=== PATIENT | female | born 1950 | race American Indian/Alaskan Native ===

== ENCOUNTER 2016-07-30 14:41 | Observation (INO) | payer MEDICARE, MEDICAID ==
[~2016-07-30] VITALS: Ht 170.2 cm; Wt 102.6 kg
[~2016-07-30 14:41] MED LIST: ACET-1697 PO; ACET-2267 PO; ACHYD1T PO; ASP325T PO; ASP325TEC PO; ASPI-84; ASPI-983 PO; ASPI81TA19 PO; BISA5TAB8 PO; CALC500T7 PO; CEPH-507 PO; CEPH500C PO; CHOL100011 PO; CTLP20T PO; DCS100C PO; DICL100G13 TOP; DICL100G13 TP; DICL100G18 TP; DOXY100T2 PO; DULO30CA3 PO; DULO60CA58 PO; DULO60CA6 PO; ENXP40I.4 SC; ESCI20TA2 PO; FIBER LAXATIVE; FURO40TA4 PO; GLYB5TAB6; HYDR-2890 PO; HYDR-3714 PO; HYDR-3720 PO; HYDR-3820 PO; HYDR118S10 PO; INSU100I10 SQ; INSU100I14 SQ; INSU100I5; INSU100V28 SQ; INSU100V6 SQ; IRON150C3 PO; IRON150C6 PO; LEVE1U SQ; LISI10TA2 PO; LOPE2CAP PO; LOPE2CAP14 PO; LOPE2CAP29 PO; LORA10TA7 PO; MAGN-47 PO; MAGN400O7 PO; MAGN400T6 PO; METF1000 PO; METO-272 PO; METO50TA7 PO; MTF500T PO; MULT-305 PO; NF-XOP-HFA; NITR-65 PO; OLME20TA21 PO; ONDA2VIA IV; ONDAN4ODT PO; PNT40TEC PO; POLY17PO23 GT; POLY17PO6 PO; POLY255P PO; PREG100C22 PO; PREG150C PO; PREG50C; PROP1TAB77; PROT1PAC2 PO; ROPI2TAB3 PO; ROPI2TAB4 PO; ROSU10TA12 PO; SULF1TAB35 PO; SULF1TAB7 PO; TELM40T; TRAM-42 PO; TRAM50TA2 PO; Tramadol Hcl PO; VANC1.5P3 IV; [UNRECOGNIZED DRUG - CODE] IVF; [UNRECOGNIZED DRUG - SUPPLY] IV
--- NOTE | 2016-07-30 15:28 | ED Integumentary General ---
General Chief Complaint: Lower Extremity Stated Complaint: BILATERAL LEG SWELLING, DIABETES Source: patient Exam Limitations: no limitations History of Present Illness Time seen by provider: 15:25 Initial Comments To ER with bilateral lower actually redness and swelling for the past few days. She's had chronic swelling to the left leg after having a hip replacement about a year and a half ago. The swelling and redness to the right leg is more pronounced over the past few days than usual. There is now an open sore to this area as well. No fevers or chills. She is diabetic. Severity: moderate Possible Cause: no cause identified Associated Symptoms: denies symptoms Allergies and Home Medications Allergies Coded Allergies: No Known Drug Allergies (Unverified , 09/15/13) Home Medications Aspirin 81 Mg Tablet.dr 243 MG PO DAILY (Reported) TAKES 3 (81 MG) TABLETS Calcium Carbonate 200 Mg Tab.chew 400 MG PO NEEDED PRN PRN INDIGESTION ( Reported) Diclofenac Sod 100 Gm Gel TP QID PRN PRN BACK PAIN (Reported) Duloxetine HCl 60 Mg Capsule.dr 60 MG PO DAILY (Reported) Furosemide 40 Mg Tablet 40 MG PO DAILY (Reported) Hydrocodone/Acetaminophen 1 Each Tablet 1 TAB PO Q4H PRN PRN PAIN (Reported) Insulin Aspart 300 Units/3 Ml Solution SQ UD (Reported) PER SLIDING SCALE Insulin Glargine,Hum.rec.anlog 100 Unit/1 Ml Insuln.pen 20 UNITS SQ DAILY ( Reported) HOLD IF BLOOD SUGAR IS 95 OR BELOW Loperamide HCl 2 Mg Capsule 2 MG PO QID PRN PRN DIARRHEA (Reported) Magnesium Hydroxide 400 Mg/5 Ml Oral.susp 30 ML PO DAILY PRN PRN CONSTIPATION ( Reported) Metoprolol Succinate 50 Mg Tab.er.24h 25 MG PO DAILY (Reported) Multivits W-Ca,Fe,Other Min 1 Each Tablet 1 TAB PO DAILY (Reported) Polyethylene Glycol 3350 255 Gm Powder 17 GM PO HS PRN PRN CONSTIPATION ( Reported) Pregabalin 150 Mg Capsule 150 MG PO TID (Reported) Ropinirole HCl 2 Mg Tablet 2 MG PO BID (Reported) Sulfamethoxazole/Trimethoprim 1 Each Tablet #14 1 EACH PO BID Prescribed by: DUKE JUAREZ on 08/16/15 1230 Tramadol HCl 50 Mg Tablet 50 MG PO Q6H PRN PRN PAIN (Reported) TAKES FOR MILD PAIN Whey Protein Isolate 1 Each Powd.pack 1 PACKET PO TID (Reported) Constitutional: see HPI EENTM: see HPI Respiratory: no symptoms reported Cardiovascular: no symptoms reported Genitourinary: no symptoms reported Musculoskeletal: no symptoms reported Skin: see HPI Psychiatric/Neurological: No Symptoms Reported Endocrine: No Symptoms Reported Hematologic/Lymphatic: No Symptoms Reported Past Kaxqhpq-Sykiir-Slugyc Hx Patient Social History Former Smoker/When Quit: Aug 12, 1991 Recent Foreign Travel: No Contact w/Someone Who Travel: No Immunizations Up To Date Tetanus Booster (TDap): Less than 5yrs PED Vaccines UTD: Yes Date of Pneumonia Vaccine: Mar 19, 2012 Date of Influenza Vaccine: Mar 25, 2015 Seasonal Allergies Seasonal Allergies: No Surgeries HX Surgeries: Yes (HEMORRHOIDECTOMY, L HIP replacement, reduction left hip dislocation x2) Surgeries: Gallbladder, Orthopedic Respiratory Hx Respiratory Disorders: No Cardiovascular Hx Cardiac Disorders: Yes (CHF) Cardiac Disorders: Hypertension Neurological Hx Neurological Disorders: Yes (RLS) Reproductive System Hx Reproductive Disorders: No Sexually Transmitted Disease: No HIV/AIDS: No Genitourinary Hx Genitourinary Disorders: No Gastrointestinal Hx Gastrointestinal Disorders: Yes Gastrointestinal Disorders: Chronic Constipation, Hemorrhoids Musculoskeletal Musculoskeletal Disorders: Arthritis, Back Injury, Chronic Back Pain Endocrine Hx Endocrine Disorders: Yes (Lantus/ Novolog) Endocrine Disorders: Diabetes, Insulin dep HEENT HX ENT Disorders: Yes (report the start of cataracts, migrains) HEENT Disorders: Cataract Loss of Vision: Bilateral Hearing Impairment: Denies Cancer Hx Cancer: No Psychosocial Hx Psychiatric Problems: Yes Behavioral Health Disorders: Anxiety, Depression Integumentary HX Skin/Integumentary Disorder: No Blood Transfusions Hx Blood Disorders: No Adverse Reaction to a Blood Tr: No Family Medical History Significant Family History: No Pertinent Family Hx Family Medial History: Congestive heart failure 03 FATHER Prostate cancer 03 FATHER No Family History of: Abdominal aortic aneurysm [place]'s disease Alcoholism Aphasia Cancer Cancer of colon Cataract Congenital heart disease Cystic fibrosis Dementia Dysphagia Family history: Allergy Family history: Alzheimer's disease Family history: Arthritis Family history: Asthma Family history: Breast disease Family history: Cardiovascular disease Family history: Coronary thrombosis Family history: Diabetes mellitus Family history: Gastrointestinal disease Family history: Glaucoma Family history: Hypertension Family history: Osteoporosis Family history: Thyroid disorder Headache Hearing loss Heart disease Hereditary disease History of - anemia History of - disorder History of - respiratory disease History of drug abuse Human immunodeficiency virus (HIV) seropositivity Hypercholesterolemia Infertile Kidney disease Malignant neoplasm of lung Myocardial infarction Parkinson's disease Psychotic disorder Seizure disorder Stroke Tuberculosis Visual impairment Physical Exam Vital Signs Vital Sign - Last 12Hours 07/30/16 15:35 Temp 97.2 Pulse 85 Resp 20 B/P 154/77 Pulse Ox 96 Capillary Refill : General Appearance: WD/WN no apparent distress HEENT: PERRL/EOMI normal ENT inspection Neck: non-tender full range of motion Respiratory: no respiratory distress no accessory muscle use Neurologic/Psychiatric: alert normal mood/affect oriented x 3 Skin: normal color warm/dry Skin Problem Character: erythema Comments Erythema to bilateral lower extremities which is likely chronic venous stasis dermatitis. The left leg is swollen no more so than usual but greater than the right leg. We will ultrasound the left leg. There is an open area to the medial aspect of the right lower leg with some drainage. Progress/Results/Core Measures Results/Orders Lab Results Laboratory Tests Test 07/30/16 15:24 Range/Units Alanine Aminotransferase (ALT/SGPT) 21 0-55 U/L Albumin 4.2 3.2-4.5 G/DL Alkaline Phosphatase 108 40-136 U/L Anion Gap 8 5-14 MMOL/L Aspartate Amino Transf (AST/SGOT) 17 5-34 U/L BUN/Creatinine Ratio 11 Basophils # (Auto) 0.1 0.0-0.1 10^3/uL Basophils (%) (Auto) 1 0-10 % Blood Urea Nitrogen 9 7-18 MG/DL Calcium Level 10.6 H 8.5-10.1 MG/DL Carbon Dioxide Level 27 21-32 MMOL/L Chloride Level 102 98-107 MMOL/L Creatinine 0.84 0.60-1.30 MG/DL Eosinophils # (Auto) 0.4 H 0.0-0.3 10^3/uL Eosinophils (%) (Auto) 5 0-10 % Estimat Glomerular Filtration Rate > 60 Glucose Level 184 H 70-105 MG/DL Hematocrit 38 35-52 % Hemoglobin 12.1 11.5-16.0 G/DL Lactic Acid Level 1.0 0.5-2.0 MMOL/L Lymphocytes # (Auto) 1.3 1.0-4.0 X 10^3 Lymphocytes (%) (Auto) 14 12-44 % Mean Corpuscular Hemoglobin 26 25-34 PG Mean Corpuscular Hemoglobin Concent 32 32-36 G/DL Mean Corpuscular Volume 82 80-99 FL Mean Platelet Volume 10.6 H 7.4-10.4 FL Monocytes # (Auto) 0.9 0.0-1.0 X 10^3 Monocytes (%) (Auto) 10 0-12 % Neutrophils # (Auto) 6.2 1.8-7.8 X 10^3 Neutrophils (%) (Auto) 70 42-75 % Platelet Count 272 130-400 10^3/uL Potassium Level 4.1 3.6-5.0 MMOL/L Red Blood Count 4.59 4.35-5.85 10^6/uL Red Cell Distribution Width 14.9 H 10.0-14.5 % Sodium Level 137 135-145 MMOL/L Total Bilirubin 0.4 0.1-1.0 MG/DL Total Protein 7.9 6.4-8.2 G/DL White Blood Count 8.9 4.3-11.0 10^3/uL My Orders Orders-LIAN RAMIREZ APRN Cbc With Automated Diff (07/30/16 15:16) Comprehensive Metabolic Panel (07/30/16 15:16) Blood Culture (07/30/16 15:16) Lactic Acid Analyzer (07/30/16 15:16) Saline Lock/Iv-Start (07/30/16 15:16) Wound Culture (07/30/16 15:16) Us Venous Lower Ext Lt (07/30/16 15:31) Vancomycin Injection (Vancomycin Injecti (07/30/16 16:15) Vital Signs/I&O Vital Sign - Last 12Hours 07/30/16 15:35 Temp 97.2 Pulse 85 Resp 20 B/P 154/77 Pulse Ox 96 Departure Communication Time/Spoke to Admitting Phy: 16:[address] Priest. We'll admit patient for IV antibiotics. Consult Dr. Peña. Impression Impression: Primary Impression: Cellulitis of right leg Disposition: ADMITTED INPATIENT Condition: Stable Decision to Admit Reason: Admit from ER (General) Decision to Admit/Date: Jul 30, 2016 Time/Decision to Admit Time: 16:09 Departure-Patient Inst. Referrals: JOSE PRIEST DO (PCP/Family) Primary Care Physician LIAN RAMIREZ APRN Jul 30, 2016 15:28 Primary Care Physician LIAN RAMIREZ APRN Jul 30, 2016 15:28
[2016-07-30 15:35] LABS: BASOPHILS # (AUTO) 0.1 10^3/uL (0.0-0.1); BASOPHILS % (AUTO) 1 % (0-10); EOSINOPHILS # (AUTO) 0.4 10^3/uL (0.0-0.3); EOSINOPHILS % (AUTO) 5 % (0-10); LYMPHOCYTES # (AUTO) 1.3 X 10^3 (1.0-4.0); LYMPHOCYTES % (AUTO) 14 % (12-44); MEAN CORPUSCULAR HEMOGLOBIN 26 PG (25-34); MEAN CORPUSCULAR HGB CONC 32 G/DL (32-36); MEAN CORPUSCULAR VOLUME 82 FL (80-99); MEAN PLATELET VOLUME 10.6 FL (7.4-10.4); MONOCYTES # (AUTO) 0.9 X 10^3 (0.0-1.0); MONOCYTES % (AUTO) 10 % (0-12); NEUTROPHILS # (AUTO) 6.2 X 10^3 (1.8-7.8); NEUTROPHILS % (AUTO) 70 % (42-75); PLATELET COUNT 272 10^3/uL (130-400); RED BLOOD COUNT 4.59 10^6/uL (4.35-5.85); RED CELL DISTRIBUTION WIDTH 14.9 % (10.0-14.5); WHITE BLOOD COUNT 8.9 10^3/uL (4.3-11.0)
[2016-07-30 15:55] LABS: ALANINE AMINOTRANSFERASE 21 U/L (0-55); ALBUMIN 4.2 G/DL (3.2-4.5); ANION GAP 8 MMOL/L (5-14); ASPARTATE AMINO TRANSFERASE 17 U/L (5-34); BILIRUBIN,TOTAL 0.4 MG/DL (0.1-1.0); BLOOD UREA NITROGEN 9 MG/DL (7-18); BUN/CREATININE RATIO 11; CALCIUM 10.6 MG/DL (8.5-10.1); CARBON DIOXIDE 27 MMOL/L (21-32); CHLORIDE 102 MMOL/L (98-107); CREATININE SERUM 0.84 MG/DL (0.60-1.30); GFR ESTIMATED > 60; GLUCOSE 184 MG/DL (70-105); POTASSIUM 4.1 MMOL/L (3.6-5.0); SODIUM 137 MMOL/L (135-145); TOTAL PROTEIN 7.9 G/DL (6.4-8.2)
[2016-07-30] MEDS ORDERED: VANCOMYCIN INJECTION 1,250 MG in NS (IVPB) 250 ML IV SCH (16:15)
[2016-07-30 17:03] LABS: BILIRUBIN,URINE NEGATIVE (NEGATIVE); KETONES,URINE NEGATIVE (NEGATIVE); LEUKOCYTE ESTERASE ,URINE 1+ (NEGATIVE); NITRITE,URINE NEGATIVE (NEGATIVE); PH,URINE 8 (5-9); PROTEIN,URINE 1+ (NEGATIVE); UROBILINOGEN,URINE NORMAL (NORMAL)
--- NOTE | 2016-07-30 17:04 | Diagnostic Imaging Report ---
PROCEDURE: US left lower extremity venous. TECHNIQUE: Multiple real-time grayscale images were obtained over the left lower extremity in various projections. Additional duplex Doppler and color Doppler images were also obtained. INDICATION: Left leg redness and swelling. FINDINGS: Left extremity shows normal color flow Doppler imaging of the venous system from the external iliac vein to the ankle. Calf compression shows normal augmentation of flow at the popliteal level. No evidence of popliteal cyst. IMPRESSION: Normal left lower extremity color duplex venous ultrasound. Dictated by: Dictated on workstation # [id number]
[2016-07-30] MEDS ORDERED: CATHETER FLUSH 10 ML SYR IV PRN (18:15)
[2016-07-30] MEDS ORDERED: VANCOMYCIN 500 MG/NS 100 ML IVPB IV NR ×2 (18:45)
[2016-07-30] MEDS ORDERED: ALPR0.25 PO (19:24)
[2016-07-30] MEDS ORDERED: NF-ESOM40C PO (19:24)
[2016-07-30] MEDS ORDERED: ROSU10TA PO (19:24)
[2016-07-30 20:00] VITALS: BP 134/81
[2016-07-30] MEDS: CATHETER FLUSH 10 ML SYR IV SCH (20:43)
[2016-07-30] MEDS: inSUlin (REGULAR) HUMAN 1 UNIT/0.01 ML (CHARGE PER UNIT) SC SCH (20:45)
[2016-07-30] MEDS ORDERED: inSUlin ASPART (NovoLOG) 1 UNIT/0.01 ML (CHARGE PER UNIT) SC SCH (21:00)
[2016-07-30] MEDS ORDERED: PREGABALIN 75 MG (LYRICA) CAP ONE (21:40)
[2016-07-30] MEDS ORDERED: PREGABALIN 100 MG (LYRICA) CAPSULE PO SCH (21:45)
[2016-07-30] MEDS ORDERED: ONDANSETRON 4 MG/2 ML (SDV) Z0FRAN IVP PRN (21:45)
[2016-07-30] MEDS: ALPRAZolam 0.25 MG (XANAX) TAB PO SCH (21:52)
[2016-07-30] MEDS: inSUlin DETERMIR 1 UNIT/0.01 ML (LEVEMIR) CHARGE PER UNIT SQ SCH (21:52)
[2016-07-30] MEDS: rOPINIRole 1 MG (REQUIP) TABLET PO SCH (21:53)
[2016-07-30 23:35] VITALS: BP 146/61
[2016-07-31 04:00] VITALS: BP 139/63
[2016-07-31] MEDS: CATHETER FLUSH 10 ML SYR IV SCH ×3 (05:36→22:19)
[2016-07-31] MEDS ORDERED: SODIUM CHLORIDE (ADD-VANTAGE) 250 ML ONE (05:37)
[2016-07-31] MEDS ORDERED: VANCOMYCIN 1 GM ADD-VANTAGE VIAL IV ONE (05:37)
[2016-07-31] MEDS: inSUlin (REGULAR) HUMAN 1 UNIT/0.01 ML (CHARGE PER UNIT) SC SCH ×4 (05:47→22:17)
[2016-07-31] MEDS: PANTOPRAZOLE 40 MG (PROTONIX) TAB PO SCH (06:35)
[2016-07-31] MEDS: VANCOMYCIN 1 GM/NS 250 ML IVPB IV SCH ×4 (06:35→19:49)
[2016-07-31 07:05] LABS: MEAN PLATELET VOLUME 10.7 FL (7.4-10.4); RED BLOOD COUNT 4.12 10^6/uL (4.35-5.85); RED CELL DISTRIBUTION WIDTH 14.9 % (10.0-14.5); WHITE BLOOD COUNT 8.3 10^3/uL (4.3-11.0)
[2016-07-31 07:22] LABS: ALANINE AMINOTRANSFERASE 16 U/L (0-55); ALBUMIN 3.4 G/DL (3.2-4.5); ANION GAP 9 MMOL/L (5-14); ASPARTATE AMINO TRANSFERASE 15 U/L (5-34); BILIRUBIN,TOTAL 0.3 MG/DL (0.1-1.0); BLOOD UREA NITROGEN 9 MG/DL (7-18); BUN/CREATININE RATIO 12; CALCIUM 9.8 MG/DL (8.5-10.1); CARBON DIOXIDE 25 MMOL/L (21-32); CHLORIDE 107 MMOL/L (98-107); CREATININE SERUM 0.74 MG/DL (0.60-1.30); GFR ESTIMATED > 60; GLUCOSE 102 MG/DL (70-105); SODIUM 141 MMOL/L (135-145); TOTAL PROTEIN 6.4 G/DL (6.4-8.2)
[2016-07-31 08:00] VITALS: BP 126/60
--- NOTE | 2016-07-31 08:11 | History & Physicial ---
History of Present Illness History of Present Illness Reason for visit/HPI patient came to the emergency room due to redness of both legs the right one is worse. Patient has cellulitis of legs. Patient admitted for IV antibiotics and wound care Date of Admission Jul 30, 2016 at 16:06 I consulted on this patient on 07/31/16 08:08 Attending Physician Shan Priest DO Admitting Physician Shan Priest DO Consult Allergies and Home Medications Allergies Coded Allergies: No Known Drug Allergies (Unverified , 09/15/13) Home Medications Alprazolam 0.25 Mg Tablet 0.25 MG PO BID (Reported) Calcium Carbonate 200 Mg Tab.chew 400 MG PO NEEDED PRN PRN INDIGESTION ( Reported) Duloxetine HCl 60 Mg Capsule.dr 30 MG PO DAILY (Reported) Esomeprazole Magnesium 40 Mg Cap 40 MG PO DAILY (Reported) Furosemide 40 Mg Tablet 40 MG PO DAILY (Reported) Insulin Aspart 300 Units/3 Ml Solution SQ UD (Reported) PER SLIDING SCALE Insulin Glargine,Hum.rec.anlog 100 Unit/1 Ml Insuln.pen 40 UNITS SQ BID ( Reported) HOLD IF BLOOD SUGAR IS 95 OR BELOW Multivits W-Ca,Fe,Other Min 1 Each Tablet 1 TAB PO DAILY (Reported) Pregabalin 150 Mg Capsule 150 MG PO TID (Reported) Ropinirole HCl 2 Mg Tablet 2 MG PO BID (Reported) Rosuvastatin Calcium 10 Mg Tablet 10 MG PO DAILY (Reported) Tramadol HCl 50 Mg Tablet 50 MG PO Q8H (Reported) TAKES FOR MILD PAIN Past Natkpqk-Sqiqnb-Kqggtm Hx Patient Social History Marrital Status: Employed/Student: unemployed Alcohol Use: Denies Use Recreational Drug Use: No Smoking Status: Never a Smoker Former smoker/When Quit: Aug 12, 1991 Physical Abuse Screen: No Sexual Abuse: No Recent Foreign Travel: No Contact w/other who traveled: No Recent Hopitalizations: No Recent Infectious Disease Expo: No Immunizations Up To Date Tetanus Booster (TDap): Less than 5yrs Date of Pneumonia Vaccine: Mar 19, 2012 Date of Influenza Vaccine: Mar 25, 2016 Seasonal Allergies Seasonal Allergies: No Surgeries HX Surgeries: Yes (HEMORRHOIDECTOMY, L HIP replacement, reduction left hip dislocation x2) Surgeries: Gallbladder, Orthopedic Respiratory Hx Respiratory Disorders: No Cardiovascular Hx Cardiovascular Disorders: Yes (CHF) Cardiac Disorders: Hypertension Neurological Hx Neurological Disorders: Yes (RLS) Neurological Disorders: Neuropathy Reproductive System : No Hx Reproductive Disorders: No Sexually Transmitted Disease: No HIV/AIDS: No Genitourinary Hx Genitourinary Disorders: No Gastrointestinal Hx Gastrointestinal Disorders: Yes Gastrointestinal Disorders: Chronic Constipation, Hemorrhoids Musculoskeletal Musculoskeletal Disorders: Arthritis, Back Injury, Chronic Back Pain Endocrine Hx Endocrine Disorders: Yes (Lantus/ Novolog) Endocrine Disorders: Diabetes, Insulin dep HEENT HX ENT Disorders: Yes (report the start of cataracts, migrains) HEENT Disorders: Cataract Loss of Vision: Bilateral Hearing Impairment: Denies Cancer Hx Cancer: No Psychosocial Hx Psychiatric Problems: Yes Behavioral Health Disorders: Anxiety, Depression Integumentary HX Skin/Integumentary Disorder: Yes (SEEING WOUND CARE FOR WOUND ON FEET) Blood Transfusions Hx Blood Disorders: No Adverse Reaction to a Blood Tr: No Family Medical History Significant Family History: No Pertinent Family Hx Family Hx: Congestive heart failure 03 FATHER Prostate cancer 03 FATHER No Family History of: Abdominal aortic aneurysm [place]'s disease Alcoholism Aphasia Cancer Cancer of colon Cataract Congenital heart disease Cystic fibrosis Dementia Dysphagia Family history: Allergy Family history: Alzheimer's disease Family history: Arthritis Family history: Asthma Family history: Breast disease Family history: Cardiovascular disease Family history: Coronary thrombosis Family history: Diabetes mellitus Family history: Gastrointestinal disease Family history: Glaucoma Family history: Hypertension Family history: Osteoporosis Family history: Thyroid disorder Headache Hearing loss Heart disease Hereditary disease History of - anemia History of - disorder History of - respiratory disease History of drug abuse Human immunodeficiency virus (HIV) seropositivity Hypercholesterolemia Infertile Kidney disease Malignant neoplasm of lung Myocardial infarction Parkinson's disease Psychotic disorder Seizure disorder Stroke Tuberculosis Visual impairment Constitutional: weakness EENTM: no symptoms reported Respiratory: no symptoms reported Cardiovascular: no symptoms reported Gastrointestinal: no symptoms reported Genitourinary: no symptoms reported Physical Exam Vital Signs Vital Sign - Last 12Hours 07/30/16 07/30/16 15:35 17:45 Temp 97.2 Pulse 85 Resp 20 B/P 154/77 Pulse Ox 96 O2 Delivery Room Air Capillary Refill : Less Than 3 SecondsLess Than 3 Seconds General Appearance: No Apparent Distress WD/WN Eyes: Bilateral Eye Normal Inspection HEENT: Normal ENT Inspection Neck: Full Range of Motion Normal Inspection Respiratory: Chest Non Tender Lungs Clear Normal Breath Sounds No Accessory Muscle Use No Respiratory Distress Cardiovascular: Regular Rate, Rhythm No Murmur Gastrointestinal: Non Tender Soft Assessment/Plan Assessment and Plan cellulitis of legs worse on right. Diabetes Clinical Quality Measures DVT/VTE Risk/Contraindication: Risk Factor Score Per Nursin RFS Level Per Nursing on Admit: 4+=Very High SHAN PRIEST DO Jul 31, 2016 08:11
[2016-07-31] MEDS ORDERED: ENOXAPARIN 40 MG/0.4 ML (LOVENOX) SYR SC SCH (08:15)
[2016-07-31] MEDS: ALPRAZolam 0.25 MG (XANAX) TAB PO SCH ×2 (08:28→22:18)
[2016-07-31] MEDS: DULoxetine 30 MG (CYMBALTA) CAP PO SCH (08:28)
[2016-07-31] MEDS: FUROSEMIDE 40 MG (LASIX) TAB PO SCH (08:28)
[2016-07-31] MEDS: rOPINIRole 1 MG (REQUIP) TABLET PO SCH ×2 (08:28→22:18)
[2016-07-31] MEDS: ENOXAPARIN 40 MG/0.4 ML (LOVENOX) SYR SC SCH (08:29)
[2016-07-31] MEDS: inSUlin DETERMIR 1 UNIT/0.01 ML (LEVEMIR) CHARGE PER UNIT SQ SCH ×2 (08:29→22:18)
[2016-07-31] MEDS: MICONAZOLE 2% POWDER (DESENEX AF) 90 GM TOP SCH ×2 (10:10→22:19)
[2016-07-31] MEDS: PREGABALIN 75 MG (LYRICA) CAP PO SCH ×3 (10:11→22:19)
[2016-07-31] MEDS ORDERED: IRON150C3 PO (11:07)
[2016-07-31] MEDS ORDERED: LORA10TA76 PO (11:07)
[2016-07-31] MEDS ORDERED: METO-272 PO (11:07)
[2016-07-31] MEDS ORDERED: IBUP-30 PO (11:07)
[2016-07-31] MEDS ORDERED: [UNRECOGNIZED DRUG - CODE] TP (11:07)
[2016-07-31] MEDS ORDERED: POLY17PO6 PO (11:07)
[2016-07-31] MEDS ORDERED: ACET-2650 PO (11:07)
[2016-07-31] MEDS ORDERED: METF1000 PO (11:07)
[2016-07-31] MEDS ORDERED: ASPI325T32 PO (11:07)
[2016-07-31] MEDS ORDERED: LOPE-134 PO (11:07)
[2016-07-31 12:00] VITALS: BP 135/63
[2016-07-31 15:55] VITALS: BP 136/63
[2016-07-31] MEDS ORDERED: TROUGH ORDER-PHARMACY XX NR (18:00)
--- NOTE | 2016-07-31 19:46 | Wound Care Progress Note ---
Subjective Subjective Subjective/Events-last exam 66 year old female with worsening cellulitis of bilateral lower extremities. She has been admitted overnight, with IV antibiotics and elevation. Her leg has improved. She has an ulcer with crusting on the medial right calf, which appears to be adjacent to the area of cellulitis on that side. PMH: CHF, HTN, DM, Neuropathy, Anxiety, Depression. FH: CHF, cancer. SH: resides assisted living. Review of Systems General: No Chills, Fatigue HEENT: Head Aches Pulmonary: No Dyspnea Cardiovascular: No: Chest Pain Musculoskeletal: : leg pain Objective Exam Last Set of Vital Signs Vital Signs Date Time Temp Pulse Resp B/P Pulse Ox O2 Delivery O2 Flow Rate FiO2 07/31/16 15:55 97.5 75 22 136/63 100 Room Air Capillary Refill : Less Than 3 SecondsLess Than 3 Seconds I&O Bad tableGeneral: Alert, No Acute Distress Lungs: Clear to Auscultation, Normal Air Movement Heart: Regular Rate, No Murmurs Abdomen: Normal Bowel Sounds, Soft Skin: Other (R medial calf -- 3.7 x 2.0 x 0.1 cm; base dessicated, no drainage.) Results Lab Laboratory Tests 07/30/16 20:44: Glucometer 150H 07/30/16 21:28: Glucometer 182H 07/31/16 05:20: Alanine Aminotransferase (ALT/SGPT) 16, Albumin 3.4, Alkaline Phosphatase 85, Anion Gap 9, Aspartate Amino Transf (AST/SGOT) 15, BUN/Creatinine Ratio 12, Blood Urea Nitrogen 9, Calcium Level 9.8, Carbon Dioxide Level 25, Chloride Level 107, Creatinine 0.74, Estimat Glomerular Filtration Rate > 60, Glucose Level 102, Hematocrit 34L, Hemoglobin 10.8L, Hemoglobin A1c 7.9H, Mean Corpuscular Hemoglobin 26, Mean Corpuscular Hemoglobin Concent 32, Mean Corpuscular Volume 83, Mean Platelet Volume 10.7H, Platelet Count 257, Potassium Level 4.0, Red Blood Count 4.12L, Red Cell Distribution Width 14.9H, Sodium Level 141, Total Bilirubin 0.3, Total Protein 6.4, White Blood Count 8.3 07/31/16 05:45: Glucometer 105 07/31/16 10:16: Glucometer 71 07/31/16 16:00: Glucometer 131H 07/31/16 18:36: Vancomycin Level Trough 14.7 Microbiology 07/30/16 Blood Culture - Preliminary, Resulted No growth 07/30/16 Urine Culture - Preliminary, Resulted 07/30/16 Gram Stain - Final, Resulted 07/30/16 Wound Culture - Preliminary, Resulted Enterococcus Faecalis Bacillus Species Assessment/Plan Assessment/Plan Assessment/Plan 1. Cellulitis, BLE. 2. Venous insufficiency. 3. Diabetes mellitus. Plan: Elevation, leave wound open to air, arterial evaluation. HIRAM HAQ MD Jul 31, 2016 19:46
[2016-07-31 20:30] VITALS: BP 132/71
[2016-07-31] MEDS: ROSUVASTATIN 5 MG (CRESTOR) TABLET PO SCH (22:18)
[2016-07-31 23:46] VITALS: BP 121/67
[2016-08-01 03:34] VITALS: BP 128/66
[2016-08-01] MEDS: PANTOPRAZOLE 40 MG (PROTONIX) TAB PO SCH (05:44)
[2016-08-01] MEDS: VANCOMYCIN 1 GM/NS 250 ML IVPB IV SCH ×4 (05:45→20:03)
[2016-08-01] MEDS: CATHETER FLUSH 10 ML SYR IV SCH ×3 (05:45→21:21)
[2016-08-01] MEDS: inSUlin (REGULAR) HUMAN 1 UNIT/0.01 ML (CHARGE PER UNIT) SC SCH ×4 (05:46→21:21)
[2016-08-01 05:54] LABS: BASOPHILS # (AUTO) 0.1 10^3/uL (0.0-0.1); BASOPHILS % (AUTO) 2 % (0-10); EOSINOPHILS # (AUTO) 0.5 10^3/uL (0.0-0.3); EOSINOPHILS % (AUTO) 8 % (0-10); LYMPHOCYTES # (AUTO) 1.3 X 10^3 (1.0-4.0); LYMPHOCYTES % (AUTO) 18 % (12-44); MEAN CORPUSCULAR HEMOGLOBIN 27 PG (25-34); MEAN CORPUSCULAR HGB CONC 32 G/DL (32-36); MEAN CORPUSCULAR VOLUME 83 FL (80-99); MONOCYTES # (AUTO) 0.8 X 10^3 (0.0-1.0); MONOCYTES % (AUTO) 11 % (0-12); NEUTROPHILS # (AUTO) 4.4 X 10^3 (1.8-7.8); NEUTROPHILS % (AUTO) 61 % (42-75); PLATELET COUNT 254 10^3/uL (130-400); RED BLOOD COUNT 4.23 10^6/uL (4.35-5.85); RED CELL DISTRIBUTION WIDTH 14.8 % (10.0-14.5); WHITE BLOOD COUNT 7.1 10^3/uL (4.3-11.0)
[2016-08-01 06:23] LABS: ALANINE AMINOTRANSFERASE 17 U/L (0-55); ALBUMIN 3.4 G/DL (3.2-4.5); ANION GAP 10 MMOL/L (5-14); ASPARTATE AMINO TRANSFERASE 14 U/L (5-34); BILIRUBIN,TOTAL 0.2 MG/DL (0.1-1.0); BLOOD UREA NITROGEN 20 MG/DL (7-18); BUN/CREATININE RATIO 25; CALCIUM 9.3 MG/DL (8.5-10.1); CARBON DIOXIDE 24 MMOL/L (21-32); CHLORIDE 105 MMOL/L (98-107); CREATININE SERUM 0.81 MG/DL (0.60-1.30); GFR ESTIMATED > 60; GLUCOSE 102 MG/DL (70-105); SODIUM 139 MMOL/L (135-145); TOTAL PROTEIN 6.3 G/DL (6.4-8.2)
--- NOTE | 2016-08-01 07:28 | Progress Note (SOAP) ---
Subjective Subjective/Events-last exam cellulitis of both legs worse on the right. Venous insufficiency. Diabetes mellitus. Wound culture preliminary of legs Enterococcus faecalis and Bacillus suspicious. sensitive to vancomycin with enterococcus. Patient complaining of right lower abdominal pain for the last few months Patient states pain is stabbing at times Patient feels that cellulitis is improving Bacillus species. Sensitive to vancomycin which she is on Objective Exam Vital Signs Date Time Temp Pulse Resp B/P Pulse Ox O2 Delivery O2 Flow Rate FiO2 08/01/16 03:34 97.3 76 16 128/66 96 Room Air 07/31/16 23:46 96.6 68 12 121/67 98 Room Air 07/31/16 21:00 93 Room Air 07/31/16 20:30 97.7 71 22 132/71 98 Room Air 07/31/16 15:55 97.5 75 22 136/63 100 Room Air 07/31/16 12:00 97.2 75 18 135/63 96 Room Air 07/31/16 09:00 Room Air 07/31/16 08:00 95.9 79 18 126/60 97 Room Air I & O 08/01/16 07:00 Intake Total 1750 ml Output Total 1325 ml Balance 425 ml Capillary Refill : Less Than 3 SecondsLess Than 3 Seconds General Appearance: No Apparent Distress WD/WN HEENT: Normal ENT Inspection Neck: Normal Inspection Respiratory: Chest Non Tender Lungs Clear Normal Breath Sounds No Accessory Muscle Use No Respiratory Distress Cardiovascular: Regular Rate, Rhythm Gastrointestinal: non tender soft Extremity: Other (cellulitis of legs worse on right) Results Lab Laboratory Tests 07/31/16 10:16: Glucometer 71 07/31/16 16:00: Glucometer 131H 07/31/16 18:36: Vancomycin Level Trough 14.7 07/31/16 21:08: Glucometer 153H 08/01/16 05:45: Alanine Aminotransferase (ALT/SGPT) 17, Albumin 3.4, Alkaline Phosphatase 90, Anion Gap 10, Aspartate Amino Transf (AST/SGOT) 14, BUN/Creatinine Ratio 25, Basophils # (Auto) 0.1, Basophils (%) (Auto) 2, Blood Urea Nitrogen 20H, Calcium Level 9.3, Carbon Dioxide Level 24, Chloride Level 105, Creatinine 0.81 , Eosinophils # (Auto) 0.5H, Eosinophils (%) (Auto) 8, Estimat Glomerular Filtration Rate > 60, Glucose Level 102, Hematocrit 35, Hemoglobin 11.2L, Lymphocytes # (Auto) 1.3, Lymphocytes (%) (Auto) 18, Mean Corpuscular Hemoglobin 27, Mean Corpuscular Hemoglobin Concent 32, Mean Corpuscular Volume 83, Mean Platelet Volume 10.0, Monocytes # (Auto) 0.8, Monocytes (%) (Auto) 11, Neutrophils # (Auto) 4.4, Neutrophils (%) (Auto) 61, Platelet Count 254, Potassium Level 4.0, Red Blood Count 4.23L, Red Cell Distribution Width 14.8H, Sodium Level 139, Total Bilirubin 0.2, Total Protein 6.3L, White Blood Count 7.1 08/01/16 05:46: Glucometer 97 Microbiology 07/30/16 Blood Culture - Preliminary, Resulted No growth 07/30/16 Urine Culture - Preliminary, Resulted 07/30/16 Gram Stain - Final, Resulted 07/30/16 Wound Culture - Preliminary, Resulted Enterococcus Faecalis Bacillus Species Assessment/Plan Assessment/Plan Assess & Plan/Chief Complaint cellulitis of both legs. Wound culture preliminary report Enterococcus faecalis that was sensitive to vancomycin and bacillus species.. Right side of abdomen pain the last few months Diagnosis/Problems: Clinical Quality Measures DVT/VTE Risk/Contraindication: Risk Factor Score Per Nursin RFS Level Per Nursing on Admit: 4+=Very High Contraindications-Mechi: Other *list below* JOSE PRIEST DO Aug 01, 2016 07:28
[2016-08-01 08:00] VITALS: BP 113/77
[2016-08-01] MEDS: ALPRAZolam 0.25 MG (XANAX) TAB PO SCH ×2 (08:03→21:20)
[2016-08-01] MEDS: rOPINIRole 1 MG (REQUIP) TABLET PO SCH ×2 (08:03→21:20)
[2016-08-01] MEDS: ENOXAPARIN 40 MG/0.4 ML (LOVENOX) SYR SC SCH (08:03)
[2016-08-01] MEDS: FUROSEMIDE 40 MG (LASIX) TAB PO SCH (08:03)
[2016-08-01] MEDS: DULoxetine 30 MG (CYMBALTA) CAP PO SCH (08:03)
[2016-08-01] MEDS: MICONAZOLE 2% POWDER (DESENEX AF) 90 GM TOP SCH ×2 (08:04→21:22)
[2016-08-01] MEDS: inSUlin DETERMIR 1 UNIT/0.01 ML (LEVEMIR) CHARGE PER UNIT SQ SCH ×2 (08:04→21:21)
[2016-08-01] MEDS: PREGABALIN 75 MG (LYRICA) CAP PO SCH ×3 (08:04→21:20)
[2016-08-01 09:25] VITALS: BP 113/77
[2016-08-01] MEDS ORDERED: IOHEXOL 350 MG/ML 100 ML (OMNIPAQUE 350) VIAL IV ONE (10:00)
[2016-08-01] MEDS ORDERED: NS 100 ML (IVPB) BAG IV ONE (10:00)
--- NOTE | 2016-08-01 11:12 | Diagnostic Imaging Report ---
PROCEDURE: CT abdomen and pelvis with contrast. TECHNIQUE: Multiple contiguous axial images were obtained through the abdomen and pelvis after administration of intravenous contrast. INDICATION: Right lower quadrant pain. FINDINGS: In the interval since the previous CT abdomen/pelvis exam of 09/14/2013, bilateral total hip prostheses have been inserted. The prostheses seem to be in good position but the artifact related to the prostheses does limit the evaluation of the pelvic contents. There is no pelvic mass or free fluid collection noted. The uterus and urinary bladder are grossly unremarkable and the appendix is not abnormally thickened. There is no pelvic mass or free fluid collection evident. The images through the upper abdomen show that the stomach is distended by gas, fluid, and particulate matter. This appearance is similar to the previous CT chest exam of 01/08/2015. There is no sign of a mass to cause a gastric outlet obstruction; however, if further evaluation of the stomach is desired, then an upper GI exam or endoscopy should be considered. The liver, spleen, pancreas, kidneys, aorta, and inferior vena cava show no sign of an acute abnormality. The gallbladder is surgically absent. According to the patient's history, she has also had a prior left adrenalectomy; however, on this exam, both adrenal glands are visualized. Correlation with the patient's surgical history would be recommended. The lung bases are clear. The bone windows show no sign of a fracture or of a destructive lesion. IMPRESSION: 1. The evaluation of the pelvic contents is limited due to streak artifact related to the total hip prostheses. There is no acute pelvic abnormality visualized, however. In particular, there is no sign of appendicitis. 2. The stomach is distended by fluid, particulate matter, and gas. There is no sign of a mass to suggest a gastric outlet obstruction but either an upper GI exam or endoscopy should be considered for further evaluation. 3. There is no acute abnormality of the abdomen or pelvis noted otherwise. 4. Both adrenal glands were visualized. Correlation with the patient's surgical history would be recommended. Dictated by: Dictated on workstation # [id number]
[2016-08-01 16:00] VITALS: BP 143/80
[2016-08-01] MEDS: MILK OF MAGNESIA 400 MG/5 ML 30 ML UDC PO PRN (16:26)
[2016-08-01] MEDS ORDERED: TROUGH ORDER-PHARMACY XX NR (18:00)
[2016-08-01] MEDS: ROSUVASTATIN 5 MG (CRESTOR) TABLET PO SCH (21:20)
[2016-08-01] MEDS: DOCUSATE SODIUM 100 MG (COLACE) CAP PO SCH (21:20)
[2016-08-02 00:40] VITALS: BP 108/63
[2016-08-02] MEDS: inSUlin (REGULAR) HUMAN 1 UNIT/0.01 ML (CHARGE PER UNIT) SC SCH ×4 (05:32→21:48)
[2016-08-02] MEDS: VANCOMYCIN 1 GM/NS 250 ML IVPB IV SCH ×4 (06:08→21:20)
[2016-08-02] MEDS: CATHETER FLUSH 10 ML SYR IV SCH ×3 (06:10→21:48)
[2016-08-02] MEDS: PANTOPRAZOLE 40 MG (PROTONIX) TAB PO SCH (06:10)
[2016-08-02 06:14] LABS: BASOPHILS # (AUTO) 0.1 10^3/uL (0.0-0.1); BASOPHILS % (AUTO) 1 % (0-10); EOSINOPHILS # (AUTO) 0.6 10^3/uL (0.0-0.3); EOSINOPHILS % (AUTO) 7 % (0-10); LYMPHOCYTES # (AUTO) 1.3 X 10^3 (1.0-4.0); LYMPHOCYTES % (AUTO) 16 % (12-44); MEAN CORPUSCULAR HEMOGLOBIN 26 PG (25-34); MEAN CORPUSCULAR HGB CONC 32 G/DL (32-36); MEAN CORPUSCULAR VOLUME 83 FL (80-99); MEAN PLATELET VOLUME 10.5 FL (7.4-10.4); MONOCYTES # (AUTO) 0.9 X 10^3 (0.0-1.0); MONOCYTES % (AUTO) 11 % (0-12); NEUTROPHILS # (AUTO) 5.2 X 10^3 (1.8-7.8); NEUTROPHILS % (AUTO) 65 % (42-75); PLATELET COUNT 273 10^3/uL (130-400); RED BLOOD COUNT 4.63 10^6/uL (4.35-5.85); RED CELL DISTRIBUTION WIDTH 14.9 % (10.0-14.5); WHITE BLOOD COUNT 8.1 10^3/uL (4.3-11.0)
[2016-08-02 06:39] LABS: ANION GAP 10 MMOL/L (5-14); BLOOD UREA NITROGEN 18 MG/DL (7-18); BUN/CREATININE RATIO 22; CALCIUM 9.7 MG/DL (8.5-10.1); CARBON DIOXIDE 26 MMOL/L (21-32); CHLORIDE 103 MMOL/L (98-107); CREATININE SERUM 0.81 MG/DL (0.60-1.30); GFR ESTIMATED > 60; GLUCOSE 114 MG/DL (70-105); SODIUM 139 MMOL/L (135-145)
[2016-08-02] MEDS: ENOXAPARIN 40 MG/0.4 ML (LOVENOX) SYR SC SCH (08:42)
[2016-08-02] MEDS: MILK OF MAGNESIA 400 MG/5 ML 30 ML UDC PO PRN (08:43)
[2016-08-02] MEDS: DOCUSATE SODIUM 100 MG (COLACE) CAP PO SCH ×2 (08:43→21:38)
[2016-08-02] MEDS: ALPRAZolam 0.25 MG (XANAX) TAB PO SCH ×2 (08:43→21:39)
[2016-08-02] MEDS: FUROSEMIDE 40 MG (LASIX) TAB PO SCH (08:43)
[2016-08-02] MEDS: inSUlin DETERMIR 1 UNIT/0.01 ML (LEVEMIR) CHARGE PER UNIT SQ SCH ×2 (08:43→21:39)
[2016-08-02] MEDS: DULoxetine 30 MG (CYMBALTA) CAP PO SCH (08:43)
[2016-08-02] MEDS: rOPINIRole 1 MG (REQUIP) TABLET PO SCH ×2 (08:43→21:39)
[2016-08-02] MEDS: PREGABALIN 75 MG (LYRICA) CAP PO SCH ×3 (08:43→21:39)
[2016-08-02] MEDS: MICONAZOLE 2% POWDER (DESENEX AF) 90 GM TOP SCH ×2 (08:44→21:48)
[2016-08-02 08:53] VITALS: BP 177/81
--- NOTE | 2016-08-02 09:33 | Progress Note (SOAP) ---
Subjective Subjective/Events-last exam patient feeling better today. Arthritis of legs are better. Diabetes okay. Patient voices no complaints. Patient sitting in chair happy this morning Objective Exam Vital Signs Date Time Temp Pulse Resp B/P Pulse Ox O2 Delivery O2 Flow Rate FiO2 08/02/16 08:53 97.5 68 12 177/81 100 Room Air 08/02/16 08:51 Room Air 08/02/16 00:40 96.4 72 20 108/63 97 Room Air 08/01/16 16:00 96.9 71 22 143/80 99 Room Air I & O 08/02/16 07:00 Intake Total 2600 ml Output Total 1700 ml Balance 900 ml Capillary Refill : Less Than 3 SecondsLess Than 3 Seconds General Appearance: No Apparent Distress WD/WN HEENT: TMs Normal Normal ENT Inspection Neck: Normal Inspection Non Tender Respiratory: Chest Non Tender Lungs Clear Normal Breath Sounds No Accessory Muscle Use No Respiratory Distress Cardiovascular: Regular Rate, Rhythm No Murmur Gastrointestinal: non tender soft Results Lab Laboratory Tests 08/02/16 05:30 Laboratory Tests 08/01/16 12:12: Glucometer 87 08/01/16 16:03: Glucometer 129H 08/01/16 18:37: Vancomycin Level Trough 19.4 08/01/16 21:02: Glucometer 184H 08/02/16 05:29: Glucometer 113H 08/02/16 05:30: Anion Gap 10, BUN/Creatinine Ratio 22, Basophils # (Auto) 0.1, Basophils (%) ( Auto) 1, Blood Urea Nitrogen 18, Calcium Level 9.7, Carbon Dioxide Level 26, Chloride Level 103, Creatinine 0.81, Eosinophils # (Auto) 0.6H, Eosinophils (%) (Auto) 7, Estimat Glomerular Filtration Rate > 60, Glucose Level 114H, Hematocrit 38, Hemoglobin 12.2, Lymphocytes # (Auto) 1.3, Lymphocytes (%) (Auto ) 16, Mean Corpuscular Hemoglobin 26, Mean Corpuscular Hemoglobin Concent 32, Mean Corpuscular Volume 83, Mean Platelet Volume 10.5H, Monocytes # (Auto) 0.9, Monocytes (%) (Auto) 11, Neutrophils # (Auto) 5.2, Neutrophils (%) (Auto) 65, Platelet Count 273, Potassium Level 4.0, Red Blood Count 4.63, Red Cell Distribution Width 14.9H, Sodium Level 139, White Blood Count 8.1 Microbiology 07/30/16 Blood Culture - Preliminary, Resulted No growth 07/30/16 Urine Culture - Final, Complete 07/30/16 Gram Stain - Final, Resulted 07/30/16 Wound Culture - Preliminary, Resulted Enterococcus Faecalis Bacillus Species Staph, Coag Neg ([facility]) Assessment/Plan Assessment/Plan Assess & Plan/Chief Complaint abdominal paincellulitis of both legs. Wound culture preliminary report Enterococcus faecalis that was sensitive to vancomycin and bacillus species.. Right side of abdomen pain the last few months. . 07/2616 cellulitis of both legs were sunlight. Diabetic ulcer. Legs are doing better. Diabetes. Abdominal pain right side Diagnosis/Problems: Clinical Quality Measures DVT/VTE Risk/Contraindication: Risk Factor Score Per Nursin RFS Level Per Nursing on Admit: 4+=Very High Contraindications-Mechi: Other *list below* JOSE PRIEST DO Aug 02, 2016 09:33
[2016-08-02 12:58] VITALS: BP 182/76
[2016-08-02 16:00] VITALS: BP 137/65
[2016-08-02] MEDS: SENNA W/DOCUSATE (SENOKOT S) TABLET PO SCH (21:38)
[2016-08-02] MEDS: ROSUVASTATIN 5 MG (CRESTOR) TABLET PO SCH (21:39)
--- NOTE | 2016-08-03 00:03 | Wound Care Progress Note ---
Subjective Subjective Subjective/Events-last exam 66 year old female with venous stasis of BLE. Legs are markedly improved with elevation. jThe patient is urged to continue post discharge. Will follow in clinic. PMFSH: No interval change. Review of Systems Pulmonary: No Dyspnea Cardiovascular: No: Chest Pain Objective Exam Last Set of Vital Signs Vital Signs Date Time Temp Pulse Resp B/P Pulse Ox O2 Delivery O2 Flow Rate FiO2 08/02/16 16:00 96.7 68 16 137/65 98 Room Air Capillary Refill : Less Than 3 SecondsLess Than 3 Seconds I&O Intake and Output 08/03/16 00:00 Intake Total 2020 ml Output Total 3200 ml Balance -1180 ml Intake Oral 1770 ml IV Total 250 ml Output Urine Total 3200 ml General: Alert, No Acute Distress Lungs: Normal Air Movement Extremities: Other (Markedly less edema and redness.) Results Lab Laboratory Tests 08/02/16 05:29: Glucometer 113H 08/02/16 05:30: Anion Gap 10, BUN/Creatinine Ratio 22, Basophils # (Auto) 0.1, Basophils (%) ( Auto) 1, Blood Urea Nitrogen 18, Calcium Level 9.7, Carbon Dioxide Level 26, Chloride Level 103, Creatinine 0.81, Eosinophils # (Auto) 0.6H, Eosinophils (%) (Auto) 7, Estimat Glomerular Filtration Rate > 60, Glucose Level 114H, Hematocrit 38, Hemoglobin 12.2, Lymphocytes # (Auto) 1.3, Lymphocytes (%) (Auto ) 16, Mean Corpuscular Hemoglobin 26, Mean Corpuscular Hemoglobin Concent 32, Mean Corpuscular Volume 83, Mean Platelet Volume 10.5H, Monocytes # (Auto) 0.9, Monocytes (%) (Auto) 11, Neutrophils # (Auto) 5.2, Neutrophils (%) (Auto) 65, Platelet Count 273, Potassium Level 4.0, Red Blood Count 4.63, Red Cell Distribution Width 14.9H, Sodium Level 139, White Blood Count 8.1 08/02/16 10:26: Glucometer 162H 08/02/16 16:04: Glucometer 161H 08/02/16 20:20: Glucometer 184H Microbiology 07/30/16 Blood Culture - Preliminary, Resulted No growth 07/30/16 Urine Culture - Final, Complete 07/30/16 Gram Stain - Final, Resulted 07/30/16 Wound Culture - Preliminary, Resulted Enterococcus Faecalis Gram Negative John 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 BLE cellulitis 2. Venous insufficiency. 3. Diabetes with venous disease. Plan: continue elevation and local care. HIRAM HAQ MD Aug 03, 2016 00:03
[2016-08-03 00:31] VITALS: BP 114/56
[2016-08-03 04:44] LABS: BASOPHILS # (AUTO) 0.1 10^3/uL (0.0-0.1); BASOPHILS % (AUTO) 1 % (0-10); EOSINOPHILS # (AUTO) 0.7 10^3/uL (0.0-0.3); EOSINOPHILS % (AUTO) 8 % (0-10); LYMPHOCYTES # (AUTO) 1.3 X 10^3 (1.0-4.0); LYMPHOCYTES % (AUTO) 15 % (12-44); MEAN CORPUSCULAR HEMOGLOBIN 27 PG (25-34); MEAN CORPUSCULAR HGB CONC 32 G/DL (32-36); MEAN CORPUSCULAR VOLUME 83 FL (80-99); MEAN PLATELET VOLUME 10.7 FL (7.4-10.4); MONOCYTES # (AUTO) 0.9 X 10^3 (0.0-1.0); MONOCYTES % (AUTO) 10 % (0-12); NEUTROPHILS # (AUTO) 5.7 X 10^3 (1.8-7.8); NEUTROPHILS % (AUTO) 66 % (42-75); PLATELET COUNT 280 10^3/uL (130-400); RED BLOOD COUNT 4.35 10^6/uL (4.35-5.85); RED CELL DISTRIBUTION WIDTH 14.9 % (10.0-14.5); WHITE BLOOD COUNT 8.7 10^3/uL (4.3-11.0)
[2016-08-03] MEDS: inSUlin (REGULAR) HUMAN 1 UNIT/0.01 ML (CHARGE PER UNIT) SC SCH ×3 (06:00→18:09)
[2016-08-03] MEDS: PANTOPRAZOLE 40 MG (PROTONIX) TAB PO SCH (06:32)
[2016-08-03] MEDS: CATHETER FLUSH 10 ML SYR IV SCH ×2 (06:32→13:51)
[2016-08-03] MEDS: VANCOMYCIN 1 GM/NS 250 ML IVPB IV SCH ×2 (06:33)
[2016-08-03] MEDS ORDERED: fluCOnazole (DIFLUCAN) 100 MG TAB PO NR (07:45)
[2016-08-03] MEDS: MICONAZOLE 2% POWDER (DESENEX AF) 90 GM TOP SCH (07:46)
[2016-08-03] MEDS: inSUlin DETERMIR 1 UNIT/0.01 ML (LEVEMIR) CHARGE PER UNIT SQ SCH (07:47)
[2016-08-03] MEDS: ENOXAPARIN 40 MG/0.4 ML (LOVENOX) SYR SC SCH (07:47)
[2016-08-03] MEDS: SENNA W/DOCUSATE (SENOKOT S) TABLET PO SCH (07:47)
[2016-08-03] MEDS: DOCUSATE SODIUM 100 MG (COLACE) CAP PO SCH (07:47)
[2016-08-03] MEDS: FUROSEMIDE 40 MG (LASIX) TAB PO SCH (07:47)
[2016-08-03] MEDS: rOPINIRole 1 MG (REQUIP) TABLET PO SCH (07:47)
[2016-08-03] MEDS: DULoxetine 30 MG (CYMBALTA) CAP PO SCH (07:47)
[2016-08-03] MEDS: ALPRAZolam 0.25 MG (XANAX) TAB PO SCH (07:48)
[2016-08-03] MEDS: PREGABALIN 75 MG (LYRICA) CAP PO SCH ×2 (07:48→13:51)
--- NOTE | 2016-08-03 07:52 | Progress Note (SOAP) ---
Subjective Subjective/Events-last exam patient feeling better today. Legs look better. Plan to discharge today. Patient have vaginal itching to put on Diflucan. 2 office in one week. Sent home on Augmentin Objective Exam Vital Signs Date Time Temp Pulse Resp B/P Pulse Ox O2 Delivery O2 Flow Rate FiO2 08/03/16 00:31 97.4 87 16 114/56 97 Room Air 08/02/16 16:00 96.7 68 16 137/65 98 Room Air 08/02/16 12:58 97.6 80 18 182/76 97 Room Air 08/02/16 08:53 97.5 68 12 177/81 100 Room Air 08/02/16 08:51 Room Air I & O 08/03/16 07:00 Intake Total 1810 ml Output Total 2550 ml Balance -740 ml Capillary Refill : Less Than 3 SecondsLess Than 3 Seconds General Appearance: No Apparent Distress WD/WN HEENT: Normal ENT Inspection Neck: Normal Inspection Respiratory: No Accessory Muscle Use No Respiratory Distress Cardiovascular: Regular Rate, Rhythm Results Lab Laboratory Tests 08/03/16 03:55 Laboratory Tests 08/02/16 10:26: Glucometer 162H 08/02/16 16:04: Glucometer 161H 08/02/16 20:20: Glucometer 184H 08/03/16 03:55: Basophils # (Auto) 0.1, Basophils (%) (Auto) 1, Eosinophils # (Auto) 0.7H, Eosinophils (%) (Auto) 8, Hematocrit 36, Hemoglobin 11.6, Lymphocytes # (Auto) 1.3, Lymphocytes (%) (Auto) 15, Mean Corpuscular Hemoglobin 27, Mean Corpuscular Hemoglobin Concent 32, Mean Corpuscular Volume 83, Mean Platelet Volume 10.7H, Monocytes # (Auto) 0.9, Monocytes (%) (Auto) 10, Neutrophils # ( Auto) 5.7, Neutrophils (%) (Auto) 66, Platelet Count 280, Red Blood Count 4.35, Red Cell Distribution Width 14.9H, White Blood Count 8.7 08/03/16 06:02: Glucometer 88 Microbiology 07/30/16 Blood Culture - Preliminary, Resulted No growth 07/30/16 Urine Culture - Final, Complete 07/30/16 Gram Stain - Final, Resulted 07/30/16 Wound Culture - Preliminary, Resulted Enterococcus Faecalis Serratia Plymuthica 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 Wound culture preliminary report Enterococcus faecalis that was sensitive to vancomycin and bacillus species.. Right side of abdomen pain the last few months. . 07/2616 cellulitis of both legs were sunlight. Diabetic ulcer. Legs are doing better. Diabetes. Abdominal pain right side. . 08/03/16. Patient to be discharged today. Cellulitis of both legs much better. Diabetic ulcer with crust better. Diabetes. To be sent home on Augmentin 875 Diagnosis/Problems: Clinical Quality Measures DVT/VTE Risk/Contraindication: Risk Factor Score Per Nursin RFS Level Per Nursing on Admit: 4+=Very High Contraindications-Mechi: Other *list below* JOSE PRIEST DO Aug 03, 2016 07:52
[2016-08-03] MEDS ORDERED: AMOX-358 PO (07:54)
--- NOTE | 2016-08-03 07:56 | Discharge Inst-Simple/Standard ---
Discharge Inst-Standard Discharge Medications New, Converted or Re-Newed RX: Transmitted to Pharmacy Patient Instructions/Follow Up Plan of Care/Instructions/FU: 2 office in one week. Patient get in touch with caregiver when gets home. Augmentin 875 one twice a day Activity as Tolerated: Yes Discharge Diet: ADA Diet JOSE PRIEST DO Aug 03, 2016 07:56
[2016-08-03 08:45] VITALS: BP 143/66
[2016-08-03 16:41] VITALS: BP 138/65
[2016-08-03 17:54] VITALS: BP 138/65
[2016-08-03] MEDS ORDERED: TROUGH ORDER-PHARMACY XX NR (18:00)
--- NOTE | 2016-08-09 07:22 | Clinic Account Progress/Dx ---
Clinic Account Progress/Dx DIAGNOSIS: Diagnosis cellulitis of right lower limb. Enterococcus is the cause of diseases classified. Type II diabetes. Non -pressure chronic ulcer of right calf. Venous insufficiency. Polyneuropathy. Essential hypertension JOSE PRIEST DO Aug 09, 2016 07:22
[2016-11-11] MEDS ORDERED: CLIN300C11 PO (12:26)
== END 2016-08-03 18:13 | disposition home or self-care (01) ==
LOC: EDUNIT# 14:41 → ER 14:52 → 4TH 16:06 → UNDOADMOB 16:06 → 4TH 17:40
PROVIDERS: ADMIT Family Medicine; ATTEND Family Medicine
DX: L03.115 Cellulitis of right lower limb (principal); B95.2 Enterococcus as the cause of diseases classified elsewhere; B96.89 Other specified bacterial agents as the cause of diseases classified elsewhere; E11.622 Type 2 diabetes mellitus with other skin ulcer; L97.219 Non-pressure chronic ulcer of right calf with unspecified severity; I87.2 Venous insufficiency (chronic) (peripheral); G62.9 Polyneuropathy, unspecified; I10 Essential (primary) hypertension; I50.9 Heart failure, unspecified; F41.9 Anxiety disorder, unspecified; F32.9 Major depressive disorder, single episode, unspecified; Z79.4 Long term (current) use of insulin
CPT/HCPCS: 36415; 74177; 80048; 80053; 80202; 81000; 82962; 83036; 83605; 85025; 85027; 87040; 87070; 87077; 87088; 87186; 87205; 96365; G0378

== ENCOUNTER → 2016-08-10 | Outpatient (CLI) | payer MEDICARE, MEDICAID ==
[~2016-08-10] MED LIST changes: +ACET-2650 PO; +ALPR0.25 PO; +ALPR0.254 PO; +AMOX-358 PO; +ASPI325T32 PO; +CLIN300C11 PO; +DULO30CA48 PO; +IBUP-30 PO; +LOPE-134 PO; +LORA10TA76 PO; +NF-ESOM40C PO; +ROSU10TA PO; +ROSU10TA24 PO; +SOLI10TA2 PO; +[UNRECOGNIZED DRUG - CODE] TP
[2016-08-10 11:17] LABS: ALANINE AMINOTRANSFERASE 19 U/L (0-55); ALBUMIN 3.7 G/DL (3.2-4.5); ANION GAP 9 MMOL/L (5-14); ASPARTATE AMINO TRANSFERASE 17 U/L (5-34); BILIRUBIN,TOTAL 0.2 MG/DL (0.1-1.0); BLOOD UREA NITROGEN 18 MG/DL (7-18); BUN/CREATININE RATIO 23; CALCIUM 9.5 MG/DL (8.5-10.1); CARBON DIOXIDE 26 MMOL/L (21-32); CHLORIDE 105 MMOL/L (98-107); GFR ESTIMATED > 60; GLUCOSE 106 MG/DL (70-105); POTASSIUM 4.7 MMOL/L (3.6-5.0); SODIUM 140 MMOL/L (135-145); TOTAL PROTEIN 6.7 G/DL (6.4-8.2)
== END ==
LOC: LAB 10:37
PROVIDERS: ATTEND Surgery
DX: L97.211 Non-pressure chronic ulcer of right calf limited to breakdown of skin (principal); I87.331 Chronic venous hypertension (idiopathic) with ulcer and inflammation of right lower extremity; E11.622 Type 2 diabetes mellitus with other skin ulcer; I89.0 Lymphedema, not elsewhere classified
CPT/HCPCS: 36415; 80053

== ENCOUNTER → 2016-08-12 | Outpatient (CLI) | payer MEDICARE, MEDICAID ==
[2016-08-12 13:28] LABS: ALANINE AMINOTRANSFERASE 15 U/L (0-55); ALBUMIN 3.7 G/DL (3.2-4.5); ANION GAP 11 MMOL/L (5-14); ASPARTATE AMINO TRANSFERASE 15 U/L (5-34); BILIRUBIN,TOTAL 0.3 MG/DL (0.1-1.0); BLOOD UREA NITROGEN 16 MG/DL (7-18); BUN/CREATININE RATIO 22; CALCIUM 9.5 MG/DL (8.5-10.1); CARBON DIOXIDE 25 MMOL/L (21-32); CHLORIDE 102 MMOL/L (98-107); CREATININE SERUM 0.72 MG/DL (0.60-1.30); GFR ESTIMATED > 60; GLUCOSE 133 MG/DL (70-105); SODIUM 138 MMOL/L (135-145); TOTAL PROTEIN 6.5 G/DL (6.4-8.2)
== END ==
LOC: LABNPT 12:20
PROVIDERS: ATTEND Surgery
DX: L03.90 Cellulitis, unspecified (principal)
CPT/HCPCS: 80053

== ENCOUNTER 2016-08-22 12:58 | Outpatient (RCR) | payer MEDICARE, MEDICAID ==
[~2016-08-22 12:58] MED LIST changes: -ALPR0.254 PO; -CLIN300C11 PO; -DULO30CA48 PO; -ROSU10TA24 PO; -SOLI10TA2 PO
[2016-11-11] MEDS ORDERED: CLIN300C11 PO (12:26)
== END 2016-08-22 16:00 | disposition home or self-care (01) ==
LOC: WOUNDCARE 12:58
PROVIDERS: ATTEND Surgery
DX: L97.211 Non-pressure chronic ulcer of right calf limited to breakdown of skin (principal); I87.331 Chronic venous hypertension (idiopathic) with ulcer and inflammation of right lower extremity; E11.622 Type 2 diabetes mellitus with other skin ulcer; I89.0 Lymphedema, not elsewhere classified
CPT/HCPCS: 36415; 80053; 97597; 99212

== ENCOUNTER 2016-09-11 17:36 | Emergency (ER) | payer MEDICARE, MEDICAID ==
[~2016-09-11] VITALS: Ht 167.6 cm; Wt 102.6 kg
--- NOTE | 2016-09-11 18:39 | ED General ---
General Chief Complaint: Lower Extremity Stated Complaint: LEG PAIN,SWELLNG BILAT Nursing Triage Note: PT STATES BI-LAT LOWER EXTREMITY PAIN AND SWELLING. PT STATES DR. FARIAS'S OFFICE WANTED HER TO COME HERE TO SEE IF SHE HAD ANY BLOOD CLOTS AND ADMIT HER FOR IV ABX. Nursing Sepsis Screen: No Definite Risk Source of Information: Patient, Family, Old Records Exam Limitations: No Limitations History of Present Illness Time Seen by Provider: 18:12 Initial Comments This 66-year-old diabetic patient presents to the emergency room accompanied by her sister who helps care for her. She has complaints of increasing edema, erythema, warmth, and pain in the lower extremities below the knee bilaterally for about one week. She has a history of lower extremity cellulitis. She sees Dr. Peña for wound care. She has associated skin disruption with blistering and sores. The left lower extremity is more severe than the right. It is typical for the left extremity to be more swollen. She is an insulin dependent diabetic. No fevers or tachycardia. Blood sugars have been a little bit higher the past couple of days than usual. She is not good about checking her blood sugars. Dr. Priest's her primary care provider. Allergies and Home Medications Allergies Coded Allergies: No Known Drug Allergies (Unverified , 09/15/13) Home Medications Acetaminophen 650 Mg Tablet.er 650-1,200 MG PO Q4H PRN PRN PAIN (Reported) Alprazolam 0.25 Mg Tablet 0.25 MG PO BID PRN PRN ANXIETY (Reported) Amoxicillin/Potassium Clav 1 Each Tablet #14 1 EACH PO BID Prescribed by: JOSE PRIEST on 08/03/16 0754 Calcium Carbonate 200 Mg Tab.chew 400 MG PO QID PRN PRN INDIGESTION (Reported) Cephalexin 500 Mg Capsule #40 500 MG PO QID Prescribed by: CRISTINA HUMPHREY on 09/11/168 Duloxetine HCl 60 Mg Capsule.dr 30 MG PO DAILY (Reported) LAST FILLED #30 06-12-16 Esomeprazole Magnesium 40 Mg Cap 40 MG PO DAILY (Reported) LAST FILLED #90 04-24-16 Furosemide 40 Mg Tablet 40 MG PO DAILY (Reported) Ibuprofen 200 Mg Tablet 600 MG PO TID PRN PRN PAIN (Reported) Insulin Aspart 300 Units/3 Ml Solution SQ QID (Reported) 60-200 = 0 UNITS 201-250 = 3 UNITS 251-300 = 5 UNITS 301-350 = 7 UNITS 351- 400 = 9 UNITS Insulin Glargine,Hum.rec.anlog 100 Unit/1 Ml Insuln.pen 40 UNITS SQ BID ( Reported) HOLD IF BLOOD SUGAR IS 95 OR BELOW Iron Polysaccharide Complex 150 Mg Capsule 150 MG PO BID (Reported) Loperamide HCl 2 Mg Tablet 2 MG PO UD PRN PRN DIARRHEA (Reported) Loratadine 10 Mg Tablet 10 MG PO DAILY (Reported) Metformin HCl 1,000 Mg Tablet 1,000 MG PO BID (Reported) LAST FILLED #180 02-14-16 Polyethylene Glycol 3350 17 Gm Powd.pack 17 GM PO DAILY PRN PRN CONSTIPATION ( Reported) Pregabalin 150 Mg Capsule 150 MG PO TID (Reported) LAST FILLED #90 06-20-16 Ropinirole HCl 2 Mg Tablet 2 MG PO BID (Reported) LAST FILLED #60 05-15-16 Rosuvastatin Calcium 10 Mg Tablet 10 MG PO DAILY (Reported) Tolnaftate 45 Gm Powder TP DAILY (Reported) Tramadol HCl 50 Mg Tablet 50 MG PO TID (Reported) LAST FILLED #63 07-05-16 Constitutional: no symptoms reported EENTM: no symptoms reported Respiratory: no symptoms reported Cardiovascular: no symptoms reported Gastrointestinal: no symptoms reported Genitourinary: no symptoms reported Musculoskeletal: see HPI Skin: see HPI Psychiatric/Neurological: No Symptoms Reported Hematologic/Lymphatic: No Symptoms Reported Past Wphclcq-Btwjei-Lyamnf Hx Patient Social History Alcohol Use: Denies Use Recreational Drug Use: No Smoking Status: Former Smoker Type Used: Cigarettes Former Smoker/When Quit: Aug 12, 1991 Recent Foreign Travel: No Contact w/Someone Who Travel: No Recent Infectious Disease Expo: No Recent Hopitalizations: Yes (JUL 2016-CELLULITIS) Immunizations Up To Date Tetanus Booster (TDap): Less than 5yrs PED Vaccines UTD: Yes Date of Pneumonia Vaccine: Mar 19, 2012 Date of Influenza Vaccine: Mar 25, 2016 Seasonal Allergies Seasonal Allergies: No Surgeries HX Surgeries: Yes (HEMORRHOIDECTOMY, L HIP replacement, reduction left hip dislocation x2) Surgeries: Gallbladder, Joint Replacement (hips), Orthopedic Respiratory Hx Respiratory Disorders: No Cardiovascular Hx Cardiac Disorders: Yes (CHF) Cardiac Disorders: Hypertension Neurological Hx Neurological Disorders: Yes (RLS) Neurological Disorders: Neuropathy Reproductive System Hx Reproductive Disorders: No Sexually Transmitted Disease: No HIV/AIDS: No Genitourinary Hx Genitourinary Disorders: No Gastrointestinal Hx Gastrointestinal Disorders: Yes Gastrointestinal Disorders: Chronic Constipation, Hemorrhoids Musculoskeletal Hx Musculoskeletal Disorders: Yes (school age / accident) Musculoskeletal Disorders: Arthritis, Back Injury, Chronic Back Pain Endocrine Hx Endocrine Disorders: Yes (Lantus/ Novolog) Endocrine Disorders: Diabetes, Insulin dep HEENT HX ENT Disorders: Yes (report the start of cataracts, migrains) HEENT Disorders: Cataract Loss of Vision: Bilateral Hearing Impairment: Denies Cancer Hx Cancer: No Psychosocial Hx Psychiatric Problems: Yes Behavioral Health Disorders: Anxiety, Depression Integumentary HX Skin/Integumentary Disorder: Yes (SEEING WOUND CARE FOR WOUND ON FEET, history of cellulitis) Blood Transfusions Hx Blood Disorders: No Adverse Reaction to a Blood Tr: No Family Medical History Significant Family History: No Pertinent Family Hx Family Medial History: Congestive heart failure 03 FATHER Prostate cancer 03 FATHER No Family History of: Abdominal aortic aneurysm Phill's disease Alcoholism Aphasia Cancer Cancer of colon Cataract Congenital heart disease Cystic fibrosis Dementia Dysphagia Family history: Allergy Family history: Alzheimer's disease Family history: Arthritis Family history: Asthma Family history: Breast disease Family history: Cardiovascular disease Family history: Coronary thrombosis Family history: Diabetes mellitus Family history: Gastrointestinal disease Family history: Glaucoma Family history: Hypertension Family history: Osteoporosis Family history: Thyroid disorder Headache Hearing loss Heart disease Hereditary disease History of - anemia History of - disorder History of - respiratory disease History of drug abuse Human immunodeficiency virus (HIV) seropositivity Hypercholesterolemia Infertile Kidney disease Malignant neoplasm of lung Myocardial infarction Parkinson's disease Psychotic disorder Seizure disorder Stroke Tuberculosis Visual impairment Physical Exam Vital Signs Vital Sign - Last 12Hours 09/11/16 18:04 Temp 98.0 Pulse 70 Resp 20 B/P 137/63 Pulse Ox 95 O2 Delivery Room Air Capillary Refill : Less Than 3 Seconds General Appearance: No Apparent Distress WD/WN Obese HEENT: PERRL/EOMI Normal ENT Inspection Neck: Normal Inspection Respiratory: Lungs Clear Normal Breath Sounds No Accessory Muscle Use No Respiratory Distress Cardiovascular: Regular Rate, Rhythm No Edema No Murmur Other (faint peripheral pulses palpable in the feet bilaterally, right greater than left) Gastrointestinal: Normal Bowel Sounds Non Tender Soft Extremity: Pedal Edema Swelling (swelling of the distal bilateral lower extremities, left greater than right. Warm, blanching erythema with brisk capillary refill. Disfigurement of the left foot. 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 Norm as Tested Skin: Warm/Dry Erythema Progress/Results/Core Measures Results/Orders Lab Results Laboratory Tests Test 09/11/16 18:30 Range/Units Alanine Aminotransferase (ALT/SGPT) 14 0-55 U/L Albumin 3.6 3.2-4.5 G/DL Alkaline Phosphatase 70 40-136 U/L Anion Gap 10 5-14 MMOL/L Aspartate Amino Transf (AST/SGOT) 13 5-34 U/L B-Type Natriuretic Peptide 66.4 <100.0 PG/ML BUN/Creatinine Ratio 19 Basophils # (Auto) 0.1 0.0-0.1 10^3/uL Basophils (%) (Auto) 2 0-10 % Blood Urea Nitrogen 16 7-18 MG/DL C-Reactive Protein High Sensitivity 0.15 0.00-0.50 MG/DL Calcium Level 9.6 8.5-10.1 MG/DL Carbon Dioxide Level 27 21-32 MMOL/L Chloride Level 104 98-107 MMOL/L Creatinine 0.85 0.60-1.30 MG/DL D-Dimer 0.59 H 0.00-0.49 UG/ML Eosinophils # (Auto) 0.7 H 0.0-0.3 10^3/uL Eosinophils (%) (Auto) 8 0-10 % Estimat Glomerular Filtration Rate > 60 Glucose Level 186 H 70-105 MG/DL Hematocrit 34 L 35-52 % Hemoglobin 10.9 L 11.5-16.0 G/DL Lymphocytes # (Auto) 1.5 1.0-4.0 X 10^3 Lymphocytes (%) (Auto) 17 12-44 % Mean Corpuscular Hemoglobin 27 25-34 PG Mean Corpuscular Hemoglobin Concent 32 32-36 G/DL Mean Corpuscular Volume 83 80-99 FL Mean Platelet Volume 10.2 7.4-10.4 FL Monocytes # (Auto) 1.0 0.0-1.0 X 10^3 Monocytes (%) (Auto) 12 0-12 % Neutrophils # (Auto) 5.4 1.8-7.8 X 10^3 Neutrophils (%) (Auto) 62 42-75 % Platelet Count 233 130-400 10^3/uL Potassium Level 3.8 3.6-5.0 MMOL/L Red Blood Count 4.08 L 4.35-5.85 10^6/uL Red Cell Distribution Width 14.7 H 10.0-14.5 % Sodium Level 141 135-145 MMOL/L Total Bilirubin 0.2 0.1-1.0 MG/DL Total Protein 6.7 6.4-8.2 G/DL White Blood Count 8.7 4.3-11.0 10^3/uL My Orders Orders-CRISTINA VALLEJO MD Cbc With Automated Diff (09/11/16 18:26) Comprehensive Metabolic Panel (09/11/16 18:26) Hs C Reactive Protein (09/11/16 18:26) Fibrin Degradation Products (09/11/16 18:26) Saline Lock/Iv-Start (09/11/16 18:26) BNP (09/11/16 18:40) Chest 1 View, Ap/Pa Only (09/11/16 18:40) Us Venous Lower Ext Carlitos (09/11/16 19:16) Us Carlitos Lower Ext [id number] (09/11/16 19:16) Clindamycin 900 Mg/50 Ml Ivpb (Cleocin P (09/11/16 19:30) Medications Given in ED Current Medications Medications Dose Ordered Sig/Donny Route Start Time Stop Time Status Last Admin Dose Admin Clindamycin Phosphate/Dextrose 50 ml @ 100 mls/hr ONCE ONCE IV 09/11/16 19:30 09/11/16 19:59 DC 09/11/16 20:13 100 MLS/HR Vital Signs/I&O Vital Sign - Last 12Hours 09/11/16 09/11/16 18:04 21:46 Temp 98.0 98.1 Pulse 70 74 Resp 20 20 B/P 137/63 Pulse Ox 95 98 O2 Delivery Room Air Blood Pressure Mean: 87 Progress Note : Progress Note Patient's lab workup was relatively unremarkable. WBC and CRP were normal. Patient has no fever or tachycardia. Venous and arterial ultrasounds were also negative. Patient received a dose of IV clindamycin for treatment of potential developing cellulitis. I believe the patient's primary issue is dependent edema. We discussed elevating her legs is much as possible. We also discussed increasing her Lasix dose for a couple of days to help promote diuresis. Patient did not meet admission criteria. Departure Impression Impression: Primary Impression: Dependent edema Additional Impression: Cellulitis of lower extremity Qualified Code: L03.119 - Cellulitis of unspecified part of limb Disposition: HOME, SELF-CARE Condition: Improved Departure-Patient Inst. Decision time for Depature: 21:20 Referrals: JOSE PRIEST DO (PCP/Family) Primary Care Physician Patient Instructions: Cellulitis (Skin Infection), Adult (DC), Dependent Edema (DC) Add. Discharge Instructions: Keep your legs elevated to the level of your heart is much as possible. Continue wound care with Dr. Peña. Follow-up with Dr. Priest this week. You may increase your Lasix dose by one half tablet to be taken after lunch for the next 2 or 3 days. This may help reduce the swelling. Complete your antibiotics as prescribed as you may be developing early cellulitis. Return to the emergency room if symptoms worsen. All discharge instructions reviewed with patient and/or family. Voiced understanding. Scripts Cephalexin (Keflex)500 Mg [id number] Mg PO QID #40 CAP Prov:CRISTINA VALLEJO MD 09/11/16 Copy Copies To 1: JOSE PRIEST JOSHUA T MD Sep 11, 2016 18:39 CRISTINA VALLEJO MD Sep 11, 2016 18:39
[2016-09-11 18:40] LABS: BASOPHILS # (AUTO) 0.1 10^3/uL (0.0-0.1); BASOPHILS % (AUTO) 2 % (0-10); EOSINOPHILS # (AUTO) 0.7 10^3/uL (0.0-0.3); EOSINOPHILS % (AUTO) 8 % (0-10); LYMPHOCYTES # (AUTO) 1.5 X 10^3 (1.0-4.0); LYMPHOCYTES % (AUTO) 17 % (12-44); MEAN CORPUSCULAR HEMOGLOBIN 27 PG (25-34); MEAN CORPUSCULAR HGB CONC 32 G/DL (32-36); MEAN CORPUSCULAR VOLUME 83 FL (80-99); MEAN PLATELET VOLUME 10.2 FL (7.4-10.4); MONOCYTES % (AUTO) 12 % (0-12); NEUTROPHILS # (AUTO) 5.4 X 10^3 (1.8-7.8); NEUTROPHILS % (AUTO) 62 % (42-75); PLATELET COUNT 233 10^3/uL (130-400); RED BLOOD COUNT 4.08 10^6/uL (4.35-5.85); RED CELL DISTRIBUTION WIDTH 14.7 % (10.0-14.5); WHITE BLOOD COUNT 8.7 10^3/uL (4.3-11.0)
--- NOTE | 2016-09-11 18:58 | Diagnostic Imaging Report ---
INDICATION: Bilateral leg swelling. Comparison with 03/31/2015. FINDINGS: There is cardiomegaly again noted. There is no evidence of pulmonary edema. The lungs are well-aerated and free of infiltrates. There is no hilar adenopathy. No pneumothorax or pleural effusions. IMPRESSION: Cardiomegaly with no acute changes demonstrated. Dictated by: Dictated on workstation # [id number]
[2016-09-11 19:01] LABS: ALANINE AMINOTRANSFERASE 14 U/L (0-55); ALBUMIN 3.6 G/DL (3.2-4.5); ANION GAP 10 MMOL/L (5-14); ASPARTATE AMINO TRANSFERASE 13 U/L (5-34); BILIRUBIN,TOTAL 0.2 MG/DL (0.1-1.0); BLOOD UREA NITROGEN 16 MG/DL (7-18); BUN/CREATININE RATIO 19; CALCIUM 9.6 MG/DL (8.5-10.1); CARBON DIOXIDE 27 MMOL/L (21-32); CHLORIDE 104 MMOL/L (98-107); CREATININE SERUM 0.85 MG/DL (0.60-1.30); GFR ESTIMATED > 60; GLUCOSE 186 MG/DL (70-105); POTASSIUM 3.8 MMOL/L (3.6-5.0); SODIUM 141 MMOL/L (135-145); TOTAL PROTEIN 6.7 G/DL (6.4-8.2); hs C REACTIVE PROTEIN 0.15 MG/DL (0.00-0.50)
[2016-09-11] MEDS ORDERED: CLINDAMYCIN 900 MG/50 ML IVPB 50 ML IV ONE (19:30)
--- NOTE | 2016-09-11 21:02 | Diagnostic Imaging Report ---
EXAM: US VENOUS LOWER EXT BLANCHE INDICATION: Bilateral lower extremity pain and swelling. COMPARISON: Left lower extremity venous Doppler 07/30/2016. FINDINGS: The bilateral common femoral vein, superficial femoral vein, profunda femoris, and popliteal veins are normal. These vessels show normal compressibility, color flow, and doppler augmentation. The deep calf veins, although not very well seen, demonstrate no distinct intraluminal thrombus. IMPRESSION: Negative venous Doppler of the bilateral lower extremities. Dictated by: Dictated on workstation # [id number]
--- NOTE | 2016-09-11 21:11 | Diagnostic Imaging Report ---
PROCEDURE: US Bilateral lower extremity arterial. TECHNIQUE: Multiple real-time grayscale images are obtained through both lower extremity arterial systems with color Doppler imaging and color Doppler spectral analysis. INDICATION: Bilateral leg pain and swelling. COMPARISON: None. FINDINGS: Examination mildly limited by technical factors. The dorsal pedis arteries are nonvisualized bilaterally due to lower extremity edema. There is no significantly elevated velocities within the bilateral common femoral, superficial femoral, popliteal or posterior tibial arteries. The anterior tibial arteries are not seen. Most of the waveforms demonstrate normal triphasic waveforms with the exception of the right popliteal, left distal superficial and bilateral posterior tibial arteries which are more biphasic. IMPRESSION: No high-grade arterial stenosis involving the arterial systems of the bilateral lower extremities. The exam is mildly limited by technical factors including swelling in the lower extremities. Dictated by: Dictated on workstation # [id number]
[2016-09-11] MEDS ORDERED: CEPH-507 PO (21:28)
[2016-09-11 21:46] VITALS: BP 115/49
[2016-11-11] MEDS ORDERED: CLIN300C11 PO (12:26)
== END 2016-09-11 21:46 | disposition home or self-care (01) ==
LOC: EDUNIT# 17:36 → ER 17:38
DX: L03.115 Cellulitis of right lower limb (principal); L03.116 Cellulitis of left lower limb; R60.0 Localized edema; E11.9 Type 2 diabetes mellitus without complications; Z79.4 Long term (current) use of insulin; Z79.84 Long term (current) use of oral hypoglycemic drugs; Z79.899 Other long term (current) drug therapy; Z87.891 Personal history of nicotine dependence; Z96.642 Presence of left artificial hip joint
CPT/HCPCS: 36415; 71010; 80053; 83880; 85025; 85379; 86141; 93925; 93970; 96365

== ENCOUNTER 2016-11-01 13:56 | Emergency (ER) | payer MEDICARE, MEDICAID ==
[~2016-11-01] VITALS: Ht 167.6 cm; Wt 90.7 kg
[2016-11-01 15:40] LABS: BASOPHILS # (AUTO) 0.1 10^3/uL (0.0-0.1); BASOPHILS % (AUTO) 1 % (0-10); EOSINOPHILS # (AUTO) 0.8 10^3/uL (0.0-0.3); EOSINOPHILS % (AUTO) 9 % (0-10); LYMPHOCYTES # (AUTO) 1.4 X 10^3 (1.0-4.0); LYMPHOCYTES % (AUTO) 15 % (12-44); MEAN CORPUSCULAR HEMOGLOBIN 27 PG (25-34); MEAN CORPUSCULAR HGB CONC 32 G/DL (32-36); MEAN CORPUSCULAR VOLUME 84 FL (80-99); MEAN PLATELET VOLUME 10.4 FL (7.4-10.4); MONOCYTES # (AUTO) 0.9 X 10^3 (0.0-1.0); MONOCYTES % (AUTO) 10 % (0-12); NEUTROPHILS # (AUTO) 5.8 X 10^3 (1.8-7.8); NEUTROPHILS % (AUTO) 65 % (42-75); PLATELET COUNT 218 10^3/uL (130-400); RED CELL DISTRIBUTION WIDTH 14.6 % (10.0-14.5); WHITE BLOOD COUNT 8.9 10^3/uL (4.3-11.0)
[2016-11-01 16:00] LABS: ALANINE AMINOTRANSFERASE 16 U/L (0-55); ALBUMIN 3.7 G/DL (3.2-4.5); ANION GAP 11 MMOL/L (5-14); ASPARTATE AMINO TRANSFERASE 14 U/L (5-34); BILIRUBIN,TOTAL 0.2 MG/DL (0.1-1.0); BLOOD UREA NITROGEN 16 MG/DL (7-18); BUN/CREATININE RATIO 20; CALCIUM 9.8 MG/DL (8.5-10.1); CARBON DIOXIDE 26 MMOL/L (21-32); CHLORIDE 104 MMOL/L (98-107); CREATININE SERUM 0.79 MG/DL (0.60-1.30); GFR ESTIMATED > 60; GLUCOSE 184 MG/DL (70-105); SODIUM 141 MMOL/L (135-145); TOTAL PROTEIN 6.8 G/DL (6.4-8.2); hs C REACTIVE PROTEIN 0.42 MG/DL (0.00-0.50)
--- NOTE | 2016-11-01 16:10 | Diagnostic Imaging Report ---
PROCEDURE: US left lower extremity venous. TECHNIQUE: Multiple real-time grayscale images were obtained over the left lower extremity in various projections. Additional duplex Doppler and color Doppler images were also obtained. INDICATION: Leg swelling. FINDINGS: The veins are compressible and have normal spontaneous and augmented flow. IMPRESSION: Negative venous Doppler of lower extremities. Dictated by: Dictated on workstation # [id number]
[2016-11-01 16:12] LABS: ERYTHROCYTE SEDIMENTATION RATE 34 MM/HR (0-30)
--- NOTE | 2016-11-01 16:17 | Diagnostic Imaging Report ---
INDICATION: Left foot wound. EXAMINATION: Duplex ultrasound of the arterial system of the left leg was done with grayscale, color Doppler, spectral waveform and color Doppler flow analysis. FINDINGS: Duplex ultrasound of the arterial system of the left leg shows normal velocities throughout the leg. The wave form transitions from triphasic to monophasic below the knee. IMPRESSION: There is some dampening of the waveform below the knee suggesting peripheral vascular disease but there is no occlusion or hemodynamically significant stenosis detected. Dictated by: Dictated on workstation # [id number]
--- NOTE | 2016-11-01 16:27 | ED Lower Extremity ---
General Chief Complaint: Skin/Wound Problems Stated Complaint: LEFT FOOT BUMP/REDNESS/WARM Nursing Triage Note: TO ED PER W/C HAS HAD WOUND ON TOP OF L FOOT THAT HAS BEEN WATCHING FOR 1 YEAR. YESTERDAY HOME HEALTH CONCERNED ABOUT AREA AND WANTED HER TO HAVE IT CHECKED OUT. Nursing Sepsis Screen: No Definite Risk History of Present Illness Time seen by provider: 14:40 Initial Comments Evaluation for left foot, concerned about a possible ulcer. She has had long- standing issues with ulcers to her bilateral lower extremities. She has been in wound care and currently has home health seeing her. Pain/Injury Location: left foot Method of Injury: unknown Modifying Factors: Improves With Rest Allergies and Home Medications Allergies Coded Allergies: No Known Drug Allergies (Unverified , 09/15/13) Home Medications Acetaminophen 650 Mg Tablet.er, 650-1,200 MG PO Q4H PRN for PAIN, (Reported) Alprazolam 0.25 Mg Tablet, 0.25 MG PO BID PRN for ANXIETY, (Reported) Amoxicillin/Potassium Clav 1 Each Tablet, 1 EACH PO BID, #14 Prescribed by: JOSE PRIEST on 08/03/16 0754 Calcium Carbonate 200 Mg Tab.chew, 400 MG PO QID PRN for INDIGESTION, (Reported) Cephalexin 500 Mg Capsule, 500 MG PO QID, #40 Prescribed by: CRISTINA HUMPHREY on 09/11/168 Duloxetine HCl 60 Mg Capsule.dr, 30 MG PO DAILY, (Reported) LAST FILLED #30 06-12-16 Esomeprazole Magnesium 40 Mg Cap, 40 MG PO DAILY, (Reported) LAST FILLED #90 18-16 Furosemide 40 Mg Tablet, 40 MG PO DAILY, (Reported) Ibuprofen 200 Mg Tablet, 600 MG PO TID PRN for PAIN, (Reported) Insulin Aspart 300 Units/3 Ml Solution, SQ QID, (Reported) 60-200 = 0 UNITS 201-250 = 3 UNITS 251-300 = 5 UNITS 301-350 = 7 UNITS 351- 400 = 9 UNITS Insulin Glargine,Hum.rec.anlog 100 Unit/1 Ml Insuln.pen, 40 UNITS SQ BID, ( Reported) HOLD IF BLOOD SUGAR IS 95 OR BELOW Iron Polysaccharide Complex 150 Mg Capsule, 150 MG PO BID, (Reported) Loperamide HCl 2 Mg Tablet, 2 MG PO UD PRN for DIARRHEA, (Reported) Loratadine 10 Mg Tablet, 10 MG PO DAILY, (Reported) Metformin HCl 1,000 Mg Tablet, 1,000 MG PO BID, (Reported) LAST FILLED #180 02-14-16 Polyethylene Glycol 3350 17 Gm Powd.pack, 17 GM PO DAILY PRN for CONSTIPATION, ( Reported) Pregabalin 150 Mg Capsule, 150 MG PO TID, (Reported) LAST FILLED #90 06-20-16 Ropinirole HCl 2 Mg Tablet, 2 MG PO BID, (Reported) LAST FILLED #60 05-15-16 Rosuvastatin Calcium 10 Mg Tablet, 10 MG PO DAILY, (Reported) Sulfamethoxazole/Trimethoprim 1 Each Tablet, 1 EACH PO BID, #20 Ref 0 Prescribed by: KELSEY STONE on 11/01/16 1646 Tolnaftate 45 Gm Powder, TP DAILY, (Reported) Tramadol HCl 50 Mg Tablet, 50 MG PO TID, (Reported) LAST FILLED #63 07-05-16 Constitutional: no symptoms reported, see HPI EENTM: no symptoms reported, see HPI Respiratory: no symptoms reported, see HPI Cardiovascular: no symptoms reported, see HPI Gastrointestinal: no symptoms reported, see HPI Genitourinary: no symptoms reported Musculoskeletal: no symptoms reported, see HPI Skin: see HPI, change in color (left lower extremity) Psychiatric/Neurological: No Symptoms Reported, See HPI All Other Systems Reviewed Negative Unless Noted: Yes Past Xtypqen-Rubazr-Zemahp Hx Patient Social History Alcohol Use: Denies Use Recreational Drug Use: No Smoking Status: Former Smoker Type Used: Cigarettes Former Smoker/When Quit: Aug 12, 1991 Recent Foreign Travel: No Contact w/Someone Who Travel: No Recent Infectious Disease Expo: No Recent Hopitalizations: Yes (JUL 2016-CELLULITIS) Immunizations Up To Date Tetanus Booster (TDap): Less than 5yrs PED Vaccines UTD: Yes Date of Pneumonia Vaccine: Mar 19, 2012 Date of Influenza Vaccine: Mar 25, 2016 Seasonal Allergies Seasonal Allergies: No Surgeries HX Surgeries: Yes (HEMORRHOIDECTOMY, L HIP replacement, reduction left hip dislocation x2) Surgeries: Gallbladder, Joint Replacement, Orthopedic Respiratory Hx Respiratory Disorders: No Cardiovascular Hx Cardiac Disorders: Yes (CHF) Cardiac Disorders: Hypertension Neurological Hx Neurological Disorders: Yes (RLS) Neurological Disorders: Neuropathy Reproductive System Hx Reproductive Disorders: No Sexually Transmitted Disease: No HIV/AIDS: No Genitourinary Hx Genitourinary Disorders: No Gastrointestinal Hx Gastrointestinal Disorders: Yes Gastrointestinal Disorders: Chronic Constipation, Hemorrhoids Musculoskeletal Hx Musculoskeletal Disorders: Yes (school age / accident) Musculoskeletal Disorders: Arthritis, Back Injury, Chronic Back Pain Endocrine Hx Endocrine Disorders: Yes (Lantus/ Novolog) Endocrine Disorders: Diabetes, Insulin dep HEENT HX ENT Disorders: Yes (report the start of cataracts, migrains) HEENT Disorders: Cataract Loss of Vision: Bilateral Hearing Impairment: Denies Cancer Hx Cancer: No Psychosocial Hx Psychiatric Problems: Yes Behavioral Health Disorders: Anxiety, Depression Integumentary HX Skin/Integumentary Disorder: Yes (SEEING WOUND CARE FOR WOUND ON FEET, history of cellulitis) Blood Transfusions Hx Blood Disorders: No Adverse Reaction to a Blood Tr: No Reviewed Nursing Assessment Reviewed/Agree w Nursing PMH: Yes Family Medical History Significant Family History: No Pertinent Family Hx Family Medial History: Congestive heart failure 03 FATHER Prostate cancer 03 FATHER No Family History of: Abdominal aortic aneurysm Greenbelt's disease Alcoholism Aphasia Cancer Cancer of colon Cataract Congenital heart disease Cystic fibrosis Dementia Dysphagia Family history: Allergy Family history: Alzheimer's disease Family history: Arthritis Family history: Asthma Family history: Breast disease Family history: Cardiovascular disease Family history: Coronary thrombosis Family history: Diabetes mellitus Family history: Gastrointestinal disease Family history: Glaucoma Family history: Hypertension Family history: Osteoporosis Family history: Thyroid disorder Headache Hearing loss Heart disease Hereditary disease History of - anemia History of - disorder History of - respiratory disease History of drug abuse Human immunodeficiency virus (HIV) seropositivity Hypercholesterolemia Infertile Kidney disease Malignant neoplasm of lung Myocardial infarction Parkinson's disease Psychotic disorder Seizure disorder Stroke Tuberculosis Visual impairment Physical Exam Vital Signs Vital Sign - Last 12Hours 11/01/16 11/01/16 14:31 17:01 Temp 97.1 Pulse 73 Resp 18 B/P (MAP) 155/72 Pulse Ox 96 Capillary Refill : Less Than 3 Seconds General Appearance: WD/WN, no apparent distress HEENT: PERRL/EOMI, normal ENT inspection, TMs normal, pharynx normal Neck: non-tender, full range of motion, supple Cardiovascular: regular rate, rhythm, No no edema, no murmur, other ( peripheral pulses 1+ and symmetric, 2+ edema bilateral lower extremities) Respiratory: chest non-tender, lungs clear Gastrointestinal: normal bowel sounds, non tender, soft Ankles: bilateral ankle non-tender, bilateral ankle limited range of motion, bilateral ankle soft tissue tenderness Feet: right foot limited range of motion, right foot soft tissue tenderness, right foot swelling, right foot other (trace erythema from ankle to toes, small pinpoint area of ulceration on the dorsum of the midfoot. No ranging inch, warmth, induration or fluctuation. ) Neurologic/Tendon: normal sensation, normal motor functions, normal tendon functions Neurologic/Psychiatric: no motor/sensory deficits, alert, normal mood/affect, oriented x 3 Lymphatic: no adenopathy Progress/Results/Core Measures Results/Orders Lab Results Laboratory Tests Test 11/01/16 15:29 Range/Units White Blood Count 8.9 4.3-11.0 10^3/uL Red Blood Count 4.30 L 4.35-5.85 10^6/uL Hemoglobin 11.5 11.5-16.0 G/DL Hematocrit 36 35-52 % Mean Corpuscular Volume 84 80-99 FL Mean Corpuscular Hemoglobin 27 25-34 PG Mean Corpuscular Hemoglobin Concent 32 32-36 G/DL Red Cell Distribution Width 14.6 H 10.0-14.5 % Platelet Count 218 130-400 10^3/uL Mean Platelet Volume 10.4 7.4-10.4 FL Neutrophils (%) (Auto) 65 42-75 % Lymphocytes (%) (Auto) 15 12-44 % Monocytes (%) (Auto) 10 0-12 % Eosinophils (%) (Auto) 9 0-10 % Basophils (%) (Auto) 1 0-10 % Neutrophils # (Auto) 5.8 1.8-7.8 X 10^3 Lymphocytes # (Auto) 1.4 1.0-4.0 X 10^3 Monocytes # (Auto) 0.9 0.0-1.0 X 10^3 Eosinophils # (Auto) 0.8 H 0.0-0.3 10^3/uL Basophils # (Auto) 0.1 0.0-0.1 10^3/uL Erythrocyte Sedimentation Rate 34 H 0-30 MM/HR Sodium Level 141 135-145 MMOL/L Potassium Level 4.0 3.6-5.0 MMOL/L Chloride Level 104 98-107 MMOL/L Carbon Dioxide Level 26 21-32 MMOL/L Anion Gap 11 5-14 MMOL/L Blood Urea Nitrogen 16 7-18 MG/DL Creatinine 0.79 0.60-1.30 MG/DL Estimat Glomerular Filtration Rate > 60 BUN/Creatinine Ratio 20 Glucose Level 184 H 70-105 MG/DL Lactic Acid Level 1.15 0.50-2.00 MMOL/L Calcium Level 9.8 8.5-10.1 MG/DL Total Bilirubin 0.2 0.1-1.0 MG/DL Aspartate Amino Transf (AST/SGOT) 14 5-34 U/L Alanine Aminotransferase (ALT/SGPT) 16 0-55 U/L Alkaline Phosphatase 77 40-136 U/L C-Reactive Protein High Sensitivity 0.42 0.00-0.50 MG/DL Total Protein 6.8 6.4-8.2 G/DL Albumin 3.7 3.2-4.5 G/DL My Orders Orders - KELSEY STONE Cbc With Automated Diff (11/01/16 14:52) Comprehensive Metabolic Panel (11/01/16 14:52) Hs C Reactive Protein (11/01/16 14:52) Lactic Acid Analyzer (11/01/16 14:52) Erythrocyte Sedimentation Rate (11/01/16 14:52) Us Venous Lower Ext Lt (11/01/16 15:08) Us Left Low Ext Arterial [id number] (11/01/16 15:08) Vital Signs/I&O Vital Sign - Last 12Hours 11/01/16 11/01/16 14:31 17:01 Temp 97.1 Pulse 73 83 Resp 18 18 B/P (MAP) 155/72 Pulse Ox 96 Blood Pressure Mean: 99 Progress Note : Time: 14:40 Progress Note Initial evaluation completed, recommended labs and venous and arterial ultrasound of the lower extremity. 1540 WBC 8.9, ESR 34, glucose 184, sodium 141, potassium 4, lactic acid 1.15, C- reactive protein 0.42. 1600 discussed lab results and ultrasound results with patient, all essentially normal. Discussed at length for her ability to care for herself at home she has been having arguments with her sister who assists with her care. She assures me she is able to care for herself at home, though I do have some reservations about this. She will follow up with Dr. Priest and consider possible referral for wound care. Diagnostic Imaging Diagonstic Imaging: Ultrasound Comments NAME: CREWSMIGUELLuis Miguel Vaughan [facility] REC#: [id number] PT STATUS: REG ER : 1950 PHYSICIAN: KELSEY STONE ADMIT DATE: 11/01/16/ER Draft Date of Exam:11/01/16 US LEFT LOW EXT ARTERIAL [id number] INDICATION: Left foot wound. EXAMINATION: Duplex ultrasound of the arterial system of the left leg was done with grayscale, color Doppler, spectral waveform and color Doppler flow analysis. FINDINGS: Duplex ultrasound of the arterial system of the left leg shows normal velocities throughout the leg. The wave form transitions from triphasic to monophasic below the knee. IMPRESSION: There is some dampening of the waveform below the knee suggesting peripheral vascular disease but there is no occlusion or hemodynamically significant stenosis detected. Dictated on workstation # [id number] Dict: 11/01/161607 Trans: 11/01/161615 [facility] [id number] Interpreted by: JUAN JUARES Electronically signed by: NAME: ETHAN CREWS [facility] REC#: [id number] PT STATUS: REG ER : 1950 PHYSICIAN: KELSEY STONE ADMIT DATE: 11/01/16/ER Signed Date of Exam: 11/01/16 US VENOUS LOWER EXT LT PROCEDURE: US left lower extremity venous. TECHNIQUE: Multiple real-time grayscale images were obtained over the left lower extremity in various projections. Additional duplex Doppler and color Doppler images were also obtained. INDICATION: Leg swelling. FINDINGS: The veins are compressible and have normal spontaneous and augmented flow. IMPRESSION: Negative venous Doppler of lower extremities. Dictated by: Dictated on workstation # [id number] Dict: 11/01/161607 Trans: 11/01/16 161 Interpreted by: JUAN JUARES Electronically signed by: JUAN JUARES 11/01/161609 Departure Impression Impression: Primary Impression: Cellulitis Qualified Codes: L03.116 - Cellulitis of left lower limb Disposition: HOME, SELF-CARE Condition: Stable Departure-Patient Inst. Referrals: JOSE PRIEST DO (PCP/Family) Primary Care Physician Patient Instructions: Cellulitis (Skin Infection), Adult (DC) Add. Discharge Instructions: All discharge instructions reviewed with patient and/or family. Voiced understanding. Keep legs elevated and wraps on. Follow-up with Dr. Priest early next week. If continued symptoms follow-up with Dr. Sagastume for wound care. Take antibiotic as prescribed. Return to emergency department for fevers, increased drainage or warmth and lower extremities or new concerns. Scripts Sulfamethoxazole/Trimethoprim (Bactrim Ds Tablet) 1 Each Tablet 1 EACH PO BID, #20 TAB 0 Refills Prov: KELSEY STONE 11/01/16 Copy Copies To 1: JOSE PRIEST DO Copies To 2: HIRAM SAGASTUME MD, AMY ARNP Nov 01, 2016 16:27
[2016-11-01] MEDS ORDERED: SULF1TAB35 PO (16:46)
[2016-11-01 17:01] VITALS: BP 146/96
[2016-11-11] MEDS ORDERED: CLIN300C11 PO (12:26)
== END 2016-11-01 17:04 | disposition home or self-care (01) ==
LOC: EDUNIT# 13:56 → ER 14:02
DX: L03.116 Cellulitis of left lower limb (principal); I10 Essential (primary) hypertension; E11.9 Type 2 diabetes mellitus without complications; Z79.4 Long term (current) use of insulin; Z79.899 Other long term (current) drug therapy; Z87.891 Personal history of nicotine dependence
CPT/HCPCS: 36415; 80053; 83605; 85025; 85652; 86141; 93926; 99281

== ENCOUNTER 2016-11-09 15:55 | Inpatient (IN) | payer MEDICARE, MEDICAID ==
[~2016-11-09] VITALS: Ht 167.6 cm; Wt 101.3 kg
--- NOTE | 2016-11-09 16:09 | ED General ---
General Stated Complaint: L HIP PAIN Source of Information: Patient Exam Limitations: No Limitations History of Present Illness Time Seen by Provider: 15:58 Initial Comments Here by EMS with report of altered mental status and complains of right hip pain. Patient does have history of cellulitis that apparently has been untreated but reportedly has been unchanged since onset. This is to the bilateral lower extremities. Patient does have fever today. No report of cough or vomiting. Patient is poor historian. Patient reportedly had fall 2 weeks ago that she was able to walk after words and has until today when she was complaining of the right hip pain. She has previous right hip replacement. Timing/Duration: 24 Hours Severity: Moderate Associated Systoms: No Chest Pain, No Cough, Fever/Chills, No Nausea/Vomiting, No Shortness of Air, Weakness Allergies and Home Medications Allergies Coded Allergies: No Known Drug Allergies (Unverified , 09/15/13) Home Medications Acetaminophen 650 Mg Tablet.er, 650-1,200 MG PO Q4H PRN for PAIN, (Reported) Alprazolam 0.25 Mg Tablet, 0.25 MG PO BID PRN for ANXIETY, (Reported) Amoxicillin/Potassium Clav 1 Each Tablet, 1 EACH PO BID, #14 Prescribed by: JOSE PRIEST on 08/03/16 0754 Calcium Carbonate 200 Mg Tab.chew, 400 MG PO QID PRN for INDIGESTION, (Reported) Cephalexin 500 Mg Capsule, 500 MG PO QID, #40 Prescribed by: CRISTINA HUMPHREY on 09/11/16 2128 Duloxetine HCl 60 Mg Capsule.dr, 30 MG PO DAILY, (Reported) LAST FILLED #30 06-12-16 Esomeprazole Magnesium 40 Mg Cap, 40 MG PO DAILY, (Reported) LAST FILLED #90 04-24-16 Furosemide 40 Mg Tablet, 40 MG PO DAILY, (Reported) Ibuprofen 200 Mg Tablet, 600 MG PO TID PRN for PAIN, (Reported) Insulin Aspart 300 Units/3 Ml Solution, SQ QID, (Reported) 60-200 = 0 UNITS 201-250 = 3 UNITS 251-300 = 5 UNITS 301-350 = 7 UNITS 351- 400 = 9 UNITS Insulin Glargine,Hum.rec.anlog 100 Unit/1 Ml Insuln.pen, 40 UNITS SQ BID, ( Reported) HOLD IF BLOOD SUGAR IS 95 OR BELOW Iron Polysaccharide Complex 150 Mg Capsule, 150 MG PO BID, (Reported) Loperamide HCl 2 Mg Tablet, 2 MG PO UD PRN for DIARRHEA, (Reported) Loratadine 10 Mg Tablet, 10 MG PO DAILY, (Reported) Metformin HCl 1,000 Mg Tablet, 1,000 MG PO BID, (Reported) LAST FILLED #180 02-14-16 Polyethylene Glycol 3350 17 Gm Powd.pack, 17 GM PO DAILY PRN for CONSTIPATION, ( Reported) Pregabalin 150 Mg Capsule, 150 MG PO TID, (Reported) LAST FILLED #90 06-20-16 Ropinirole HCl 2 Mg Tablet, 2 MG PO BID, (Reported) LAST FILLED #60 05-15-16 Rosuvastatin Calcium 10 Mg Tablet, 10 MG PO DAILY, (Reported) Sulfamethoxazole/Trimethoprim 1 Each Tablet, 1 EACH PO BID, #20 Ref 0 Prescribed by: KELSEY STONE on 11/01/16 1646 Tolnaftate 45 Gm Powder, TP DAILY, (Reported) Tramadol HCl 50 Mg Tablet, 50 MG PO TID, (Reported) LAST FILLED #63 07-05-16 Constitutional: see HPI, chills, fever, weakness EENTM: no symptoms reported Respiratory: no symptoms reported, No cough, No short of breath Cardiovascular: no symptoms reported Gastrointestinal: no symptoms reported Genitourinary: No dysuria, No pain Musculoskeletal: no symptoms reported Skin: see HPI, change in color Psychiatric/Neurological: See HPI, Weakness All Other Systems Reviewed Negative Unless Noted: Yes Past Thcelcz-Izxhqu-Elqysi Hx Patient Social History Alcohol Use: Denies Use Recreational Drug Use: No Smoking Status: Former Smoker Type Used: Cigarettes Former Smoker/When Quit: Aug 12, 1991 Recent Hopitalizations: Yes (JUL 2016-CELLULITIS) Immunizations Up To Date Tetanus Booster (TDap): Less than 5yrs PED Vaccines UTD: Yes Date of Pneumonia Vaccine: Mar 19, 2012 Date of Influenza Vaccine: Mar 25, 2016 Seasonal Allergies Seasonal Allergies: No Surgeries HX Surgeries: Yes (HEMORRHOIDECTOMY, L HIP replacement, reduction left hip dislocation x2) Surgeries: Gallbladder, Joint Replacement, Orthopedic Respiratory Hx Respiratory Disorders: No Cardiovascular Hx Cardiac Disorders: Yes (CHF) Cardiac Disorders: Hypertension Neurological Hx Neurological Disorders: Yes (RLS) Neurological Disorders: Neuropathy Reproductive System Hx Reproductive Disorders: No Sexually Transmitted Disease: No HIV/AIDS: No Genitourinary Hx Genitourinary Disorders: No Gastrointestinal Hx Gastrointestinal Disorders: Yes Gastrointestinal Disorders: Chronic Constipation, Hemorrhoids Musculoskeletal Hx Musculoskeletal Disorders: Yes (school age / accident) Musculoskeletal Disorders: Arthritis, Back Injury, Chronic Back Pain Endocrine Hx Endocrine Disorders: Yes (Lantus/ Novolog) Endocrine Disorders: Diabetes, Insulin dep HEENT HX ENT Disorders: Yes (report the start of cataracts, migrains) HEENT Disorders: Cataract Loss of Vision: Bilateral Hearing Impairment: Denies Cancer Hx Cancer: No Psychosocial Hx Psychiatric Problems: Yes Behavioral Health Disorders: Anxiety, Depression Integumentary HX Skin/Integumentary Disorder: Yes (SEEING WOUND CARE FOR WOUND ON FEET, history of cellulitis) Blood Transfusions Hx Blood Disorders: No Adverse Reaction to a Blood Tr: No Reviewed Nursing Assessment Reviewed/Agree w Nursing PMH: Yes Family Medical History Significant Family History: No Pertinent Family Hx Family Medial History: Congestive heart failure 03 FATHER Prostate cancer 03 FATHER No Family History of: Abdominal aortic aneurysm Phill's disease Alcoholism Aphasia Cancer Cancer of colon Cataract Congenital heart disease Cystic fibrosis Dementia Dysphagia Family history: Allergy Family history: Alzheimer's disease Family history: Arthritis Family history: Asthma Family history: Breast disease Family history: Cardiovascular disease Family history: Coronary thrombosis Family history: Diabetes mellitus Family history: Gastrointestinal disease Family history: Glaucoma Family history: Hypertension Family history: Osteoporosis Family history: Thyroid disorder Headache Hearing loss Heart disease Hereditary disease History of - anemia History of - disorder History of - respiratory disease History of drug abuse Human immunodeficiency virus (HIV) seropositivity Hypercholesterolemia Infertile Kidney disease Malignant neoplasm of lung Myocardial infarction Parkinson's disease Psychotic disorder Seizure disorder Stroke Tuberculosis Visual impairment Physical Exam-Suspected Sepsis Physical Exam Vital Signs Vital Sign - Last 12Hours 11/09/16 16:10 Temp 101.0 Pulse 82 Resp 18 B/P (MAP) 136/64 Pulse Ox 98 O2 Delivery Nasal Cannula O2 Flow Rate 2.00 Capillary Refill : General Appearance: No Apparent Distress, WD/WN HEENT: PERRL/EOMI, Pharynx Normal Neck: Non Tender, Supple Respiratory: Lungs Clear, Normal Breath Sounds Cardiovascular: Regular Rate, Rhythm, No Murmur Gastrointestinal: Non Tender, Soft Back: Normal Inspection, No CVA Tenderness, No Vertebral Tenderness Extremity: Normal Range of Motion, Non Tender Neurologic/Psychiatric: Alert, Other (disoriented to situation and time) Skin: warm/dry, other (bilateral lower extremity erythema and swelling concerning for cellulitis.) Focused Exam Lactic Acid Level Laboratory Tests Test 11/09/16 16:10 Lactic Acid Level 2.85 MMOL/L (0.50-2.00) *H Progress/Results/Core Measures Suspected Sepsis SIRS Temperature: Pulse: Respiratory Rate: Laboratory Tests 11/09/16 16:10: White Blood Count 13.7H Blood Pressure / Mean: Laboratory Tests 11/09/16 16:10: Creatinine 1.00, INR Comment 1.2, Platelet Count 212, Total Bilirubin 0.3 Results/Orders Lab Results Laboratory Tests Test 11/09/16 16:10 11/09/16 17:10 Range/Units White Blood Count 13.7 H 4.3-11.0 10^3/uL Red Blood Count 3.96 L 4.35-5.85 10^6/uL Hemoglobin 10.5 L 11.5-16.0 G/DL Hematocrit 33 L 35-52 % Mean Corpuscular Volume 83 80-99 FL Mean Corpuscular Hemoglobin 27 25-34 PG Mean Corpuscular Hemoglobin Concent 32 32-36 G/DL Red Cell Distribution Width 14.6 H 10.0-14.5 % Platelet Count 212 130-400 10^3/uL Mean Platelet Volume 11.2 H 7.4-10.4 FL Neutrophils (%) (Auto) 83 H 42-75 % Lymphocytes (%) (Auto) 7 L 12-44 % Monocytes (%) (Auto) 10 0-12 % Eosinophils (%) (Auto) 0 0-10 % Basophils (%) (Auto) 0 0-10 % Neutrophils # (Auto) 11.3 H 1.8-7.8 X 10^3 Lymphocytes # (Auto) 1.0 1.0-4.0 X 10^3 Monocytes # (Auto) 1.3 H 0.0-1.0 X 10^3 Eosinophils # (Auto) 0.0 0.0-0.3 10^3/uL Basophils # (Auto) 0.1 0.0-0.1 10^3/uL Neutrophils % (Manual) 89 % Lymphocytes % (Manual) 8 % Monocytes % (Manual) 2 % Eosinophils % (Manual) 1 % Basophils % (Manual) 0 % Band Neutrophils 0 % Blood Morphology Comment NORMAL Prothrombin Time 14.5 12.2-14.7 SEC INR Comment 1.2 0.8-1.4 Activated Partial Thromboplast Time 31 24-35 SEC Sodium Level 138 135-145 MMOL/L Potassium Level 4.3 3.6-5.0 MMOL/L Chloride Level 103 98-107 MMOL/L Carbon Dioxide Level 23 21-32 MMOL/L Anion Gap 12 5-14 MMOL/L Blood Urea Nitrogen 27 H 7-18 MG/DL Creatinine 1.00 0.60-1.30 MG/DL Estimat Glomerular Filtration Rate 55 BUN/Creatinine Ratio 27 Glucose Level 196 H 70-105 MG/DL Lactic Acid Level 2.85 *H 0.50-2.00 MMOL/L Calcium Level 9.5 8.5-10.1 MG/DL Total Bilirubin 0.3 0.1-1.0 MG/DL Aspartate Amino Transf (AST/SGOT) 20 5-34 U/L Alanine Aminotransferase (ALT/SGPT) 18 0-55 U/L Alkaline Phosphatase 80 40-136 U/L Total Protein 6.8 6.4-8.2 G/DL Albumin 3.7 3.2-4.5 G/DL Urine Color YELLOW Urine Clarity CLEAR Urine pH 5 5-9 Urine Specific [place] 1.020 1.016-1.022 Urine Protein 2+ H NEGATIVE Urine Glucose (UA) NEGATIVE NEGATIVE Urine Ketones 1+ H NEGATIVE Urine Nitrite NEGATIVE NEGATIVE Urine Bilirubin 3+ H NEGATIVE Urine Urobilinogen 1 NORMAL MG/DL Urine Leukocyte Esterase 1+ H NEGATIVE Urine RBC (Auto) NEGATIVE NEGATIVE Urine RBC NONE /HPF Urine WBC 2-5 /HPF Urine Crystals NONE /LPF Urine Bacteria FEW H /HPF Urine Casts NONE /LPF Urine Mucus SMALL H /LPF Urine Culture Indicated NO My Orders Orders - JUAN MORFIN MD Cbc With Automated Diff (11/09/16 16:05) Comprehensive Metabolic Panel (11/09/16 16:05) Lactic Acid Analyzer (11/09/16 16:05) Blood Culture (11/09/16 16:05) Sputum Culture (11/09/16 16:05) Ua Culture If Indicated (11/09/16 16:05) Protime With Inr (11/09/16 16:05) Partial Thromboplastin Time (11/09/16 16:05) Chest 1 View, Ap/Pa Only (11/09/16 16:05) O2 (11/09/16 16:05) Saline Lock/Iv-Start (11/09/16 16:05) Saline Lock/Iv-Start (11/09/16 16:05) Vital Signs Adult Sepsis Patie Q1HR (11/09/16 16:05) Remove Rings In Anticipation O (11/09/16 16:05) Ct Head Wo (11/09/16 16:05) Hip, Right, 2 Views (11/09/16 16:05) Manual Differential (11/09/16 16:10) Acetaminophen Tablet (Tylenol Tablet) (11/09/16 16:47) Ns Iv 1000 Ml (Sodium Chloride 0.9%) (11/09/16 17:13) Ceftriaxone Injection (Rocephin Injectio (11/09/16 18:00) Medications Given in ED Current Medications Medications Dose Ordered Sig/Donny Route Start Time Stop Time Status Last Admin Dose Admin Ceftriaxone Sodium 1000 mg/ Sodium Chloride 50 ml @ 100 mls/hr ONCE ONCE IV 11/09/16 18:00 11/09/16 18:29 DC 11/09/16 18:05 100 MLS/HR Sodium Chloride 1,000 ml @ 0 mls/hr Q0M ONCE IV 11/09/16 17:13 11/09/16 17:14 DC 11/09/16 17:19 1,000 MLS/HR Vital Signs/I&O Vital Sign - Last 12Hours 11/09/16 11/09/16 16:10 16:10 Temp 101.0 Pulse 82 Resp 18 B/P (MAP) 136/64 Pulse Ox 98 O2 Delivery Nasal Cannula Room Air O2 Flow Rate 2.00 Capillary Refill : Progress Note : Progress Note Seen and evaluated on arrival by EMS. IV initiated by EMS. Labs, blood cultures, lactic acid, UA, chest x-ray ordered. Normal saline 500 mL bolus initiated by EMS continued. Acetaminophen 1000 mg by mouth given. 1700: Normal saline 1 L bolus ordered. Lactic acid elevated greater than 2 less than 4. Patient is not hypotensive and does not currently have signs of septic shock but does have severe sepsis. Patient to be admitted. 1755: Rocephin 1 g IV. Case discussed with Dr. Newsome. He will accept patient for admission, inpatient status. We will continue Rocephin and clindamycin for cellulitis. Discussed with patient who agrees with plan. Diagnostic Imaging Diagonstic Imaging: CT Plain Films/CT/US/NM/MRI: head Comments NAME: ETHAN CREWS [facility] REC#: [id number] PT STATUS: REG ER : 1950 PHYSICIAN: JUAN MORFIN MD ADMIT DATE: 11/09/16/ER Signed Date of Exam: 11/09/16 CT HEAD WO PROCEDURE: CT head without contrast. TECHNIQUE: Multiple contiguous axial images were obtained through the brain without the use of intravenous contrast. INDICATION: Fall with hallucinations, no loss of consciousness. COMPARISON: 01/07/2015. DISCUSSION: No adverse interval change. Diffuse brain volume loss is stable, likely age related. White matter hypoattenuation is nonspecific though not greater than expected for age related chronic small vessel ischemic disease, stable. No acute intracranial hemorrhage, mass, midline shift, or hydrocephalus. The visualized orbits, paranasal sinuses, mastoid air cells, and calvarium are unremarkable. IMPRESSION: 1. Stable senescent changes as described. No acute intracranial abnormality identified. Dictated by: Dictated on workstation # [id number] Dict: 11/09/16 1630 Trans: 11/09/161651 Interpreted by: EVELYN THOMSON MD Electronically signed by: EVELYN THOMSON MD 11/09/161651 Diagonstic Imaging: Xray Plain Films/CT/US/NM/MRI: chest Comments NAME: ETHAN CREWS [facility] REC#: [id number] PT STATUS: REG ER : 1950 PHYSICIAN: JUAN MORFIN MD ADMIT DATE: 11/09/16/ER Signed Date of Exam: 11/09/16 CHEST 1 VIEW, AP/PA ONLY INDICATION: Right-sided pain after fall last night. DISCUSSION: Single portable upright view of the chest was obtained, comparison 09/11/2016. No focal consolidation, pleural fluid, or pneumothorax. Old left rib fractures stable. Stable normal heart size. IMPRESSION: 1. Negative portable chest. Dictated by: Dictated on workstation # [id number] Dict: 11/09/16 1647 Trans: 11/09/16 1652 Interpreted by: EVELYN THOMSON MD Electronically signed by: EVELYN THOMSON MD 11/09/16 1652 Diagonstic Imaging: Xray Plain Films/CT/US/NM/MRI: hip Comments NAME: ETHAN CREWS [facility] REC#: [id number] PT STATUS: REG ER : 1950 PHYSICIAN: JUAN MORFIN MD ADMIT DATE: 11/09/16/ER Signed Date of Exam: 11/09/16 HIP, RIGHT, 2 VIEWS INDICATION: Right hip pain. AP and oblique views of the right hip are obtained. FINDINGS: Right hip prosthesis is in place. There is some heterotopic bone lateral to the hip joint. There is no acute fracture or device loosening. IMPRESSION: Right hip prosthesis in place as above. Some heterotopic bone is noted lateral to the hip joint. There is no acute fracture or device loosening. Dictated by: Dictated on workstation # [id number] Dict: 11/09/16 1646 Trans: 11/09/16 1700 Interpreted by: HALEIGH RABAGO MD Electronically signed by: HALEIGH RABAGO MD 11/09/16 1700 Departure Communication Time/Spoke to Admitting Phy: 17:55 Impression Impression: Primary Impression: Cellulitis of both lower extremities Additional Impression: Severe sepsis Disposition: 09 ADMITTED INPATIENT Condition: Stable Decision to Admit Reason: Admit from ER (General) Decision to Admit/Date: November 09, 2016 Time/Decision to Admit Time: 17:55 Departure-Patient Inst. Referrals: JOSE PRIEST DO (PCP/Family) Primary Care Physician JUAN MORFIN MD November 09, 2016 16:08
[2016-11-09 16:30] LABS: BASOPHILS # (AUTO) 0.1 10^3/uL (0.0-0.1); BASOPHILS % (AUTO) 0 % (0-10); EOSINOPHILS % (AUTO) 0 % (0-10); LYMPHOCYTES % (AUTO) 7 % (12-44); MEAN CORPUSCULAR HEMOGLOBIN 27 PG (25-34); MEAN CORPUSCULAR HGB CONC 32 G/DL (32-36); MEAN CORPUSCULAR VOLUME 83 FL (80-99); MEAN PLATELET VOLUME 11.2 FL (7.4-10.4); MONOCYTES # (AUTO) 1.3 X 10^3 (0.0-1.0); MONOCYTES % (AUTO) 10 % (0-12); NEUTROPHILS # (AUTO) 11.3 X 10^3 (1.8-7.8); NEUTROPHILS % (AUTO) 83 % (42-75); PLATELET COUNT 212 10^3/uL (130-400); RED BLOOD COUNT 3.96 10^6/uL (4.35-5.85); RED CELL DISTRIBUTION WIDTH 14.6 % (10.0-14.5); WHITE BLOOD COUNT 13.7 10^3/uL (4.3-11.0)
--- NOTE | 2016-11-09 16:34 | Diagnostic Imaging Report ---
PROCEDURE: CT head without contrast. TECHNIQUE: Multiple contiguous axial images were obtained through the brain without the use of intravenous contrast. INDICATION: Fall with hallucinations, no loss of consciousness. COMPARISON: 01/07/2015. DISCUSSION: No adverse interval change. Diffuse brain volume loss is stable, likely age related. White matter hypoattenuation is nonspecific though not greater than expected for age related chronic small vessel ischemic disease, stable. No acute intracranial hemorrhage, mass, midline shift, or hydrocephalus. The visualized orbits, paranasal sinuses, mastoid air cells, and calvarium are unremarkable. IMPRESSION: 1. Stable senescent changes as described. No acute intracranial abnormality identified. Dictated by: Dictated on workstation # [id number]
[2016-11-09 16:39] LABS: INR 1.2 (0.8-1.4); PROTHROMBIN TIME PATIENT 14.5 SEC (12.2-14.7)
[2016-11-09] MEDS ORDERED: ACETAMINOPHEN 500 MG TAB (TYLENOL) PO STA (16:47)
[2016-11-09 16:50] LABS: ALBUMIN 3.7 G/DL (3.2-4.5); BILIRUBIN,TOTAL 0.3 MG/DL (0.1-1.0); CALCIUM 9.5 MG/DL (8.5-10.1); POTASSIUM 4.3 MMOL/L (3.6-5.0); TOTAL PROTEIN 6.8 G/DL (6.4-8.2)
--- NOTE | 2016-11-09 16:50 | Diagnostic Imaging Report ---
INDICATION: Right-sided pain after fall last night. DISCUSSION: Single portable upright view of the chest was obtained, comparison 09/11/2016. No focal consolidation, pleural fluid, or pneumothorax. Old left rib fractures stable. Stable normal heart size. IMPRESSION: 1. Negative portable chest. Dictated by: Dictated on workstation # [id number]
--- NOTE | 2016-11-09 16:53 | Diagnostic Imaging Report ---
INDICATION: Right hip pain. AP and oblique views of the right hip are obtained. FINDINGS: Right hip prosthesis is in place. There is some heterotopic bone lateral to the hip joint. There is no acute fracture or device loosening. IMPRESSION: Right hip prosthesis in place as above. Some heterotopic bone is noted lateral to the hip joint. There is no acute fracture or device loosening. Dictated by: Dictated on workstation # [id number]
[2016-11-09 16:54] LABS: BAND NEUTROPHILS 0 %; BASOPHILS % (MANUAL) 0 %; EOSINOPHILS % (MANUAL) 1 %; LYMPHOCYTES % (MANUAL) 8 %; NEUTROPHILS % (MANUAL) 89 %
[2016-11-09] MEDS ORDERED: NS IV 1000 ML 1,000 ML IV ONE (17:13)
[2016-11-09 17:23] LABS: KETONES,URINE 1+ (NEGATIVE); LEUKOCYTE ESTERASE ,URINE 1+ (NEGATIVE); NITRITE,URINE NEGATIVE (NEGATIVE); PH,URINE 5 (5-9); PROTEIN,URINE 2+ (NEGATIVE); UROBILINOGEN,URINE 1 MG/DL (NORMAL)
[2016-11-09 17:36] LABS: BILIRUBIN,URINE 3+ (NEGATIVE)
[2016-11-09] MEDS ORDERED: cefTRIAXone INJECTION 1,000 MG in NS (IVPB) 50 ML IV ONE (18:00)
[2016-11-09 22:19] VITALS: BP 132/56
[2016-11-09] MEDS: NS IV 1000 ML 1,000 ML IV SCH (23:30)
[2016-11-09] MEDS: CLINDAMYCIN 900 MG/NS 50 ML IVPB IV SCH ×2 (23:31)
[2016-11-10] VITALS (9 sets, daily range): BP systolic 101–158; BP diastolic 49–81
[2016-11-10 06:10] LABS: BASOPHILS # (AUTO) 0.1 10^3/uL (0.0-0.1); BASOPHILS % (AUTO) 1 % (0-10); EOSINOPHILS # (AUTO) 0.7 10^3/uL (0.0-0.3); EOSINOPHILS % (AUTO) 7 % (0-10); LYMPHOCYTES # (AUTO) 1.5 X 10^3 (1.0-4.0); LYMPHOCYTES % (AUTO) 15 % (12-44); MEAN CORPUSCULAR HEMOGLOBIN 27 PG (25-34); MEAN CORPUSCULAR HGB CONC 32 G/DL (32-36); MEAN CORPUSCULAR VOLUME 85 FL (80-99); MEAN PLATELET VOLUME 11.3 FL (7.4-10.4); MONOCYTES # (AUTO) 1.8 X 10^3 (0.0-1.0); MONOCYTES % (AUTO) 17 % (0-12); NEUTROPHILS # (AUTO) 6.4 X 10^3 (1.8-7.8); NEUTROPHILS % (AUTO) 61 % (42-75); PLATELET COUNT 177 10^3/uL (130-400); RED BLOOD COUNT 3.75 10^6/uL (4.35-5.85); RED CELL DISTRIBUTION WIDTH 14.7 % (10.0-14.5); WHITE BLOOD COUNT 10.5 10^3/uL (4.3-11.0)
[2016-11-10 06:44] LABS: ALANINE AMINOTRANSFERASE 18 U/L (0-55); ALBUMIN 3.1 G/DL (3.2-4.5); ANION GAP 9 MMOL/L (5-14); ASPARTATE AMINO TRANSFERASE 25 U/L (5-34); BILIRUBIN,TOTAL 0.3 MG/DL (0.1-1.0); BLOOD UREA NITROGEN 23 MG/DL (7-18); BUN/CREATININE RATIO 28; CALCIUM 8.9 MG/DL (8.5-10.1); CARBON DIOXIDE 24 MMOL/L (21-32); CHLORIDE 107 MMOL/L (98-107); CREATININE SERUM 0.81 MG/DL (0.60-1.30); GFR ESTIMATED > 60; GLUCOSE 137 MG/DL (70-105); POTASSIUM 4.1 MMOL/L (3.6-5.0); SODIUM 140 MMOL/L (135-145); TOTAL PROTEIN 5.9 G/DL (6.4-8.2)
[2016-11-10] MEDS: CLINDAMYCIN 900 MG/NS 50 ML IVPB IV SCH ×6 (07:42→21:52)
[2016-11-10] MEDS: NS IV 1000 ML 1,000 ML IV SCH ×3 (07:42→17:17)
[2016-11-10] MEDS: inSUlin (REGULAR) HUMAN 1 UNIT/0.01 ML (CHARGE PER UNIT) SC SCH ×4 (07:48→22:47)
--- NOTE | 2016-11-10 12:11 | History & Physical ---
History of Present Illness History of Present Illness Reason for visit/HPI 66-year-old female admitted for sepsis due to cellulitis in bilateral lower extremities. Pt has history of DMII, HTN, PAD, anxiety, depression. Patient has a history of bilateral lower extremity cellulitis in which she has seen wound care back in July 2016. Most recently Patient was seen on November 01, 2016 at [facility] ER for cellulitis and that she was prescribed Augmentin. Pt reports she has taken the augmentin, ER reports that she did not start it. Patient currently lives alone and her sister checks on her either every day or every other day patient; also has [employer] that comes and checks on her as well. Home health wanted her legs to be evaluated. Patient did not go to her PCP Dr. Priest's office because she thought he was closed on Fridays. Pt reports she did fall earlier in the week and hurt her left side/hip- Imaging was negative for acute fracture. Patient has bilateral leg discomfort where her cellulitis is. It is warm to touch and she has felt warm. Patient did have a fever in the ER 101F. Lactic acid was >2 but was normal on recheck after IVF. She was started on clindamycin and rocephin. Some confusion was noted by EMS but appears to be resolved. No fevers overnight. Pt reports she is urinating okay- does require assistance to get up to bedside commode. Date of Admission November 09, 2016 at 18:30 I consulted on this patient on 11/10/16 11:44 Attending Physician Thee Gilman MD Admitting Physician Jose Priest DO Consult Allergies and Home Medications Allergies Coded Allergies: No Known Drug Allergies (Unverified , 09/15/13) Home Medications Acetaminophen 650 Mg Tablet.er, 650-1,200 MG PO Q4H PRN for PAIN, (Reported) Alprazolam 0.25 Mg Tablet, 0.25 MG PO BID PRN for ANXIETY, (Reported) Amoxicillin/Potassium Clav 1 Each Tablet, 1 EACH PO BID, #14 Prescribed by: JOSE PRIEST on 08/03/16 8694 Calcium Carbonate 200 Mg Tab.chew, 400 MG PO QID PRN for INDIGESTION, (Reported) Cephalexin 500 Mg Capsule, 500 MG PO QID, #40 Prescribed by: CRISTINA HUMPHREY on 3/7/17 2128 Duloxetine HCl 60 Mg Capsule.dr, 30 MG PO DAILY, (Reported) LAST FILLED #30 06-12-16 Esomeprazole Magnesium 40 Mg Cap, 40 MG PO DAILY, (Reported) LAST FILLED #90 04-24-16 Furosemide 40 Mg Tablet, 40 MG PO DAILY, (Reported) Ibuprofen 200 Mg Tablet, 600 MG PO TID PRN for PAIN, (Reported) Insulin Aspart 300 Units/3 Ml Solution, SQ QID, (Reported) 60-200 = 0 UNITS 201-250 = 3 UNITS 251-300 = 5 UNITS 301-350 = 7 UNITS 351- 400 = 9 UNITS Insulin Glargine,Hum.rec.anlog 100 Unit/1 Ml Insuln.pen, 40 UNITS SQ BID, ( Reported) HOLD IF BLOOD SUGAR IS 95 OR BELOW Iron Polysaccharide Complex 150 Mg Capsule, 150 MG PO BID, (Reported) Loperamide HCl 2 Mg Tablet, 2 MG PO UD PRN for DIARRHEA, (Reported) Loratadine 10 Mg Tablet, 10 MG PO DAILY, (Reported) Metformin HCl 1,000 Mg Tablet, 1,000 MG PO BID, (Reported) LAST FILLED #180 02-14-16 Polyethylene Glycol 3350 17 Gm Powd.pack, 17 GM PO DAILY PRN for CONSTIPATION, ( Reported) Pregabalin 150 Mg Capsule, 150 MG PO TID, (Reported) LAST FILLED #90 16 Ropinirole HCl 2 Mg Tablet, 2 MG PO BID, (Reported) LAST FILLED #60 16 Rosuvastatin Calcium 10 Mg Tablet, 10 MG PO DAILY, (Reported) Sulfamethoxazole/Trimethoprim 1 Each Tablet, 1 EACH PO BID, #20 Ref 0 Prescribed by: KELSEY STONE on 11/01/16 1646 Tolnaftate 45 Gm Powder, TP DAILY, (Reported) Tramadol HCl 50 Mg Tablet, 50 MG PO TID, (Reported) LAST FILLED #63 16 Past Wiefctb-Tmxejb-Zdmvqd Hx Patient Social History Alcohol Use: Denies Use Recreational Drug Use: No Smoking Status: Former Smoker Former smoker/When Quit: Aug 12, 1991 Type Used: Cigarettes Physical Abuse Screen: No Sexual Abuse: No Recent Foreign Travel: No Contact w/other who traveled: No Recent Hopitalizations: Yes (JUL 2016-CELLULITIS) Recent Infectious Disease Expo: No Immunizations Up To Date Tetanus Booster (TDap): Less than 5yrs Date of Pneumonia Vaccine: Mar 19, 2012 Date of Influenza Vaccine: Mar 25, 2016 Seasonal Allergies Seasonal Allergies: No Surgeries HX Surgeries: Yes (HEMORRHOIDECTOMY, L HIP replacement, reduction left hip dislocation x2) Surgeries: Gallbladder, Joint Replacement, Orthopedic Respiratory Hx Respiratory Disorders: No Cardiovascular Hx Cardiovascular Disorders: Yes (CHF) Cardiac Disorders: Hypertension Neurological Hx Neurological Disorders: Yes (RLS) Neurological Disorders: Neuropathy Reproductive System Hx Reproductive Disorders: No Sexually Transmitted Disease: No HIV/AIDS: No Genitourinary Hx Genitourinary Disorders: No Gastrointestinal Hx Gastrointestinal Disorders: Yes Gastrointestinal Disorders: Chronic Constipation, Hemorrhoids Musculoskeletal Hx Musculoskeletal Disorders: Yes (school age / accident) Musculoskeletal Disorders: Arthritis, Back Injury, Chronic Back Pain Endocrine Hx Endocrine Disorders: Yes (Lantus/ Novolog) Endocrine Disorders: Diabetes, Insulin dep HEENT HX ENT Disorders: Yes (report the start of cataracts, migrains) HEENT Disorders: Cataract Loss of Vision: Bilateral Hearing Impairment: Denies Cancer Hx Cancer: No Psychosocial Hx Psychiatric Problems: Yes Behavioral Health Disorders: Anxiety, Depression Integumentary HX Skin/Integumentary Disorder: Yes (SEEING WOUND CARE FOR WOUND ON FEET, history of cellulitis) Blood Transfusions Hx Blood Disorders: No Adverse Reaction to a Blood Tr: No Reviewed Nursing Assessment Reviewed/Agree w Nursing PMH: Yes Family Medical History Significant Family History: No Pertinent Family Hx Family Hx: Congestive heart failure 03 FATHER Prostate cancer 03 FATHER No Family History of: Abdominal aortic aneurysm Colleton's disease Alcoholism Aphasia Cancer Cancer of colon Cataract Congenital heart disease Cystic fibrosis Dementia Dysphagia Family history: Allergy Family history: Alzheimer's disease Family history: Arthritis Family history: Asthma Family history: Breast disease Family history: Cardiovascular disease Family history: Coronary thrombosis Family history: Diabetes mellitus Family history: Gastrointestinal disease Family history: Glaucoma Family history: Hypertension Family history: Osteoporosis Family history: Thyroid disorder Headache Hearing loss Heart disease Hereditary disease History of - anemia History of - disorder History of - respiratory disease History of drug abuse Human immunodeficiency virus (HIV) seropositivity Hypercholesterolemia Infertile Kidney disease Malignant neoplasm of lung Myocardial infarction Parkinson's disease Psychotic disorder Seizure disorder Stroke Tuberculosis Visual impairment Review of Systems Review of Systems General: No Chills, No Night Sweats HEENT: No Head Aches, No Visual Changes Pulmonary: No Dyspnea, No Cough Cardiovascular: No: Chest Pain Gastrointestinal: Abdominal Pain (left side pain), No: Nausea, Vomiting Genitourinary: No Dysuria, No Frequency Neurological: Weakness All Other Systems Reviewed All Other Systems Reviewed: Yes Physical Exam Vital Signs Vital Sign - Last 12Hours 11/09/16 16:10 Temp 101.0 Pulse 82 Resp 18 B/P (MAP) 136/64 Pulse Ox 98 O2 Delivery Nasal Cannula O2 Flow Rate 2.00 Capillary Refill : Less Than 3 Seconds Vital Signs Date Time Temp Pulse Resp B/P (MAP) Pulse Ox O2 Delivery O2 Flow Rate FiO2 11/10/16 08:00 96.0 68 20 132/60 100 Nasal Cannula 3.00 11/10/16 07:10 66 11/10/16 06:00 64 18 101/49 99 Nasal Cannula 3.00 11/10/16 05:00 96.2 74 18 128/60 99 Nasal Cannula 3.00 11/10/16 04:00 97.6 64 18 110/55 99 Nasal Cannula 3.00 11/10/16 03:00 96.8 70 19 140/66 96 Room Air 11/10/16 00:30 98.4 79 19 134/68 99 Nasal Cannula 3.00 11/09/16 22:19 97.0 77 20 132/56 99 Nasal Cannula 3.00 11/09/16 22:00 99 3.00 11/09/16 21:51 92 11/09/16 21:51 92 2.00 11/09/16 19:15 98.0 84 18 95 11/09/16 16:10 101.0 82 18 136/64 98 Room Air 11/09/16 16:10 Nasal Cannula 2.00 I & O 11/10/16 07:00 Intake Total 1350 ml Output Total 550 ml Balance 800 ml General Appearance: No Apparent Distress, WD/WN HEENT: PERRL/EOMI Neck: Non Tender, Supple Respiratory: Chest Non Tender, Lungs Clear, Normal Breath Sounds, No Accessory Muscle Use, No Respiratory Distress Cardiovascular: Regular Rate, Rhythm Gastrointestinal: Normal Bowel Sounds, Non Tender, Soft Rectal: Deferred Back: Normal Inspection Extremity: Non Tender, Other (left lower leg- edema 1+, woody - warm to touch , right lower leg- slightly warm, 1+edema) Neurologic/Psychiatric: Alert, Oriented x3, No Motor/Sensory Deficits, Normal Mood/Affect Skin: Normal Color, Warm/Dry, Other (see extremity) Assessment/Plan Assessment/Plan Assessment/Plan 66 yo F sepsis due to bilateral lower extremity cellulitis - on rocephin, clindamycin- IVF lactic acidosis- resolved anemia- stable history of congestive heart failure - monitor DMII w/ hyperglycemia - continue home regimen HTN -monitor PAD -monitor anxiety- continue home meds depression - continue home meds Dispo: home situation is not the best but she does have sister and [facility] home health checking on her. Plan to reassess tomorrow- plan to d/c to home 11/11/16 - likely will continue clindamycin course- stop ivf and rocephin Problems: Clinical Quality Measures DVT/VTE Risk/Contraindication: Risk Factor Score Per Nursin RFS Level Per Nursing on Admit: 4+=Very High THEE GILMAN MD November 10, 2016 12:11
[2016-11-10] MEDS ORDERED: METO-272 PO (13:14)
[2016-11-10] MEDS ORDERED: SOLI10TA2 PO (13:14)
[2016-11-10] MEDS ORDERED: POLYETHYLENE GLYCOL 17 GM (MIRALAX) PACK PO PRN (13:45)
[2016-11-10] MEDS: ENOXAPARIN 40 MG/0.4 ML (LOVENOX) SYR SC SCH (13:47)
[2016-11-10] MEDS: ACETAMINOPHEN 500 MG TAB (TYLENOL) PO PRN ×2 (14:12→20:19)
[2016-11-10] MEDS: ALPRAZolam 0.25 MG (XANAX) TAB PO PRN (17:16)
[2016-11-10] MEDS ORDERED: inSUlin DETERMIR 1 UNIT/0.01 ML (LEVEMIR) CHARGE PER UNIT SQ SCH (21:00)
[2016-11-10] MEDS ORDERED: cefTRIAXone INJECTION 1,000 MG in NS (IVPB) 50 ML IV SCH (21:45)
[2016-11-11 00:48] VITALS: BP 123/76
[2016-11-11 04:11] VITALS: BP 159/73
[2016-11-11] MEDS: ACETAMINOPHEN 500 MG TAB (TYLENOL) PO PRN (04:18)
[2016-11-11 05:46] LABS: BASOPHILS # (AUTO) 0.1 10^3/uL (0.0-0.1); BASOPHILS % (AUTO) 1 % (0-10); EOSINOPHILS # (AUTO) 0.8 10^3/uL (0.0-0.3); EOSINOPHILS % (AUTO) 7 % (0-10); LYMPHOCYTES % (AUTO) 9 % (12-44); MEAN CORPUSCULAR HEMOGLOBIN 27 PG (25-34); MEAN CORPUSCULAR HGB CONC 32 G/DL (32-36); MEAN CORPUSCULAR VOLUME 83 FL (80-99); MEAN PLATELET VOLUME 11.3 FL (7.4-10.4); MONOCYTES # (AUTO) 1.4 X 10^3 (0.0-1.0); MONOCYTES % (AUTO) 12 % (0-12); NEUTROPHILS # (AUTO) 8.1 X 10^3 (1.8-7.8); NEUTROPHILS % (AUTO) 72 % (42-75); PLATELET COUNT 228 10^3/uL (130-400); RED BLOOD COUNT 4.11 10^6/uL (4.35-5.85); RED CELL DISTRIBUTION WIDTH 14.4 % (10.0-14.5); WHITE BLOOD COUNT 11.3 10^3/uL (4.3-11.0)
[2016-11-11] MEDS: CLINDAMYCIN 900 MG/NS 50 ML IVPB IV SCH ×4 (05:49→13:17)
[2016-11-11 06:27] LABS: ALANINE AMINOTRANSFERASE 21 U/L (0-55); ALBUMIN 3.5 G/DL (3.2-4.5); ANION GAP 9 MMOL/L (5-14); ASPARTATE AMINO TRANSFERASE 23 U/L (5-34); BILIRUBIN,TOTAL 0.2 MG/DL (0.1-1.0); BLOOD UREA NITROGEN 11 MG/DL (7-18); BUN/CREATININE RATIO 15; CALCIUM 9.7 MG/DL (8.5-10.1); CARBON DIOXIDE 23 MMOL/L (21-32); CHLORIDE 106 MMOL/L (98-107); CREATININE SERUM 0.75 MG/DL (0.60-1.30); GFR ESTIMATED > 60; GLUCOSE 222 MG/DL (70-105); POTASSIUM 4.1 MMOL/L (3.6-5.0); SODIUM 138 MMOL/L (135-145); TOTAL PROTEIN 6.9 G/DL (6.4-8.2)
[2016-11-11] MEDS: inSUlin (REGULAR) HUMAN 1 UNIT/0.01 ML (CHARGE PER UNIT) SC SCH ×2 (06:41→10:27)
[2016-11-11 08:30] VITALS: BP 153/82
[2016-11-11] MEDS: ALPRAZolam 0.25 MG (XANAX) TAB PO PRN (08:55)
[2016-11-11] MEDS ORDERED: LORATADINE (CLARITIN) 10 MG TAB PO SCH (09:00)
[2016-11-11] MEDS ORDERED: FUROSEMIDE 40 MG (LASIX) TAB PO SCH (09:00)
[2016-11-11] MEDS ORDERED: CLIN300C11 PO (12:26)
--- NOTE | 2016-11-11 12:38 | Discharge Inst-Home Health ---
Discharge Inst-to Home Health Patient Instructions Patient Instructions/FollowUp: call Dr. Aguilar's office in AM for follow up pt reports she will get an appt with wound care. complete clindamycin course resume [facility] [place] [place] DISCHARGE ORDERS Allergies: Coded Allergies: No Known Drug Allergies (Unverified , 09/15/13) Height (Feet): 5 Height (Inches): 6.00 Weight (Pounds): 223 Weight (Ounces): 4.0 Home Health Need/Face to Face Reason Pt Homebound weakness, chronic comorbidities. I Have Seen Pt Qivt-nr-Ocwm: Yes Date of Face to Face: November 11, 2016 Discharged To: Home Diagnosis/Conditions HH Order: Resume current home health orders. cellulitis bilateral lower extremities weakness/debility diabetes mellitus anxiety depression Consult/Follow Up/New Order *I certify that based on my findings, the following services are medically necessary Home Health Services: Services: Nursing Services, Physical Therapy-Evaluate & Treat, Wound Care-Eval/ Treat My clinical findings support the need for the above services; see Diagnosis. Dicharge Diet: ADA Diet Discharge Medications: New, Converted, or Re-newed RX: Transmited to Pharmacy I certify that this patient is under my care and that I, a physician; had a face to face encounter that -meets the physician face to face encounter requirements with this patient as dated. RAMY GILMAN MD November 11, 2016 12:38
[2016-11-11] MEDS: ENOXAPARIN 40 MG/0.4 ML (LOVENOX) SYR SC SCH (12:39)
--- NOTE | 2016-11-11 12:44 | Discharge Summary ---
Diagnosis/Chief Complaint Date of Admission November 09, 2016 at 18:30 Date of Discharge November 11, 2016 Admission Diagnosis Admission Diagnosis sepsis due to bilateral lower extremity cellulitis - lactic acidosis anemia- history of congestive heart failure DMII w/ hyperglycemia - HTN PAD anxiety- depression - Discharge Diagnosis sepsis due to bilateral lower extremity cellulitis - lactic acidosis anemia- history of congestive heart failure DMII w/ hyperglycemia - HTN PAD anxiety- depression - Reason Hospital Visit 66-year-old female admitted for sepsis due to cellulitis in bilateral lower extremities. Pt has history of DMII, HTN, PAD, anxiety, depression. Patient has a history of bilateral lower extremity cellulitis in which she has seen wound care back in July 2016. Most recently Patient was seen on November 01, 2016 at [facility] ER for cellulitis and that she was prescribed Augmentin. Pt reports she has taken the augmentin, ER reports that she did not start it. Patient currently lives alone and her sister checks on her either every day or every other day patient; also has [employer] that comes and checks on her as well. [employer] wanted her legs to be evaluated. Patient did not go to her PCP Dr. Aguilar's office because she thought he was closed on Fridays. Pt reports she did fall earlier in the week and hurt her left side/hip- Imaging was negative for acute fracture. Patient has bilateral leg discomfort where her cellulitis is. It is warm to touch and she has felt warm. Patient did have a fever in the ER 101F. Lactic acid was >2 but was normal on recheck after IVF. She was started on clindamycin and rocephin. Some confusion was noted by EMS but appears to be resolved. No fevers overnight. Pt reports she is urinating okay- does require assistance to get up to bedside commode. Discharge Summary Hospital Course Hospital Course Patient was admitted for cellulitis- she received IV antibiotics and continued to improve- no fevers for 48hours. Blood culture NGTD. She was continued on her insulin for her diabetes. Lactic acidosis resolved. Anemia was stable. Patient deemed stable for discharge 11/11/16- she will complete her course of clindamycin. She will follow up with Dr. Aguilar this week and check in with Wound clinic. She has [facility] and will continue with them- she needs to work on being ambulatory and home health PT to continue working with her. Labs Laboratory Tests 11/09/16 16:10: White Blood Count 13.7H, Red Blood Count 3.96L, Hemoglobin 10.5L, Hematocrit 33L , Red Cell Distribution Width 14.6H, Mean Platelet Volume 11.2H, Neutrophils (% ) (Auto) 83H, Lymphocytes (%) (Auto) 7L, Neutrophils # (Auto) 11.3H, Monocytes # (Auto) 1.3H, Blood Urea Nitrogen 27H, Glucose Level 196H, Lactic Acid Level 2.85*H 11/09/16 17:10: Urine Protein 2+H, Urine Ketones 1+H, Urine Bilirubin 3+H, Urine Leukocyte Esterase 1+H, Urine Bacteria FEWH, Urine Mucus SMALLH 11/09/16 18:52: 11/10/16 06:05: Red Blood Count 3.75L, Hemoglobin 10.0L, Hematocrit 32L, Red Cell Distribution Width 14.7H, Mean Platelet Volume 11.3H, Monocytes # (Auto) 1.8H, Blood Urea Nitrogen 23H, Glucose Level 137H, Monocytes (%) (Auto) 17H, Eosinophils # (Auto ) 0.7H, Total Protein 5.9L, Albumin 3.1L 11/10/16 07:48: Glucometer 140H 11/10/16 10:04: Glucometer 169H 11/10/16 14:57: Glucometer 240H 11/10/16 22:32: Glucometer 152H 11/11/16 05:30: White Blood Count 11.3H, Red Blood Count 4.11L, Hemoglobin 11.0L, Hematocrit 34L , Mean Platelet Volume 11.3H, Lymphocytes (%) (Auto) 9L, Neutrophils # (Auto) 8.1H, Monocytes # (Auto) 1.4H, Eosinophils # (Auto) 0.8H, Glucose Level 222H 11/11/16 10:09: Glucometer 160H Procedures None. Discharge Physical Examination Allergies: Coded Allergies: No Known Drug Allergies (Unverified , 09/15/13) Vitals & I&Os Vital Signs Date Time Temp Pulse Resp B/P (MAP) Pulse Ox O2 Delivery O2 Flow Rate FiO2 11/11/16 14:10 11/11/16 08:30 97.6 77 18 98 Room Air 11/10/16 15:10 3.00 General Appearance: Alert, Oriented X3 HEENT: Atraumatic Respiratory: Clear to Auscultation Cardiovascular: Regular Rate Abdominal: Normal Bowel Sounds, Soft Extremities: Other (trace pitting edema- legs) Skin: Other (cellulitis of lower extremities- improving- minimally warm- no drainage or open sores.) Neuro: Other (weak needs help standing- walks slow with a walker.) Psych/Mental Status: Mental Status NL Discharge Home Medications Reviewed and agree with Discharge Medication list on patient's Discharge Instruction sheet Instructions to Patient/Family Please see electronic discharge instructions given to patient. Clinical Quality Measures DVT/VTE Risk/Contraindication: Risk Factor Score Per Nursin RFS Level Per Nursing on Admit: 4+=Very High RAMY GILMAN MD November 11, 2016 12:44
== END 2016-11-11 14:10 | disposition home health service (06) | DRG 872 ==
LOC: EDUNIT# 15:55 → ER 15:58 → 4TH 18:30
PROVIDERS: ADMIT Family Medicine; ATTEND Family Medicine
DX: A41.9 Sepsis, unspecified organism (principal); L03.115 Cellulitis of right lower limb; L03.116 Cellulitis of left lower limb; E87.2 Acidosis; I50.9 Heart failure, unspecified; E11.65 Type 2 diabetes mellitus with hyperglycemia; I10 Essential (primary) hypertension; D64.9 Anemia, unspecified; I73.9 Peripheral vascular disease, unspecified; F41.9 Anxiety disorder, unspecified; F32.9 Major depressive disorder, single episode, unspecified; Z87.891 Personal history of nicotine dependence; Z96.642 Presence of left artificial hip joint; Z79.4 Long term (current) use of insulin
CPT/HCPCS: 36415; 51701; 70450; 71010; 73502; 80053; 81000; 82962; 83605; 85007; 85025; 85027; 85610; 85730; 87040; 94760; 96361; 96365

== ENCOUNTER 2016-11-13 11:07 | Emergency (ER) | payer MEDICARE, MEDICAID ==
[~2016-11-13] VITALS: Ht 167.6 cm; Wt 90.7 kg
[~2016-11-13 11:07] MED LIST changes: +CLIN300C11 PO; +SOLI10TA2 PO
[2016-11-13] MEDS ORDERED: NS IV 1000 ML 1,000 ML IV ONE (11:24)
[2016-11-13 11:47] LABS: BILIRUBIN,URINE NEGATIVE (NEGATIVE); KETONES,URINE 1+ (NEGATIVE); LEUKOCYTE ESTERASE ,URINE NEGATIVE (NEGATIVE); NITRITE,URINE NEGATIVE (NEGATIVE); PH,URINE 7 (5-9); PROTEIN,URINE 3+ (NEGATIVE); UROBILINOGEN,URINE NORMAL (NORMAL)
--- NOTE | 2016-11-13 11:48 | ED General ---
General Chief Complaint: Altered Mental Status Stated Complaint: CONFUSION Nursing Triage Note: ARRIVED VIA AMBULANCE TO [facility]. STATES SHE WAS DISCHARGED ON SATURDAY AND TOLD SHE HAD A UTI AND WAS PRESCIRBED A ANTIBIOTIC. SISTER CALLED HER TODAY AND THOUGHT SHE WAS CONFUSED AND CALLED AN AMBULANCE. PT A/O UPON ARRIVAL TO ER. Nursing Sepsis Screen: No Definite Risk Source of Information: Patient Exam Limitations: No Limitations History of Present Illness Time Seen by Provider: 11:30 Initial Comments Here via ambulance from home where she was reportedly refused today. She was in the hospital for a few days over the weekend for sepsis which apparently was related to lower extremity wounds. She is on antibiotics and has been taking them. EMS reported that the patient's sister called because she is increasingly confused and thought she had a urinary tract infection. She was found slumped down in a recliner. She was unable to get up to unlock the door. Patient states that it is because it was a new recliner. She's been unable to answer all questions and follow all commands but is weak. She does appear to have some periods of confusion. Currently not febrile and does not report fever or vomiting. Timing/Duration: 12 Hours, Getting Worse Severity: Moderate Associated Systoms: No Cough, No Fever/Chills, No Nausea/Vomiting, No Shortness of Air, No Weakness Allergies and Home Medications Allergies Coded Allergies: No Known Drug Allergies (Unverified , 09/15/13) Home Medications Acetaminophen 650 Mg Tablet.er, 650-1,200 MG PO Q4H PRN for PAIN, (Reported) Alprazolam 0.25 Mg Tablet, 0.25 MG PO BID PRN for ANXIETY, (Reported) Calcium Carbonate 200 Mg Tab.chew, 400 MG PO QID PRN for INDIGESTION, (Reported) Clindamycin HCl 300 Mg Capsule, 300 MG PO Q6H for 12 Days, #48 Prescribed by: RAMY GILMAN on 11/11/16 1226 Duloxetine HCl 60 Mg Capsule.dr, 30 MG PO DAILY, (Reported) Esomeprazole Magnesium 40 Mg Cap, 40 MG PO DAILY, (Reported) TAKES BEFORE BREAKFAST Furosemide 40 Mg Tablet, 40 MG PO DAILY, (Reported) Insulin Aspart 300 Units/3 Ml Solution, SQ QID, (Reported) 60-200 = 0 UNITS 201-250 = 3 UNITS 251-300 = 5 UNITS 301-350 = 7 UNITS 351- 400 = 9 UNITS Insulin Glargine,Hum.rec.anlog 100 Unit/1 Ml Insuln.pen, 40 UNITS SQ BID, ( Reported) HOLD IF BLOOD SUGAR IS 95 OR BELOW Iron Polysaccharide Complex 150 Mg Capsule, 150 MG PO BID, (Reported) Loperamide HCl 2 Mg Tablet, 2 MG PO UD PRN for DIARRHEA, (Reported) Loratadine 10 Mg Tablet, 10 MG PO DAILY, (Reported) Metformin HCl 1,000 Mg Tablet, 1,000 MG PO BID, (Reported) Metoprolol Succinate 50 Mg Tab.er.24h, 50 MG PO DAILY, (Reported) Polyethylene Glycol 3350 17 Gm Powd.pack, 17 GM PO DAILY PRN for CONSTIPATION, ( Reported) Pregabalin 150 Mg Capsule, 150 MG PO TID, (Reported) Ropinirole HCl 2 Mg Tablet, 2 MG PO BID, (Reported) Rosuvastatin Calcium 10 Mg Tablet, 10 MG PO DAILY, (Reported) Solifenacin Succinate 10 Mg Tablet, 10 MG PO DAILY, (Reported) Tramadol HCl 50 Mg Tablet, 50 MG PO TID, (Reported) Constitutional: see HPI, No chills, No fever EENTM: no symptoms reported Respiratory: no symptoms reported, No short of breath, No wheezing Cardiovascular: no symptoms reported Gastrointestinal: no symptoms reported, No nausea, No vomiting Genitourinary: see HPI Musculoskeletal: muscle weakness, other (lower extremity) Skin: change in color, lesions (left leg covered with dressing distally) All Other Systems Reviewed Negative Unless Noted: Yes Past Jvuaowi-Ugesci-Kqxyit Hx Patient Social History Alcohol Use: Denies Use Recreational Drug Use: No Smoking Status: Former Smoker Type Used: Cigarettes Former Smoker/When Quit: Aug 12, 1991 Recent Foreign Travel: No Contact w/Someone Who Travel: No Recent Infectious Disease Expo: No Recent Hopitalizations: Yes (THIS WEEK) Immunizations Up To Date Tetanus Booster (TDap): Less than 5yrs PED Vaccines UTD: Yes Date of Pneumonia Vaccine: Mar 19, 2012 Date of Influenza Vaccine: Mar 25, 2016 Seasonal Allergies Seasonal Allergies: No Surgeries HX Surgeries: Yes (HEMORRHOIDECTOMY, L HIP replacement, reduction left hip dislocation x2) Surgeries: Gallbladder, Joint Replacement, Orthopedic Respiratory Hx Respiratory Disorders: No Cardiovascular Hx Cardiac Disorders: Yes (CHF) Cardiac Disorders: Hypertension Neurological Hx Neurological Disorders: Yes (RLS) Neurological Disorders: Neuropathy Reproductive System Hx Reproductive Disorders: No Sexually Transmitted Disease: No HIV/AIDS: No Genitourinary Hx Genitourinary Disorders: No Gastrointestinal Hx Gastrointestinal Disorders: Yes Gastrointestinal Disorders: Chronic Constipation, Hemorrhoids Musculoskeletal Hx Musculoskeletal Disorders: Yes (school age / accident) Musculoskeletal Disorders: Arthritis, Back Injury, Chronic Back Pain Endocrine Hx Endocrine Disorders: Yes (Lantus/ Novolog) Endocrine Disorders: Diabetes, Insulin dep HEENT HX ENT Disorders: Yes (report the start of cataracts, migrains) HEENT Disorders: Cataract Loss of Vision: Bilateral Hearing Impairment: Denies Cancer Hx Cancer: No Psychosocial Hx Psychiatric Problems: Yes Behavioral Health Disorders: Anxiety, Depression Integumentary HX Skin/Integumentary Disorder: Yes (SEEING WOUND CARE FOR WOUND ON FEET, history of cellulitis) Blood Transfusions Hx Blood Disorders: No Adverse Reaction to a Blood Tr: No Reviewed Nursing Assessment Reviewed/Agree w Nursing PMH: Yes Family Medical History Significant Family History: No Pertinent Family Hx Family Medial History: Congestive heart failure 03 FATHER Prostate cancer 03 FATHER Physical Exam Vital Signs Vital Sign - Last 12Hours 11/13/16 11:10 Temp 98.4 Pulse 77 Resp 16 B/P (MAP) 137/72 Pulse Ox 98 Capillary Refill : Less Than 3 Seconds General Appearance: No Apparent Distress, WD/WN HEENT: PERRL/EOMI, Pharynx Normal Neck: Non Tender, Supple Respiratory: Lungs Clear, Normal Breath Sounds Cardiovascular: Regular Rate, Rhythm, No Murmur Gastrointestinal: Non Tender, Soft Back: Normal Inspection, No CVA Tenderness, No Vertebral Tenderness Extremity: Non Tender, Pedal Edema (1+ to the mid tibia bilaterally) Neurologic/Psychiatric: Alert, Oriented x3, No Motor/Sensory Deficits Skin: Warm/Dry, Erythema (erythema bilateral lower extremities to the level of mid tibia that is mild.), Other (small healing wound to the dorsum of the left midfoot. Small healing wound to the area of the MTP on the sole of the foot on the right.) Focused Exam Lactic Acid Level Laboratory Tests Test 11/13/16 11:42 Lactic Acid Level 1.67 MMOL/L (0.50-2.00) Progress/Results/Core Measures Results/Orders Lab Results Laboratory Tests Test 11/13/16 11:14 11/13/16 11:35 11/13/16 11:42 Range/Units Glucometer 157 H 70-110 MG/DL Urine Color YELLOW Urine Clarity CLEAR Urine pH 7 5-9 Urine Specific [place] 1.010 L 1.016-1.022 Urine Protein 3+ H NEGATIVE Urine Glucose (UA) NEGATIVE NEGATIVE Urine Ketones 1+ H NEGATIVE Urine Nitrite NEGATIVE NEGATIVE Urine Bilirubin NEGATIVE NEGATIVE Urine Urobilinogen NORMAL NORMAL MG/DL Urine Leukocyte Esterase NEGATIVE NEGATIVE Urine RBC (Auto) NEGATIVE NEGATIVE Urine RBC RARE /HPF Urine WBC NONE /HPF Urine Squamous Epithelial Cells RARE /HPF Urine Crystals NONE /LPF Urine Bacteria NEGATIVE /HPF Urine Casts NONE /LPF Urine Mucus NEGATIVE /LPF Urine Culture Indicated NO White Blood Count 11.8 H 4.3-11.0 10^3/uL Red Blood Count 4.48 4.35-5.85 10^6/uL Hemoglobin 11.8 11.5-16.0 G/DL Hematocrit 36 35-52 % Mean Corpuscular Volume 81 80-99 FL Mean Corpuscular Hemoglobin 26 25-34 PG Mean Corpuscular Hemoglobin Concent 33 32-36 G/DL Red Cell Distribution Width 14.5 10.0-14.5 % Platelet Count 308 130-400 10^3/uL Mean Platelet Volume 10.3 7.4-10.4 FL Neutrophils (%) (Auto) 77 H 42-75 % Lymphocytes (%) (Auto) 10 L 12-44 % Monocytes (%) (Auto) 10 0-12 % Eosinophils (%) (Auto) 4 0-10 % Basophils (%) (Auto) 1 0-10 % Neutrophils # (Auto) 9.1 H 1.8-7.8 X 10^3 Lymphocytes # (Auto) 1.1 1.0-4.0 X 10^3 Monocytes # (Auto) 1.1 H 0.0-1.0 X 10^3 Eosinophils # (Auto) 0.4 H 0.0-0.3 10^3/uL Basophils # (Auto) 0.1 0.0-0.1 10^3/uL Sodium Level 136 135-145 MMOL/L Potassium Level 4.0 3.6-5.0 MMOL/L Chloride Level 98 98-107 MMOL/L Carbon Dioxide Level 27 21-32 MMOL/L Anion Gap 11 5-14 MMOL/L Blood Urea Nitrogen 16 7-18 MG/DL Creatinine 0.86 0.60-1.30 MG/DL Estimat Glomerular Filtration Rate > 60 BUN/Creatinine Ratio 19 Glucose Level 162 H 70-105 MG/DL Lactic Acid Level 1.67 0.50-2.00 MMOL/L Calcium Level 10.4 H 8.5-10.1 MG/DL Magnesium Level 1.5 L 1.8-2.4 MG/DL Total Bilirubin 0.3 0.1-1.0 MG/DL Aspartate Amino Transf (AST/SGOT) 19 5-34 U/L Alanine Aminotransferase (ALT/SGPT) 21 0-55 U/L Alkaline Phosphatase 98 40-136 U/L C-Reactive Protein High Sensitivity 1.50 H 0.00-0.50 MG/DL Total Protein 7.4 6.4-8.2 G/DL Albumin 3.9 3.2-4.5 G/DL My Orders Orders - JUAN MORFIN MD Cbc With Automated Diff (11/13/16 11:24) Comprehensive Metabolic Panel (11/13/16 11:24) Hs C Reactive Protein (11/13/16 11:24) Magnesium (11/13/16 11:24) Ua Culture If Indicated (11/13/16 11:24) Saline Lock/Iv-Start (11/13/16 11:24) Ns Iv 1000 Ml (Sodium Chloride 0.9%) (11/13/16 11:24) Lactic Acid Analyzer (11/13/16 11:26) Blood Culture (11/13/16 11:48) Chest 1 View, Ap/Pa Only (11/13/16 12:07) Medications Given in ED Current Medications Medications Dose Ordered Sig/Donny Route Start Time Stop Time Status Last Admin Dose Admin Sodium Chloride 1,000 ml @ 0 mls/hr Q0M ONCE IV 11/13/16 11:24 11/13/16 11:26 DC 11/13/16 11:57 1,000 MLS/HR Vital Signs/I&O Vital Sign - Last 12Hours 11/13/16 11:10 Temp 98.4 Pulse 77 Resp 16 B/P (MAP) 137/72 Pulse Ox 98 Blood Pressure Mean: 93 Point of Care Testing Finger Stick Blood Glucose: 157 Progress Note : Progress Note Seen and evaluated. IV, labs, UA, blood cultures and lactic acid ordered. Normal saline 1 L bolus. 1210: Patient noted to be hypoxic with O2 sat at 86 percent and declining while resting but not sleeping. O2 applied at 2 L via nasal cannula which did improve her O2 sat. Monitor patient. 1245: Labs, x- ray and UA results noted. We have asked inpatient rehabilitation team to evaluate the patient due to patient's decline in function as well as need for oxygen. She has become progressively weakened and is having increased debility. Monitor patient. 1315: Inpatient. Team monitoring and patient will likely meet criteria. I did discuss with the patient the need for therapy and strengthening and patient states that she will try to do well. Dr. Priest paged. 1346: Discussed case with Dr. Priest he agrees and accepts patient for admission to inpatient rehabilitation. Diagnostic Imaging Diagonstic Imaging: Xray Plain Films/CT/US/NM/MRI: chest Comments NAME: ETHAN CREWS MED REC#: [id number] PT STATUS: REG ER : 1950 PHYSICIAN: JUAN MORFIN MD ADMIT DATE: 11/13/16/ER Signed Date of Exam: 11/13/16 CHEST 1 VIEW, AP/PA ONLY Portable upright radiograph of the chest. INDICATION: Altered mental status. FINDINGS: The lungs are clear. The heart size is mildly enlarged. No effusion or pneumothorax. Mediastinum and claudia appear unremarkable. IMPRESSION: Mildly prominent cardiac size. Clear lungs. Dictated by: Dictated on workstation # [id number] Dict: 11/13/16 1241 Trans: 11/13/16 1311 Interpreted by: HANK ROSAS MD Electronically signed by: HANK ROSAS MD 11/13/16 1311 Departure Communication Time/Spoke to Admitting Phy: 13:46 Impression Impression: Primary Impression: CHRONIC GENERALIZED WEAKNESS Additional Impressions: Debility Hypoxia Disposition: ADMITTED INPATIENT Condition: Critical Decision to Admit Reason: Admit from ER (General) Decision to Admit/Date: November 13, 2016 Time/Decision to Admit Time: 13:15 Departure-Patient Inst. Referrals: JOSE PRIEST DO (PCP/Family) Primary Care Physician JUAN MORFIN MD November 13, 2016 11:48
[2016-11-13 11:53] LABS: BASOPHILS # (AUTO) 0.1 10^3/uL (0.0-0.1); BASOPHILS % (AUTO) 1 % (0-10); EOSINOPHILS # (AUTO) 0.4 10^3/uL (0.0-0.3); EOSINOPHILS % (AUTO) 4 % (0-10); LYMPHOCYTES # (AUTO) 1.1 X 10^3 (1.0-4.0); LYMPHOCYTES % (AUTO) 10 % (12-44); MEAN CORPUSCULAR HEMOGLOBIN 26 PG (25-34); MEAN CORPUSCULAR HGB CONC 33 G/DL (32-36); MEAN CORPUSCULAR VOLUME 81 FL (80-99); MEAN PLATELET VOLUME 10.3 FL (7.4-10.4); MONOCYTES # (AUTO) 1.1 X 10^3 (0.0-1.0); MONOCYTES % (AUTO) 10 % (0-12); NEUTROPHILS # (AUTO) 9.1 X 10^3 (1.8-7.8); NEUTROPHILS % (AUTO) 77 % (42-75); PLATELET COUNT 308 10^3/uL (130-400); RED BLOOD COUNT 4.48 10^6/uL (4.35-5.85); RED CELL DISTRIBUTION WIDTH 14.5 % (10.0-14.5); WHITE BLOOD COUNT 11.8 10^3/uL (4.3-11.0)
[2016-11-13 12:01] LABS: SQUAMOUS EPITHELIAL CELL,UR RARE /HPF
[2016-11-13 12:17] LABS: ALANINE AMINOTRANSFERASE 21 U/L (0-55); ALBUMIN 3.9 G/DL (3.2-4.5); ANION GAP 11 MMOL/L (5-14); ASPARTATE AMINO TRANSFERASE 19 U/L (5-34); BILIRUBIN,TOTAL 0.3 MG/DL (0.1-1.0); BLOOD UREA NITROGEN 16 MG/DL (7-18); BUN/CREATININE RATIO 19; CALCIUM 10.4 MG/DL (8.5-10.1); CARBON DIOXIDE 27 MMOL/L (21-32); CHLORIDE 98 MMOL/L (98-107); CREATININE SERUM 0.86 MG/DL (0.60-1.30); GFR ESTIMATED > 60; GLUCOSE 162 MG/DL (70-105); MAGNESIUM 1.5 MG/DL (1.8-2.4); SODIUM 136 MMOL/L (135-145); TOTAL PROTEIN 7.4 G/DL (6.4-8.2)
--- NOTE | 2016-11-13 12:47 | Diagnostic Imaging Report ---
Portable upright radiograph of the chest. INDICATION: Altered mental status. FINDINGS: The lungs are clear. The heart size is mildly enlarged. No effusion or pneumothorax. Mediastinum and claudia appear unremarkable. IMPRESSION: Mildly prominent cardiac size. Clear lungs. Dictated by: Dictated on workstation # [id number]
[2016-11-13 15:06] VITALS: BP 108/65
[2016-11-13] MEDS ORDERED: TRAM50TA2 PO (16:32)
[2016-11-13] MEDS ORDERED: CLIN300C11 PO (16:32)
[2016-11-13] MEDS ORDERED: ALPR0.254 PO (16:32)
[2016-11-13] MEDS ORDERED: ROSU10TA24 PO (16:32)
[2016-11-13] MEDS ORDERED: DULO30CA48 PO (16:32)
[2016-11-14] MEDS ORDERED: LOPE2CAP PO (11:20)
== END 2016-11-13 15:06 | disposition other institution (70) ==
LOC: EDUNIT# 11:07 → ER 11:08
DX: R53.1 Weakness (principal); R53.81 Other malaise; R09.02 Hypoxemia; I10 Essential (primary) hypertension; E11.9 Type 2 diabetes mellitus without complications; Z79.84 Long term (current) use of oral hypoglycemic drugs; Z79.4 Long term (current) use of insulin; Z79.899 Other long term (current) drug therapy
CPT/HCPCS: 36415; 51702; 71010; 80053; 81000; 82962; 83605; 83735; 85025; 86141; 87040; 96360

== ENCOUNTER 2016-11-13 15:21 | Inpatient (IN) | payer MEDICARE, MEDICAID ==
[~2016-11-13] VITALS: Ht 167.6 cm; Wt 96.6 kg
[2016-11-13 15:47] VITALS: BP 144/95
--- NOTE | 2016-11-13 15:52 | Physical Therapy Evaluation ---
PT Evaluation-General Medical Diagnosis Admission Date November 13, 2016 at 15:21 Medical Diagnosis: AMS/UTI Onset Date: November 13, 2016 Therapy Diagnosis Therapy Diagnosis: generalized weakness/debility Height/Weight Height (Feet): 5 Height (Inches): 6.00 Weight (Pounds): 200 Weight (Ounces): 4.0 Precautions Precautions/Isolations: Fall Prevention Referral Physician: Boo Reason for Referral: Evaluation/Treatment Medical History Pertinent Medical History: Arthritis, DM, Heart Failure, HTN, Neuropathy, OA Additional Medical History recent hospital stay for UTI 11/09-11/11/2016 and dismissed to home Current History family found patient slumped in recliner confused and lethargic. EMS was called. In ER, patient continued with confusion, hypoxia, weakness and was admitted to ARU. Reviewed History: Yes Social History Home: Single Level Current Living Status: Alone Entry Into Home: Level Entry Prior/Core FIM Prior Level of Function Functional [place] Measure 0=Not Assessed/NA 4=Minimal Assistance 1=Total Assistance 5=Supervision or Setup 2=Maximal Assistance 6=Modified Ramer 3=Moderate Assistance 7=Complete [place] Bed Mobility: 6 Transfers (B,C,W/C) (FIM): 6 Gait: 6 ambulates with FWW or 4WW PT Evaluation-Current Subjective Patient is severely lethargic and unable to follow simple direction. Pain Numeric Pain Scale: 0-No Pain Location: No Pain Reported Objective Patient Orientation: Person, Place, Time, Mumbles, Listless Problem Solving: Poor Attachments: Sneed Catheter ROM/Strength ROM Lower Extremities bilateral LE WFL; noted left foot deformity due to arthritis Strenght Lower Extremities bilaterally 2/5 grossly (unable to formally test due to patient's inability to follow direction to perform lower extremity MMT) Integumentary/Posture Integumentary refer to nursing notes (diabetic foot ulcers bilaterally) Bladder Incontinence: Sneed Cath Posture kyphotic Neuromuscular (Tone, Coordination, Reflexes) severely diminished tone and coordination with all movement bilateral LE's and trunk. Noted left sided delayed response time vs. right with head turning and left UE/LE use Sensory Vision: Functional Hearing: Functional Sensation Right Lower Extremit: Impaired Sensation Left Lower Extremity: Impaired Transfers Functional Ramer Measure 0=Not Assessed/NA 4=Minimal Assistance 1=Total Assistance 5=Supervision or Setup 2=Maximal Assistance 6=Modified [place] 3=Moderate Assistance 7=Complete IndependenceIRFPAI Quality Coding Scale 6 Independent with activity with or without an assistive device 5 Patient requires set up or clean up by helper. Patient completes activity by themselves 4 Supervision or touching assist (CGA). [place] provide cues , steadying assist 3 The helper provides less than half the effort to complete the activity 2 The helper provides more than half the effort to complete the activity 1 Dependent. The helper does all the effort to complete an activity 7 Patient refused to complete or attempt activity 9 The patient did not perform the activity before the current illness or injury 88 Not attempted due to Medical conditions or safety concerns Transfers (B, C, W/C) (FIM): 1 Scootin Rollin Roll Left to Right (QC): 1 Supine to/from Sit: 1 Sit to/from Stand: 1 Sit to Lying (QC): 1 Lying to Sitting/Side of Bed(Q: 1 Sit to Stand (QC): 1 Chair/Gti-af-Qfxxw Xfer(QC): 1 Car Transfer (QC): 88 OT address sequencing with transfer training and bed mobility, while PT address bilateral LE mobility and core strength with transfers and bed mobility. Gait Does the Patient Walk?: No and Walking Goal IS indicated Mode of Locomotion: Both Anticipated Mode of Locomotion: Both Walk 10 feet (QC): 88 Walk 50 ft with 2 Turns(QC): 88 Walk 150 ft (QC): 88 Walking 10ft/uneven surface-QC: 88 Stairs 1 Step (curb) (QC): 88 4 Steps (QC): 88 12 Steps (QC): 88 If not tested on admit;explain Patient is unable to maintain sitting EOB and is too lethargic/weak to safely attempt. Balance Sitting Static: Poor Sitting Dynamic: Poor Standing Static: Poor Standing Dynamic: Poor Picking up an Object (QC): 88 Assessment/Needs 66 y.o. female, currently presenting with severe lethargy and weakness, will benefit from skilled PT to address functional strength and mobility to improve current LOF. Patient is limited with following direction, strength, simple tasks, mobility and overall gross motor skills. Rehab Potential: Fair Post Rehab Potential-Barriers: current condition PT Short Term Goals Short Term Goals Time Frame: November 27, 2016 Transfers (B,C,W/C) (FIM): 3 Gait (FIM): 1 Distance (FIM): 1=up to 49 ft Gait Distance Comment: 20' Gait Level of Assist: 3 Gait Assistive Device: FWW Stairs (FIM): 1 # of Steps: 1 Stairs Level of Assist: 3 PT [facility] Goals [employer] [place] Assistant Goals PT [facility]it[facility]iary Goals Time Frame: Dec 11, 2016 Transfers (B,C,W/C) (FIM): 5 Sit to Lying (QC): 5 Lying-Sitting on Side/Bed(QC): 5 Sit to Stand (QC): 5 Rollin Roll Left to Right (QC): 5 Chair/Wpx-el-Ogwbn Xfer(QC): 5 Car Transfer (QC): 5 Does the Patient Walk: No and Walking Goal IS indicated Gait (FIM): 2 Gait distance (FIM): 5=439-26 ft Distance: 75' Walk 10 feet (QC): 5 Walk 10ft-Uneven Surface(QC): 5 Walk 50ft with 2 Turns (QC): 5 Walk 150 ft (QC): 88 Gait Level of Assist: 5 Gait Assistive Device: FWW # of Steps: 4 1 Step (curb) (QC): 4 4 Steps (QC): 4 12 Steps (QC): 88 Stairs Level Of Assist: 5 Picking up an Object (QC): 4 PT Plan Problem List Problem List: Activity Tolerance, Functional Strength, Safety, Balance, Gait, Transfer, Bed Mobility Treatment/Plan Treatment Plan: Continue Plan of Care Treatment Plan: Bed Mobility, Education, Functional Activity Hitesh, Group Therapy, Gait, Safety, Therapeutic Exercise, Transfers Treatment Duration: Dec 11, 2016 # of days/week 6 Visits Per Week: 6-11 Minutes/Day (M-F): 60-90 Minutes/Day (Sat/Andrade): PRN Pt/Family Agrees w/Plan: Yes Safety Risks/Education Patient Education: Safety Issues Teaching Recipient: Patient Teaching Methods: Discussion Response to Teaching: Reinforcement Needed Discharge Recommendations Therapy D/C Recommendations: Shelter Placement, Detention (TCU/NH) Time/GCodes Time In: 1510 Time Out: 1540 Total Billed Treatment Time: 30 Total Billed Treatment 1 visit EVHighC 15 min (15 min CoTreat) NIKKO MOSLEY PT November 13, 2016 15:51
--- NOTE | 2016-11-13 15:54 | Occupational Therapy Eval ---
OT Evaluation-General/PLF Medical Diagnosis Admission Date November 13, 2016 at 15:21 Medical Diagnosis: AMS, UTI Onset Date: November 13, 2016 Therapy Diagnosis Therapy Diagnosis: impaired self care skills Height/Weight Height (Feet): 5 Height (Inches): 6.00 Weight (Pounds): 200 Weight (Ounces): 4.0 Medical History Pertinent Medical History: Arthritis, DM, Heart Failure, HTN, Neuropathy, OA Additional Medical History left hip replacement, reduction of left hip dislocation x2, chronic constipation , anxiety, RLS, chronic back pain, Reviewed History: Yes Social History Home: Single Level Current Living Status: Alone Entry Into Home: Level Entry ADL-Prior Level of Function ADL PLOF Comments Pt provides limited history, requires cues to stay awake and attend to task. Pt reports living alone, states sister comes by to assist with cleaning as needed. Pt states she is able to complete basic self care. Uses FWW for mobility. DME/Equipment: Tall Toile[address] Self: No OT Current Status Subjective Pt lethargic this pm. Pt reports back pain, but does not rate. Mental Status/Objective Patient Orientation: Person Current Upper Extremity ROM Decreased shoulder ROM Upper Extremity Strength Unable to complete formal assessment secondary to pt's level of alertness and decreased ability to follow commands Pt moves bilateral UE, but has decreased attention to left side. ADL-Treatment ADL-Current Pt supine to sit with total assist. Pt requests to use BSC. Sit to stand and transfer to BSC with total assist. Pt dependent for hygiene. Dependent to transfer to EOB. Pt has decreased sitting balance and posture at EOB. Sit to supine with assist x2. Unable to further assess ADLs at this time secondary to pt's lethargy. Pt going to CT at this time. Co-treat with PT secondary to impaired tolerance to activity and level of alertness. OT focusing on sequencing and upper body management during transfers and functional tasks and PT focusing on LE placement and transfer safety. Functional [place] Measure 0=Not Assessed/NA 4=Minimal Assistance 1=Total Assistance 5=Supervision or Setup 2=Maximal Assistance 6=Modified [place] 3=Moderate Assistance 7=Complete IndependenceIRFPAI Quality Coding Scale 6 Independent with activity with or without an assistive device 5 Patient requires set up or clean up by helper. Patient completes activity by themselves 4 Supervision or touching assist (CGA). [place] provide cues , steadying assist 3 The helper provides less than half the effort to complete the activity 2 The helper provides more than half the effort to complete the activity 1 Dependent. The helper does all the effort to complete an activity 7 Patient refused to complete or attempt activity 9 The patient did not perform the activity before the current illness or injury 88 Not attempted due to Medical conditions or safety concerns Toileting Hygiene (QC): 1 Transfers (B, C, W/C) (FIM): 1 Toilet/Commode Transfer (FIM): 1 Toilet Transfer (QC): 1 Education OT Patient Education: Rehab process Teaching Recipient: Patient Teaching Methods: Discussion Response to Teaching: Reinforcement Needed OT Short Term Goals Short Term Goals Time Frame: November 20, 2016 Grooming(FIM): 5 Upper Body Dressing(FIM): 4 Lower Body Dressing(FIM): 3 Toilet/Commode Transfer(FIM): 3 Additional Short Term Goals: 1-Demonstrate ADL Tasks, 2-Verbalize Understanding , 3-ImproveStrength/Hitesh 1=Demonstrate adherence to instructed precautions during ADL tasks. 2=Patient will verbalize/demonstrate understanding of assistive devices/ modifications for ADL. 3=Patient will improve strength/tolerance for activity to enable patient to perform ADL's. OT Usp Goals Usp Goals Time Frame: December 04, 2016 Eating (FIM): 6 Eating (QC): 6 Groomin Bathing(FIM): 5 Shower/Bathe Self (QC): 4 Upper Body Dressing(FIM): 5 Upper Body Dressing (QC): 4 Lower Body Dressing(FIM): 5 Lower Body Dressing (QC): 4 On/Off Footwear (QC): 5 Toileting(FIM): 5 Toileting Hygiene (QC): 4 Toilet/Commode Transfer(FIM): 5 Toilet/Commode Transfer (QC): 4 Shower Transfer(FIM): 5 Additional Goals: 1-Demonstrate ADL Tasks, 2-Verbalize Understanding, 3- ImproveStrength/Hitesh 1=Demonstrate adherence to instructed precautions during ADL tasks. 2=Patient will verbalize/demonstrate understanding of assistive devices/ modifications for ADL. 3=Patient will improve strength/tolerance for activity to enable patient to perform ADL's. OT Education/Plan Problem List/Assessment Assessment: Decreased Activ Tolerance, Decreased Safety Aware, Decreased UE Strength, Dependent Transfers, Impaired Coordination, Impaired Funct Balance, Impaired Self-Care Skills Pt to benefit from skilled OT intervention for ADL training, transfers, strengthening, and safety education to improve level of function and allow safe discharge plan. Discharge Recommendations Plan/Recommendations: Continue POC Treatment Plan/Plan of Care Treatment,Training & Education: Yes Patient would benefit from OT for education, treatment and training to promote independence in ADL's, mobility, safety and/or upper extremity function for ADL' s. Plan of Care: ADL Retraining, Functional Mobility, Group Exercise/Act as Ind, UE Funct Exercise/Act, UE Neuromus Re-Ed/Coord Treatment Duration: December 04, 2016 # of days/week 5-6 Visits Per Week: 10-12 Minutes/Day (M-F): 60-90 Minutes/Day (Sat/Andrade): PRN Agreement: Yes Rehab Potential: Fair Time/GCodes Start Time: 15:10 Stop Time: 15:40 Total Time Billed (hr/min): 15 Billed Treatment Time 1 visit, [facility](15minutes) Co-treat with PT SHANNON VILLALOBOS OT November 13, 2016 15:54
--- NOTE | 2016-11-13 16:14 | Diagnostic Imaging Report ---
PROCEDURE: CT head without contrast. TECHNIQUE: Multiple contiguous axial images were obtained through the brain without the use of intravenous contrast. INDICATION: Left-sided weakness. Headache. FINDINGS: There is no intracranial hemorrhage. There are periventricular and deep white matter hypodensities compatible with chronic microvascular ischemic changes. There is no hydrocephalus. No extra-axial fluid collection is seen. The calvarium, the paranasal sinuses and orbits visualized portions appear unremarkable. IMPRESSION: No intracranial hemorrhage. White matter findings are likely secondary to chronic microvascular ischemic changes. Consider MRI evaluation if symptoms remain unexplained. Dictated by: Dictated on workstation # [id number]
[2016-11-13] MEDS ORDERED: ALPR0.254 PO (16:32)
[2016-11-13] MEDS ORDERED: DULO30CA48 PO (16:32)
[2016-11-13] MEDS ORDERED: ROSU10TA24 PO (16:32)
[2016-11-13] MEDS ORDERED: TRAM50TA2 PO (16:32)
[2016-11-13] MEDS ORDERED: CLIN300C11 PO (16:32)
[2016-11-13] MEDS ORDERED: ACETAMINOPHEN 500 MG TAB (TYLENOL) PO PRN (17:30)
[2016-11-13] MEDS ORDERED: ALPRAZolam 0.25 MG (XANAX) TAB PO PRN (17:30)
[2016-11-13] MEDS ORDERED: CALCIUM CARBONATE 500 MG (TUMS) TAB.CHEW PO PRN (17:30)
[2016-11-13] MEDS ORDERED: POLYETHYLENE GLYCOL 17 GM (MIRALAX) PACK PO PRN (17:30)
[2016-11-13] MEDS: CLINDAMYCIN 150 MG (CLEOCIN) CAP PO SCH (18:26)
[2016-11-13 18:32] VITALS: BP 123/65
[2016-11-13] MEDS ORDERED: inSUlin DETERMIR 1 UNIT/0.01 ML (LEVEMIR) CHARGE PER UNIT SQ SCH (21:00)
[2016-11-13] MEDS: inSUlin ASPART (NovoLOG) 1 UNIT/0.01 ML (CHARGE PER UNIT) SC SCH (21:19)
[2016-11-13] MEDS: NYSTATIN CREAM (MYCOSTATIN) 30 GM TUBE TP SCH (21:21)
[2016-11-13] MEDS: IRON POLYSAC 150 MG CAP (NIFEREX) PO SCH (21:21)
[2016-11-13] MEDS: ATORVASTATIN 20 MG (LIPITOR) TABLET PO SCH (21:21)
[2016-11-13] MEDS: PREGABALIN 75 MG (LYRICA) CAP PO SCH (21:21)
[2016-11-13] MEDS: rOPINIRole 1 MG (REQUIP) TABLET PO SCH (21:21)
[2016-11-14] MEDS: CLINDAMYCIN 150 MG (CLEOCIN) CAP PO SCH ×4 (00:08→17:09)
[2016-11-14 05:15] VITALS: BP 110/64
[2016-11-14] MEDS: PANTOPRAZOLE 40 MG (PROTONIX) TAB PO SCH (06:28)
[2016-11-14] MEDS: TROSPIUM 20 MG (SANCTURA) TAB PO SCH ×2 (06:32→17:08)
[2016-11-14] MEDS: inSUlin ASPART (NovoLOG) 1 UNIT/0.01 ML (CHARGE PER UNIT) SC SCH ×4 (06:32→21:14)
[2016-11-14 06:56] LABS: CALCIUM 9.2 MG/DL (8.5-10.1); CREATININE SERUM 0.97 MG/DL (0.60-1.30); POTASSIUM 4.2 MMOL/L (3.6-5.0)
--- NOTE | 2016-11-14 08:25 | History & Physicial ---
History of Present Illness History of Present Illness Reason for visit/HPI patient came by ambulance to the emergency room. According to the sister patient unable to take care of herself. Patient was in hospital last weekend and wants to go home to take care Patient has cellulitis of the leg. In the emergency room took 3 people to get her up Date of Admission November 13, 2016 at 15:21 I consulted on this patient on 11/14/16 08:21 Attending Physician Kimo Canseco MD Admitting Physician Shan Aguilar DO Consult Allergies and Home Medications Allergies Coded Allergies: No Known Drug Allergies (Unverified , 09/15/13) Home Medications Acetaminophen 650 Mg Tablet.er, 650-1,200 MG PO Q4H PRN for PAIN, (Reported) Alprazolam 0.25 Mg Tablet, 0.25 MG PO BID PRN for ANXIETY, (Reported) Calcium Carbonate 200 Mg Tab.chew, 400 MG PO QID PRN for INDIGESTION, (Reported) Clindamycin HCl 300 Mg Capsule, 300 MG PO Q6H, (Reported) FILLED 11/11/16 #48 FOR A 12 DAY THERAPY Duloxetine HCl 30 Mg Capsule.dr, 30 MG PO DAILY, (Reported) Esomeprazole Magnesium 40 Mg Cap, 40 MG PO DAILY, (Reported) TAKES BEFORE BREAKFAST Furosemide 40 Mg Tablet, 40 MG PO DAILY, (Reported) Insulin Aspart 300 Units/3 Ml Solution, SQ QID, (Reported) 60-200 = 0 UNITS 201-250 = 3 UNITS 251-300 = 5 UNITS 301-350 = 7 UNITS 351- 400 = 9 UNITS Insulin Glargine,Hum.rec.anlog 100 Unit/1 Ml Insuln.pen, 40 UNITS SQ BID, ( Reported) HOLD IF BLOOD SUGAR IS 95 OR BELOW Iron Polysaccharide Complex 150 Mg Capsule, 150 MG PO BID, (Reported) Loratadine 10 Mg Tablet, 10 MG PO DAILY, (Reported) Metformin HCl 1,000 Mg Tablet, 1,000 MG PO BID, (Reported) Metoprolol Succinate 50 Mg Tab.er.24h, 50 MG PO DAILY, (Reported) Polyethylene Glycol 3350 17 Gm Powd.pack, 17 GM PO DAILY PRN for CONSTIPATION, ( Reported) Pregabalin 150 Mg Capsule, 150 MG PO TID, (Reported) Ropinirole HCl 2 Mg Tablet, 2 MG PO BID, (Reported) Rosuvastatin Calcium 10 Mg Tablet, 10 MG PO DAILY, (Reported) LAST FILLED 10/04/16 #30 Solifenacin Succinate 10 Mg Tablet, 10 MG PO DAILY, (Reported) Tramadol HCl 50 Mg Tablet, 50 MG PO Q8H, (Reported) Past Uhpawuh-Gphyxc-Ctzovr Hx Patient Social History Marrital Status: Employed/Student: unemployed Smoking Status: Former Smoker Former smoker/When Quit: Aug 12, 1991 Recent Foreign Travel: No Contact w/other who traveled: No Recent Hopitalizations: Yes (This week... DC 11/10/16 from [facility]) Recent Infectious Disease Expo: No Immunizations Up To Date Tetanus Booster (TDap): Less than 5yrs Date of Pneumonia Vaccine: Mar 19, 2012 Date of Influenza Vaccine: Mar 25, 2016 Seasonal Allergies Seasonal Allergies: No Surgeries HX Surgeries: Yes (HEMORRHOIDECTOMY, L HIP replacement, reduction left hip dislocation x2) Surgeries: Gallbladder, Joint Replacement, Orthopedic Respiratory Hx Respiratory Disorders: No Cardiovascular Hx Cardiovascular Disorders: Yes (CHF) Cardiac Disorders: Hypertension Neurological Hx Neurological Disorders: Yes (RLS) Neurological Disorders: Neuropathy Reproductive System Hx Reproductive Disorders: No Sexually Transmitted Disease: No HIV/AIDS: No Genitourinary Hx Genitourinary Disorders: No Gastrointestinal Hx Gastrointestinal Disorders: Yes Gastrointestinal Disorders: Hemorrhoids Musculoskeletal Hx Musculoskeletal Disorders: Yes (school age / accident) Musculoskeletal Disorders: Arthritis, Chronic Back Pain Endocrine Hx Endocrine Disorders: Yes (Lantus/ Novolog) Endocrine Disorders: Diabetes, Insulin dep HEENT HX ENT Disorders: Yes (report the start of cataracts, migrains) HEENT Disorders: Cataract Loss of Vision: Bilateral Hearing Impairment: Denies Cancer Hx Cancer: No Psychosocial Hx Psychiatric Problems: Yes Behavioral Health Disorders: Anxiety, Depression Integumentary HX Skin/Integumentary Disorder: Yes (SEEING WOUND CARE FOR WOUND ON FEET, history of cellulitis) Blood Transfusions Hx Blood Disorders: No Adverse Reaction to a Blood Tr: No Family Medical History Significant Family History: No Pertinent Family Hx Family Hx: Congestive heart failure 03 FATHER Prostate cancer 03 FATHER No Family History of: Abdominal aortic aneurysm Aydlett's disease Alcoholism Aphasia Cancer Cancer of colon Cataract Congenital heart disease Cystic fibrosis Dementia Dysphagia Family history: Allergy Family history: Alzheimer's disease Family history: Arthritis Family history: Asthma Family history: Breast disease Family history: Cardiovascular disease Family history: Coronary thrombosis Family history: Diabetes mellitus Family history: Gastrointestinal disease Family history: Glaucoma Family history: Hypertension Family history: Osteoporosis Family history: Thyroid disorder Headache Hearing loss Heart disease Hereditary disease History of - anemia History of - disorder History of - respiratory disease History of drug abuse Human immunodeficiency virus (HIV) seropositivity Hypercholesterolemia Infertile Kidney disease Malignant neoplasm of lung Myocardial infarction Parkinson's disease Psychotic disorder Seizure disorder Stroke Tuberculosis Visual impairment Constitutional: malaise, weakness EENTM: no symptoms reported Respiratory: no symptoms reported Cardiovascular: no symptoms reported Gastrointestinal: no symptoms reported Genitourinary: other (treated for urinary tract infectio) Physical Exam Vital Signs Vital Sign - Last 12Hours 11/13/16 15:47 Temp 96.4 Pulse 78 Resp 18 B/P (MAP) 144/95 Pulse Ox 98 O2 Delivery Room Air Capillary Refill : Less Than 3 Seconds General Appearance: No Apparent Distress, WD/WN Eyes: Bilateral Eye Normal Inspection HEENT: Normal ENT Inspection Neck: Full Range of Motion, Normal Inspection Respiratory: Chest Non Tender, Lungs Clear, Normal Breath Sounds, No Accessory Muscle Use, No Respiratory Distress Cardiovascular: Regular Rate, Rhythm, No Murmur Gastrointestinal: Non Tender, Soft Assessment/Plan Assessment and Plan debility. Cellulitis of legs. Diabetes. Inability to get around Problems: Clinical Quality Measures DVT/VTE Risk/Contraindication: Risk Factor Score Per Nursin RFS Level Per Nursing on Admit: 4+=Very High SHAN AGUILAR DO November 14, 2016 08:25
[2016-11-14] MEDS: DULoxetine 30 MG (CYMBALTA) CAP PO SCH (09:11)
[2016-11-14] MEDS: meTOproloL SUCCINATE 50 MG (TOPROL XL) TAB PO SCH (09:11)
[2016-11-14] MEDS: PREGABALIN 75 MG (LYRICA) CAP PO SCH ×3 (09:11→21:14)
[2016-11-14] MEDS: IRON POLYSAC 150 MG CAP (NIFEREX) PO SCH ×2 (09:11→21:14)
[2016-11-14] MEDS: LORATADINE (CLARITIN) 10 MG TAB PO SCH (09:11)
[2016-11-14] MEDS: rOPINIRole 1 MG (REQUIP) TABLET PO SCH ×2 (09:11→21:14)
[2016-11-14] MEDS: FUROSEMIDE 40 MG (LASIX) TAB PO SCH (09:11)
[2016-11-14] MEDS: NYSTATIN CREAM (MYCOSTATIN) 30 GM TUBE TP SCH ×3 (09:12→21:15)
[2016-11-14] MEDS: ENOXAPARIN 40 MG/0.4 ML (LOVENOX) SYR SC SCH (09:19)
[2016-11-14 09:47] LABS: KETONES,URINE NEGATIVE (NEGATIVE); LEUKOCYTE ESTERASE ,URINE 3+ (NEGATIVE); NITRITE,URINE NEGATIVE (NEGATIVE); PH,URINE 6 (5-9); PROTEIN,URINE 1+ (NEGATIVE); UROBILINOGEN,URINE NORMAL (NORMAL)
--- NOTE | 2016-11-14 09:55 | Physical Therapy Daily Note ---
PT Daily Note-Current Subjective Pt. tearful and explains that she lost her 1 yr ago and then a sister and then a pet and she is grief stricken. States she has lived alone since then and has had some falls "but some very handsome and very strong policemen came out" and helped her up. Pt. agrees to Rx. Wants to wear her shoes but this HAND FRAME SURGICAL ELASTIC KNITTER can only find one. Pain Numeric Pain Scale: 0-No Pain Appearance disheveled, hair messy, smell of urine in bed and on gown Mental Status Patient Orientation: Person, Confused Attachments: SCD's, Sneed Catheter pt. is unaware that she at [facility] and unaware of the full situation Transfers Functional [place] Measure 0=Not Assessed/NA 4=Minimal Assistance 1=Total Assistance 5=Supervision or Setup 2=Maximal Assistance 6=Modified [place] 3=Moderate Assistance 7=Complete IndependenceIRFPAI Quality Coding Scale 6 Independent with activity with or without an assistive device 5 Patient requires set up or clean up by helper. Patient completes activity by themselves 4 Supervision or touching assist (CGA). [place] provide cues , steadying assist 3 The helper provides less than half the effort to complete the activity 2 The helper provides more than half the effort to complete the activity 1 Dependent. The helper does all the effort to complete an activity 7 Patient refused to complete or attempt activity 9 The patient did not perform the activity before the current illness or injury 88 Not attempted due to Medical conditions or safety concerns Transfers (B, C, W/C) (FIM): 4 Scootin Rollin Supine to/from Sit: 4 Sit to/from Stand: 4 Gait Training Does the Patient Walk?: Yes Gait (FIM): 1 Distance (FIM): 1=up to 49 ft (6ft) Gait Level of Assist: 4 Gait Persons Needed: 1 Gait Assistive Device: FWW with pt. standing at EOB sidestepping along side of bed 5-6 ft then turning to get in front of recliner with CGA and skilled verbal instruction repeated Exercises Supine Ex: Ankle pumps, Quad Set, Rolling, Heel Slides, Short Arc Quads, Scooting, Hip abd/add Supine Reps: 15 Assessment Current Status: Good Progress pt. very emotional , prefers to spend much time talking about her personal life and losses. Moves slowly, forgets the goal and task and stops to talk, but eventually completed task. Appears fearful of falling. PT Short Term Goals Short Term Goals Time Frame: November 27, 2016 Transfers (B,C,W/C) (FIM): 3 Gait (FIM): 1 Distance (FIM): 1=up to 49 ft Gait Distance Comment: 20' Gait Level of Assist: 3 Gait Assistive Device: FWW Stairs (FIM): 1 # of Steps: 1 Stairs Level of Assist: 3 PT Supervisory Lifeguard Goals Nursing Home Goals PT Supervisory Lifeguard Goals Time Frame: Dec 11, 2016 Transfers (B,C,W/C) (FIM): 5 Sit to Lying (QC): 5 Lying-Sitting on Side/Bed(QC): 5 Sit to Stand (QC): 5 Rollin Roll Left to Right (QC): 5 Chair/Gxf-bg-Rlkmy Xfer(QC): 5 Car Transfer (QC): 5 Does the Patient Walk: No and Walking Goal IS indicated Gait (FIM): 2 Gait distance (FIM): 6=733-00 ft Distance: 75' Walk 10 feet (QC): 5 Walk 10ft-Uneven Surface(QC): 5 Walk 50ft with 2 Turns (QC): 5 Walk 150 ft (QC): 88 Gait Level of Assist: 5 Gait Assistive Device: FWW # of Steps: 4 1 Step (curb) (QC): 4 4 Steps (QC): 4 12 Steps (QC): 88 Stairs Level Of Assist: 5 Picking up an Object (QC): 4 PT Plan Treatment/Plan Treatment Plan: Continue Plan of Care Treatment Plan: Bed Mobility, Education, Functional Activity Hitesh, Group Therapy, Gait, Safety, Therapeutic Exercise, Transfers Treatment Duration: Dec 11, 2016 Visits Per Week: 6-11 Minutes/Day (M-F): 60-90 Minutes/Day (Sat/Andrade): PRN Safety Risks/Education Patient Education: Gait Training, Transfer Techniques, Correct Positioning, Safety Issues Teaching Recipient: Patient Teaching Methods: Demonstration, Discussion Response to Teaching: Verbalize Understanding, Return Demonstration, Reinforcement Needed Time/GCodes Time In: 900 Time Out: 1000 Total Billed Treatment Time: 60 Total Billed Treatment 1,FA40,EX20 G Codes Necessary: DELORIS Wolf HAND FRAME SURGICAL ELASTIC KNITTER November 14, 2016 09:55
[2016-11-14 10:02] LABS: BILIRUBIN,URINE 3+ (NEGATIVE); WBC,URINE 25-50 /HPF
[2016-11-14] MEDS ORDERED: LOPE2CAP PO (11:20)
--- NOTE | 2016-11-14 12:37 | PM&R Post Admission Assessment ---
Post Admission Physician Asses The preadmission screen agrees with the post admission assessment that the patient is a good candidate for inpatient rehabilitation. The patient will have a comprehensive program of inpatient rehabilitation with a goal of maximizing level of functional independence prior to discharge home with family and HHC. The patient will have PT/OT ninety minutes per day, each discipline, five days a week for gait strengthening, conditioning, balance, ADLs , any patient/family/caregiver training necessary. Speech therapy to do cognitive assessment and treat as indicted. Rehabilitation nursing to assist with bowel, bladder, Sneed cathereter care and a Trial of voiding,skin, wound care, medication administration, pain management. Shoe Repairer Apprentice to assist with discharge planning, community reentry. SCD's for DVT prophylaxis. She appears to be well motivated to participate in three hours of therapy a day. She should be able to tolerate three hours of therapy a day from a medical standpoint. She should benefit from the three hours of therapy a day. She has a reasonable discharge plan, reasonable discharge rehabilitation goals and a supportive family. She has various comorbidities that need to be closely monitored with medications and treatments adjusted on a daily basis as needed. These include: Cellulitis of legs DM Barriers to discharge for this patient who had been independent prior to this are for her to be modified independent to supervision for ADLs and mobility skills prior to discharge home with family and HHC, so as to lessen the burden of the caregivers. Risks for this patient include: 1. Fall 2. Fracture 3. DVT 4. Pulmonary embolism 5. Wound infection 6. Skin breakdown 7. Contractures 8. Poorly controlled pain 9. Urinary retention 10. UTI 11. Respiratory infection 12. Aspiration 13. Poorly controlled DM 14.worsening cellulitis Estimated Length of Stay: days Prognosis: Rehab prognosis appears good for goal of discharge home with family and HHC modified independent to supervision for ADLs and mobility skills. She may be more appropriate fo ran TONYA if She requires more support upon discharge from IRU then family and HHC can provide PEARL SAMSON MD November 14, 2016 12:37
--- NOTE | 2016-11-14 12:59 | ST Cognitive Linguistic Eval ---
Speech Evaluation-General Medical Diagnosis AMS/UTI Onset Date: November 13, 2016 Therapy Diagnosis Therapy Diagnosis: Cognitive Linguistic Skills Grossly WNL Precautions Precautions/Isolations: Fall Prevention, Standard Precautions Referral Referring Physician: Dr. Kimo Canseco Reason for Referral: Evaluation/Treatment Cognitive Linguistic Evaluation Medical History Pertinent Medical History: Arthritis, DM, Heart Failure, HTN, Neuropathy, OA Reviewed History: Yes Social History Current Living Status: Alone Speech PLF-Current Status Prior Level of Function The patient denied prior challenges with cognition, speech, or language. Subjective The patient was recently admitted to [facility] with a diagnosis of an UTI and AMS. The patient greeted the clinician appropriately and agreed to participate in the cognitive linguistic evaluation on this date. To note: The patient required frequent redirection to task, demonstrating tangential thought and poor topic maintenance. Language Eval: Auditory Comprehends Simple Yes/No Ques: Functional Indent/Objects Multiple [place]: Functional Ident/Pics in Multiple [place]: Functional Follows 1-Step Commands: Functional Follows Complex Directions: Mild (Following repetition and redirection, the patient demonstrated increased accuracy.) Follows General Conversations: Mild (Poor topic maintenance demonstrated frequently throughout the evaluation.) Language Eval: Verbal Language Completes Spontaneous Greeting: Functional Produces Auto, Serial Info: Functional Imitates Simple Words/Phrases: Functional Word Finding: Functional Requests Basic Needs: Functional States Basic Personal Info: Functional Expresses Complex Ideas: Functional Poor topic maintenance and redirection to task required. Cognitive Patient Orientation The patient is oriented to month, date, day of week, and year (independently). Objective Cognitive Domain Attention: Moderate Memory: WNL Problem Solving: Mild Objective Impression The patient demonstrated cognitive linguistic skills grossly within functional limits and appropriate for completion of ADL's. Per chart review and discussion , the patient appears to be functioning at baseline. The patient does verbalize recent personal losses of family members, friends, and pets. The patient does demonstrate significant poor topic maintenance and frequent tearful expression. A consult for psychology may be appropriate. Communication/Social Cognition Comprehension: 4 Expression: 5 Social Interaction: 5 Problem Solvin Memory: 5 Speech Patient Assess Expression of Ideas/Wants: Exhibits (3) Understanding [place] Content: Usually Understands (3) Brief Interview-Mental Status: Yes Repetition of Three Words: Three (3) Temporal Orientation: Year: Correct (3) Temporal Orientation: Month: Accurate within 5 days(2) Temporal Orientation: Day: Correct (1) Recall : Wear to say "Sock": Yes, no cue required (2) Recall : Color: Yes, no cue required (2) Recall : Bed: Yes, no cue required (2) Speech-Plan Treatment Plan Speech Therapy Treatment Plan: Discontinue ST Evaluation, only. Rehab Potential: Fair Safety Risks/Education Teaching Recipient: Patient Teaching Methods: Discussion Response to Teaching: Verbalize Understanding Education Topics Provided: Results, Recommendations, Plan of Care Time Speech Therapy Time In: 08:05 Speech Therapy Time Out: 08:30 Total Billed Time: 25 Billed Treatment Time 1, CAROLE RUCKER November 14, 2016 12:59
--- NOTE | 2016-11-14 14:20 | Occupational Ther Daily Note ---
OT Current Status-Daily Note Subjective Pt sitting in chair, agrees to treatment. Mental Status/Objective Functional [place] Measure 0=Not Assessed/NA 4=Minimal Assistance 1=Total Assistance 5=Supervision or Setup 2=Maximal Assistance 6=Modified [place] 3=Moderate Assistance 7=Complete [place] Attachments: Sneed Catheter ADL-Treatment Pt states she only does sponge baths at home secondary to not being able to get into the shower. Pt agrees to ADLs this morning. Pt completed sponge bath while seated in chair. Pt completed upper body bathing with set up and increased time. Pt able to wash bilateral upper legs, requires partial assist to wash feet. Pt sit to stand with moderate assistance using FWW for balance. Assist required to thoroughly wash buttocks and katarzyna area. Pt requires cues for sequencing and task completion. Pt donned pullover gown with minimal assistance to pull down in back. Pt able to doff socks with SBA. Donned socks with minimal assistance and increased time. Pt combed hair with minimal assistance to remove tangles in back. Pt removed dentures and cleaned them while seated in chair. Pt able to complete task with increased time. Pt is easily distracted throughout session and requires cues to attend to task. Occasional cues for sequencing. Increased time is required for all ADL tasks. Pt sitting in chair with needs met after session. Functional [place] Measure 0=Not Assessed/NA 4=Minimal Assistance 1=Total Assistance 5=Supervision or Setup 2=Maximal Assistance 6=Modified [place] 3=Moderate Assistance 7=Complete IndependenceIRFPAI Quality Coding Scale 6 Independent with activity with or without an assistive device 5 Patient requires set up or clean up by helper. Patient completes activity by themselves 4 Supervision or touching assist (CGA). [place] provide cues , steadying assist 3 The helper provides less than half the effort to complete the activity 2 The helper provides more than half the effort to complete the activity 1 Dependent. The helper does all the effort to complete an activity 7 Patient refused to complete or attempt activity 9 The patient did not perform the activity before the current illness or injury 88 Not attempted due to Medical conditions or safety concerns Grooming (FIM): 4 Oral Hygiene (QC): 4 Bathing (FIM): 3 Bathing Location: L Arm, R Arm, L Upper Leg, R Upper Leg, Chest, Abdomen Shower/Bathe Self (QC): 3 Upper Body (FIM): 4 On/Off Footwear (QC): 3 OT Short Term Goals Short Term Goals Time Frame: November 20, 2016 Grooming(FIM): 5 Upper Body Dressing(FIM): 4 Lower Body Dressing(FIM): 3 Transfers (B,C,W/C) (FIM): 3 Toilet/Commode Transfer(FIM): 3 Additional Short Term Goals: 1-Demonstrate ADL Tasks, 2-Verbalize Understanding , 3-ImproveStrength/Hitesh 1=Demonstrate adherence to instructed precautions during ADL tasks. 2=Patient will verbalize/demonstrate understanding of assistive devices/ modifications for ADL. 3=Patient will improve strength/tolerance for activity to enable patient to perform ADL's. OT Senior Living Goals Senior Living Goals Time Frame: December 04, 2016 Eating (FIM): 6 Eating (QC): 6 Groomin Bathing(FIM): 5 Shower/Bathe Self (QC): 4 Upper Body Dressing(FIM): 5 Upper Body Dressing (QC): 4 Lower Body Dressing(FIM): 5 Lower Body Dressing (QC): 4 On/Off Footwear (QC): 5 Toileting(FIM): 5 Toileting Hygiene (QC): 4 Toilet/Commode Transfer(FIM): 5 Toilet/Commode Transfer (QC): 4 Shower Transfer(FIM): 5 Additional Goals: 1-Demonstrate ADL Tasks, 2-Verbalize Understanding, 3- ImproveStrength/Hitesh 1=Demonstrate adherence to instructed precautions during ADL tasks. 2=Patient will verbalize/demonstrate understanding of assistive devices/ modifications for ADL. 3=Patient will improve strength/tolerance for activity to enable patient to perform ADL's. OT Education/Plan Problem List/Assessment Pt to benefit from skilled OT intervention for ADL training, transfers, strengthening, and safety education to improve level of function and allow safe discharge plan. Discharge Recommendations Plan/Recommendations: Continue POC Treatment Plan/Plan of Care Patient would benefit from OT for education, treatment and training to promote independence in ADL's, mobility, safety and/or upper extremity function for ADL' s. Plan of Care: ADL Retraining, Functional Mobility, Group Exercise/Act as Ind, UE Funct Exercise/Act, UE Neuromus Re-Ed/Coord Treatment Duration: December 04, 2016 Visits Per Week: 10-12 Minutes/Day (M-F): 60-90 Minutes/Day (Sat/Andrade): PRN Agreement: Yes Rehab Potential: Fair Time/GCodes Start Time: 10:00 Stop Time: 11:30 Total Time Billed (hr/min): 90 Billed Treatment Time 1 visit, ADLx6(90minutes) SHANNON VILLALOBOS OT November 14, 2016 14:20
--- NOTE | 2016-11-14 14:52 | Occupational Ther Daily Note ---
OT Current Status-Daily Note Subjective Pt sitting in chair, agrees to treatment. Mental Status/Objective Functional [place] Measure 0=Not Assessed/NA 4=Minimal Assistance 1=Total Assistance 5=Supervision or Setup 2=Maximal Assistance 6=Modified [place] 3=Moderate Assistance 7=Complete [place] ADL-Treatment Functional [place] Measure 0=Not Assessed/NA 4=Minimal Assistance 1=Total Assistance 5=Supervision or Setup 2=Maximal Assistance 6=Modified [place] 3=Moderate Assistance 7=Complete IndependenceIRFPAI Quality Coding Scale 6 Independent with activity with or without an assistive device 5 Patient requires set up or clean up by helper. Patient completes activity by themselves 4 Supervision or touching assist (CGA). [place] provide cues , steadying assist 3 The helper provides less than half the effort to complete the activity 2 The helper provides more than half the effort to complete the activity 1 Dependent. The helper does all the effort to complete an activity 7 Patient refused to complete or attempt activity 9 The patient did not perform the activity before the current illness or injury 88 Not attempted due to Medical conditions or safety concerns Other Treatment Pt performed sit to stand x5 trials to increase strength needed for transfers. Pt required minimal to moderate assistance for sit to stand. Skilled cues required for proper hand placement and safety. Rest breaks between trials. Pt performed bilateral UE exercises to increase strength and activity tolerance needed for ADLs and transfers. Pt performed shoulder flexion, forward press, and biceps curls x15 reps with dowel francisco javier. Rest breaks between exercises. Pt sitting in chair with needs met after session. OT Short Term Goals Short Term Goals Time Frame: November 20, 2016 Grooming(FIM): 5 Upper Body Dressing(FIM): 4 Lower Body Dressing(FIM): 3 Transfers (B,C,W/C) (FIM): 3 Toilet/Commode Transfer(FIM): 3 Additional Short Term Goals: 1-Demonstrate ADL Tasks, 2-Verbalize Understanding , 3-ImproveStrength/Hitesh 1=Demonstrate adherence to instructed precautions during ADL tasks. 2=Patient will verbalize/demonstrate understanding of assistive devices/ modifications for ADL. 3=Patient will improve strength/tolerance for activity to enable patient to perform ADL's. OT Manager Global Goals Snf Goals Time Frame: December 04, 2016 Eating (FIM): 6 Eating (QC): 6 Groomin Bathing(FIM): 5 Shower/Bathe Self (QC): 4 Upper Body Dressing(FIM): 5 Upper Body Dressing (QC): 4 Lower Body Dressing(FIM): 5 Lower Body Dressing (QC): 4 On/Off Footwear (QC): 5 Toileting(FIM): 5 Toileting Hygiene (QC): 4 Toilet/Commode Transfer(FIM): 5 Toilet/Commode Transfer (QC): 4 Shower Transfer(FIM): 5 Additional Goals: 1-Demonstrate ADL Tasks, 2-Verbalize Understanding, 3- ImproveStrength/Hitesh 1=Demonstrate adherence to instructed precautions during ADL tasks. 2=Patient will verbalize/demonstrate understanding of assistive devices/ modifications for ADL. 3=Patient will improve strength/tolerance for activity to enable patient to perform ADL's. OT Education/Plan Problem List/Assessment Pt to benefit from skilled OT intervention for ADL training, transfers, strengthening, and safety education to improve level of function and allow safe discharge plan. Discharge Recommendations Plan/Recommendations: Continue POC Treatment Plan/Plan of Care Patient would benefit from OT for education, treatment and training to promote independence in ADL's, mobility, safety and/or upper extremity function for ADL' s. Plan of Care: ADL Retraining, Functional Mobility, Group Exercise/Act as Ind, UE Funct Exercise/Act, UE Neuromus Re-Ed/Coord Treatment Duration: December 04, 2016 Visits Per Week: 10-12 Minutes/Day (M-F): 60-90 Minutes/Day (Sat/Andrade): PRN Agreement: Yes Rehab Potential: Fair Time/GCodes Start Time: 13:30 Stop Time: 14:00 Total Time Billed (hr/min): 30 Billed Treatment Time 1 visit, FA(15minutes), EX(15minutes) SHANNON VILLALOBOS OT November 14, 2016 14:52
--- NOTE | 2016-11-14 15:06 | Physical Therapy Daily Note ---
PT Daily Note-Current Subjective Pt. up in recliner, agrees to try standing and up on feet. Pain Numeric Pain Scale: 0-No Pain Mental Status Patient Orientation: Confused Attachments: Sneed Catheter Transfers Functional [place] Measure 0=Not Assessed/NA 4=Minimal Assistance 1=Total Assistance 5=Supervision or Setup 2=Maximal Assistance 6=Modified [place] 3=Moderate Assistance 7=Complete IndependenceIRFPAI Quality Coding Scale 6 Independent with activity with or without an assistive device 5 Patient requires set up or clean up by helper. Patient completes activity by themselves 4 Supervision or touching assist (CGA). [place] provide cues , steadying assist 3 The helper provides less than half the effort to complete the activity 2 The helper provides more than half the effort to complete the activity 1 Dependent. The helper does all the effort to complete an activity 7 Patient refused to complete or attempt activity 9 The patient did not perform the activity before the current illness or injury 88 Not attempted due to Medical conditions or safety concerns sit to stand from recliner took multiple trails but pt. did this with skilled verbal cuing and CGA to min assist. TRF sit to sup required min assist for LEs Gait Training Gait Assistive Device: FWW 7-8 ft sideways and retro to bed from recliner Exercises Supine Ex: Ankle pumps, Rolling, Heel Slides, Straight leg raise, Hip abd/add Supine Reps: 10 Seated Therapy Exercises: Long arc quads Seated Reps: 10 Assessment Current Status: Good Progress easily distracted and wants to visit, confused subject matter PT Short Term Goals Short Term Goals Time Frame: November 27, 2016 Transfers (B,C,W/C) (FIM): 3 Gait (FIM): 1 Distance (FIM): 1=up to 49 ft Gait Distance Comment: 20' Gait Level of Assist: 3 Gait Assistive Device: FWW Stairs (FIM): 1 # of Steps: 1 Stairs Level of Assist: 3 PT Electronic Scale Tester Goals [facility] Goals PT Electronic Scale Tester Goals Time Frame: Dec 11, 2016 Transfers (B,C,W/C) (FIM): 5 Sit to Lying (QC): 5 Lying-Sitting on Side/Bed(QC): 5 Sit to Stand (QC): 5 Rollin Roll Left to Right (QC): 5 Chair/[id number] Xfer(QC): 5 Car Transfer (QC): 5 Does the Patient Walk: No and Walking Goal IS indicated Gait (FIM): 2 Gait distance (FIM): 9=909-34 ft Distance: 75' Walk 10 feet (QC): 5 Walk 10ft-Uneven Surface(QC): 5 Walk 50ft with 2 Turns (QC): 5 Walk 150 ft (QC): 88 Gait Level of Assist: 5 Gait Assistive Device: FWW # of Steps: 4 1 Step (curb) (QC): 4 4 Steps (QC): 4 12 Steps (QC): 88 Stairs Level Of Assist: 5 Picking up an Object (QC): 4 PT Plan Treatment/Plan Treatment Plan: Continue Plan of Care Treatment Plan: Bed Mobility, Education, Functional Activity Hitesh, Group Therapy, Gait, Safety, Therapeutic Exercise, Transfers Treatment Duration: Dec 11, 2016 Visits Per Week: 6-11 Minutes/Day (M-F): 60-90 Minutes/Day (Sat/Andrade): PRN Safety Risks/Education Patient Education: Gait Training, Transfer Techniques Teaching Recipient: Patient Teaching Methods: Demonstration, Discussion Response to Teaching: Verbalize Understanding, Return Demonstration, Reinforcement Needed Time/GCodes Time In: 1430 Time Out: 1500 Total Billed Treatment Time: 30 Total Billed Treatment 1,FA20m,EX10m G Codes Necessary: No DELORIS RAMSEY HEALTH CARE MANAGER November 14, 2016 15:06
--- NOTE | 2016-11-14 16:10 | Wound Care Progress Note ---
Subjective Subjective Subjective/Events-last exam 66-year-old female with recurrent dermatitis of bilateral lower legs and superficial scabs of the bilateral feet. The patient's report these appear to be improving. Patient has been at bed rest since admission and the edema and swelling and inflammation of the legs has gone down. She is encouraged to continue elevation of her legs. Past medical history: History of chronic venous ulcers of the legs, lymphedema, and noncompliance with elevation instructions. Review of Systems General: No Chills Pulmonary: No Dyspnea Cardiovascular: No: Chest Pain Objective Exam Last Set of Vital Signs Vital Signs Date Time Temp Pulse Resp B/P (MAP) Pulse Ox O2 Delivery O2 Flow Rate FiO2 11/14/16 05:15 98.4 84 18 110/64 96 Room Air Capillary Refill : Less Than 3 Seconds I&O Bad tableGeneral: Alert, No Acute Distress Lungs: Normal Air Movement Skin: Other (Bilateral calf dermatitis with markedly reduced edema. Bilateral foot ulcers with scab formation.) Results Lab Laboratory Tests 11/13/16 18:42: Hemoglobin A1c 7.1H 11/13/16 20:37: Glucometer 160H 11/14/16 04:49: Glucometer 125H 11/14/16 05:32: Sodium Level 137, Potassium Level 4.2, Chloride Level 103, Carbon Dioxide Level 25, Anion Gap 9, Blood Urea Nitrogen 22H, Creatinine 0.97, Estimat Glomerular Filtration Rate 57, BUN/Creatinine Ratio 23, Glucose Level 114H, Calcium Level 9.2 11/14/16 09:35: Urine Color YELLOW, Urine Clarity CLEAR, Urine pH 6, Urine Specific [place] 1.015L, Urine Protein 1+H, Urine Glucose (UA) NEGATIVE, Urine Ketones NEGATIVE, Urine Nitrite NEGATIVE, Urine Bilirubin 3+H, Urine Urobilinogen NORMAL, Urine Leukocyte Esterase 3+H, Urine RBC (Auto) 2+H, Urine RBC 2-5H, Urine WBC 25-50H, Urine Squamous Epithelial Cells 10-25H, Urine Crystals NONE, Urine Bacteria FEWH , Urine Casts NONE, Urine Mucus NEGATIVE, Urine Culture Indicated YES 11/14/16 10:49: Glucometer 159H Assessment/Plan Assessment/Plan Assessment/Plan 1. Bilateral lower extremity venous dermatitis. 2. Healed bilateral foot ulcers, now scabs. Plan: D ointment to bilateral legs, continue elevation, will see again as needed. HIRAM HAQ MD November 14, 2016 16:10
[2016-11-14] MEDS: metFORMIN 500 MG (GLUCOPHAGE) TAB PO SCH (17:08)
[2016-11-14 18:53] VITALS: BP 120/67
[2016-11-14] MEDS: ATORVASTATIN 20 MG (LIPITOR) TABLET PO SCH (21:14)
[2016-11-15] MEDS: CLINDAMYCIN 150 MG (CLEOCIN) CAP PO SCH ×5 (00:27→23:35)
[2016-11-15 05:00] VITALS: BP 121/62
[2016-11-15] MEDS: PANTOPRAZOLE 40 MG (PROTONIX) TAB PO SCH (06:24)
[2016-11-15] MEDS: TROSPIUM 20 MG (SANCTURA) TAB PO SCH ×2 (06:24→17:15)
[2016-11-15] MEDS: metFORMIN 500 MG (GLUCOPHAGE) TAB PO SCH ×2 (06:24→17:14)
[2016-11-15] MEDS: inSUlin ASPART (NovoLOG) 1 UNIT/0.01 ML (CHARGE PER UNIT) SC SCH ×4 (07:37→21:04)
--- NOTE | 2016-11-15 07:55 | Progress Note (SOAP) ---
Subjective Subjective/Events-last exam general debility. Patient yesterday 2 person assist. UA culture negative. Bilateral lower venous extremity dermatitis. He'll bilateral foot ulcer. Patient just has scabs there now. Diabetes. Remove Sneed catheter Objective Exam Vital Signs Date Time Temp Pulse Resp B/P (MAP) Pulse Ox O2 Delivery O2 Flow Rate FiO2 11/15/16 05:00 96.8 71 22 121/62 97 Room Air 11/14/16 18:53 98.7 69 16 120/67 98 Room Air I & O 11/15/16 07:00 Intake Total 910 ml Output Total 1100 ml Balance -190 ml Capillary Refill : Less Than 3 Seconds General Appearance: No Apparent Distress, WD/WN HEENT: Normal ENT Inspection Neck: Full Range of Motion, Normal Inspection Respiratory: Chest Non Tender, Lungs Clear, Normal Breath Sounds, No Accessory Muscle Use, No Respiratory Distress Cardiovascular: Regular Rate, Rhythm, No Murmur Gastrointestinal: non tender, soft Results Lab Laboratory Tests 11/14/16 09:35: Urine Color YELLOW, Urine Clarity CLEAR, Urine pH 6, Urine Specific [place] 1.015L, Urine Protein 1+H, Urine Glucose (UA) NEGATIVE, Urine Ketones NEGATIVE, Urine Nitrite NEGATIVE, Urine Bilirubin 3+H, Urine Urobilinogen NORMAL, Urine Leukocyte Esterase 3+H, Urine RBC (Auto) 2+H, Urine RBC 2-5H, Urine WBC 25-50H, Urine Squamous Epithelial Cells 10-25H, Urine Crystals NONE, Urine Bacteria FEWH , Urine Casts NONE, Urine Mucus NEGATIVE, Urine Culture Indicated YES 11/14/16 10:49: Glucometer 159H 11/14/16 16:04: Glucometer 128H 11/14/16 21:09: Glucometer 152H 11/15/16 06:37: Glucometer 117H Microbiology 11/14/16 Urine Culture - Preliminary, Resulted NO GROWTH Assessment/Plan Assessment/Plan Assess & Plan/Chief Complaint general debility. Foot ulcers good. Diabetes 2 person assist Clinical Quality Measures DVT/VTE Risk/Contraindication: Risk Factor Score Per Nursin RFS Level Per Nursing on Admit: 4+=Very High JOSE PRIEST DO November 15, 2016 07:55
[2016-11-15 09:12] VITALS: BP 125/67
[2016-11-15] MEDS: ENOXAPARIN 40 MG/0.4 ML (LOVENOX) SYR SC SCH (09:13)
[2016-11-15] MEDS: rOPINIRole 1 MG (REQUIP) TABLET PO SCH ×2 (09:13→21:04)
[2016-11-15] MEDS: DULoxetine 30 MG (CYMBALTA) CAP PO SCH (09:13)
[2016-11-15] MEDS: LORATADINE (CLARITIN) 10 MG TAB PO SCH (09:14)
[2016-11-15] MEDS: IRON POLYSAC 150 MG CAP (NIFEREX) PO SCH ×2 (09:14→21:04)
[2016-11-15] MEDS: meTOproloL SUCCINATE 50 MG (TOPROL XL) TAB PO SCH (09:14)
[2016-11-15] MEDS: PREGABALIN 75 MG (LYRICA) CAP PO SCH ×3 (09:14→21:04)
[2016-11-15] MEDS: FUROSEMIDE 40 MG (LASIX) TAB PO SCH (09:14)
[2016-11-15] MEDS: NYSTATIN CREAM (MYCOSTATIN) 30 GM TUBE TP SCH ×3 (09:16→21:04)
[2016-11-15 09:35] LABS: MEAN PLATELET VOLUME 10.3 FL (7.4-10.4); RED BLOOD COUNT 4.45 10^6/uL (4.35-5.85); RED CELL DISTRIBUTION WIDTH 14.6 % (10.0-14.5); WHITE BLOOD COUNT 7.9 10^3/uL (4.3-11.0)
[2016-11-15 09:39] LABS: ANION GAP 13 MMOL/L (5-14); BLOOD UREA NITROGEN 18 MG/DL (7-18); BUN/CREATININE RATIO 22; CALCIUM 9.7 MG/DL (8.5-10.1); CARBON DIOXIDE 21 MMOL/L (21-32); CHLORIDE 103 MMOL/L (98-107); CREATININE SERUM 0.83 MG/DL (0.60-1.30); GFR ESTIMATED > 60; GLUCOSE 136 MG/DL (70-105); POTASSIUM 5.3 MMOL/L (3.6-5.0); SODIUM 137 MMOL/L (135-145)
--- NOTE | 2016-11-15 11:48 | Occupational Ther Daily Note ---
OT Current Status-Daily Note Subjective Pt siting EOB, agrees to treatment. Pt reports 8/10 back pain. Mental Status/Objective Functional [place] Measure 0=Not Assessed/NA 4=Minimal Assistance 1=Total Assistance 5=Supervision or Setup 2=Maximal Assistance 6=Modified [place] 3=Moderate Assistance 7=Complete [place] ADL-Treatment Pt sit to stand from EOB with moderate assistance. Pt states she feels "stiff" this morning. Transfer to chair with minimal assistance using FWW. Sponge bath completed seated in chair. Pt doffed shirt with SBA. Bathed upper body with set up and increased time. Pt washed upper and lower legs with SBA. Stood with minimal assistance to wash buttocks and katarzyna area. Don pullover shirt with set up. Pt donned socks with SBA. Pt required assist to thread catheter through pant leg. Required moderate assistance to stand and complete pant hike. Pt requests to use BSC. Transfer to BSC with minimal assistance using FWW. Pt unable to have BM. Requires assist for clothing management. Pt moves slowly and is easily distracted; requires increased time for all ADL activities and cues to attend to task. Pt sitting in chair with needs met after session. Functional [place] Measure 0=Not Assessed/NA 4=Minimal Assistance 1=Total Assistance 5=Supervision or Setup 2=Maximal Assistance 6=Modified [place] 3=Moderate Assistance 7=Complete IndependenceIRFPAI Quality Coding Scale 6 Independent with activity with or without an assistive device 5 Patient requires set up or clean up by helper. Patient completes activity by themselves 4 Supervision or touching assist (CGA). [place] provide cues , steadying assist 3 The helper provides less than half the effort to complete the activity 2 The helper provides more than half the effort to complete the activity 1 Dependent. The helper does all the effort to complete an activity 7 Patient refused to complete or attempt activity 9 The patient did not perform the activity before the current illness or injury 88 Not attempted due to Medical conditions or safety concerns Eating (FIM): 5 (Set up per nursing) Eating (QC): 5 Bathing (FIM): 4 Shower/Bathe Self (QC): 3 Upper Body (FIM): 5 Upper Body Dressing (QC): 4 Lower Body Dressing (FIM): 3 Lower Body Dressing (QC): 3 On/Off Footwear (QC): 5 Toileting (FIM): 2 Toilet/Commode Transfer (FIM): 4 OT Short Term Goals Short Term Goals Time Frame: November 20, 2016 Grooming(FIM): 5 Upper Body Dressing(FIM): 4 Lower Body Dressing(FIM): 3 Transfers (B,C,W/C) (FIM): 3 Toilet/Commode Transfer(FIM): 3 Additional Short Term Goals: 1-Demonstrate ADL Tasks, 2-Verbalize Understanding , 3-ImproveStrength/Hitesh 1=Demonstrate adherence to instructed precautions during ADL tasks. 2=Patient will verbalize/demonstrate understanding of assistive devices/ modifications for ADL. 3=Patient will improve strength/tolerance for activity to enable patient to perform ADL's. OT Group Home Goals Process Excellence Manager Goals Time Frame: December 04, 2016 Eating (FIM): 6 Eating (QC): 6 Groomin Bathing(FIM): 5 Shower/Bathe Self (QC): 4 Upper Body Dressing(FIM): 5 Upper Body Dressing (QC): 4 Lower Body Dressing(FIM): 5 Lower Body Dressing (QC): 4 On/Off Footwear (QC): 5 Toileting(FIM): 5 Toileting Hygiene (QC): 4 Toilet/Commode Transfer(FIM): 5 Toilet/Commode Transfer (QC): 4 Shower Transfer(FIM): 5 Additional Goals: 1-Demonstrate ADL Tasks, 2-Verbalize Understanding, 3- ImproveStrength/Hitesh 1=Demonstrate adherence to instructed precautions during ADL tasks. 2=Patient will verbalize/demonstrate understanding of assistive devices/ modifications for ADL. 3=Patient will improve strength/tolerance for activity to enable patient to perform ADL's. OT Education/Plan Problem List/Assessment Pt to benefit from skilled OT intervention for ADL training, transfers, strengthening, and safety education to improve level of function and allow safe discharge plan. Discharge Recommendations Plan/Recommendations: Continue POC Treatment Plan/Plan of Care Patient would benefit from OT for education, treatment and training to promote independence in ADL's, mobility, safety and/or upper extremity function for ADL' s. Plan of Care: ADL Retraining, Functional Mobility, Group Exercise/Act as Ind, UE Funct Exercise/Act, UE Neuromus Re-Ed/Coord Treatment Duration: December 04, 2016 Visits Per Week: 10-12 Minutes/Day (M-F): 60-90 Minutes/Day (Sat/Andrade): PRN Agreement: Yes Rehab Potential: Fair Time/GCodes Start Time: 10:00 Stop Time: 11:15 Total Time Billed (hr/min): 75 Billed Treatment Time 1 visit, ADLx5(75minutes) SHANNON VILLALOBOS OT November 15, 2016 11:48
--- NOTE | 2016-11-15 12:31 | Physical Therapy Daily Note ---
PT Daily Note-Current Subjective Agrees to PT. Reports she is tired from yesterday. Transfers Functional [place] Measure 0=Not Assessed/NA 4=Minimal Assistance 1=Total Assistance 5=Supervision or Setup 2=Maximal Assistance 6=Modified [place] 3=Moderate Assistance 7=Complete IndependenceIRFPAI Quality Coding Scale 6 Independent with activity with or without an assistive device 5 Patient requires set up or clean up by helper. Patient completes activity by themselves 4 Supervision or touching assist (CGA). [place] provide cues , steadying assist 3 The helper provides less than half the effort to complete the activity 2 The helper provides more than half the effort to complete the activity 1 Dependent. The helper does all the effort to complete an activity 7 Patient refused to complete or attempt activity 9 The patient did not perform the activity before the current illness or injury 88 Not attempted due to Medical conditions or safety concerns Transfers (B, C, W/C) (FIM): 4 (CGA with sit to for stand transfer) Sit to Stand (QC): 4 skilled cues for sequencing. Multiple sit to stand transfers throughout treatment. 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 Needs frequent cues to keep walking. Walks slow with decreased step length and decreased DF B. Exercises Seated Therapy Exercises: Ankle pumps, Long arc quads, Hip flexion Seated Reps: 15 (LE strength to improve transfers and gait) NuStep Minutes: 8 Assessment Current Status: Good Progress Transfers are improving and gait is progressing. making functional gains. Slow with all mobility and talks throughout, needing cues to stay on task. PT Short Term Goals Short Term Goals Time Frame: November 27, 2016 Transfers (B,C,W/C) (FIM): 3 Gait (FIM): 1 Distance (FIM): 1=up to 49 ft Gait Distance Comment: 20' Gait Level of Assist: 3 Gait Assistive Device: FWW Stairs (FIM): 1 # of Steps: 1 Stairs Level of Assist: 3 PT Chcf Goals Chcf Goals PT First Assistant Goals Time Frame: Dec 11, 2016 Transfers (B,C,W/C) (FIM): 5 Sit to Lying (QC): 5 Lying-Sitting on Side/Bed(QC): 5 Sit to Stand (QC): 5 Rollin Roll Left to Right (QC): 5 Chair/Mdn-by-Zghcu Xfer(QC): 5 Car Transfer (QC): 5 Does the Patient Walk: No and Walking Goal IS indicated Gait (FIM): 2 Gait distance (FIM): 5=731-14 ft Distance: 75' Walk 10 feet (QC): 5 Walk 10ft-Uneven Surface(QC): 5 Walk 50ft with 2 Turns (QC): 5 Walk 150 ft (QC): 88 Gait Level of Assist: 5 Gait Assistive Device: FWW # of Steps: 4 1 Step (curb) (QC): 4 4 Steps (QC): 4 12 Steps (QC): 88 Stairs Level Of Assist: 5 Picking up an Object (QC): 4 PT Plan Problem List Problem List: Activity Tolerance, Functional Strength, Safety, Balance, Gait, Transfer, Bed Mobility Treatment/Plan Treatment Plan: Continue Plan of Care Treatment Plan: Bed Mobility, Education, Functional Activity Hitesh, Group Therapy, Gait, Safety, Therapeutic Exercise, Transfers Treatment Duration: Dec 11, 2016 Visits Per Week: 6-11 Minutes/Day (M-F): 60-90 Minutes/Day (Sat/Andrade): PRN Safety Risks/Education Patient Education: Gait Training, Transfer Techniques Teaching Recipient: Patient Teaching Methods: Demonstration, Discussion Response to Teaching: Reinforcement Needed Time/GCodes Time In: 1115 Time Out: 1230 Total Billed Treatment Time: 75 Total Billed Treatment visit EX 30 FA 15 GT 30 JOSIE RIZZO PT November 15, 2016 12:31
--- NOTE | 2016-11-15 14:35 | Therapy Group Daily Note ---
Therapy Daily Group Note Exercises LE Seated Exercise, UE Exercise Other/Notes This patient actively participated in group therapy to include social interaction and appropriate conversation for introductions and telling where she was from; in addition she participated in social interaction with words of encouragement to others on the unit. She participated in a game of "Family Feud " that required cognitive thinking paired with working with others on her team to find answers. She participated in tossing a mitchell bag to signal she had an answer and then performed sit to stand transfers to stand while answering the question. She also participated in U/LE ther ex activity to promote UE/LE strength and ROM for functional self care and mobility progression. She was active with the group and seemed to enjoy the friendly competition. Post game, she commented, "I think our team won!" This group activity required social interaction as will be needed upon discharge home, LE/UE strength for self care and functional transfer training. Start Time: 13:00 Stop Time: 14:15 Total Billed Treatment Time: 75 Total Billed Treatment visit Group 75 JOSIE RIZZO PT November 15, 2016 14:35
--- NOTE | 2016-11-15 15:01 | Occupational Ther Daily Note ---
OT Current Status-Daily Note Subjective Pt sitting in chair, agrees to treatment. Mental Status/Objective Functional [place] Measure 0=Not Assessed/NA 4=Minimal Assistance 1=Total Assistance 5=Supervision or Setup 2=Maximal Assistance 6=Modified [place] 3=Moderate Assistance 7=Complete [place] ADL-Treatment Functional [place] Measure 0=Not Assessed/NA 4=Minimal Assistance 1=Total Assistance 5=Supervision or Setup 2=Maximal Assistance 6=Modified [place] 3=Moderate Assistance 7=Complete IndependenceIRFPAI Quality Coding Scale 6 Independent with activity with or without an assistive device 5 Patient requires set up or clean up by helper. Patient completes activity by themselves 4 Supervision or touching assist (CGA). [place] provide cues , steadying assist 3 The helper provides less than half the effort to complete the activity 2 The helper provides more than half the effort to complete the activity 1 Dependent. The helper does all the effort to complete an activity 7 Patient refused to complete or attempt activity 9 The patient did not perform the activity before the current illness or injury 88 Not attempted due to Medical conditions or safety concerns Other Treatment Pt agrees to UE exercises while seated. Pt states she is familiar with exercises from previous therapy. Pt performed bilateral UE exercises to promote increased strength needed for ADLs and transfers. Pt completed shoulder flexion , abduction, and biceps curls x12 reps with minimal resistance (yellow) theraband. Rest breaks between exercises. Occasional cues required for proper exercise technique. Pt requires cues to stay on task. Pt sitting in chair with needs met after session. Education OT Patient Education: Exercise program Teaching Recipient: Patient Teaching Methods: Demonstration, Discussion Response to Teaching: Verbalize Understanding, Reinforcement Needed OT Short Term Goals Short Term Goals Time Frame: November 20, 2016 Grooming(FIM): 5 Upper Body Dressing(FIM): 4 Lower Body Dressing(FIM): 3 Transfers (B,C,W/C) (FIM): 3 Toilet/Commode Transfer(FIM): 3 Additional Short Term Goals: 1-Demonstrate ADL Tasks, 2-Verbalize Understanding , 3-ImproveStrength/Hitesh 1=Demonstrate adherence to instructed precautions during ADL tasks. 2=Patient will verbalize/demonstrate understanding of assistive devices/ modifications for ADL. 3=Patient will improve strength/tolerance for activity to enable patient to perform ADL's. OT Caul Puller Goals [facility] Goals Time Frame: December 04, 2016 Eating (FIM): 6 Eating (QC): 6 Groomin Bathing(FIM): 5 Shower/Bathe Self (QC): 4 Upper Body Dressing(FIM): 5 Upper Body Dressing (QC): 4 Lower Body Dressing(FIM): 5 Lower Body Dressing (QC): 4 On/Off Footwear (QC): 5 Toileting(FIM): 5 Toileting Hygiene (QC): 4 Toilet/Commode Transfer(FIM): 5 Toilet/Commode Transfer (QC): 4 Shower Transfer(FIM): 5 Additional Goals: 1-Demonstrate ADL Tasks, 2-Verbalize Understanding, 3- ImproveStrength/Hitesh 1=Demonstrate adherence to instructed precautions during ADL tasks. 2=Patient will verbalize/demonstrate understanding of assistive devices/ modifications for ADL. 3=Patient will improve strength/tolerance for activity to enable patient to perform ADL's. OT Education/Plan Problem List/Assessment Pt to benefit from skilled OT intervention for ADL training, transfers, strengthening, and safety education to improve level of function and allow safe discharge plan. Discharge Recommendations Plan/Recommendations: Continue POC Treatment Plan/Plan of Care Patient would benefit from OT for education, treatment and training to promote independence in ADL's, mobility, safety and/or upper extremity function for ADL' s. Plan of Care: ADL Retraining, Functional Mobility, Group Exercise/Act as Ind, UE Funct Exercise/Act, UE Neuromus Re-Ed/Coord Treatment Duration: December 04, 2016 Visits Per Week: 10-12 Minutes/Day (M-F): 60-90 Minutes/Day (Sat/Andrade): PRN Agreement: Yes Rehab Potential: Fair Time/GCodes Start Time: 14:30 Stop Time: 14:45 Total Time Billed (hr/min): 15 Billed Treatment Time 1 visit, EX(15minutes) SHANNON VILLALOBOS OT November 15, 2016 15:01
--- NOTE | 2016-11-15 15:38 | Physical Therapy Daily Note ---
PT Daily Note-Current Subjective Agrees. No complaints. Transfers Functional [place] Measure 0=Not Assessed/NA 4=Minimal Assistance 1=Total Assistance 5=Supervision or Setup 2=Maximal Assistance 6=Modified [place] 3=Moderate Assistance 7=Complete IndependenceIRFPAI Quality Coding Scale 6 Independent with activity with or without an assistive device 5 Patient requires set up or clean up by helper. Patient completes activity by themselves 4 Supervision or touching assist (CGA). [place] provide cues , steadying assist 3 The helper provides less than half the effort to complete the activity 2 The helper provides more than half the effort to complete the activity 1 Dependent. The helper does all the effort to complete an activity 7 Patient refused to complete or attempt activity 9 The patient did not perform the activity before the current illness or injury 88 Not attempted due to Medical conditions or safety concerns Gait Training Pt ambulated x 60 ft with FWW with SB-CGA with skilled cues to stay on task and to increase step length. Pt ambulates with ER of right LE and limited DF and decreased step length. Assessment Current Status: Good Progress Progressing towards PT goals. PT Short Term Goals Short Term Goals Time Frame: November 27, 2016 Transfers (B,C,W/C) (FIM): 3 Gait (FIM): 1 Distance (FIM): 1=up to 49 ft Gait Distance Comment: 20' Gait Level of Assist: 3 Gait Assistive Device: FWW Stairs (FIM): 1 # of Steps: 1 Stairs Level of Assist: 3 PT Halfway Goals [employer] Obie[employer] Developer Goals PT Oracle Obie[employer] Developer Goals Time Frame: Dec 11, 2016 Transfers (B,C,W/C) (FIM): 5 Sit to Lying (QC): 5 Lying-Sitting on Side/Bed(QC): 5 Sit to Stand (QC): 5 Rollin Roll Left to Right (QC): 5 Chair/Abt-ik-Dtyht Xfer(QC): 5 Car Transfer (QC): 5 Does the Patient Walk: No and Walking Goal IS indicated Gait (FIM): 2 Gait distance (FIM): 7=807-65 ft Distance: 75' Walk 10 feet (QC): 5 Walk 10ft-Uneven Surface(QC): 5 Walk 50ft with 2 Turns (QC): 5 Walk 150 ft (QC): 88 Gait Level of Assist: 5 Gait Assistive Device: FWW # of Steps: 4 1 Step (curb) (QC): 4 4 Steps (QC): 4 12 Steps (QC): 88 Stairs Level Of Assist: 5 Picking up an Object (QC): 4 PT Plan Treatment/Plan Treatment Plan: Continue Plan of Care Treatment Plan: Bed Mobility, Education, Functional Activity Hitesh, Group Therapy, Gait, Safety, Therapeutic Exercise, Transfers Treatment Duration: Dec 11, 2016 Visits Per Week: 6-11 Minutes/Day (M-F): 60-90 Minutes/Day (Sat/Andrade): PRN Time/GCodes Time In: 1415 Time Out: 1430 Total Billed Treatment Time: 15 Total Billed Treatment visit GT 15 JOSIE RIZZO PT November 15, 2016 15:38
[2016-11-15 19:05] VITALS: BP 112/66
[2016-11-15] MEDS: ATORVASTATIN 20 MG (LIPITOR) TABLET PO SCH (21:04)
[2016-11-16 05:00] VITALS: BP 145/77
[2016-11-16] MEDS: inSUlin ASPART (NovoLOG) 1 UNIT/0.01 ML (CHARGE PER UNIT) SC SCH ×4 (05:42→20:47)
[2016-11-16] MEDS: PANTOPRAZOLE 40 MG (PROTONIX) TAB PO SCH (06:09)
[2016-11-16] MEDS: CLINDAMYCIN 150 MG (CLEOCIN) CAP PO SCH ×3 (06:09→16:32)
[2016-11-16] MEDS: TROSPIUM 20 MG (SANCTURA) TAB PO SCH ×2 (06:09→16:32)
[2016-11-16] MEDS: metFORMIN 500 MG (GLUCOPHAGE) TAB PO SCH ×2 (06:09→16:32)
--- NOTE | 2016-11-16 08:09 | Progress Note (SOAP) ---
Subjective Subjective/Events-last exam general debility. Diabetes. Patient feeling better and improving Objective Exam Vital Signs Date Time Temp Pulse Resp B/P (MAP) Pulse Ox O2 Delivery O2 Flow Rate FiO2 11/16/16 05:00 98.0 73 20 145/77 100 11/15/16 19:05 98.1 69 16 112/66 98 11/15/16 09:12 73 125/67 I & O 11/16/16 07:00 Intake Total 800 ml Output Total 1200 ml Balance -400 ml Capillary Refill : Less Than 3 Seconds General Appearance: No Apparent Distress, WD/WN HEENT: Normal ENT Inspection Neck: Full Range of Motion, Normal Inspection Respiratory: Chest Non Tender, Lungs Clear, Normal Breath Sounds, No Accessory Muscle Use, No Respiratory Distress Cardiovascular: Regular Rate, Rhythm Results Lab Laboratory Tests 11/15/16 09:00: Sodium Level 137, Potassium Level 5.3H, Chloride Level 103, Carbon Dioxide Level 21, Anion Gap 13, Blood Urea Nitrogen 18, Creatinine 0.83, Estimat Glomerular Filtration Rate > 60, BUN/Creatinine Ratio 22, Glucose Level 136H, Calcium Level 9.7 11/15/16 09:26: White Blood Count 7.9, Red Blood Count 4.45, Hemoglobin 11.8, Hematocrit 37, Mean Corpuscular Volume 82, Mean Corpuscular Hemoglobin 27, Mean Corpuscular Hemoglobin Concent 32, Red Cell Distribution Width 14.6H, Platelet Count 304, Mean Platelet Volume 10.3 11/15/16 11:06: Glucometer 148H 11/15/16 16:03: Glucometer 111H 11/15/16 20:36: Glucometer 137H 11/16/16 05:21: Glucometer 127H Microbiology 11/14/16 Urine Culture - Preliminary, Resulted NO GROWTH Assessment/Plan Assessment/Plan Assess & Plan/Chief Complaint general debility. Foot ulcers good. Diabetes 2 person assist. . 11/16/16. General debility. Diabetes. Patient improving Clinical Quality Measures DVT/VTE Risk/Contraindication: Risk Factor Score Per Nursin RFS Level Per Nursing on Admit: 4+=Very High JOSE PRIEST DO November 16, 2016 08:09
[2016-11-16] MEDS: PREGABALIN 75 MG (LYRICA) CAP PO SCH ×3 (08:39→20:17)
[2016-11-16] MEDS: LORATADINE (CLARITIN) 10 MG TAB PO SCH (08:39)
[2016-11-16] MEDS: rOPINIRole 1 MG (REQUIP) TABLET PO SCH ×2 (08:39→20:17)
[2016-11-16] MEDS: DULoxetine 30 MG (CYMBALTA) CAP PO SCH (08:39)
[2016-11-16] MEDS: IRON POLYSAC 150 MG CAP (NIFEREX) PO SCH ×2 (08:40→20:17)
[2016-11-16] MEDS: meTOproloL SUCCINATE 50 MG (TOPROL XL) TAB PO SCH (08:40)
[2016-11-16] MEDS: FUROSEMIDE 40 MG (LASIX) TAB PO SCH (08:40)
[2016-11-16] MEDS: ENOXAPARIN 40 MG/0.4 ML (LOVENOX) SYR SC SCH (08:41)
--- NOTE | 2016-11-16 08:58 | Physical Therapy Daily Note ---
PT Daily Note-Current Subjective Pt. up in recliner for coffee, very talkative as usual. Agrees to Rx. Pain Numeric Pain Scale: 0-No Pain Transfers Functional [place] Measure 0=Not Assessed/NA 4=Minimal Assistance 1=Total Assistance 5=Supervision or Setup 2=Maximal Assistance 6=Modified [place] 3=Moderate Assistance 7=Complete IndependenceIRFPAI Quality Coding Scale 6 Independent with activity with or without an assistive device 5 Patient requires set up or clean up by helper. Patient completes activity by themselves 4 Supervision or touching assist (CGA). [place] provide cues , steadying assist 3 The helper provides less than half the effort to complete the activity 2 The helper provides more than half the effort to complete the activity 1 Dependent. The helper does all the effort to complete an activity 7 Patient refused to complete or attempt activity 9 The patient did not perform the activity before the current illness or injury 88 Not attempted due to Medical conditions or safety concerns Transfers (B, C, W/C) (FIM): 5 Scootin Rollin Supine to/from Sit: 5 Sit to/from Stand: 5 Pt. able to sit to stand from lower and higher surfaces and toilet, slower but SBA up from flat bed sup to sit Gait Training Does the Patient Walk?: Yes Gait (FIM): 5 Distance (FIM): 5=378-17 ft (75x3) Gait Level of Assist: 5 Gait Persons Needed: 1 Gait Assistive Device: FWW household exception, gait slow but no rj LOB Exercises Supine Ex: Ankle pumps, Rolling, Heel Slides, Short Arc Quads, Scooting, Hip abd/add Supine Reps: 12 Seated Therapy Exercises: Ankle pumps, Sit to stand, Long arc quads Seated Reps: 12 Treatments toileted SBA managing cleaning etc, no incont this date Assessment Current Status: Excellent Progress much improved gait and funct mob PT Short Term Goals Short Term Goals Time Frame: November 27, 2016 Transfers (B,C,W/C) (FIM): 3 Gait (FIM): 1 Distance (FIM): 1=up to 49 ft Gait Distance Comment: 20' Gait Level of Assist: 3 Gait Assistive Device: FWW Stairs (FIM): 1 # of Steps: 1 Stairs Level of Assist: 3 PT Wax Bleacher Goals Retirement Goals PT Wax Bleacher Goals Time Frame: Dec 11, 2016 Transfers (B,C,W/C) (FIM): 5 Sit to Lying (QC): 5 Lying-Sitting on Side/Bed(QC): 5 Sit to Stand (QC): 5 Rollin Roll Left to Right (QC): 5 Chair/Zwd-fz-Apfsb Xfer(QC): 5 Car Transfer (QC): 5 Does the Patient Walk: No and Walking Goal IS indicated Gait (FIM): 2 Gait distance (FIM): 9=235-91 ft Distance: 75' Walk 10 feet (QC): 5 Walk 10ft-Uneven Surface(QC): 5 Walk 50ft with 2 Turns (QC): 5 Walk 150 ft (QC): 88 Gait Level of Assist: 5 Gait Assistive Device: FWW # of Steps: 4 1 Step (curb) (QC): 4 4 Steps (QC): 4 12 Steps (QC): 88 Stairs Level Of Assist: 5 Picking up an Object (QC): 4 PT Plan Treatment/Plan Treatment Plan: Continue Plan of Care Treatment Plan: Bed Mobility, Education, Functional Activity Hitesh, Group Therapy, Gait, Safety, Therapeutic Exercise, Transfers Treatment Duration: Dec 11, 2016 Visits Per Week: 6-11 Minutes/Day (M-F): 60-90 Minutes/Day (Sat/Andrade): PRN Safety Risks/Education Patient Education: Gait Training, Transfer Techniques, Correct Positioning, Safety Issues Teaching Recipient: Patient Teaching Methods: Demonstration, Discussion Response to Teaching: Verbalize Understanding, Return Demonstration, Reinforcement Needed Time/GCodes Time In: 755 Time Out: 855 Total Billed Treatment Time: 60 Total Billed Treatment 1,GT20m,FA25m,EX15m G Codes Necessary: DELORIS Wolf ADMIN ASST November 16, 2016 08:58
[2016-11-16] MEDS: NYSTATIN CREAM (MYCOSTATIN) 30 GM TUBE TP SCH ×3 (10:14→20:18)
--- NOTE | 2016-11-16 11:48 | Occupational Ther Daily Note ---
OT Current Status-Daily Note Subjective Pt sitting in chair, agrees to treatment. Mental Status/Objective Functional [place] Measure 0=Not Assessed/NA 4=Minimal Assistance 1=Total Assistance 5=Supervision or Setup 2=Maximal Assistance 6=Modified [place] 3=Moderate Assistance 7=Complete [place] ADL-Treatment Pt agrees to shower this am. Sit to stand from chair with SBA. Gait to restroom with FWW, slow pace. Transfer to walk in shower with CGA and cues for safety, using grab bars for balance. Pt doffed nightgown and socks with SBA. Seated bathing completed using hand held shower. Upper body bathing completed with SBA. Pt able to wash bilateral LE and katarzyna area. Stood with CGA for balance while washing buttocks. Pt takes much increased time with shower. Don pullover shirt with minimal assistance. Pt required minimal assistance to start underwear and pants over left foot. Sit to stand with SBA. Pt required minimal assistance for pant hike. Pt donned socks with minimal assistance. Pt combed hair with SBA. Toilet transfer with SBA using grab bars; cues for safety. Pt able to complete toileting hygiene with SBA. Transfer to chair with SBA. Pt moves slowly throughout treatment and requires increased time for all ADLs tasks. Pt easily distracted with conversation and requires cues to attend to task. Pt sitting in chair with needs met after session. Functional [place] Measure 0=Not Assessed/NA 4=Minimal Assistance 1=Total Assistance 5=Supervision or Setup 2=Maximal Assistance 6=Modified [place] 3=Moderate Assistance 7=Complete IndependenceIRFPAI Quality Coding Scale 6 Independent with activity with or without an assistive device 5 Patient requires set up or clean up by helper. Patient completes activity by themselves 4 Supervision or touching assist (CGA). [place] provide cues , steadying assist 3 The helper provides less than half the effort to complete the activity 2 The helper provides more than half the effort to complete the activity 1 Dependent. The helper does all the effort to complete an activity 7 Patient refused to complete or attempt activity 9 The patient did not perform the activity before the current illness or injury 88 Not attempted due to Medical conditions or safety concerns Grooming (FIM): 5 Bathing (FIM): 4 Shower/Bathe Self (QC): 3 Upper Body (FIM): 4 On/Off Footwear (QC): 4 Toilet/Commode Transfer (FIM): 5 Shower Transfer(FIM): 4 (CGA) OT Short Term Goals Short Term Goals Time Frame: November 20, 2016 Grooming(FIM): 5 Upper Body Dressing(FIM): 4 Lower Body Dressing(FIM): 3 Transfers (B,C,W/C) (FIM): 3 Toilet/Commode Transfer(FIM): 3 Additional Short Term Goals: 1-Demonstrate ADL Tasks, 2-Verbalize Understanding , 3-ImproveStrength/Hitesh 1=Demonstrate adherence to instructed precautions during ADL tasks. 2=Patient will verbalize/demonstrate understanding of assistive devices/ modifications for ADL. 3=Patient will improve strength/tolerance for activity to enable patient to perform ADL's. OT Wax Pattern Coater Goals Wax Pattern Coater Goals Time Frame: December 04, 2016 Eating (FIM): 6 Eating (QC): 6 Groomin Bathing(FIM): 5 Shower/Bathe Self (QC): 4 Upper Body Dressing(FIM): 5 Upper Body Dressing (QC): 4 Lower Body Dressing(FIM): 5 Lower Body Dressing (QC): 4 On/Off Footwear (QC): 5 Toileting(FIM): 5 Toileting Hygiene (QC): 4 Toilet/Commode Transfer(FIM): 5 Toilet/Commode Transfer (QC): 4 Shower Transfer(FIM): 5 Additional Goals: 1-Demonstrate ADL Tasks, 2-Verbalize Understanding, 3- ImproveStrength/Hitesh 1=Demonstrate adherence to instructed precautions during ADL tasks. 2=Patient will verbalize/demonstrate understanding of assistive devices/ modifications for ADL. 3=Patient will improve strength/tolerance for activity to enable patient to perform ADL's. OT Education/Plan Problem List/Assessment Pt to benefit from skilled OT intervention for ADL training, transfers, strengthening, and safety education to improve level of function and allow safe discharge plan. Discharge Recommendations Plan/Recommendations: Continue POC Treatment Plan/Plan of Care Patient would benefit from OT for education, treatment and training to promote independence in ADL's, mobility, safety and/or upper extremity function for ADL' s. Plan of Care: ADL Retraining, Functional Mobility, Group Exercise/Act as Ind, UE Funct Exercise/Act, UE Neuromus Re-Ed/Coord Treatment Duration: December 04, 2016 Visits Per Week: 10-12 Minutes/Day (M-F): 60-90 Minutes/Day (Sat/Andrade): PRN Agreement: Yes Rehab Potential: Fair Time/GCodes Start Time: 10:00 Stop Time: 11:10 Total Time Billed (hr/min): 70 Billed Treatment Time 1 visit, ADLx5(70minutes) SHANNON VILLALOBOS OT November 16, 2016 11:48
--- NOTE | 2016-11-16 11:58 | PM & R (SOAP) Progress Note ---
Subjective Subjective/Events-last exam Patient was seen in her room this AM,Appreciate Therapy notes as well as DR Ang notes and orders Current labs reviewed Appreciate Dr Valenzuela note.Patient SBA for transfers Objective Exam Last Set of Vital Signs Vital Signs Date Time Temp Pulse Resp B/P (MAP) Pulse Ox O2 Delivery O2 Flow Rate FiO2 11/16/16 05:00 98.0 73 20 145/77 100 11/15/16 05:00 Room Air Capillary Refill : Less Than 3 Seconds I&O Intake and Output 11/16/16 00:00 Intake Total 600 ml Output Total 1200 ml Balance -600 ml Intake Oral 600 ml Output Urine Total 1200 ml General: Alert, Oriented X3, Cooperative, No Acute Distress HEENT: Atraumatic, PERRLA, EOMI, Mucous Memb Moist/[place] Neck: Supple, No JVD Lungs: Clear to Auscultation, Normal Air Movement Heart: Regular Rate Abdomen: Normal Bowel Sounds, Soft, No Tenderness Extremities: Other (chronic dermatitis and edema) Skin: Other (Bilateral calf dermatitis with markedly reduced edema. Bilateral foot ulcers with scab formation.) Neuro: Other (generalized weakness) Results Lab Laboratory Tests 11/13/16 18:42: Hemoglobin A1c 7.1H 11/13/16 20:37: Glucometer 160H 11/14/16 04:49: Glucometer 125H 11/14/16 05:32: Sodium Level 137, Potassium Level 4.2, Chloride Level 103, Carbon Dioxide Level 25, Anion Gap 9, Blood Urea Nitrogen 22H, Creatinine 0.97, Estimat Glomerular Filtration Rate 57, BUN/Creatinine Ratio 23, Glucose Level 114H, Calcium Level 9.2 11/14/16 09:35: Urine Color YELLOW, Urine Clarity CLEAR, Urine pH 6, Urine Specific [place] 1.015L, Urine Protein 1+H, Urine Glucose (UA) NEGATIVE, Urine Ketones NEGATIVE, Urine Nitrite NEGATIVE, Urine Bilirubin 3+H, Urine Urobilinogen NORMAL, Urine Leukocyte Esterase 3+H, Urine RBC (Auto) 2+H, Urine RBC 2-5H, Urine WBC 25-50H, Urine Squamous Epithelial Cells 10-25H, Urine Crystals NONE, Urine Bacteria FEWH , Urine Casts NONE, Urine Mucus NEGATIVE, Urine Culture Indicated YES 11/14/16 10:49: Glucometer 159H 11/14/16 16:04: Glucometer 128H 11/14/16 21:09: Glucometer 152H 11/15/16 06:37: Glucometer 117H 11/15/16 09:00: Sodium Level 137, Potassium Level 5.3H, Chloride Level 103, Carbon Dioxide Level 21, Anion Gap 13, Blood Urea Nitrogen 18, Creatinine 0.83, Estimat Glomerular Filtration Rate > 60, BUN/Creatinine Ratio 22, Glucose Level 136H, Calcium Level 9.7 11/15/16 09:26: White Blood Count 7.9, Red Blood Count 4.45, Hemoglobin 11.8, Hematocrit 37, Mean Corpuscular Volume 82, Mean Corpuscular Hemoglobin 27, Mean Corpuscular Hemoglobin Concent 32, Red Cell Distribution Width 14.6H, Platelet Count 304, Mean Platelet Volume 10.3 11/15/16 11:06: Glucometer 148H 11/15/16 16:03: Glucometer 111H 11/15/16 20:36: Glucometer 137H 11/16/16 05:21: Glucometer 127H 11/16/16 10:56: Glucometer 125H Microbiology 11/14/16 Urine Culture - Final, Complete NO GROWTH Assessment/Plan Assessment General debil DM Chronic stasis dermatitis Plan Continue PT/OT Skin care F/U with DR martinez PCP PRN Trend accuchecks and adjust meds as needed PEARL SAMSON MD November 16, 2016 11:58
--- NOTE | 2016-11-16 12:09 | Individualized Plan of Care ---
Individualized Plan of Care Rehab Nursing IPOC Order Admission Date November 13, 2016 at 15:21 Current Orders Orders Patient Visit (11/15/16 ) Exercise Therap, Ea 15 Min (11/15/16 ) Functional Activities, Ea 15 (11/15/16 ) Gait Training, Ea 15 Min (11/15/16 ) Therapeutic, Group (11/15/16 ) Toilet every (bladder): (hrs): 2 hours while awake prn PT IPOC Problem List: Activity Tolerance, Functional Strength, Safety, Balance, Gait, Transfer, Bed Mobility Treatment Plan: Continue Plan of Care Bed Mobility, Education, Functional Activity Hitesh, Group Therapy, Gait, Safety , Therapeutic Exercise, Transfers Treatment Duration: Dec 11, 2016 Visits Per Week: 6-11 Minutes/Day (M-F): 60-90 Minutes/Day (Sat/Andrade): PRN OT IPOC Problems: Decreased Activ Tolerance, Decreased Safety Aware, Decreased UE Strength, Dependent Transfers, Impaired Coordination, Impaired Funct Balance, Impaired Self-Care Skills OT Problems Pt to benefit from skilled OT intervention for ADL training, transfers, strengthening, and safety education to improve level of function and allow safe discharge plan. Plan of Care: ADL Retraining, Functional Mobility, Group Exercise/Act as Ind, UE Funct Exercise/Act, UE Neuromus Re-Ed/Coord Treatment Duration: December 04, 2016 Visits Per Week: 10-12 Minutes/Day (M-F): 60-90 Minutes/Day (Sat/Andrade): PRN ST IPOC Speech Therapy Treatment Plan: Discontinue ST Physician IPOC Medical Issues being managed closely and that require the 24 hour availability of a physician:DM Obesity recurrent dermatitis involving the legs DM recent bout of cellulitis Medical Issues: DVT Prophylaxis, Falls Precautions, Fluid/Electrolyte/ Nutrition Balance, Infection Protection, Pain Management, Wound Care, Other ( List) (as per above) Brief Synthesis of Preadmission Screen, Post-Admission Evaluation, and Therapy Evaluations: 66 yo female with general debil s/p recent bout of cellulitis treated during recent priot admission to [facility] Had been Independent prior to this and was followed by wound clinic of dermatitis and venous ulcers of the legs PCP DR Aguilar and plastic surgery specialist DR Sagastume [facility] also significant for DM Medical Prognosis: good Anticipated Length of Stay: 12/11/16 Rehab Goals Modified Independent for adls and mobility skills Anticipated discharge destinat: Home with [facility] PEARL SAMSON MD November 16, 2016 12:08
--- NOTE | 2016-11-16 14:14 | Therapy Group Daily Note ---
Therapy Daily Group Note Exercises Fine Motor, UE Exercise Other/Notes Pt ambulated to OT/PT lunch group with CGA using FWW. Lunch group consisted of socialization, recalling local history per patients, fine motor and UE skills for eating lunch. Pt was able to answer questions about own family history and interact with other patients. Pt contributed to discussions appropriately and was able to talk easily with other pt's. Pt was able to open containers/ packages by self then use regular utensils to feed self. After group, pt lying in bed with call light/phone in reach. All needs met in room. Start Time: 12:00 Stop Time: 13:15 Total Billed Treatment Time: 75 Total Billed Treatment 1-GRP JOSIE YOUNG November 16, 2016 14:14
[2016-11-16 18:16] VITALS: BP 128/74
[2016-11-16] MEDS: ATORVASTATIN 20 MG (LIPITOR) TABLET PO SCH (20:17)
[2016-11-17] MEDS: CLINDAMYCIN 150 MG (CLEOCIN) CAP PO SCH ×4 (00:32→18:34)
[2016-11-17] MEDS: inSUlin ASPART (NovoLOG) 1 UNIT/0.01 ML (CHARGE PER UNIT) SC SCH ×4 (05:11→20:52)
[2016-11-17 05:28] VITALS: BP 164/67
[2016-11-17] MEDS: TROSPIUM 20 MG (SANCTURA) TAB PO SCH ×2 (06:09→15:34)
[2016-11-17] MEDS: metFORMIN 500 MG (GLUCOPHAGE) TAB PO SCH ×2 (06:09→18:34)
[2016-11-17] MEDS: PANTOPRAZOLE 40 MG (PROTONIX) TAB PO SCH (06:09)
[2016-11-17] MEDS: rOPINIRole 1 MG (REQUIP) TABLET PO SCH ×2 (08:11→20:56)
[2016-11-17] MEDS: meTOproloL SUCCINATE 50 MG (TOPROL XL) TAB PO SCH (08:12)
[2016-11-17] MEDS: ENOXAPARIN 40 MG/0.4 ML (LOVENOX) SYR SC SCH (08:12)
[2016-11-17] MEDS: LORATADINE (CLARITIN) 10 MG TAB PO SCH (08:12)
[2016-11-17] MEDS: DULoxetine 30 MG (CYMBALTA) CAP PO SCH (08:12)
[2016-11-17] MEDS: IRON POLYSAC 150 MG CAP (NIFEREX) PO SCH ×2 (08:12→20:56)
[2016-11-17] MEDS: FUROSEMIDE 40 MG (LASIX) TAB PO SCH (08:12)
[2016-11-17] MEDS: PREGABALIN 75 MG (LYRICA) CAP PO SCH ×3 (08:13→20:56)
--- NOTE | 2016-11-17 08:58 | Physical Therapy Daily Note ---
PT Daily Note-Current Subjective Pt sitting in recliner upon arrival. Pt is very talkative and shares life stories during tx. Pt agrees to PT. Pain Numeric Pain Scale: 8 Location: Lower Location Body Site: Back Pain Description: Sharp Mental Status Patient Orientation: Person, Place, Situation Transfers Functional [place] Measure 0=Not Assessed/NA 4=Minimal Assistance 1=Total Assistance 5=Supervision or Setup 2=Maximal Assistance 6=Modified [place] 3=Moderate Assistance 7=Complete IndependenceIRFPAI Quality Coding Scale 6 Independent with activity with or without an assistive device 5 Patient requires set up or clean up by helper. Patient completes activity by themselves 4 Supervision or touching assist (CGA). [place] provide cues , steadying assist 3 The helper provides less than half the effort to complete the activity 2 The helper provides more than half the effort to complete the activity 1 Dependent. The helper does all the effort to complete an activity 7 Patient refused to complete or attempt activity 9 The patient did not perform the activity before the current illness or injury 88 Not attempted due to Medical conditions or safety concerns Scootin Sit to/from Stand: 5 Sit to Stand (QC): 5 Weight Bearing Weight Bearing Restriction: Full Weight Bearing Location Restriction: LE Bilateral Exercises Seated Therapy Exercises: Ankle pumps, Sit to stand (from recliner to stand at bed side w/FWW), Long arc quads, Hip flexion, Kicking activity Seated Reps: 15 Treatments Pt completed Seated Ex in recliner. Pt then completed sit to stand from recliner to stand at bed side to make the bed. Pt needed VC to stay on task. Pt gave pt ed. on benefits of Therapy and disease process pt has going on. Pt is left in recliner with all needs met at end of tx. Assessment Current Status: Good Progress Pt is getting stronger and making improvements with activity tolerance and balance. PT Short Term Goals Short Term Goals Time Frame: November 27, 2016 Transfers (B,C,W/C) (FIM): 3 Gait (FIM): 1 Distance (FIM): 1=up to 49 ft Gait Distance Comment: 20' Gait Level of Assist: 3 Gait Assistive Device: FWW Stairs (FIM): 1 # of Steps: 1 Stairs Level of Assist: 3 PT Sales Market Leader Goals Sales Market Leader Goals PT Sales Market Leader Goals Time Frame: Dec 11, 2016 Transfers (B,C,W/C) (FIM): 5 Sit to Lying (QC): 5 Lying-Sitting on Side/Bed(QC): 5 Sit to Stand (QC): 5 Rollin Roll Left to Right (QC): 5 Chair/Toe-gf-Aekzy Xfer(QC): 5 Car Transfer (QC): 5 Does the Patient Walk: No and Walking Goal IS indicated Gait (FIM): 2 Gait distance (FIM): 0=073-39 ft Distance: 75' Walk 10 feet (QC): 5 Walk 10ft-Uneven Surface(QC): 5 Walk 50ft with 2 Turns (QC): 5 Walk 150 ft (QC): 88 Gait Level of Assist: 5 Gait Assistive Device: FWW # of Steps: 4 1 Step (curb) (QC): 4 4 Steps (QC): 4 12 Steps (QC): 88 Stairs Level Of Assist: 5 Picking up an Object (QC): 4 PT Plan Problem List Problem List: Activity Tolerance, Safety, Balance, Gait, Transfer Treatment/Plan Treatment Plan: Continue Plan of Care Treatment Plan: Bed Mobility, Education, Functional Activity Hitesh, Group Therapy, Gait, Safety, Therapeutic Exercise, Transfers Treatment Duration: Dec 11, 2016 Visits Per Week: 6-11 Minutes/Day (M-F): 60-90 Minutes/Day (Sat/Andrade): PRN Safety Risks/Education Patient Education: Transfer Techniques, Correct Positioning, Disease Process, Safety Issues Teaching Recipient: Patient Teaching Methods: Discussion Response to Teaching: Verbalize Understanding Time/GCodes Time In: 730 Time Out: 805 Total Billed Treatment Time: 35 Total Billed Treatment visit, EX (15m) & FA (20m) YUDI AMEZCUA PTA November 17, 2016 08:58
[2016-11-17] MEDS: NYSTATIN CREAM (MYCOSTATIN) 30 GM TUBE TP SCH ×3 (12:06→20:56)
[2016-11-17 18:40] VITALS: BP 134/78
--- NOTE | 2016-11-17 19:54 | Diagnostic Imaging Report ---
Clinical indication: Patient with some left hand weakness. Exam: Axial CT scan of the brain performed without IV contrast. Comparison: Head CT without IV contrast dated 11/24/2016. Findings: There is no evidence of acute cerebral infarct, intracranial hemorrhage, or gross mass effect. There is patchy and focal areas of low-attenuation white matter changes seen throughout both cerebral hemispheres which is not significantly changed compared to prior study, likely representing chronic small vessel ischemic disease. There is normal [place]-white matter distinction. The brain parenchymal volume appears appropriate for patient's age. There is no significant midline shift or herniation. There is no evidence of hydrocephalus. The basal cisterns are unremarkable. The skull, extracranial soft tissue, and orbits are unremarkable. The paranasal sinuses are unremarkable. Impression: 1. Stable CT scan of the brain with no evidence of interval acute intracranial process. 2: Brain parenchymal chronic small vessel ischemic disease which is not significantly changed. Dictated by: Dictated on workstation # [id number]
[2016-11-17] MEDS: ATORVASTATIN 20 MG (LIPITOR) TABLET PO SCH (20:56)
--- NOTE | 2016-11-17 21:23 | PM & R (SOAP) Progress Note ---
Subjective Subjective/Events-last exam Patient was seen inher room this AM Patient SBA for transfers Objective Exam Last Set of Vital Signs Vital Signs Date Time Temp Pulse Resp B/P (MAP) Pulse Ox O2 Delivery O2 Flow Rate FiO2 11/17/16 18:40 96.6 65 18 134/78 96 11/15/16 05:00 Room Air Capillary Refill : Less Than 3 Seconds I&O Intake and Output 11/17/16 00:00 Intake Total 900 ml Balance 900 ml Intake Oral 900 ml # Voids 5 General: Alert, Oriented X3, Cooperative, No Acute Distress HEENT: Atraumatic, PERRLA, EOMI, Mucous Memb Moist/[place] Neck: Supple, No JVD Lungs: Clear to Auscultation, Normal Air Movement Heart: Regular Rate Abdomen: Normal Bowel Sounds, Soft, No Tenderness Extremities: Other (chronic dermatitis and edema) Skin: Other (Bilateral calf dermatitis with markedly reduced edema. Bilateral foot ulcers with scab formation.) Neuro: Other (generalized weakness) Results Lab Laboratory Tests 11/15/16 06:37: Glucometer 117H 11/15/16 09:00: Sodium Level 137, Potassium Level 5.3H, Chloride Level 103, Carbon Dioxide Level 21, Anion Gap 13, Blood Urea Nitrogen 18, Creatinine 0.83, Estimat Glomerular Filtration Rate > 60, BUN/Creatinine Ratio 22, Glucose Level 136H, Calcium Level 9.7 11/15/16 09:26: White Blood Count 7.9, Red Blood Count 4.45, Hemoglobin 11.8, Hematocrit 37, Mean Corpuscular Volume 82, Mean Corpuscular Hemoglobin 27, Mean Corpuscular Hemoglobin Concent 32, Red Cell Distribution Width 14.6H, Platelet Count 304, Mean Platelet Volume 10.3 11/15/16 11:06: Glucometer 148H 11/15/16 16:03: Glucometer 111H 11/15/16 20:36: Glucometer 137H 11/16/16 05:21: Glucometer 127H 11/16/16 10:56: Glucometer 125H 11/16/16 15:40: Glucometer 136H 11/16/16 20:42: Glucometer 142H 11/17/16 04:38: Glucometer 117H 11/17/16 11:03: Glucometer 135H 11/17/16 16:08: Glucometer 106 11/17/16 20:04: Glucometer 146H Microbiology 11/14/16 Urine Culture - Final, Complete NO GROWTH Assessment/Plan Assessment General debil DM Chronic stasis dermatitis Plan Continue PT/OT Skin care F/U with DR martinez PCP PRN Trend accuchecks and adjust meds as needed Team Conference this following week PEARL SAMSON MD November 17, 2016 21:23
[2016-11-18] MEDS: CLINDAMYCIN 150 MG (CLEOCIN) CAP PO SCH ×4 (00:20→17:38)
[2016-11-18 05:46] VITALS: BP 111/64
[2016-11-18] MEDS: metFORMIN 500 MG (GLUCOPHAGE) TAB PO SCH ×2 (06:24→17:37)
[2016-11-18] MEDS: TROSPIUM 20 MG (SANCTURA) TAB PO SCH ×2 (06:25→17:37)
[2016-11-18] MEDS: PANTOPRAZOLE 40 MG (PROTONIX) TAB PO SCH (06:25)
[2016-11-18] MEDS: inSUlin ASPART (NovoLOG) 1 UNIT/0.01 ML (CHARGE PER UNIT) SC SCH ×4 (06:34→21:39)
[2016-11-18] MEDS: LORATADINE (CLARITIN) 10 MG TAB PO SCH (08:03)
[2016-11-18] MEDS: DULoxetine 30 MG (CYMBALTA) CAP PO SCH (08:03)
[2016-11-18] MEDS: IRON POLYSAC 150 MG CAP (NIFEREX) PO SCH ×2 (08:03→21:13)
[2016-11-18] MEDS: meTOproloL SUCCINATE 50 MG (TOPROL XL) TAB PO SCH (08:03)
[2016-11-18] MEDS: PREGABALIN 75 MG (LYRICA) CAP PO SCH ×3 (08:04→21:13)
[2016-11-18] MEDS: rOPINIRole 1 MG (REQUIP) TABLET PO SCH ×2 (08:04→21:13)
[2016-11-18] MEDS: FUROSEMIDE 40 MG (LASIX) TAB PO SCH (08:04)
[2016-11-18] MEDS: ENOXAPARIN 40 MG/0.4 ML (LOVENOX) SYR SC SCH (08:05)
[2016-11-18] MEDS: NYSTATIN CREAM (MYCOSTATIN) 30 GM TUBE TP SCH ×3 (09:00→21:15)
[2016-11-18 18:59] VITALS: BP 111/72
[2016-11-18] MEDS: ATORVASTATIN 20 MG (LIPITOR) TABLET PO SCH (21:13)
[2016-11-19] MEDS: CLINDAMYCIN 150 MG (CLEOCIN) CAP PO SCH ×4 (01:13→16:36)
[2016-11-19] MEDS: PANTOPRAZOLE 40 MG (PROTONIX) TAB PO SCH (06:19)
[2016-11-19] MEDS: metFORMIN 500 MG (GLUCOPHAGE) TAB PO SCH ×2 (06:19→16:36)
[2016-11-19] MEDS: TROSPIUM 20 MG (SANCTURA) TAB PO SCH ×2 (06:20→16:37)
[2016-11-19] MEDS: inSUlin ASPART (NovoLOG) 1 UNIT/0.01 ML (CHARGE PER UNIT) SC SCH ×4 (06:25→21:22)
[2016-11-19 06:39] VITALS: BP 139/9
--- NOTE | 2016-11-19 08:21 | Progress Note (SOAP) ---
Subjective Subjective/Events-last exam general debility. Patient had confusion this weekend. patient complaining of left hand. Objective Exam Vital Signs Date Time Temp Pulse Resp B/P (MAP) Pulse Ox O2 Delivery O2 Flow Rate FiO2 11/19/16 06:39 97.3 84 6 139/9 99 11/18/16 18:59 98.0 70 14 111/72 98 I & O 11/19/16 07:00 Intake Total 1780 ml Balance 1780 ml Capillary Refill : Less Than 3 Seconds General Appearance: No Apparent Distress, WD/WN HEENT: Normal ENT Inspection Neck: Normal Inspection Respiratory: No Accessory Muscle Use, No Respiratory Distress Results Lab Laboratory Tests 11/18/16 11:10: Glucometer 120H 11/18/16 15:55: Glucometer 106 11/18/16 21:16: Glucometer 108 11/19/16 06:15: Glucometer 105 Microbiology 11/14/16 Urine Culture - Final, Complete NO GROWTH Assessment/Plan Assessment/Plan Assess & Plan/Chief Complaint general debility. Foot ulcers good. Diabetes 2 person assist. . 11/16/16. General debility. Diabetes. Patient improving. . . General debility. Confusion Diabetes. Clinical Quality Measures DVT/VTE Risk/Contraindication: Risk Factor Score Per Nursin RFS Level Per Nursing on Admit: 4+=Very High JOSE PRIEST DO November 19, 2016 08:20
--- NOTE | 2016-11-19 09:03 | Physical Therapy Daily Note ---
PT Daily Note-Current Subjective Pt. states she has one small step inside her house that she will never use. Goes t her laundry area and her sister does all her laundry. Pt. declines stair trial x3 attempts. Pt. states [employer] installed a ramp outside her home and she has no trouble with that. Pt. states she is going home at [place] and no one can stop her. Pt. c/o that her left hand is weak and not working well today. This was observed but did not stop pt. from managing ADLs today Pain Numeric Pain Scale: 3 Location: Lower Location Body Site: Back Pain Description: Ache Comment: off and on Appearance up in bathroom and indep with underwear and pad and cleaning self, as well as washing hands Mental Status pt. will talk non stop if not redirected. Cant pin point always however pt. seems confused at times, perhaps slow etc Transfers Functional [place] Measure 0=Not Assessed/NA 4=Minimal Assistance 1=Total Assistance 5=Supervision or Setup 2=Maximal Assistance 6=Modified [place] 3=Moderate Assistance 7=Complete IndependenceIRFPAI Quality Coding Scale 6 Independent with activity with or without an assistive device 5 Patient requires set up or clean up by helper. Patient completes activity by themselves 4 Supervision or touching assist (CGA). [place] provide cues , steadying assist 3 The helper provides less than half the effort to complete the activity 2 The helper provides more than half the effort to complete the activity 1 Dependent. The helper does all the effort to complete an activity 7 Patient refused to complete or attempt activity 9 The patient did not perform the activity before the current illness or injury 88 Not attempted due to Medical conditions or safety concerns Transfers (B, C, W/C) (FIM): 5 Scootin Rollin Supine to/from Sit: 5 (this was the greatest challenge for pt. this date. She states she mostly sleeps in recliner at home) Sit to/from Stand: 6 Bed to/from Chair: 6 Gait Training Does the Patient Walk?: Yes Gait (FIM): 6 Distance (FIM): 3=150 ft (175x2) Gait Level of Assist: 6 Gait Persons Needed: 0 Gait Assistive Device: FWW slow, standing rest breaks at times as pt. c/o her back needs a rest. Pt. also needs guided and directed as to where to turn and occas which is left and right Stair Training pt. adamantly declines stair training Exercises Supine Ex: Rolling, Heel Slides, Straight leg raise, Hip abd/add Supine Reps: 10 Treatments toileting and morning bathroom tasks with SBA and indep Assessment Current Status: Good Progress PT Short Term Goals Short Term Goals Time Frame: November 27, 2016 Transfers (B,C,W/C) (FIM): 3 Gait (FIM): 1 Distance (FIM): 1=up to 49 ft Gait Distance Comment: 20' Gait Level of Assist: 3 Gait Assistive Device: FWW Stairs (FIM): 1 # of Steps: 1 Stairs Level of Assist: 3 PT Custodial Goals Epic Trainer Goals PT Custodial Goals Time Frame: Dec 11, 2016 Transfers (B,C,W/C) (FIM): 5 Sit to Lying (QC): 5 Lying-Sitting on Side/Bed(QC): 5 Sit to Stand (QC): 5 Rollin Roll Left to Right (QC): 5 Chair/Ijb-gq-[place] Xfer(QC): 5 Car Transfer (QC): 5 Does the Patient Walk: No and Walking Goal IS indicated Gait (FIM): 2 Gait distance (FIM): 6=309-79 ft Distance: 75' Walk 10 feet (QC): 5 Walk 10ft-Uneven Surface(QC): 5 Walk 50ft with 2 Turns (QC): 5 Walk 150 ft (QC): 88 Gait Level of Assist: 5 Gait Assistive Device: FWW # of Steps: 4 1 Step (curb) (QC): 4 4 Steps (QC): 4 12 Steps (QC): 88 Stairs Level Of Assist: 5 Picking up an Object (QC): 4 PT Plan Treatment/Plan Treatment Plan: Continue Plan of Care Treatment Plan: Bed Mobility, Education, Functional Activity Hitesh, Group Therapy, Gait, Safety, Therapeutic Exercise, Transfers Treatment Duration: Dec 11, 2016 Visits Per Week: 6-11 Minutes/Day (M-F): 60-90 Minutes/Day (Sat/Andrade): PRN Safety Risks/Education Patient Education: Gait Training, Transfer Techniques (much direction RE: sup to sit) Teaching Recipient: Patient Teaching Methods: Demonstration, Discussion Response to Teaching: Verbalize Understanding, Return Demonstration, Reinforcement Needed Time/GCodes Time In: 800 Time Out: 900 Total Billed Treatment Time: 60 Total Billed Treatment 1,FA30m,GT30m G Codes Necessary: DELORIS Wolf VERTICA ARCHITECT November 19, 2016 09:03
[2016-11-19] MEDS: ENOXAPARIN 40 MG/0.4 ML (LOVENOX) SYR SC SCH (09:19)
[2016-11-19] MEDS: PREGABALIN 75 MG (LYRICA) CAP PO SCH ×3 (09:19→21:22)
[2016-11-19] MEDS: IRON POLYSAC 150 MG CAP (NIFEREX) PO SCH ×2 (09:19→21:22)
[2016-11-19] MEDS: rOPINIRole 1 MG (REQUIP) TABLET PO SCH ×2 (09:19→21:26)
[2016-11-19] MEDS: meTOproloL SUCCINATE 50 MG (TOPROL XL) TAB PO SCH (09:19)
[2016-11-19] MEDS: LORATADINE (CLARITIN) 10 MG TAB PO SCH (09:19)
[2016-11-19] MEDS: FUROSEMIDE 40 MG (LASIX) TAB PO SCH (09:19)
[2016-11-19] MEDS: DULoxetine 30 MG (CYMBALTA) CAP PO SCH (09:19)
[2016-11-19] MEDS: NYSTATIN CREAM (MYCOSTATIN) 30 GM TUBE TP SCH ×3 (09:27→21:23)
--- NOTE | 2016-11-19 12:35 | Occupational Ther Daily Note ---
OT Current Status-Daily Note Subjective Pt sitting in chair, agrees to treatment. Pt reports 7/10 left knee and back pain. Pt states she is having weakness in left hand, but is able to use it for functional tasks. Mental Status/Objective Functional [place] Measure 0=Not Assessed/NA 4=Minimal Assistance 1=Total Assistance 5=Supervision or Setup 2=Maximal Assistance 6=Modified [place] 3=Moderate Assistance 7=Complete [place] ADL-Treatment Pt requests to shower today. Sit to stand from recliner with SBA. Gait to restroom with FWW, slow pace. Transfer to toilet with SBA. Pt able to complete toileting hygiene with SBA. Pt doffed Depends while seated on toilet with SBA and much increased time. Cues required for sequencing and task completion. Doff socks and shoes with increased time. Transfer to walk in shower with close supervision using grab bars for balance. Upper body bathing completed with SBA. Pt washed katarzyna area and bilateral LE with SBA. Stood with CGA for balance while washing buttocks. Pt moves very slowly and requires increased time for bathing tasks. Pt donned pullover gown with minimal assistance. Pt has difficulty orienting gown and requires multiple cues for proper placement of UE into gown. Pt able to thread bilateral LE into Depends with increased time. Sit to stand with supervision, requires minimal assistance to pull Depends up over hips. Pt donned socks with supervision and increased time. Combed hair with set up. Pt requires much increased time for ADL tasks, requires cues to stay on task. Pt sitting in chair with needs met after session. Functional [place] Measure 0=Not Assessed/NA 4=Minimal Assistance 1=Total Assistance 5=Supervision or Setup 2=Maximal Assistance 6=Modified [place] 3=Moderate Assistance 7=Complete IndependenceIRFPAI Quality Coding Scale 6 Independent with activity with or without an assistive device 5 Patient requires set up or clean up by helper. Patient completes activity by themselves 4 Supervision or touching assist (CGA). [place] provide cues , steadying assist 3 The helper provides less than half the effort to complete the activity 2 The helper provides more than half the effort to complete the activity 1 Dependent. The helper does all the effort to complete an activity 7 Patient refused to complete or attempt activity 9 The patient did not perform the activity before the current illness or injury 88 Not attempted due to Medical conditions or safety concerns Grooming (FIM): 5 Bathing (FIM): 4 Upper Body (FIM): 4 Lower Body Dressing (FIM): 4 Toilet/Commode Transfer (FIM): 5 Shower Transfer(FIM): 5 OT Short Term Goals Short Term Goals Time Frame: November 20, 2016 Grooming(FIM): 5 Upper Body Dressing(FIM): 4 Lower Body Dressing(FIM): 3 Transfers (B,C,W/C) (FIM): 3 Toilet/Commode Transfer(FIM): 3 Additional Short Term Goals: 1-Demonstrate ADL Tasks, 2-Verbalize Understanding , 3-ImproveStrength/Hitesh 1=Demonstrate adherence to instructed precautions during ADL tasks. 2=Patient will verbalize/demonstrate understanding of assistive devices/ modifications for ADL. 3=Patient will improve strength/tolerance for activity to enable patient to perform ADL's. OT Sleeping Car Porter Goals Sleeping Car Porter Goals Time Frame: December 04, 2016 Eating (FIM): 6 Eating (QC): 6 Groomin Bathing(FIM): 5 Shower/Bathe Self (QC): 4 Upper Body Dressing(FIM): 5 Upper Body Dressing (QC): 4 Lower Body Dressing(FIM): 5 Lower Body Dressing (QC): 4 On/Off Footwear (QC): 5 Toileting(FIM): 5 Toileting Hygiene (QC): 4 Toilet/Commode Transfer(FIM): 5 Toilet/Commode Transfer (QC): 4 Shower Transfer(FIM): 5 Additional Goals: 1-Demonstrate ADL Tasks, 2-Verbalize Understanding, 3- ImproveStrength/Hitesh 1=Demonstrate adherence to instructed precautions during ADL tasks. 2=Patient will verbalize/demonstrate understanding of assistive devices/ modifications for ADL. 3=Patient will improve strength/tolerance for activity to enable patient to perform ADL's. OT Education/Plan Problem List/Assessment Pt to benefit from skilled OT intervention for ADL training, transfers, strengthening, and safety education to improve level of function and allow safe discharge plan. Discharge Recommendations Plan/Recommendations: Continue POC Treatment Plan/Plan of Care Patient would benefit from OT for education, treatment and training to promote independence in ADL's, mobility, safety and/or upper extremity function for ADL' s. Plan of Care: ADL Retraining, Functional Mobility, Group Exercise/Act as Ind, UE Funct Exercise/Act, UE Neuromus Re-Ed/Coord Treatment Duration: December 04, 2016 Visits Per Week: 10-12 Minutes/Day (M-F): 60-90 Minutes/Day (Sat/Andrade): PRN Agreement: Yes Rehab Potential: Fair Time/GCodes Start Time: 10:00 Stop Time: 11:30 Total Time Billed (hr/min): 90 Billed Treatment Time 1 visit, ADLx6(90minutes) SHANNON VILLALOBOS OT November 19, 2016 12:35
--- NOTE | 2016-11-19 13:35 | Physical Therapy Daily Note ---
PT Daily Note-Current Subjective Pt. states she has historically been afraid of stairs but now feels much more confident and is glad this PRESS WORKER HELPER gave her the nudge to do them Pain Numeric Pain Scale: 0-No Pain Mental Status Patient Orientation: Confused Transfers Functional [place] Measure 0=Not Assessed/NA 4=Minimal Assistance 1=Total Assistance 5=Supervision or Setup 2=Maximal Assistance 6=Modified [place] 3=Moderate Assistance 7=Complete IndependenceIRFPAI Quality Coding Scale 6 Independent with activity with or without an assistive device 5 Patient requires set up or clean up by helper. Patient completes activity by themselves 4 Supervision or touching assist (CGA). [place] provide cues , steadying assist 3 The helper provides less than half the effort to complete the activity 2 The helper provides more than half the effort to complete the activity 1 Dependent. The helper does all the effort to complete an activity 7 Patient refused to complete or attempt activity 9 The patient did not perform the activity before the current illness or injury 88 Not attempted due to Medical conditions or safety concerns toilet and chair all Mod I to SBA Gait Training Does the Patient Walk?: Yes Gait Assistive Device: FWW [id number] SBA no LOB Stair Training Stair Training: Handrails/: uses walker Stairs (FIM): 2 #of Steps: 4 Stairs: Pattern: Step to Level of Assist: 3 skilled verbal instruction for sequence as well as approach etc and use of FWW Exercises Seated Therapy Exercises: Ankle pumps, Sit to stand, Long arc quads Seated Reps: 12 Treatments mod assist to mirela shoes for Rx Assessment Current Status: Good Progress achieved 4 up down pink small step using FWW with min to mod assist and instruction for all PT Short Term Goals Short Term Goals Time Frame: November 27, 2016 Transfers (B,C,W/C) (FIM): 3 Gait (FIM): 1 Distance (FIM): 1=up to 49 ft Gait Distance Comment: 20' Gait Level of Assist: 3 Gait Assistive Device: FWW Stairs (FIM): 1 # of Steps: 1 Stairs Level of Assist: 3 PT Audio/Video Engineer Goals Audio/Video Engineer Goals PT Fdc Goals Time Frame: Dec 11, 2016 Transfers (B,C,W/C) (FIM): 5 Sit to Lying (QC): 5 Lying-Sitting on Side/Bed(QC): 5 Sit to Stand (QC): 5 Rollin Roll Left to Right (QC): 5 Chair/Hpv-jr-Aacvd Xfer(QC): 5 Car Transfer (QC): 5 Does the Patient Walk: No and Walking Goal IS indicated Gait (FIM): 2 Gait distance (FIM): 4=316-51 ft Distance: 75' Walk 10 feet (QC): 5 Walk 10ft-Uneven Surface(QC): 5 Walk 50ft with 2 Turns (QC): 5 Walk 150 ft (QC): 88 Gait Level of Assist: 5 Gait Assistive Device: FWW # of Steps: 4 1 Step (curb) (QC): 4 4 Steps (QC): 4 12 Steps (QC): 88 Stairs Level Of Assist: 5 Picking up an Object (QC): 4 PT Plan Treatment/Plan Treatment Plan: Continue Plan of Care Treatment Plan: Bed Mobility, Education, Functional Activity Hitesh, Group Therapy, Gait, Safety, Therapeutic Exercise, Transfers Treatment Duration: Dec 11, 2016 Visits Per Week: 6-11 Minutes/Day (M-F): 60-90 Minutes/Day (Sat/Andrade): PRN Safety Risks/Education Patient Education: Gait Training, Steps Teaching Recipient: Patient Teaching Methods: Demonstration, Discussion Response to Teaching: Verbalize Understanding, Return Demonstration, Reinforcement Needed Time/GCodes Time In: 1300 Time Out: 1330 Total Billed Treatment Time: 30 Total Billed Treatment 1,FA20m,EX10m G Codes Necessary: DELORIS Wolf PRESS WORKER HELPER November 19, 2016 13:35
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
[2016-11-19 18:40] VITALS: BP 124/60
--- NOTE | 2016-11-19 20:00 | PM & R (SOAP) Progress Note ---
Subjective Subjective/Events-last exam Patient was seen in her room this evening Patient SBA for transfers and gait Appreciate Dr Griffiths note and recs re antipsychotic for patient Dr Martinez is PCP and ordered the consult for Behav health-Defer to him for RX consider Zyprexia Objective Exam Last Set of Vital Signs Vital Signs Date Time Temp Pulse Resp B/P (MAP) Pulse Ox O2 Delivery O2 Flow Rate FiO2 11/19/16 18:40 98.4 72 18 124/60 100 11/15/16 05:00 Room Air Capillary Refill : Less Than 3 Seconds I&O Intake and Output 11/18/16 23:59 Intake Total 1500 ml Balance 1500 ml Intake Oral 1500 ml # Voids 8 # Bowel Movements 1 General: Alert, Oriented X3, Cooperative, No Acute Distress HEENT: Atraumatic, PERRLA, EOMI, Mucous Memb Moist/[place] Neck: Supple, No JVD Lungs: Clear to Auscultation, Normal Air Movement Heart: Regular Rate Abdomen: Normal Bowel Sounds, Soft, No Tenderness Extremities: Other (chronic dermatitis and edema) Skin: Other (Bilateral calf dermatitis with markedly reduced edema. Bilateral foot ulcers with scab formation.) Neuro: Other (generalized weakness) Results Lab Laboratory Tests 11/16/16 20:42: Glucometer 142H 11/17/16 04:38: Glucometer 117H 11/17/16 11:03: Glucometer 135H 11/17/16 16:08: Glucometer 106 11/17/16 20:04: Glucometer 146H 11/18/16 06:26: Glucometer 101 11/18/16 11:10: Glucometer 120H 11/18/16 15:55: Glucometer 106 11/18/16 21:16: Glucometer 108 11/19/16 06:15: Glucometer 105 11/19/16 11:09: Glucometer 133H 11/19/16 16:09: Glucometer 92 Microbiology 11/14/16 Urine Culture - Final, Complete NO GROWTH Assessment/Plan Assessment General debil DM Chronic stasis dermatitis Anxiety/depression/psychosis? Plan Continue PT/OT Skin care F/U with DR martinez PCP re antipsychotic-will discuss case with him in AM Trend accuchecks and adjust meds as needed Team Conference 11/21/16 PEARL SAMSON MD November 19, 2016 20:00
[2016-11-19] MEDS: ATORVASTATIN 20 MG (LIPITOR) TABLET PO SCH (21:22)
[2016-11-20] MEDS: CLINDAMYCIN 150 MG (CLEOCIN) CAP PO SCH ×3 (00:24→12:12)
[2016-11-20 05:03] VITALS: BP 126/70
[2016-11-20] MEDS: inSUlin ASPART (NovoLOG) 1 UNIT/0.01 ML (CHARGE PER UNIT) SC SCH ×4 (05:58→20:50)
[2016-11-20] MEDS: TROSPIUM 20 MG (SANCTURA) TAB PO SCH ×2 (05:58→16:51)
[2016-11-20] MEDS: metFORMIN 500 MG (GLUCOPHAGE) TAB PO SCH ×2 (06:00→16:51)
[2016-11-20] MEDS: PANTOPRAZOLE 40 MG (PROTONIX) TAB PO SCH (06:00)
[2016-11-20] MEDS: meTOproloL SUCCINATE 50 MG (TOPROL XL) TAB PO SCH (08:11)
[2016-11-20] MEDS: IRON POLYSAC 150 MG CAP (NIFEREX) PO SCH ×2 (08:11→20:15)
[2016-11-20] MEDS: LORATADINE (CLARITIN) 10 MG TAB PO SCH (08:11)
[2016-11-20] MEDS: DULoxetine 30 MG (CYMBALTA) CAP PO SCH (08:11)
[2016-11-20] MEDS: ENOXAPARIN 40 MG/0.4 ML (LOVENOX) SYR SC SCH (08:11)
[2016-11-20] MEDS: FUROSEMIDE 40 MG (LASIX) TAB PO SCH (08:11)
[2016-11-20] MEDS: rOPINIRole 1 MG (REQUIP) TABLET PO SCH ×2 (08:11→20:15)
[2016-11-20] MEDS: PREGABALIN 75 MG (LYRICA) CAP PO SCH ×3 (08:12→20:15)
[2016-11-20] MEDS: NYSTATIN CREAM (MYCOSTATIN) 30 GM TUBE TP SCH ×3 (08:12→20:14)
--- NOTE | 2016-11-20 08:53 | Progress Note (SOAP) ---
Subjective Subjective/Events-last exam General debility. Hallucinations. Diabetes. Patient states she's doing better Objective Exam Vital Signs Date Time Temp Pulse Resp B/P (MAP) Pulse Ox O2 Delivery O2 Flow Rate FiO2 11/20/16 05:03 98.0 87 18 126/70 97 11/19/16 18:40 98.4 72 18 124/60 100 I & O 11/20/16 07:00 Intake Total 1320 ml Balance 1320 ml Capillary Refill : Less Than 3 Seconds General Appearance: No Apparent Distress, Obese HEENT: Normal ENT Inspection Neck: Full Range of Motion, Normal Inspection Respiratory: Chest Non Tender, No Accessory Muscle Use, No Respiratory Distress Cardiovascular: Regular Rate, Rhythm, No Murmur Gastrointestinal: non tender, soft Results Lab Laboratory Tests 11/19/16 11:09: Glucometer 133H 11/19/16 16:09: Glucometer 92 11/19/16 21:21: Glucometer 103 11/20/16 04:12: Glucometer 93 Microbiology 11/14/16 Urine Culture - Final, Complete NO GROWTH Assessment/Plan Assessment/Plan Assess & Plan/Chief Complaint general debility. Foot ulcers good. Diabetes 2 person assist. . 11/16/16. General debility. Diabetes. Patient improving. . . General debility. Confusion Diabetes.. . 11/20. General debility. Diabetes. Hallucinations. Patient working progress Clinical Quality Measures DVT/VTE Risk/Contraindication: Risk Factor Score Per Nursin RFS Level Per Nursing on Admit: 4+=Very High JOSE PRIEST DO November 20, 2016 08:53
--- NOTE | 2016-11-20 09:10 | PM & R (SOAP) Progress Note ---
Subjective Subjective/Events-last exam Patient was seen in her room this AM Case discussed with DR Aguilar PCP re Dr Griffiths rec re antipsychotic he approves see orders Patient SBA for transfers Objective Exam Last Set of Vital Signs Vital Signs Date Time Temp Pulse Resp B/P (MAP) Pulse Ox O2 Delivery O2 Flow Rate FiO2 11/20/16 05:03 98.0 87 18 126/70 97 11/15/16 05:00 Room Air Capillary Refill : Less Than 3 Seconds I&O Intake and Output 11/20/16 00:00 Intake Total 1550 ml Balance 1550 ml Intake Oral 1550 ml # Voids 6 General: Alert, Oriented X3, Cooperative, No Acute Distress HEENT: Atraumatic, PERRLA, EOMI, Mucous Memb Moist/[place] Neck: Supple, No JVD Lungs: Clear to Auscultation, Normal Air Movement Heart: Regular Rate Abdomen: Normal Bowel Sounds, Soft, No Tenderness Extremities: Other (chronic dermatitis and edema) Skin: Other (Bilateral calf dermatitis with markedly reduced edema. Bilateral foot ulcers with scab formation.) Neuro: Other (generalized weakness) Results Lab Laboratory Tests 11/17/16 11:03: Glucometer 135H 11/17/16 16:08: Glucometer 106 11/17/16 20:04: Glucometer 146H 11/18/16 06:26: Glucometer 101 11/18/16 11:10: Glucometer 120H 11/18/16 15:55: Glucometer 106 11/18/16 21:16: Glucometer 108 11/19/16 06:15: Glucometer 105 11/19/16 11:09: Glucometer 133H 11/19/16 16:09: Glucometer 92 11/19/16 21:21: Glucometer 103 11/20/16 04:12: Glucometer 93 Microbiology 11/14/16 Urine Culture - Final, Complete NO GROWTH Assessment/Plan Assessment General debil DM Chronic stasis dermatitis Anxiety/depression/psychosis? Plan Continue PT/OT Skin car Trend accuchecks and adjust meds as needed TRial of lowdose Zyprexia-See orders Team Conference tomorrow 11/21/16 PEARL SAMSON MD November 20, 2016 09:10
--- NOTE | 2016-11-20 11:30 | Occupational Ther Daily Note ---
OT Current Status-Daily Note Subjective Pt alert, sitting in recliner. PT just finished up treatment. Pt agreed to therapy. No c/o pain only fatigue. Mental Status/Objective Patient Orientation: Person, Place, Time, Situation Functional [place] Measure 0=Not Assessed/NA 4=Minimal Assistance 1=Total Assistance 5=Supervision or Setup 2=Maximal Assistance 6=Modified [place] 3=Moderate Assistance 7=Complete [place] ADL-Treatment Pt requested to take sponge bathe today. Pt ambulated slowly with FWW to bathroom. Pt sat in front of sink and completed bathing, dressing and grooming with SBA. Pt completes each task slowly and deliberately so takes increased time to complete tasks. Then ambulated to the toilet and transferred with SBA using FWW and grabbars. Pt was able to complete toileting by self, SBA for safety. Pt then ambulated to sink to wash hands. Ambulated to room and sat in recliner. After therapy, pt sitting in recliner ordering lunch. Call light/ phone in reach. All needs met in room. Functional [place] Measure 0=Not Assessed/NA 4=Minimal Assistance 1=Total Assistance 5=Supervision or Setup 2=Maximal Assistance 6=Modified [place] 3=Moderate Assistance 7=Complete IndependenceIRFPAI Quality Coding Scale 6 Independent with activity with or without an assistive device 5 Patient requires set up or clean up by helper. Patient completes activity by themselves 4 Supervision or touching assist (CGA). [place] provide cues , steadying assist 3 The helper provides less than half the effort to complete the activity 2 The helper provides more than half the effort to complete the activity 1 Dependent. The helper does all the effort to complete an activity 7 Patient refused to complete or attempt activity 9 The patient did not perform the activity before the current illness or injury 88 Not attempted due to Medical conditions or safety concerns Grooming (FIM): 6 Oral Hygiene (QC): 6 Bathing (FIM): 5 Upper Body (FIM): 5 Lower Body Dressing (FIM): 5 Toileting (FIM): 5 Transfers (B, C, W/C) (FIM): 5 Toilet/Commode Transfer (FIM): 5 OT Short Term Goals Short Term Goals Time Frame: November 20, 2016 Grooming(FIM): 5 Upper Body Dressing(FIM): 4 Lower Body Dressing(FIM): 3 Transfers (B,C,W/C) (FIM): 3 Toilet/Commode Transfer(FIM): 3 Additional Short Term Goals: 1-Demonstrate ADL Tasks, 2-Verbalize Understanding , 3-ImproveStrength/Hitesh 1=Demonstrate adherence to instructed precautions during ADL tasks. 2=Patient will verbalize/demonstrate understanding of assistive devices/ modifications for ADL. 3=Patient will improve strength/tolerance for activity to enable patient to perform ADL's. OT Assisted Goals Assisted Goals Time Frame: December 04, 2016 Eating (FIM): 6 Eating (QC): 6 Groomin Bathing(FIM): 5 Shower/Bathe Self (QC): 4 Upper Body Dressing(FIM): 5 Upper Body Dressing (QC): 4 Lower Body Dressing(FIM): 5 Lower Body Dressing (QC): 4 On/Off Footwear (QC): 5 Toileting(FIM): 5 Toileting Hygiene (QC): 4 Toilet/Commode Transfer(FIM): 5 Toilet/Commode Transfer (QC): 4 Shower Transfer(FIM): 5 Additional Goals: 1-Demonstrate ADL Tasks, 2-Verbalize Understanding, 3- ImproveStrength/Hitesh 1=Demonstrate adherence to instructed precautions during ADL tasks. 2=Patient will verbalize/demonstrate understanding of assistive devices/ modifications for ADL. 3=Patient will improve strength/tolerance for activity to enable patient to perform ADL's. OT Education/Plan Problem List/Assessment Pt to benefit from skilled OT intervention for ADL training, transfers, strengthening, and safety education to improve level of function and allow safe discharge plan. Discharge Recommendations Plan/Recommendations: Continue POC Treatment Plan/Plan of Care Patient would benefit from OT for education, treatment and training to promote independence in ADL's, mobility, safety and/or upper extremity function for ADL' s. Plan of Care: ADL Retraining, Functional Mobility, Group Exercise/Act as Ind, UE Funct Exercise/Act, UE Neuromus Re-Ed/Coord Treatment Duration: December 04, 2016 Visits Per Week: 10-12 Minutes/Day (M-F): 60-90 Minutes/Day (Sat/Andrade): PRN Agreement: Yes Rehab Potential: Fair Time/GCodes Start Time: 10:00 Stop Time: 11:30 Total Time Billed (hr/min): 90 Billed Treatment Time 1 visit-ADL 5 (75 min) FA 1 (15 min) JOSIE YOUNG November 20, 2016 11:30
--- NOTE | 2016-11-20 11:52 | Physical Therapy Daily Note ---
PT Daily Note-Current Subjective Pt sitting up in recliner upon arrival. Pt reports feeling a little tired and had she had jsut used restroom a little bit ago but wanted to try again. Pt agreed to PT. Pain Numeric Pain Scale: 8 Location: Lower Location Body Site: Back Pain Description: Ache Mental Status Patient Orientation: Person, Place, Situation Transfers Functional [place] Measure 0=Not Assessed/NA 4=Minimal Assistance 1=Total Assistance 5=Supervision or Setup 2=Maximal Assistance 6=Modified [place] 3=Moderate Assistance 7=Complete IndependenceIRFPAI Quality Coding Scale 6 Independent with activity with or without an assistive device 5 Patient requires set up or clean up by helper. Patient completes activity by themselves 4 Supervision or touching assist ([facility]). [place] provide cues , steadying assist 3 The helper provides less than half the effort to complete the activity 2 The helper provides more than half the effort to complete the activity 1 Dependent. The helper does all the effort to complete an activity 7 Patient refused to complete or attempt activity 9 The patient did not perform the activity before the current illness or injury 88 Not attempted due to Medical conditions or safety concerns [place]in Sit to/from Stand: 4 Sit to Stand (QC): 4 Weight Bearing Weight Bearing Restriction: Full Weight Bearing Location Restriction: LE Bilateral Gait Training Does the Patient Walk?: Yes Distance (FIM): 3=150 ft Distance: 250' Walk 10 feet (QC): 4 Walk 50 ft with 2 Turns(QC): 4 Walk 150 ft (QC): 4 Gait Level of Assist: 4 Gait Persons Needed: 1 Gait Assistive Device: FWW Pt walks with slow but steady ace with no LOB. Pt needs redirection to continue walking while talking. Wheelchair Training Does the Pt Use a Wheelchair?: No Exercises NuStep Minutes: 10 NuStep Workload: 1 Treatments Pt reports wanting to try to use restroom before leaving for Therapy Gym. PT assists pt with putting shoes on. Pt transfers from recliner using FWW at [facility] and ambulates to restroom. Pt then ambulates to Therapy Gym using FWW at [facility]. Pt rests at NuStep before using for 10m at Workload 1. Pt then takes short rest break before returning to recliner to rest in room. Pt is left in recliner with all needs met with nurse present and OT to follow shortly. Assessment Current Status: Fair Progress Pt needs constant redirection to continue with task while talking during tx. Pt is getting stronger and has better activity tolerance but can still make further gains before returning home. Pt needs to gain confidence in self and what pt is capable of completing. PT Short Term Goals Short Term Goals Time Frame: November 27, 2016 Transfers (B,C,W/C) (FIM): 3 Gait (FIM): 1 Distance (FIM): 1=up to 49 ft Gait Distance Comment: 20' Gait Level of Assist: 3 Gait Assistive Device: FWW Stairs (FIM): 1 # of Steps: 1 Stairs Level of Assist: 3 PT Care Home Goals Care Home Goals PT Cash Applications Analyst Goals Time Frame: Dec 11, 2016 Transfers (B,C,W/C) (FIM): 5 Sit to Lying (QC): 5 Lying-Sitting on Side/Bed(QC): 5 Sit to Stand (QC): 5 Rollin Roll Left to Right (QC): 5 Chair/Ulp-ju-Nxzjl Xfer(QC): 5 Car Transfer (QC): 5 Does the Patient Walk: No and Walking Goal IS indicated Gait (FIM): 2 Gait distance (FIM): 7=751-70 ft Distance: 75' Walk 10 feet (QC): 5 Walk 10ft-Uneven Surface(QC): 5 Walk 50ft with 2 Turns (QC): 5 Walk 150 ft (QC): 88 Gait Level of Assist: 5 Gait Assistive Device: FWW # of Steps: 4 1 Step (curb) (QC): 4 4 Steps (QC): 4 12 Steps (QC): 88 Stairs Level Of Assist: 5 Picking up an Object (QC): 4 PT Plan Problem List Problem List: Activity Tolerance, Functional Strength, Safety, Balance, Gait, Transfer, Bed Mobility Treatment/Plan Treatment Plan: Continue Plan of Care Treatment Plan: Bed Mobility, Education, Functional Activity Hitesh, Group Therapy, Gait, Safety, Therapeutic Exercise, Transfers Treatment Duration: Dec 11, 2016 Visits Per Week: 6-11 Minutes/Day (M-F): 60-90 Minutes/Day (Sat/Andrade): PRN Safety Risks/Education Patient Education: Gait Training, Transfer Techniques, Correct Positioning, Safety Issues Teaching Recipient: Patient Teaching Methods: Discussion Response to Teaching: Verbalize Understanding Time/GCodes Time In: 900 Time Out: 1000 Total Billed Treatment Time: 60 Total Billed Treatment visit, GT X2 (30m), EX (15m) & FA (15m) YUDI AMEZCUA ELECTRICAL TECHNOLOGY INSTRUCTOR November 20, 2016 11:52
--- NOTE | 2016-11-20 15:57 | Physical Therapy Daily Note ---
PT Daily Note-Current Subjective Pt sitting in recliner with sister Carol present upon arrival. Pt agrees to PT. Pain Numeric Pain Scale: 8 Location: Lower Location Body Site: Back Pain Description: Ache Mental Status Patient Orientation: Person, Place, Situation Transfers Functional [place] Measure 0=Not Assessed/NA 4=Minimal Assistance 1=Total Assistance 5=Supervision or Setup 2=Maximal Assistance 6=Modified [place] 3=Moderate Assistance 7=Complete IndependenceIRFPAI Quality Coding Scale 6 Independent with activity with or without an assistive device 5 Patient requires set up or clean up by helper. Patient completes activity by themselves 4 Supervision or touching assist (CGA). [place] provide cues , steadying assist 3 The helper provides less than half the effort to complete the activity 2 The helper provides more than half the effort to complete the activity 1 Dependent. The helper does all the effort to complete an activity 7 Patient refused to complete or attempt activity 9 The patient did not perform the activity before the current illness or injury 88 Not attempted due to Medical conditions or safety concerns Scootin Sit to/from Stand: 5 Sit to Stand (QC): 5 Weight Bearing Weight Bearing Restriction: Full Weight Bearing Location Restriction: LE Bilateral Treatments PT assisted pt with putting pants on. Pt transferred from sitting in recliner to standing to pull up pants before returning to sitting in recliner. PT and pt discussed with both pt and pt's sister what happens at Saturday Discharge Mtg. as well as what happens to get pt discharged. Pt is left in recliner with all needs met at end of tx. Assessment Current Status: Fair Progress Pt needs VC for redirection during tx. PT Short Term Goals Short Term Goals Time Frame: November 27, 2016 Transfers (B,C,W/C) (FIM): 3 Gait (FIM): 1 Distance (FIM): 1=up to 49 ft Gait Distance Comment: 20' Gait Level of Assist: 3 Gait Assistive Device: FWW Stairs (FIM): 1 # of Steps: 1 Stairs Level of Assist: 3 PT Custodial Goals Discharge Rn Goals PT Custodial Goals Time Frame: Dec 11, 2016 Transfers (B,C,W/C) (FIM): 5 Sit to Lying (QC): 5 Lying-Sitting on Side/Bed(QC): 5 Sit to Stand (QC): 5 Rollin Roll Left to Right (QC): 5 Chair/Gwd-fi-Ekgsi Xfer(QC): 5 Car Transfer (QC): 5 Does the Patient Walk: No and Walking Goal IS indicated Gait (FIM): 2 Gait distance (FIM): 3=031-94 ft Distance: 75' Walk 10 feet (QC): 5 Walk 10ft-Uneven Surface(QC): 5 Walk 50ft with 2 Turns (QC): 5 Walk 150 ft (QC): 88 Gait Level of Assist: 5 Gait Assistive Device: FWW # of Steps: 4 1 Step (curb) (QC): 4 4 Steps (QC): 4 12 Steps (QC): 88 Stairs Level Of Assist: 5 Picking up an Object (QC): 4 PT Plan Problem List Problem List: Activity Tolerance, Functional Strength, Safety, Balance, Gait Treatment/Plan Treatment Plan: Continue Plan of Care Treatment Plan: Bed Mobility, Education, Functional Activity Hitesh, Group Therapy, Gait, Safety, Therapeutic Exercise, Transfers Treatment Duration: Dec 11, 2016 Visits Per Week: 6-11 Minutes/Day (M-F): 60-90 Minutes/Day (Sat/Andrade): PRN Safety Risks/Education Patient Education: Transfer Techniques, Correct Positioning, Safety Issues Teaching Recipient: Patient Teaching Methods: Discussion Response to Teaching: Verbalize Understanding Time/GCodes Time In: 1330 Time Out: 1400 Total Billed Treatment Time: 30 Total Billed Treatment visit, FA X2 (30m) YUDI AMEZCUA PTA November 20, 2016 15:57
[2016-11-20 18:27] VITALS: BP 128/76
[2016-11-20] MEDS: ATORVASTATIN 20 MG (LIPITOR) TABLET PO SCH (20:15)
[2016-11-21] MEDS: inSUlin ASPART (NovoLOG) 1 UNIT/0.01 ML (CHARGE PER UNIT) SC SCH ×4 (05:20→20:55)
[2016-11-21 05:33] VITALS: BP 127/69
[2016-11-21] MEDS: PANTOPRAZOLE 40 MG (PROTONIX) TAB PO SCH (05:51)
[2016-11-21] MEDS: TROSPIUM 20 MG (SANCTURA) TAB PO SCH ×2 (05:51→16:56)
[2016-11-21] MEDS: metFORMIN 500 MG (GLUCOPHAGE) TAB PO SCH ×2 (05:51→16:56)
--- NOTE | 2016-11-21 08:11 | Progress Note (SOAP) ---
Subjective Subjective/Events-last exam General debility. Diabetes. Hallucination. Patient states she's feeling better today and able to do more. Patient voices no complaints Objective Exam Vital Signs Date Time Temp Pulse Resp B/P (MAP) Pulse Ox O2 Delivery O2 Flow Rate FiO2 11/21/16 05:33 97.2 77 18 127/69 97 11/20/16 18:27 97.5 73 16 128/76 100 I & O 11/21/16 07:00 Intake Total 1440 ml Balance 1440 ml Capillary Refill : Less Than 3 Seconds General Appearance: No Apparent Distress, WD/WN HEENT: Normal ENT Inspection Neck: Full Range of Motion, Normal Inspection Respiratory: Normal Breath Sounds, No Accessory Muscle Use, No Respiratory Distress Cardiovascular: Regular Rate, Rhythm Results Lab Laboratory Tests 11/20/16 11:49: Glucometer 134H 11/20/16 16:00: Glucometer 141H 11/20/16 20:28: Glucometer 126H 11/21/16 05:00: Glucometer 128H Microbiology 11/14/16 Urine Culture - Final, Complete NO GROWTH Assessment/Plan Assessment/Plan Assess & Plan/Chief Complaint general debility. Foot ulcers good. Diabetes 2 person assist. . 11/16/16. General debility. Diabetes. Patient improving. . . General debility. Confusion Diabetes.. . 11/20. General debility. Diabetes. Hallucinations. Patient working progress. . 11/21/16. General debility. Diabetes. Patient voices no complaints. Patient feels she is improving Clinical Quality Measures DVT/VTE Risk/Contraindication: Risk Factor Score Per Nursin RFS Level Per Nursing on Admit: 4+=Very High JOSE PRIEST DO November 21, 2016 08:11
[2016-11-21] MEDS: rOPINIRole 1 MG (REQUIP) TABLET PO SCH ×2 (08:47→21:29)
[2016-11-21] MEDS: meTOproloL SUCCINATE 50 MG (TOPROL XL) TAB PO SCH (08:47)
[2016-11-21] MEDS: FUROSEMIDE 40 MG (LASIX) TAB PO SCH (08:47)
[2016-11-21] MEDS: PREGABALIN 75 MG (LYRICA) CAP PO SCH ×3 (08:47→21:29)
[2016-11-21] MEDS: OLANZapine 2.5 MG (ZyPREXA) TAB PO SCH (08:47)
[2016-11-21] MEDS: ENOXAPARIN 40 MG/0.4 ML (LOVENOX) SYR SC SCH (08:47)
[2016-11-21] MEDS: LORATADINE (CLARITIN) 10 MG TAB PO SCH (08:47)
[2016-11-21] MEDS: DULoxetine 30 MG (CYMBALTA) CAP PO SCH (08:47)
[2016-11-21] MEDS: IRON POLYSAC 150 MG CAP (NIFEREX) PO SCH ×2 (08:47→21:29)
[2016-11-21] MEDS: NYSTATIN CREAM (MYCOSTATIN) 30 GM TUBE TP SCH ×3 (08:48→21:29)
--- NOTE | 2016-11-21 09:30 | Physical Therapy Daily Note ---
PT Daily Note-Current Subjective Pt laying supine across bed upon arrival. Pt reports sleeping well and appeared very relaxed. Pt still worried about cat and other home situations and communicated to PT. Pt agreed to PT. Pain Numeric Pain Scale: 8 Location: Lower Location Body Site: Back Pain Description: Ache Mental Status Patient Orientation: Person, Place, Situation Transfers Functional [place] Measure 0=Not Assessed/NA 4=Minimal Assistance 1=Total Assistance 5=Supervision or Setup 2=Maximal Assistance 6=Modified [place] 3=Moderate Assistance 7=Complete IndependenceIRFPAI Quality Coding Scale 6 Independent with activity with or without an assistive device 5 Patient requires set up or clean up by helper. Patient completes activity by themselves 4 Supervision or touching assist ([facility]). [place] provide cues , steadying assist 3 The helper provides less than half the effort to complete the activity 2 The helper provides more than half the effort to complete the activity 1 Dependent. The helper does all the effort to complete an activity 7 Patient refused to complete or attempt activity 9 The patient did not perform the activity before the current illness or injury 88 Not attempted due to Medical conditions or safety concerns Scootin Rollin Roll Left to Right (QC): 5 Supine to/from Sit: 4 Sit to/from Stand: 4 Sit to Stand (QC): 4 Weight Bearing Weight Bearing Restriction: Full Weight Bearing Location Restriction: LE Bilateral Gait Training Does the Patient Walk?: Yes Distance (FIM): 3=150 ft Distance: 350' Walk 10 feet (QC): 5 Walk 50 ft with 2 Turns(QC): 5 Walk 150 ft (QC): 5 Gait Level of Assist: 5 Gait Persons Needed: 1 Gait Assistive Device: FWW Pt walks with very slow and guarded ace but no LOB, steady gait. Pt needs redirection with VC to stay on task while ambulating. Wheelchair Training Does the Pt Use a Wheelchair?: No Treatments Pt transferred from Supine to EOB at [facility] then EOB to Standing using FWW at [facility]. Pt ambulates to restroom to use before ambulating in Therapy Ebuzzing and Teads. PT also assists pr with donning pants and robe to walk in Ebuzzing and Teads. Pt ambulates in Ebuzzing and Teads using FWW at [facility]. Pt returns to recliner to rest in room at end of tx with all needs met. Assessment Current Status: Fair Progress Pt needs frequent redirection to stay on task during tx. PT gives VC. Pt's activity tolerance is improving. PT Short Term Goals Short Term Goals Time Frame: November 27, 2016 Transfers (B,C,W/C) (FIM): 3 Gait (FIM): 1 Distance (FIM): 1=up to 49 ft Gait Distance Comment: 20' Gait Level of Assist: 3 Gait Assistive Device: FWW Stairs (FIM): 1 # of Steps: 1 Stairs Level of Assist: 3 PT Usp Goals [employer] Metal Sprayer Goals PT Usp Goals Time Frame: Dec 11, 2016 Transfers (B,C,W/C) (FIM): 5 Sit to Lying (QC): 5 Lying-Sitting on Side/Bed(QC): 5 Sit to Stand (QC): 5 Rollin Roll Left to Right (QC): 5 Chair/Xaz-jw-Ulupr Xfer(QC): 5 Car Transfer (QC): 5 Does the Patient Walk: No and Walking Goal IS indicated Gait (FIM): 2 Gait distance (FIM): 9=280-30 ft Distance: 75' Walk 10 feet (QC): 5 Walk 10ft-Uneven Surface(QC): 5 Walk 50ft with 2 Turns (QC): 5 Walk 150 ft (QC): 88 Gait Level of Assist: 5 Gait Assistive Device: FWW # of Steps: 4 1 Step (curb) (QC): 4 4 Steps (QC): 4 12 Steps (QC): 88 Stairs Level Of Assist: 5 Picking up an Object (QC): 4 PT Plan Problem List Problem List: Activity Tolerance, Functional Strength, Safety, Balance, Gait, Transfer, Bed Mobility Treatment/Plan Treatment Plan: Continue Plan of Care Treatment Plan: Bed Mobility, Education, Functional Activity Hitesh, Group Therapy, Gait, Safety, Therapeutic Exercise, Transfers Treatment Duration: Dec 11, 2016 Visits Per Week: 6-11 Minutes/Day (M-F): 60-90 Minutes/Day (Sat/Andrade): PRN Safety Risks/Education Patient Education: Gait Training, Transfer Techniques, Correct Positioning, Safety Issues Teaching Recipient: Patient Teaching Methods: Discussion Response to Teaching: Verbalize Understanding Time/GCodes Time In: 815 Time Out: 915 Total Billed Treatment Time: 60 Total Billed Treatment visit, FA X2 (30m) & GT X2 (30m) YUDI AMEZCUA PTA November 21, 2016 09:30
--- NOTE | 2016-11-21 13:10 | Occupational Ther Daily Note ---
OT Current Status-Daily Note Subjective Pt sitting in chair, agrees to treatment. Pt reports 8/10 back and left knee pain, but states showering makes it feel better. Mental Status/Objective Functional [place] Measure 0=Not Assessed/NA 4=Minimal Assistance 1=Total Assistance 5=Supervision or Setup 2=Maximal Assistance 6=Modified [place] 3=Moderate Assistance 7=Complete [place] ADL-Treatment Pt requests to shower today. Sit to stand from chair with supervision. Pt retrieved clothing from closet with FWW and SBA. Gait to restroom with FWW, no LOB noted. Toilet transfer and toileting completed x2 during session with SBA. Pt doffed clothing with SBA. Transfer to walk in shower with bench with supervision using grab bars for balance and safety. Pt able to wash/dry all areas with increased time. Stood using grab bar for balance while washing buttocks and katarzyna area. Pt donned pullover shirt with verbal cues. Pt attempted to don shirt while it was inside out, cues to correct. Pt also required assist to properly orient shirt. Pt donned Depends and pants with supervision for balance during pant hike. Pt required increased time to start pants over feet, but did not require physical assistance. Don socks with set up. Grooming tasks completed standing at sink. Pt combed hair and completed denture care with modified independence. Transfer to chair with supervision. Pt requires increased time for all ADL tasks. Occasional redirection and cues to attend to task are required. Pt sitting in chair with needs met after session. Functional [place] Measure 0=Not Assessed/NA 4=Minimal Assistance 1=Total Assistance 5=Supervision or Setup 2=Maximal Assistance 6=Modified [place] 3=Moderate Assistance 7=Complete IndependenceIRFPAI Quality Coding Scale 6 Independent with activity with or without an assistive device 5 Patient requires set up or clean up by helper. Patient completes activity by themselves 4 Supervision or touching assist (CGA). [place] provide cues , steadying assist 3 The helper provides less than half the effort to complete the activity 2 The helper provides more than half the effort to complete the activity 1 Dependent. The helper does all the effort to complete an activity 7 Patient refused to complete or attempt activity 9 The patient did not perform the activity before the current illness or injury 88 Not attempted due to Medical conditions or safety concerns Grooming (FIM): 6 Oral Hygiene (QC): 6 Bathing (FIM): 5 Shower/Bathe Self (QC): 4 Upper Body (FIM): 5 Lower Body Dressing (FIM): 5 Lower Body Dressing (QC): 4 On/Off Footwear (QC): 5 Toileting (FIM): 5 Toileting Hygiene (QC): 4 Toilet/Commode Transfer (FIM): 5 Toilet Transfer (QC): 4 Shower Transfer(FIM): 5 OT Short Term Goals Short Term Goals Time Frame: November 20, 2016 Grooming(FIM): 5 Upper Body Dressing(FIM): 4 Lower Body Dressing(FIM): 3 Transfers (B,C,W/C) (FIM): 3 Toilet/Commode Transfer(FIM): 3 Additional Short Term Goals: 1-Demonstrate ADL Tasks, 2-Verbalize Understanding , 3-ImproveStrength/Hitesh 1=Demonstrate adherence to instructed precautions during ADL tasks. 2=Patient will verbalize/demonstrate understanding of assistive devices/ modifications for ADL. 3=Patient will improve strength/tolerance for activity to enable patient to perform ADL's. OT Personnel Psychologist Goals Alf Goals Time Frame: December 04, 2016 Eating (FIM): 6 Eating (QC): 6 Groomin Bathing(FIM): 5 Shower/Bathe Self (QC): 4 Upper Body Dressing(FIM): 5 Upper Body Dressing (QC): 4 Lower Body Dressing(FIM): 5 Lower Body Dressing (QC): 4 On/Off Footwear (QC): 5 Toileting(FIM): 5 Toileting Hygiene (QC): 4 Toilet/Commode Transfer(FIM): 5 Toilet/Commode Transfer (QC): 4 Shower Transfer(FIM): 5 Additional Goals: 1-Demonstrate ADL Tasks, 2-Verbalize Understanding, 3- ImproveStrength/Hitesh 1=Demonstrate adherence to instructed precautions during ADL tasks. 2=Patient will verbalize/demonstrate understanding of assistive devices/ modifications for ADL. 3=Patient will improve strength/tolerance for activity to enable patient to perform ADL's. OT Education/Plan Problem List/Assessment Pt to benefit from skilled OT intervention for ADL training, transfers, strengthening, and safety education to improve level of function and allow safe discharge plan. Discharge Recommendations Plan/Recommendations: Continue POC Treatment Plan/Plan of Care Patient would benefit from OT for education, treatment and training to promote independence in ADL's, mobility, safety and/or upper extremity function for ADL' s. Plan of Care: ADL Retraining, Functional Mobility, Group Exercise/Act as Ind, UE Funct Exercise/Act, UE Neuromus Re-Ed/Coord Treatment Duration: December 04, 2016 Visits Per Week: 10-12 Minutes/Day (M-F): 60-90 Minutes/Day (Sat/Andrade): PRN Agreement: Yes Rehab Potential: Fair Time/GCodes Start Time: 10:00 Stop Time: 11:30 Total Time Billed (hr/min): 90 Billed Treatment Time 1 visit, ADLx6(90minutes) SHANNON VILLALOBOS OT November 21, 2016 13:10
--- NOTE | 2016-11-21 13:14 | Physical Therapy Daily Note ---
PT Daily Note-Current Subjective Pt asleep sitting in recliner upon arrival. Pt agrees to PT. Pain Numeric Pain Scale: 8 Location: Lower Location Body Site: Back Pain Description: Ache Mental Status Patient Orientation: Person, Place, Situation Transfers Functional [place] Measure 0=Not Assessed/NA 4=Minimal Assistance 1=Total Assistance 5=Supervision or Setup 2=Maximal Assistance 6=Modified [place] 3=Moderate Assistance 7=Complete IndependenceIRFPAI Quality Coding Scale 6 Independent with activity with or without an assistive device 5 Patient requires set up or clean up by helper. Patient completes activity by themselves 4 Supervision or touching assist (CGA). [place] provide cues , steadying assist 3 The helper provides less than half the effort to complete the activity 2 The helper provides more than half the effort to complete the activity 1 Dependent. The helper does all the effort to complete an activity 7 Patient refused to complete or attempt activity 9 The patient did not perform the activity before the current illness or injury 88 Not attempted due to Medical conditions or safety concerns Weight Bearing Weight Bearing Restriction: Full Weight Bearing Location Restriction: LE Bilateral Exercises Seated Therapy Exercises: Long arc quads, Hip flexion, Kicking activity, Hip abd/add Seated Reps: 15 (2 sets) Treatments Pt completes Seated Ex in recliner for tx X2 sets. Pt is left sitting in recliner visiting with Housekeeping at end of tx with all needs met. Assessment Current Status: Fair Progress Pt continues to need redirection in VC form to remain on task during tx instead of just visiting. PT Short Term Goals Short Term Goals Time Frame: November 27, 2016 Transfers (B,C,W/C) (FIM): 3 Gait (FIM): 1 Distance (FIM): 1=up to 49 ft Gait Distance Comment: 20' Gait Level of Assist: 3 Gait Assistive Device: FWW Stairs (FIM): 1 # of Steps: 1 Stairs Level of Assist: 3 PT Automatic Beading Lathe Operator Goals Automatic Beading Lathe Operator Goals PT Automatic Beading Lathe Operator Goals Time Frame: Dec 11, 2016 Transfers (B,C,W/C) (FIM): 5 Sit to Lying (QC): 5 Lying-Sitting on Side/Bed(QC): 5 Sit to Stand (QC): 5 Rollin Roll Left to Right (QC): 5 Chair/Zxh-at-Kajhq Xfer(QC): 5 Car Transfer (QC): 5 Does the Patient Walk: No and Walking Goal IS indicated Gait (FIM): 2 Gait distance (FIM): 2=531-86 ft Distance: 75' Walk 10 feet (QC): 5 Walk 10ft-Uneven Surface(QC): 5 Walk 50ft with 2 Turns (QC): 5 Walk 150 ft (QC): 88 Gait Level of Assist: 5 Gait Assistive Device: FWW # of Steps: 4 1 Step (curb) (QC): 4 4 Steps (QC): 4 12 Steps (QC): 88 Stairs Level Of Assist: 5 Picking up an Object (QC): 4 PT Plan Problem List Problem List: Activity Tolerance, Functional Strength, Safety, Balance, Gait, Transfer, Bed Mobility Treatment/Plan Treatment Plan: Continue Plan of Care Treatment Plan: Bed Mobility, Education, Functional Activity Hitesh, Group Therapy, Gait, Safety, Therapeutic Exercise, Transfers Treatment Duration: Dec 11, 2016 Visits Per Week: 6-11 Minutes/Day (M-F): 60-90 Minutes/Day (Sat/Andrade): PRN Safety Risks/Education Patient Education: Transfer Techniques, Correct Positioning, Safety Issues Teaching Recipient: Patient Teaching Methods: Discussion Response to Teaching: Verbalize Understanding Time/GCodes Time In: 1300 Time Out: 1330 Total Billed Treatment Time: 30 Total Billed Treatment visit, EX X2 (30m) YUDI AMEZCUA PTA November 21, 2016 13:14
[2016-11-21 17:23] VITALS: BP 124/69
--- NOTE | 2016-11-21 20:33 | PM & R (SOAP) Progress Note ---
Subjective Subjective/Events-last exam Patient was seen in her room earlier today Patient min assist for transfers Tolerating Zyprexia well Objective Exam Last Set of Vital Signs Vital Signs Date Time Temp Pulse Resp B/P (MAP) Pulse Ox O2 Delivery O2 Flow Rate FiO2 11/21/16 17:23 97.5 87 18 124/69 97 11/15/16 05:00 Room Air Capillary Refill : Less Than 3 Seconds I&O Intake and Output 11/21/16 00:00 Intake Total 1700 ml Balance 1700 ml Intake Oral 1700 ml # Voids 7 General: Alert, Oriented X3, Cooperative, No Acute Distress HEENT: Atraumatic, PERRLA, EOMI, Mucous Memb Moist/[place] Neck: Supple, No JVD Lungs: Clear to Auscultation, Normal Air Movement Heart: Regular Rate Abdomen: Normal Bowel Sounds, Soft, No Tenderness Extremities: Other (chronic dermatitis and edema) Skin: Other (Bilateral calf dermatitis with markedly reduced edema. Bilateral foot ulcers with scab formation.) Neuro: Other (generalized weakness) Results Lab Laboratory Tests 11/18/16 21:16: Glucometer 108 11/19/16 06:15: Glucometer 105 11/19/16 11:09: Glucometer 133H 11/19/16 16:09: Glucometer 92 11/19/16 21:21: Glucometer 103 11/20/16 04:12: Glucometer 93 11/20/16 11:49: Glucometer 134H 11/20/16 16:00: Glucometer 141H 11/20/16 20:28: Glucometer 126H 11/21/16 05:00: Glucometer 128H 11/21/16 10:52: Glucometer 107 11/21/16 15:43: Glucometer 135H Microbiology 11/14/16 Urine Culture - Final, Complete NO GROWTH Assessment/Plan Assessment General debil DM Chronic stasis dermatitis Anxiety/depression/psychosis? Plan Continue PT/OT Skin car Trend accuchecks and adjust meds as needed TRial of lowdose Zyprexia-See orders-done Team Conference held earlier today-See report for full functional update and POC Discharge set tentatively for next week-will follow-up with SW re details F/U with DR martinez PCP PEARL SAWYER MD November 21, 2016 20:33
[2016-11-21] MEDS: ATORVASTATIN 20 MG (LIPITOR) TABLET PO SCH (21:29)
[2016-11-22] MEDS: inSUlin ASPART (NovoLOG) 1 UNIT/0.01 ML (CHARGE PER UNIT) SC SCH ×4 (06:00→21:42)
[2016-11-22 06:04] LABS: ALANINE AMINOTRANSFERASE 17 U/L (0-55); ALBUMIN 3.4 G/DL (3.2-4.5); ANION GAP 11 MMOL/L (5-14); ASPARTATE AMINO TRANSFERASE 17 U/L (5-34); BILIRUBIN,TOTAL 0.1 MG/DL (0.1-1.0); BLOOD UREA NITROGEN 24 MG/DL (7-18); BUN/CREATININE RATIO 30; CALCIUM 9.4 MG/DL (8.5-10.1); CARBON DIOXIDE 26 MMOL/L (21-32); CHLORIDE 103 MMOL/L (98-107); GFR ESTIMATED > 60; GLUCOSE 115 MG/DL (70-105); POTASSIUM 3.7 MMOL/L (3.6-5.0); SODIUM 140 MMOL/L (135-145); TOTAL PROTEIN 6.1 G/DL (6.4-8.2)
[2016-11-22 06:10] VITALS: BP 116/68
[2016-11-22] MEDS: PANTOPRAZOLE 40 MG (PROTONIX) TAB PO SCH (06:51)
[2016-11-22] MEDS: TROSPIUM 20 MG (SANCTURA) TAB PO SCH ×2 (06:51→16:11)
[2016-11-22] MEDS: metFORMIN 500 MG (GLUCOPHAGE) TAB PO SCH ×2 (06:51→16:11)
--- NOTE | 2016-11-22 08:25 | Progress Note (SOAP) ---
Subjective Subjective/Events-last exam patient doing better. Patient having pain in the neck and low back. General debility. Diabetes. Objective Exam Vital Signs Date Time Temp Pulse Resp B/P (MAP) Pulse Ox O2 Delivery O2 Flow Rate FiO2 11/22/16 06:10 97.6 78 20 116/68 95 11/21/16 21:10 97 11/21/16 17:23 97.5 87 18 124/69 97 I & O 11/22/16 06:59 Intake Total 1100 ml Balance 1100 ml Capillary Refill : Less Than 3 Seconds General Appearance: No Apparent Distress, WD/WN HEENT: Normal ENT Inspection Neck: Normal Inspection Respiratory: Chest Non Tender, Lungs Clear, Normal Breath Sounds, No Accessory Muscle Use, No Respiratory Distress Cardiovascular: Regular Rate, Rhythm Results Lab Laboratory Tests 11/22/16 05:22 Laboratory Tests 11/21/16 10:52: Glucometer 107 11/21/16 15:43: Glucometer 135H 11/21/16 20:37: Glucometer 106 11/22/16 05:20: Glucometer 113H 11/22/16 05:22: Sodium Level 140, Potassium Level 3.7, Chloride Level 103, Carbon Dioxide Level 26, Anion Gap 11, Blood Urea Nitrogen 24H, Creatinine 0.80, Estimat Glomerular Filtration Rate > 60, BUN/Creatinine Ratio 30, Glucose Level 115H, Calcium Level 9.4, Total Bilirubin 0.1, Aspartate Amino Transf (AST/SGOT) 17, Alanine Aminotransferase (ALT/SGPT) 17, Alkaline Phosphatase 77, Total Protein 6.1L, Albumin 3.4 Microbiology 11/14/16 Urine Culture - Final, Complete NO GROWTH Assessment/Plan Assessment/Plan Assess & Plan/Chief Complaint general debility. Foot ulcers good. Diabetes 2 person assist. . 11/16/16. General debility. Diabetes. Patient improving. . . General debility. Confusion Diabetes.. . 11/20. General debility. Diabetes. Hallucinations. Patient working progress. . 11/21/16. General debility. Diabetes. Patient voices no complaints. Patient feels she is improving. . 11/22/16 generalized debility. diabetes. Patient improving. Patient having neck and back pain lower Clinical Quality Measures DVT/VTE Risk/Contraindication: Risk Factor Score Per Nursin RFS Level Per Nursing on Admit: 4+=Very High GELLENDER,JOSE A DO November 22, 2016 08:25
[2016-11-22] MEDS: OLANZapine 2.5 MG (ZyPREXA) TAB PO SCH (09:16)
[2016-11-22] MEDS: NYSTATIN CREAM (MYCOSTATIN) 30 GM TUBE TP SCH ×3 (09:16→20:11)
[2016-11-22] MEDS: FUROSEMIDE 40 MG (LASIX) TAB PO SCH (09:16)
[2016-11-22] MEDS: meTOproloL SUCCINATE 50 MG (TOPROL XL) TAB PO SCH (09:16)
[2016-11-22] MEDS: ENOXAPARIN 40 MG/0.4 ML (LOVENOX) SYR SC SCH (09:16)
[2016-11-22] MEDS: DULoxetine 30 MG (CYMBALTA) CAP PO SCH (09:16)
[2016-11-22] MEDS: PREGABALIN 75 MG (LYRICA) CAP PO SCH ×3 (09:16→20:11)
[2016-11-22] MEDS: IRON POLYSAC 150 MG CAP (NIFEREX) PO SCH ×2 (09:16→20:10)
[2016-11-22] MEDS: LORATADINE (CLARITIN) 10 MG TAB PO SCH (09:16)
[2016-11-22] MEDS: rOPINIRole 1 MG (REQUIP) TABLET PO SCH ×2 (09:16→20:11)
--- NOTE | 2016-11-22 10:28 | Physical Therapy Daily Note ---
PT Daily Note-Current Subjective Pt asleep laying in recliner upon arrival. Pt appeared more down today during tx although pt didn't communicate anything going on. Pt agrees to PT. Pain Numeric Pain Scale: 8 Location: Lower Location Body Site: Back Comment: Pt having pain in LB, neck and knees today. Mental Status Patient Orientation: Person, Place, Situation Transfers Functional [place] Measure 0=Not Assessed/NA 4=Minimal Assistance 1=Total Assistance 5=Supervision or Setup 2=Maximal Assistance 6=Modified [place] 3=Moderate Assistance 7=Complete IndependenceIRFPAI Quality Coding Scale 6 Independent with activity with or without an assistive device 5 Patient requires set up or clean up by helper. Patient completes activity by themselves 4 Supervision or touching assist (CGA). [place] provide cues , steadying assist 3 The helper provides less than half the effort to complete the activity 2 The helper provides more than half the effort to complete the activity 1 Dependent. The helper does all the effort to complete an activity 7 Patient refused to complete or attempt activity 9 The patient did not perform the activity before the current illness or injury 88 Not attempted due to Medical conditions or safety concerns Scootin Sit to/from Stand: 5 Sit to Stand (QC): 5 Weight Bearing Weight Bearing Restriction: Full Weight Bearing Location Restriction: LE Bilateral Gait Training Does the Patient Walk?: Yes Distance (FIM): 3=150 ft Distance: 250' Walk 10 feet (QC): 5 Walk 50 ft with 2 Turns(QC): 5 Walk 150 ft (QC): 5 Gait Level of Assist: 5 Gait Persons Needed: 1 Gait Assistive Device: FWW Pt walks with slow ace but steady with no LOB. Wheelchair Training Does the Pt Use a Wheelchair?: No Exercises NuStep Minutes: 13 NuStep Workload: 2 Treatments PT asssited pt with donning shoes for tx. Pt's L foot is slightly more swollen today when donning shoe. Pt transferred from recliner to standing and ambulated to restroom using FWW. Pt ambulated in [facility] using FWW at [facility]. Pt used NuStep for 13m at Workload 2 and had to use brace for L thigh since it wanted to ABD to uncomfortable position during tx. Pt then completed Seated Ex in chair before ambulating back to room to rest in recliner before OT. Pt is in recliner with all needs met at end of tx. Assessment Current Status: Fair Progress Pt is less talkative today. Pt completes tx although LLE tends to be more ABD during ambulation and EX than previous txs. PT Short Term Goals Short Term Goals Time Frame: November 27, 2016 Transfers (B,C,W/C) (FIM): 3 Gait (FIM): 1 Distance (FIM): 1=up to 49 ft Gait Distance Comment: 20' Gait Level of Assist: 3 Gait Assistive Device: FWW Stairs (FIM): 1 # of Steps: 1 Stairs Level of Assist: 3 PT Longterm Goals Consulting It Architect Goals PT Consulting It Architect Goals Time Frame: Dec 11, 2016 Transfers (B,C,W/C) (FIM): 5 Sit to Lying (QC): 5 Lying-Sitting on Side/Bed(QC): 5 Sit to Stand (QC): 5 Rollin Roll Left to Right (QC): 5 Chair/Jcf-oa-Cstfg Xfer(QC): 5 Car Transfer (QC): 5 Does the Patient Walk: No and Walking Goal IS indicated Gait (FIM): 2 Gait distance (FIM): 4=955-69 ft Distance: 75' Walk 10 feet (QC): 5 Walk 10ft-Uneven Surface(QC): 5 Walk 50ft with 2 Turns (QC): 5 Walk 150 ft (QC): 88 Gait Level of Assist: 5 Gait Assistive Device: FWW # of Steps: 4 1 Step (curb) (QC): 4 4 Steps (QC): 4 12 Steps (QC): 88 Stairs Level Of Assist: 5 Picking up an Object (QC): 4 PT Plan Problem List Problem List: Activity Tolerance, Safety, Balance, Gait Treatment/Plan Treatment Plan: Continue Plan of Care Treatment Plan: Bed Mobility, Education, Functional Activity Hitesh, Group Therapy, Gait, Safety, Therapeutic Exercise, Transfers Treatment Duration: Dec 11, 2016 Visits Per Week: 6-11 Minutes/Day (M-F): 60-90 Minutes/Day (Sat/Andrade): PRN Safety Risks/Education Patient Education: Gait Training, Transfer Techniques, Correct Positioning, Safety Issues Teaching Recipient: Patient Teaching Methods: Discussion Response to Teaching: Verbalize Understanding Time/GCodes Time In: 815 Time Out: 915 Total Billed Treatment Time: 60 Total Billed Treatment visit, FA X2 (30m), GT (15m) & EX (15m) YUDI AMEZCUA TOOL PROFILING MACHINE SET UP OPERATOR November 22, 2016 10:28
--- NOTE | 2016-11-22 11:38 | PM & R (SOAP) Progress Note ---
Subjective Subjective/Events-last exam Patient was seen in her room this AM Patient SBA for transfers Current labs noted Tolerating Zyprexia well Objective Exam Last Set of Vital Signs Vital Signs Date Time Temp Pulse Resp B/P (MAP) Pulse Ox O2 Delivery O2 Flow Rate FiO2 11/22/16 06:10 97.6 78 20 116/68 95 Capillary Refill : Less Than 3 Seconds I&O Intake and Output 11/22/16 00:00 Intake Total 940 ml Balance 940 ml Intake Oral 940 ml # Voids 7 # Bowel Movements 1 General: Alert, Oriented X3, Cooperative, No Acute Distress HEENT: Atraumatic, PERRLA, EOMI, Mucous Memb Moist/[place] Neck: Supple, No JVD Lungs: Clear to Auscultation, Normal Air Movement Heart: Regular Rate Abdomen: Normal Bowel Sounds, Soft, No Tenderness Extremities: Other (chronic dermatitis and edema) Skin: Other (Bilateral calf dermatitis with markedly reduced edema. Bilateral foot ulcers with scab formation.) Neuro: Other (generalized weakness) Results Lab Laboratory Tests 11/19/16 16:09: Glucometer 92 11/19/16 21:21: Glucometer 103 11/20/16 04:12: Glucometer 93 11/20/16 11:49: Glucometer 134H 11/20/16 16:00: Glucometer 141H 11/20/16 20:28: Glucometer 126H 11/21/16 05:00: Glucometer 128H 11/21/16 10:52: Glucometer 107 11/21/16 15:43: Glucometer 135H 11/21/16 20:37: Glucometer 106 11/22/16 05:20: Glucometer 113H 11/22/16 05:22: Sodium Level 140, Potassium Level 3.7, Chloride Level 103, Carbon Dioxide Level 26, Anion Gap 11, Blood Urea Nitrogen 24H, Creatinine 0.80, Estimat Glomerular Filtration Rate > 60, BUN/Creatinine Ratio 30, Glucose Level 115H, Calcium Level 9.4, Total Bilirubin 0.1, Aspartate Amino Transf (AST/SGOT) 17, Alanine Aminotransferase (ALT/SGPT) 17, Alkaline Phosphatase 77, Total Protein 6.1L, Albumin 3.4 11/22/16 11:00: Glucometer 116H Microbiology 11/14/16 Urine Culture - Final, Complete NO GROWTH Assessment/Plan Assessment General debil DM Chronic stasis dermatitis Anxiety/depression/psychosis? Plan Continue PT/OT Trend accuchecks and adjust meds as needed TRial of lowdose Zyprexia-See orders-done Team Conference held yesterday-See report for full functional update and POC Discharge set tentatively for next week-will follow-up with SW re details F/U with DR martinez PCP PEARL SAWYER MD November 22, 2016 11:38
--- NOTE | 2016-11-22 12:03 | Occupational Ther Daily Note ---
OT Current Status-Daily Note Subjective Pt sitting in chair, agrees to treatment. Pt reports 8/10 back pain and left knee pain. Pt states she would like to shower because it makes her pain decrease. Mental Status/Objective Functional [place] Measure 0=Not Assessed/NA 4=Minimal Assistance 1=Total Assistance 5=Supervision or Setup 2=Maximal Assistance 6=Modified [place] 3=Moderate Assistance 7=Complete [place] ADL-Treatment Pt sit to stand with supervision. Gait to restroom with FWW, slow pace. Pt transferred to walk in shower with bench with SBA using grab bars. Seated bathing completed using hand held shower. Pt able to wash/dry all areas with SBA and increased time. Don nightgown with set up. Pt donned Depends with supervision and increased time. Don socks with set up and increased time. Toilet transfer completed with SBA using grab bars for balance and safety. Pt able to complete toileting hygiene and clothing management with SBA . Stood at sink to wash hands, comb hair, and brush teeth with modified independence. Pt returned to chair with SBA. Pt requires increased time for all ADL tasks. Functional [place] Measure 0=Not Assessed/NA 4=Minimal Assistance 1=Total Assistance 5=Supervision or Setup 2=Maximal Assistance 6=Modified [place] 3=Moderate Assistance 7=Complete IndependenceIRFPAI Quality Coding Scale 6 Independent with activity with or without an assistive device 5 Patient requires set up or clean up by helper. Patient completes activity by themselves 4 Supervision or touching assist (CGA). [place] provide cues , steadying assist 3 The helper provides less than half the effort to complete the activity 2 The helper provides more than half the effort to complete the activity 1 Dependent. The helper does all the effort to complete an activity 7 Patient refused to complete or attempt activity 9 The patient did not perform the activity before the current illness or injury 88 Not attempted due to Medical conditions or safety concerns Grooming (FIM): 6 Oral Hygiene (QC): 6 Bathing (FIM): 5 Upper Body (FIM): 5 Lower Body Dressing (FIM): 5 On/Off Footwear (QC): 5 Toileting (FIM): 5 Toilet/Commode Transfer (FIM): 5 Shower Transfer(FIM): 5 Other Treatment Pt completed bilateral hand automotive assembler exercises x20 reps to increase automotive assembler strength for functional tasks. Pt completed putty activity with left hand to increase strength and coordination. Pt has decreased strength, but is able to remove small beads from putty with increased time. Pt performed two UE exercises x10 reps with theraband to increase strength for ADLs and transfers. Pt has mild difficulty maintaining grasp with left hand. Cues required for proper exercise technique and to attend to task. Pt sitting in chair with needs met after session. OT Short Term Goals Short Term Goals Time Frame: November 20, 2016 Grooming(FIM): 5 Upper Body Dressing(FIM): 4 Lower Body Dressing(FIM): 3 Transfers (B,C,W/C) (FIM): 3 Toilet/Commode Transfer(FIM): 3 Additional Short Term Goals: 1-Demonstrate ADL Tasks, 2-Verbalize Understanding , 3-ImproveStrength/Hitesh 1=Demonstrate adherence to instructed precautions during ADL tasks. 2=Patient will verbalize/demonstrate understanding of assistive devices/ modifications for ADL. 3=Patient will improve strength/tolerance for activity to enable patient to perform ADL's. OT Assisted Goals Seam Closer Goals Time Frame: December 04, 2016 Eating (FIM): 6 Eating (QC): 6 Groomin Bathing(FIM): 5 Shower/Bathe Self (QC): 4 Upper Body Dressing(FIM): 5 Upper Body Dressing (QC): 4 Lower Body Dressing(FIM): 5 Lower Body Dressing (QC): 4 On/Off Footwear (QC): 5 Toileting(FIM): 5 Toileting Hygiene (QC): 4 Toilet/Commode Transfer(FIM): 5 Toilet/Commode Transfer (QC): 4 Shower Transfer(FIM): 5 Additional Goals: 1-Demonstrate ADL Tasks, 2-Verbalize Understanding, 3- ImproveStrength/Hitesh 1=Demonstrate adherence to instructed precautions during ADL tasks. 2=Patient will verbalize/demonstrate understanding of assistive devices/ modifications for ADL. 3=Patient will improve strength/tolerance for activity to enable patient to perform ADL's. OT Education/Plan Problem List/Assessment Pt to benefit from skilled OT intervention for ADL training, transfers, strengthening, and safety education to improve level of function and allow safe discharge plan. Discharge Recommendations Plan/Recommendations: Continue POC Treatment Plan/Plan of Care Patient would benefit from OT for education, treatment and training to promote independence in ADL's, mobility, safety and/or upper extremity function for ADL' s. Plan of Care: ADL Retraining, Functional Mobility, Group Exercise/Act as Ind, UE Funct Exercise/Act, UE Neuromus Re-Ed/Coord Treatment Duration: December 04, 2016 Visits Per Week: 10-12 Minutes/Day (M-F): 60-90 Minutes/Day (Sat/Andrade): PRN Agreement: Yes Rehab Potential: Fair Time/GCodes Start Time: 09:15 Stop Time: 10:45 Total Time Billed (hr/min): 90 Billed Treatment Time 1 visit, ADLx5(70minutes), EX(20minutes) SHANNON VILLALOBOS OT November 22, 2016 12:03
--- NOTE | 2016-11-22 15:21 | Physical Therapy Daily Note ---
PT Daily Note-Current Subjective Pt sitting in recliner upon arrival. Pt is more talkative like normal this afternoon. Pt agrees to PT. Pain Numeric Pain Scale: 8 Location: Lower Location Body Site: Back Pain Description: Ache Comment: Pt has pain in LB and knees (stiffness) this afternoon. Mental Status Patient Orientation: Person, Place, Situation Transfers Functional [place] Measure 0=Not Assessed/NA 4=Minimal Assistance 1=Total Assistance 5=Supervision or Setup 2=Maximal Assistance 6=Modified [place] 3=Moderate Assistance 7=Complete IndependenceIRFPAI Quality Coding Scale 6 Independent with activity with or without an assistive device 5 Patient requires set up or clean up by helper. Patient completes activity by themselves 4 Supervision or touching assist (CGA). [place] provide cues , steadying assist 3 The helper provides less than half the effort to complete the activity 2 The helper provides more than half the effort to complete the activity 1 Dependent. The helper does all the effort to complete an activity 7 Patient refused to complete or attempt activity 9 The patient did not perform the activity before the current illness or injury 88 Not attempted due to Medical conditions or safety concerns Scootin Sit to/from Stand: 5 Sit to Stand (QC): 5 Weight Bearing Weight Bearing Restriction: Full Weight Bearing Location Restriction: LE Bilateral Gait Training Does the Patient Walk?: Yes Distance (FIM): 1=up to 49 ft Distance: 40' Walk 10 feet (QC): 5 Walk 50 ft with 2 Turns(QC): 5 Walk 150 ft (QC): 5 Gait Level of Assist: 5 Gait Persons Needed: 1 Gait Assistive Device: FWW Wheelchair Training Does the Pt Use a Wheelchair?: No Exercises Seated Therapy Exercises: Ankle pumps, Long arc quads, Hip flexion, Kicking activity Seated Reps: 15 Treatments Pt transferred from recliner to standing to ambulate to restroom. After using restroom, pt returns to recliner to complete Seated Ex. Pt needs VC to stay on task during tx. Pt is in recliner with all needs met at end of tx. Assessment Current Status: Fair Progress Pt needs VC to stay on task during tx. PT Short Term Goals Short Term Goals Time Frame: November 27, 2016 Transfers (B,C,W/C) (FIM): 3 Gait (FIM): 1 Distance (FIM): 1=up to 49 ft Gait Distance Comment: 20' Gait Level of Assist: 3 Gait Assistive Device: FWW Stairs (FIM): 1 # of Steps: 1 Stairs Level of Assist: 3 PT Director Of Mechanical Engineering Goals Director Of Mechanical Engineering Goals PT Alf Goals Time Frame: Dec 11, 2016 Transfers (B,C,W/C) (FIM): 5 Sit to Lying (QC): 5 Lying-Sitting on Side/Bed(QC): 5 Sit to Stand (QC): 5 Rollin Roll Left to Right (QC): 5 Chair/Oef-aw-Nltkh Xfer(QC): 5 Car Transfer (QC): 5 Does the Patient Walk: No and Walking Goal IS indicated Gait (FIM): 2 Gait distance (FIM): 9=306-32 ft Distance: 75' Walk 10 feet (QC): 5 Walk 10ft-Uneven Surface(QC): 5 Walk 50ft with 2 Turns (QC): 5 Walk 150 ft (QC): 88 Gait Level of Assist: 5 Gait Assistive Device: FWW # of Steps: 4 1 Step (curb) (QC): 4 4 Steps (QC): 4 12 Steps (QC): 88 Stairs Level Of Assist: 5 Picking up an Object (QC): 4 PT Plan Problem List Problem List: Activity Tolerance, Safety, Balance, Gait Treatment/Plan Treatment Plan: Continue Plan of Care Treatment Plan: Bed Mobility, Education, Functional Activity Hitesh, Group Therapy, Gait, Safety, Therapeutic Exercise, Transfers Treatment Duration: Dec 11, 2016 Visits Per Week: 6-11 Minutes/Day (M-F): 60-90 Minutes/Day (Sat/Andrade): PRN Safety Risks/Education Patient Education: Transfer Techniques, Correct Positioning, Safety Issues Teaching Recipient: Patient Teaching Methods: Discussion Response to Teaching: Verbalize Understanding Time/GCodes Time In: 1300 Time Out: 1330 Total Billed Treatment Time: 30 Total Billed Treatment visit, FA (15m) & EX (15m) YUDI AMEZCUA PTA November 22, 2016 15:21
[2016-11-22 18:24] VITALS: BP 117/70
[2016-11-22] MEDS: ATORVASTATIN 20 MG (LIPITOR) TABLET PO SCH (20:11)
[2016-11-23 04:43] VITALS: BP 144/78
[2016-11-23] MEDS: PANTOPRAZOLE 40 MG (PROTONIX) TAB PO SCH (06:07)
[2016-11-23] MEDS: metFORMIN 500 MG (GLUCOPHAGE) TAB PO SCH ×2 (06:07→16:42)
[2016-11-23] MEDS: inSUlin ASPART (NovoLOG) 1 UNIT/0.01 ML (CHARGE PER UNIT) SC SCH ×4 (06:08→20:40)
[2016-11-23] MEDS: TROSPIUM 20 MG (SANCTURA) TAB PO SCH ×2 (06:08→16:40)
--- NOTE | 2016-11-23 08:02 | PM & R (SOAP) Progress Note ---
Subjective Subjective/Events-last exam Patient was seen in her room this AM patient SBA for transfers Patient with less rambling of speech with Zyprexia Objective Exam Last Set of Vital Signs Vital Signs Date Time Temp Pulse Resp B/P (MAP) Pulse Ox O2 Delivery O2 Flow Rate FiO2 11/23/16 04:43 97.0 72 18 144/78 100 Capillary Refill : Less Than 3 Seconds I&O Intake and Output 11/23/16 00:00 Intake Total 1120 ml Balance 1120 ml Intake Oral 1120 ml # Voids 8 General: Alert, Oriented X3, Cooperative, No Acute Distress HEENT: Atraumatic, PERRLA, EOMI, Mucous Memb Moist/[place] Neck: Supple, No JVD Lungs: Clear to Auscultation, Normal Air Movement Heart: Regular Rate Abdomen: Normal Bowel Sounds, Soft, No Tenderness Extremities: Other (chronic dermatitis and edema) Skin: Other (Bilateral calf dermatitis with markedly reduced edema. Bilateral foot ulcers with scab formation.) Neuro: Other (generalized weakness) Results Lab Laboratory Tests 11/20/16 11:49: Glucometer 134H 11/20/16 16:00: Glucometer 141H 11/20/16 20:28: Glucometer 126H 11/21/16 05:00: Glucometer 128H 11/21/16 10:52: Glucometer 107 11/21/16 15:43: Glucometer 135H 11/21/16 20:37: Glucometer 106 11/22/16 05:20: Glucometer 113H 11/22/16 05:22: Sodium Level 140, Potassium Level 3.7, Chloride Level 103, Carbon Dioxide Level 26, Anion Gap 11, Blood Urea Nitrogen 24H, Creatinine 0.80, Estimat Glomerular Filtration Rate > 60, BUN/Creatinine Ratio 30, Glucose Level 115H, Calcium Level 9.4, Total Bilirubin 0.1, Aspartate Amino Transf (AST/SGOT) 17, Alanine Aminotransferase (ALT/SGPT) 17, Alkaline Phosphatase 77, Total Protein 6.1L, Albumin 3.4 11/22/16 11:00: Glucometer 116H 11/22/16 15:52: Glucometer 144H 11/22/16 21:41: Glucometer 134H 11/23/16 05:47: Glucometer 106 Microbiology 11/14/16 Urine Culture - Final, Complete NO GROWTH Assessment/Plan Assessment General debil DM Chronic stasis dermatitis Anxiety/depression/psychosis? Plan Continue PT/OT Trend accuchecks and adjust meds as needed TRial of lowdose Zyprexia-See orders-done Team Conference held 11/21/16-See report for full functional update and POC Discharge set tentatively for next week-will follow-up with SW re details F/U with DR amrtinez PCP PEARL SAWYER MD November 23, 2016 08:02
[2016-11-23] MEDS: PREGABALIN 75 MG (LYRICA) CAP PO SCH ×3 (08:11→20:40)
[2016-11-23] MEDS: FUROSEMIDE 40 MG (LASIX) TAB PO SCH (08:11)
[2016-11-23] MEDS: ENOXAPARIN 40 MG/0.4 ML (LOVENOX) SYR SC SCH (08:11)
[2016-11-23] MEDS: meTOproloL SUCCINATE 50 MG (TOPROL XL) TAB PO SCH (08:11)
[2016-11-23] MEDS: OLANZapine 2.5 MG (ZyPREXA) TAB PO SCH (08:11)
[2016-11-23] MEDS: DULoxetine 30 MG (CYMBALTA) CAP PO SCH (08:11)
[2016-11-23] MEDS: IRON POLYSAC 150 MG CAP (NIFEREX) PO SCH ×2 (08:11→20:40)
[2016-11-23] MEDS: LORATADINE (CLARITIN) 10 MG TAB PO SCH (08:11)
[2016-11-23] MEDS: rOPINIRole 1 MG (REQUIP) TABLET PO SCH ×2 (08:11→20:40)
[2016-11-23] MEDS: NYSTATIN CREAM (MYCOSTATIN) 30 GM TUBE TP SCH ×3 (08:12→20:40)
--- NOTE | 2016-11-23 09:00 | Progress Note (SOAP) ---
Subjective Subjective/Events-last exam general debility. Diabetes. Hallucination. Patient doing better with physical therapy and occupational therapy Objective Exam Vital Signs Date Time Temp Pulse Resp B/P (MAP) Pulse Ox O2 Delivery O2 Flow Rate FiO2 11/23/16 04:43 97.0 72 18 144/78 100 11/22/16 18:24 97.0 72 18 117/70 97 I & O 11/23/16 07:00 Intake Total 1120 ml Balance 1120 ml Capillary Refill : Less Than 3 Seconds General Appearance: No Apparent Distress, WD/WN HEENT: Normal ENT Inspection Neck: Normal Inspection Respiratory: No Accessory Muscle Use, No Respiratory Distress Results Lab Laboratory Tests 11/22/16 11:00: Glucometer 116H 11/22/16 15:52: Glucometer 144H 11/22/16 21:41: Glucometer 134H 11/23/16 05:47: Glucometer 106 Microbiology 11/14/16 Urine Culture - Final, Complete NO GROWTH Assessment/Plan Assessment/Plan Assess & Plan/Chief Complaint general debility. Foot ulcers good. Diabetes 2 person assist. . 11/16/16. General debility. Diabetes. Patient improving. . . General debility. Confusion Diabetes.. . 11/20. General debility. Diabetes. Hallucinations. Patient working progress. . 11/21/16. General debility. Diabetes. Patient voices no complaints. Patient feels she is improving. . 11/22/16 generalized debility. diabetes. Patient improving. Patient having neck and back pain lower.. . 11/23/16 generalized ddebility. Diabetes. Patient getting around better Clinical Quality Measures DVT/VTE Risk/Contraindication: Risk Factor Score Per Nursin RFS Level Per Nursing on Admit: 4+=Very High JOSE PRIEST DO November 23, 2016 09:00
--- NOTE | 2016-11-23 09:09 | Physical Therapy Daily Note ---
PT Daily Note-Current Subjective Pt. agrees to rx. States she has used her lift recline chair quite a while and never gets in out of bed. Pt. cannot sup to side to sit , has great fear of falling. Pain Numeric Pain Scale: 3 Location: Medial Location Body Site: Back Pain Description: Ache Mental Status Patient Orientation: Person, Place, Time, Situation Transfers Functional [place] Measure 0=Not Assessed/NA 4=Minimal Assistance 1=Total Assistance 5=Supervision or Setup 2=Maximal Assistance 6=Modified [place] 3=Moderate Assistance 7=Complete IndependenceIRFPAI Quality Coding Scale 6 Independent with activity with or without an assistive device 5 Patient requires set up or clean up by helper. Patient completes activity by themselves 4 Supervision or touching assist (CGA). [place] provide cues , steadying assist 3 The helper provides less than half the effort to complete the activity 2 The helper provides more than half the effort to complete the activity 1 Dependent. The helper does all the effort to complete an activity 7 Patient refused to complete or attempt activity 9 The patient did not perform the activity before the current illness or injury 88 Not attempted due to Medical conditions or safety concerns Transfers (B, C, W/C) (FIM): 3 Scootin Rollin Supine to/from Sit: 3 Sit to/from Stand: 5 Bed to/from Chair: 5 pt. very fearful of rolling to come to side to sit which this SALES ACCOUNT MANAGER explained would protect her back and be easier but pts fear of falling prohibits and she actually resists. therefore needs mod assist if rolling from side. Pt. uses lift recline chair at home manager maritime and sleeps in it. Gait Training Does the Patient Walk?: Yes Gait (FIM): 5 Distance (FIM): 3=150 ft (x2) Gait Level of Assist: 5 Gait Persons Needed: 1 Gait Assistive Device: FWW walks very slow, head down, talks and stops a lot, needs reminded to continue Stair Training declines stairs this Rx Exercises Supine Ex: Ankle pumps, Rolling (mod), Heel Slides, Short Arc Quads, Scooting, Hip abd/add Supine Reps: 15 Seated Therapy Exercises: Sit to stand, Long arc quads, Hip flexion Seated Reps: 10 Assessment Current Status: Good Progress PT Short Term Goals Short Term Goals Time Frame: November 27, 2016 Transfers (B,C,W/C) (FIM): 3 Gait (FIM): 1 Distance (FIM): 1=up to 49 ft Gait Distance Comment: 20' Gait Level of Assist: 3 Gait Assistive Device: FWW Stairs (FIM): 1 # of Steps: 1 Stairs Level of Assist: 3 PT Alf Goals Assistant Designer Goals PT Assistant Designer Goals Time Frame: Dec 11, 2016 Transfers (B,C,W/C) (FIM): 5 Sit to Lying (QC): 5 Lying-Sitting on Side/Bed(QC): 5 Sit to Stand (QC): 5 Rollin Roll Left to Right (QC): 5 Chair/Hij-kn-Btmgt Xfer(QC): 5 Car Transfer (QC): 5 Does the Patient Walk: No and Walking Goal IS indicated Gait (FIM): 2 Gait distance (FIM): 4=583-57 ft Distance: 75' Walk 10 feet (QC): 5 Walk 10ft-Uneven Surface(QC): 5 Walk 50ft with 2 Turns (QC): 5 Walk 150 ft (QC): 88 Gait Level of Assist: 5 Gait Assistive Device: FWW # of Steps: 4 1 Step (curb) (QC): 4 4 Steps (QC): 4 12 Steps (QC): 88 Stairs Level Of Assist: 5 Picking up an Object (QC): 4 PT Plan Treatment/Plan Treatment Plan: Continue Plan of Care Treatment Plan: Bed Mobility, Education, Functional Activity Hitesh, Group Therapy, Gait, Safety, Therapeutic Exercise, Transfers Treatment Duration: Dec 11, 2016 Visits Per Week: 6-11 Minutes/Day (M-F): 60-90 Minutes/Day (Sat/Andrade): PRN Safety Risks/Education Patient Education: Gait Training, Transfer Techniques, Correct Positioning, Disease Process, Safety Issues Teaching Recipient: Patient Teaching Methods: Demonstration, Discussion Response to Teaching: Verbalize Understanding, Return Demonstration, Reinforcement Needed Time/GCodes Time In: 800 Time Out: 900 Total Billed Treatment Time: 60 Total Billed Treatment 1,GT25m,EX15m,FA20m G Codes Necessary: DELORIS Wolf SALES ACCOUNT MANAGER November 23, 2016 09:09
--- NOTE | 2016-11-23 13:03 | Occupational Ther Daily Note ---
OT Current Status-Daily Note Subjective Pt sitting in chair, agrees to treatment. Pt reports 8/10 back pain. Mental Status/Objective Functional [place] Measure 0=Not Assessed/NA 4=Minimal Assistance 1=Total Assistance 5=Supervision or Setup 2=Maximal Assistance 6=Modified [place] 3=Moderate Assistance 7=Complete [place] ADL-Treatment Pt declined shower, but would like to sponge bathe today. Sit to stand from chair with supervision. Gait to restroom with FWW. Pt completed toilet transfer x2 during session with SBA using grab bars for safety. Pt able to complete toileting hygiene and clothing management with SBA. Sponge bath completed at sink with set up and increased time. Pt donned pullover gown with verbal cues for technique and to properly orient shirt. Pt put shirt on backward and required cues to correct. Pt donned Depends with SBA and increased time. Stood with supervision for balance during pant hike. Grooming tasks completed standing at sink with modified independence. Increased time required for all ADLs. Pt easily distracted with conversation, requires cues to attend to task. Functional [place] Measure 0=Not Assessed/NA 4=Minimal Assistance 1=Total Assistance 5=Supervision or Setup 2=Maximal Assistance 6=Modified [place] 3=Moderate Assistance 7=Complete IndependenceIRFPAI Quality Coding Scale 6 Independent with activity with or without an assistive device 5 Patient requires set up or clean up by helper. Patient completes activity by themselves 4 Supervision or touching assist (CGA). [place] provide cues , steadying assist 3 The helper provides less than half the effort to complete the activity 2 The helper provides more than half the effort to complete the activity 1 Dependent. The helper does all the effort to complete an activity 7 Patient refused to complete or attempt activity 9 The patient did not perform the activity before the current illness or injury 88 Not attempted due to Medical conditions or safety concerns Grooming (FIM): 6 Bathing (FIM): 5 Upper Body (FIM): 5 Lower Body Dressing (FIM): 5 Toileting (FIM): 5 Toilet/Commode Transfer (FIM): 5 Other Treatment Gait to therapy gym with FWW. Pt has decreased speed and takes frequent standing breaks, requires cues to continue. Arm bike x10 minutes to increase overall strength and activity tolerance needed for ADLs and transfers. Pt completed task with minimal resistance and steady pace. No rest breaks required. Pt returned to room with increased time. Transfer to chair with supervision. Pt sitting in chair with needs met after session. OT Short Term Goals Short Term Goals Time Frame: November 20, 2016 Grooming(FIM): 5 Upper Body Dressing(FIM): 4 Lower Body Dressing(FIM): 3 Transfers (B,C,W/C) (FIM): 3 Toilet/Commode Transfer(FIM): 3 Additional Short Term Goals: 1-Demonstrate ADL Tasks, 2-Verbalize Understanding , 3-ImproveStrength/Hitesh 1=Demonstrate adherence to instructed precautions during ADL tasks. 2=Patient will verbalize/demonstrate understanding of assistive devices/ modifications for ADL. 3=Patient will improve strength/tolerance for activity to enable patient to perform ADL's. OT Jail Goals Jail Goals Time Frame: December 04, 2016 Eating (FIM): 6 Eating (QC): 6 Groomin Bathing(FIM): 5 Shower/Bathe Self (QC): 4 Upper Body Dressing(FIM): 5 Upper Body Dressing (QC): 4 Lower Body Dressing(FIM): 5 Lower Body Dressing (QC): 4 On/Off Footwear (QC): 5 Toileting(FIM): 5 Toileting Hygiene (QC): 4 Toilet/Commode Transfer(FIM): 5 Toilet/Commode Transfer (QC): 4 Shower Transfer(FIM): 5 Additional Goals: 1-Demonstrate ADL Tasks, 2-Verbalize Understanding, 3- ImproveStrength/Hitesh 1=Demonstrate adherence to instructed precautions during ADL tasks. 2=Patient will verbalize/demonstrate understanding of assistive devices/ modifications for ADL. 3=Patient will improve strength/tolerance for activity to enable patient to perform ADL's. OT Education/Plan Problem List/Assessment Pt to benefit from skilled OT intervention for ADL training, transfers, strengthening, and safety education to improve level of function and allow safe discharge plan. Discharge Recommendations Plan/Recommendations: Continue POC Treatment Plan/Plan of Care Patient would benefit from OT for education, treatment and training to promote independence in ADL's, mobility, safety and/or upper extremity function for ADL' s. Plan of Care: ADL Retraining, Functional Mobility, Group Exercise/Act as Ind, UE Funct Exercise/Act, UE Neuromus Re-Ed/Coord Treatment Duration: December 04, 2016 Visits Per Week: 10-12 Minutes/Day (M-F): 60-90 Minutes/Day (Sat/Andrade): PRN Agreement: Yes Rehab Potential: Fair Time/GCodes Start Time: 09:00 Stop Time: 10:30 Total Time Billed (hr/min): 90 Billed Treatment Time 1 visit, ADLx4(60minutes), FA(15minutes), EX(15minutes) SHANNON VILLALOBOS OT November 23, 2016 13:03
--- NOTE | 2016-11-23 14:00 | Therapy Group Daily Note ---
Therapy Daily Group Note Patient Education Topic Other List Below (benefits of exercise) Exercises LE Seated Exercise, UE Exercise Other/Notes Pt. attended group PT session. Pt. ambulated with FWW and SBA. Pt. was very social , laughing and making conversation. Group question : "what was your first car?" Pts. all had a great time sharing the old model they first drove. Pt. was glad to participate in pt. lead exercise by reading and demonstrating exercise from a prewritten card. Education focused on benefits of exercise. P. to room after group, in bed with casiano at hand Start Time: 13:00 Stop Time: 13:40 Total Billed Treatment Time: 40 Total Billed Treatment 1,GRP DELORIS RAMSEY PRODUCE SERVICE TEAM MEMBER November 23, 2016 14:00
[2016-11-23 18:00] VITALS: BP 104/66
[2016-11-23] MEDS: ATORVASTATIN 20 MG (LIPITOR) TABLET PO SCH (20:40)
[2016-11-24] MEDS: metFORMIN 500 MG (GLUCOPHAGE) TAB PO SCH ×2 (05:53→17:47)
[2016-11-24] MEDS: TROSPIUM 20 MG (SANCTURA) TAB PO SCH ×2 (05:53→16:37)
[2016-11-24] MEDS: PANTOPRAZOLE 40 MG (PROTONIX) TAB PO SCH (05:53)
[2016-11-24] MEDS: inSUlin ASPART (NovoLOG) 1 UNIT/0.01 ML (CHARGE PER UNIT) SC SCH ×4 (05:56→20:51)
[2016-11-24 06:00] VITALS: BP 123/69
[2016-11-24] MEDS: FUROSEMIDE 40 MG (LASIX) TAB PO SCH (08:10)
[2016-11-24] MEDS: OLANZapine 2.5 MG (ZyPREXA) TAB PO SCH (08:10)
[2016-11-24] MEDS: rOPINIRole 1 MG (REQUIP) TABLET PO SCH ×2 (08:10→20:04)
[2016-11-24] MEDS: DULoxetine 30 MG (CYMBALTA) CAP PO SCH (08:10)
[2016-11-24] MEDS: meTOproloL SUCCINATE 50 MG (TOPROL XL) TAB PO SCH (08:11)
[2016-11-24] MEDS: LORATADINE (CLARITIN) 10 MG TAB PO SCH (08:11)
[2016-11-24] MEDS: IRON POLYSAC 150 MG CAP (NIFEREX) PO SCH ×2 (08:11→20:04)
[2016-11-24] MEDS: PREGABALIN 75 MG (LYRICA) CAP PO SCH ×3 (08:13→20:04)
[2016-11-24] MEDS: ENOXAPARIN 40 MG/0.4 ML (LOVENOX) SYR SC SCH (08:14)
[2016-11-24] MEDS: NYSTATIN CREAM (MYCOSTATIN) 30 GM TUBE TP SCH ×3 (09:21→20:05)
[2016-11-24] MEDS ORDERED: MILK OF MAGNESIA 400 MG/5 ML 30 ML UDC PO PRN (10:15)
--- NOTE | 2016-11-24 11:24 | Physical Therapy Daily Note ---
PT Daily Note-Current Subjective Pt. up in chair receiving morning meds upon arrival, agrees to therapy. Pt. reports of back pain to the nurse, no objective pain rating given. Mental Status Patient Orientation: Normal For Age Transfers Functional [place] Measure 0=Not Assessed/NA 4=Minimal Assistance 1=Total Assistance 5=Supervision or Setup 2=Maximal Assistance 6=Modified [place] 3=Moderate Assistance 7=Complete IndependenceIRFPAI Quality Coding Scale 6 Independent with activity with or without an assistive device 5 Patient requires set up or clean up by helper. Patient completes activity by themselves 4 Supervision or touching assist (CGA). [place] provide cues , steadying assist 3 The helper provides less than half the effort to complete the activity 2 The helper provides more than half the effort to complete the activity 1 Dependent. The helper does all the effort to complete an activity 7 Patient refused to complete or attempt activity 9 The patient did not perform the activity before the current illness or injury 88 Not attempted due to Medical conditions or safety concerns Transfers (B, C, W/C) (FIM): 6 Sit to/from Stand: 6 Gait Training Does the Patient Walk?: Yes Gait (FIM): 6 Distance (FIM): 3=150 ft Distance: 2 x 150 ft Gait Level of Assist: 6 Gait Assistive Device: FWW pt. frequently stops to talk during ambulation, needs cues to continue ambulation Stair Training Stair Training: Handrails/: 2 handrails Stairs (FIM): 2 #of Steps: 4 Level of Assist: 4 cues for sequence throughout stair training Exercises NuStep Minutes: 10 NuStep Workload: 3 Treatments gait, Nustep, stair training Assessment Current Status: Good Progress 1, FA 30', Ex 10' PT Short Term Goals Short Term Goals Time Frame: November 27, 2016 Transfers (B,C,W/C) (FIM): 3 Gait (FIM): 1 Distance (FIM): 1=up to 49 ft Gait Distance Comment: 20' Gait Level of Assist: 3 Gait Assistive Device: FWW Stairs (FIM): 1 # of Steps: 1 Stairs Level of Assist: 3 PT Long-Term Goals Records Associate Goals PT Records Associate Goals Time Frame: Dec 11, 2016 Transfers (B,C,W/C) (FIM): 5 Sit to Lying (QC): 5 Lying-Sitting on Side/Bed(QC): 5 Sit to Stand (QC): 5 Rollin Roll Left to Right (QC): 5 Chair/Zjq-gj-Ejmwz Xfer(QC): 5 Car Transfer (QC): 5 Does the Patient Walk: No and Walking Goal IS indicated Gait (FIM): 2 Gait distance (FIM): 8=056-61 ft Distance: 75' Walk 10 feet (QC): 5 Walk 10ft-Uneven Surface(QC): 5 Walk 50ft with 2 Turns (QC): 5 Walk 150 ft (QC): 88 Gait Level of Assist: 5 Gait Assistive Device: FWW # of Steps: 4 1 Step (curb) (QC): 4 4 Steps (QC): 4 12 Steps (QC): 88 Stairs Level Of Assist: 5 Picking up an Object (QC): 4 PT Plan Treatment/Plan Treatment Plan: Continue Plan of Care Treatment Plan: Bed Mobility, Education, Functional Activity Hitesh, Group Therapy, Gait, Safety, Therapeutic Exercise, Transfers Treatment Duration: Dec 11, 2016 Visits Per Week: 6-11 Minutes/Day (M-F): 60-90 Minutes/Day (Sat/Andrade): PRN Time/GCodes Time In: 810 Time Out: 850 Total Billed Treatment Time: 40 Total Billed Treatment 1, FA 30', Ex 10' RICKIE STEVENS PT November 24, 2016 11:24
[2016-11-24 18:00] VITALS: BP 144/83
[2016-11-24] MEDS: DOCUSATE SODIUM 100 MG (COLACE) CAP PO SCH (20:04)
[2016-11-24] MEDS: ATORVASTATIN 20 MG (LIPITOR) TABLET PO SCH (20:04)
[2016-11-25 06:00] VITALS: BP 114/67
[2016-11-25] MEDS: PANTOPRAZOLE 40 MG (PROTONIX) TAB PO SCH (06:16)
[2016-11-25] MEDS: inSUlin ASPART (NovoLOG) 1 UNIT/0.01 ML (CHARGE PER UNIT) SC SCH ×4 (06:16→21:20)
[2016-11-25] MEDS: metFORMIN 500 MG (GLUCOPHAGE) TAB PO SCH ×2 (06:16→16:26)
[2016-11-25] MEDS: TROSPIUM 20 MG (SANCTURA) TAB PO SCH ×2 (06:17→16:26)
[2016-11-25] MEDS: LORATADINE (CLARITIN) 10 MG TAB PO SCH (08:08)
[2016-11-25] MEDS: DOCUSATE SODIUM 100 MG (COLACE) CAP PO SCH ×2 (08:08→21:13)
[2016-11-25] MEDS: rOPINIRole 1 MG (REQUIP) TABLET PO SCH ×2 (08:08→21:13)
[2016-11-25] MEDS: IRON POLYSAC 150 MG CAP (NIFEREX) PO SCH ×2 (08:08→21:14)
[2016-11-25] MEDS: FUROSEMIDE 40 MG (LASIX) TAB PO SCH (08:08)
[2016-11-25] MEDS: OLANZapine 2.5 MG (ZyPREXA) TAB PO SCH (08:08)
[2016-11-25] MEDS: ENOXAPARIN 40 MG/0.4 ML (LOVENOX) SYR SC SCH (08:08)
[2016-11-25] MEDS: DULoxetine 30 MG (CYMBALTA) CAP PO SCH (08:08)
[2016-11-25] MEDS: meTOproloL SUCCINATE 50 MG (TOPROL XL) TAB PO SCH (08:08)
[2016-11-25] MEDS: PREGABALIN 75 MG (LYRICA) CAP PO SCH ×3 (08:08→21:13)
[2016-11-25] MEDS: NYSTATIN CREAM (MYCOSTATIN) 30 GM TUBE TP SCH ×3 (08:09→21:14)
[2016-11-25 18:17] VITALS: BP 113/67
[2016-11-25] MEDS: ATORVASTATIN 20 MG (LIPITOR) TABLET PO SCH (21:14)
[2016-11-26 04:00] VITALS: BP 121/71
[2016-11-26] MEDS: inSUlin ASPART (NovoLOG) 1 UNIT/0.01 ML (CHARGE PER UNIT) SC SCH ×4 (05:16→20:40)
[2016-11-26] MEDS: TROSPIUM 20 MG (SANCTURA) TAB PO SCH ×2 (05:56→16:20)
[2016-11-26] MEDS: PANTOPRAZOLE 40 MG (PROTONIX) TAB PO SCH (05:56)
[2016-11-26] MEDS: metFORMIN 500 MG (GLUCOPHAGE) TAB PO SCH ×2 (05:57→16:20)
--- NOTE | 2016-11-26 08:09 | Progress Note (SOAP) ---
Subjective Subjective/Events-last exam general debility. Diabetes. Patient has improved. Patient needs a railing at home so can go down steps Objective Exam Vital Signs Date Time Temp Pulse Resp B/P (MAP) Pulse Ox O2 Delivery O2 Flow Rate FiO2 11/26/16 04:00 97.6 79 16 121/71 95 11/25/16 18:17 97.8 75 16 113/67 100 I & O 11/26/16 07:00 Intake Total 2400 ml Balance 2400 ml Capillary Refill : Less Than 3 Seconds General Appearance: No Apparent Distress, WD/WN HEENT: Normal ENT Inspection Extremity: Normal Capillary Refill, Normal Inspection, Normal Range of Motion, Non Tender, No Calf Tenderness, No Pedal Edema, Calf Tenderness, Inflammation, Pedal Edema, Pelvis Stable, Slow Capillary Refill, Swelling, Other Results Lab Laboratory Tests 11/25/16 11:15: Glucometer 135H 11/25/16 16:08: Glucometer 150H 11/25/16 21:20: Glucometer 127H 11/26/16 04:29: Glucometer 106 Microbiology 11/14/16 Urine Culture - Final, Complete NO GROWTH Assessment/Plan Assessment/Plan Assess & Plan/Chief Complaint general debility. Foot ulcers good. Diabetes 2 person assist. . 11/16/16. General debility. Diabetes. Patient improving. . . General debility. Confusion Diabetes.. . 11/20. General debility. Diabetes. Hallucinations. Patient working progress. . 11/21/16. General debility. Diabetes. Patient voices no complaints. Patient feels she is improving. . 11/22/16 generalized debility. diabetes. Patient improving. Patient having neck and back pain lower.. . 11/23/16 generalized debility. Diabetes. Patient getting around better. . 11/26/16. General debility. Diabetes. Patient to be discharged tomorrow Clinical Quality Measures DVT/VTE Risk/Contraindication: Risk Factor Score Per Nursin RFS Level Per Nursing on Admit: 4+=Very High JOSE PRIEST DO November 26, 2016 08:09
[2016-11-26] MEDS: DULoxetine 30 MG (CYMBALTA) CAP PO SCH (08:42)
[2016-11-26] MEDS: FUROSEMIDE 40 MG (LASIX) TAB PO SCH (08:42)
[2016-11-26] MEDS: IRON POLYSAC 150 MG CAP (NIFEREX) PO SCH ×2 (08:42→20:14)
[2016-11-26] MEDS: ENOXAPARIN 40 MG/0.4 ML (LOVENOX) SYR SC SCH (08:42)
[2016-11-26] MEDS: meTOproloL SUCCINATE 50 MG (TOPROL XL) TAB PO SCH (08:42)
[2016-11-26] MEDS: OLANZapine 2.5 MG (ZyPREXA) TAB PO SCH (08:42)
[2016-11-26] MEDS: DOCUSATE SODIUM 100 MG (COLACE) CAP PO SCH ×2 (08:42→20:16)
[2016-11-26] MEDS: LORATADINE (CLARITIN) 10 MG TAB PO SCH (08:42)
[2016-11-26] MEDS: PREGABALIN 75 MG (LYRICA) CAP PO SCH ×3 (08:42→20:14)
[2016-11-26] MEDS: rOPINIRole 1 MG (REQUIP) TABLET PO SCH ×2 (08:43→20:14)
[2016-11-26] MEDS: NYSTATIN CREAM (MYCOSTATIN) 30 GM TUBE TP SCH ×3 (08:43→20:15)
--- NOTE | 2016-11-26 09:28 | PM & R (SOAP) Progress Note ---
Subjective Subjective/Events-last exam Patient was seen in her room this AM Disacussed case with RN and with SW [facility] DR aguilar PCP Current labs and Therapy notes reviewed.Patient Modified Independent for transfers and Gailt Objective Exam Last Set of Vital Signs Vital Signs Date Time Temp Pulse Resp B/P (MAP) Pulse Ox O2 Delivery O2 Flow Rate FiO2 11/26/16 04:00 97.6 79 16 121/71 95 Capillary Refill : Less Than 3 Seconds I&O Intake and Output 11/26/16 00:00 Intake Total 2300 ml Balance 2300 ml Intake Oral 2300 ml # Voids 11 # Bowel Movements 1 General: Alert, Oriented X3, Cooperative, No Acute Distress HEENT: Atraumatic, PERRLA, EOMI, Mucous Memb Moist/[place] Neck: Supple, No JVD Lungs: Clear to Auscultation, Normal Air Movement Heart: Regular Rate Abdomen: Normal Bowel Sounds, Soft, No Tenderness Extremities: Other (chronic dermatitis and edema) Skin: Other (Bilateral calf dermatitis with markedly reduced edema. Bilateral foot ulcers with scab formation.) Neuro: Other (generalized weakness) Results Lab Laboratory Tests 11/23/16 11:07: Glucometer 164H 11/23/16 16:24: Glucometer 134H 11/23/16 20:39: Glucometer 133H 11/24/16 05:55: Glucometer 119H 11/24/16 11:41: Glucometer 111H 11/24/16 16:14: Glucometer 116H 11/24/16 20:47: Glucometer 186H 11/25/16 05:54: Glucometer 107 11/25/16 11:15: Glucometer 135H 11/25/16 16:08: Glucometer 150H 11/25/16 21:20: Glucometer 127H 11/26/16 04:29: Glucometer 106 Microbiology 11/14/16 Urine Culture - Final, Complete NO GROWTH Assessment/Plan Assessment General debil DM Chronic stasis dermatitis Anxiety/depression/psychosis? Plan Continue PT/OT Trend accuchecks and adjust meds as needed Discharge set for tomorrow to home with [facility] F/U with DR Aguilar See orders PEARL SAMSON MD November 26, 2016 09:28
[2016-11-26] MEDS ORDERED: DOCU100C37 PO (09:35)
[2016-11-26] MEDS ORDERED: ACET-77 PO (09:35)
[2016-11-26] MEDS ORDERED: OLAN2.5T19 PO (09:35)
--- NOTE | 2016-11-26 11:51 | Physical Therapy Daily Note ---
PT Daily Note-Current Subjective Patient agrees to PT. She is very excited to return to home tomorrow. Pain Numeric Pain Scale: 0-No Pain Location: No Pain Reported Mental Status Patient Orientation: Normal For Age Transfers Functional [place] Measure 0=Not Assessed/NA 4=Minimal Assistance 1=Total Assistance 5=Supervision or Setup 2=Maximal Assistance 6=Modified [place] 3=Moderate Assistance 7=Complete IndependenceIRFPAI Quality Coding Scale 6 Independent with activity with or without an assistive device 5 Patient requires set up or clean up by helper. Patient completes activity by themselves 4 Supervision or touching assist (CGA). [place] provide cues , steadying assist 3 The helper provides less than half the effort to complete the activity 2 The helper provides more than half the effort to complete the activity 1 Dependent. The helper does all the effort to complete an activity 7 Patient refused to complete or attempt activity 9 The patient did not perform the activity before the current illness or injury 88 Not attempted due to Medical conditions or safety concerns Transfers (B, C, W/C) (FIM): 6 Scootin Rollin Roll Left to Right (QC): 5 Supine to/from Sit: 6 Sit to/from Stand: 6 Sit to Lying (QC): 5 Sit to Stand (QC): 5 Chair/Ico-dx-Crcht Xfer(QC): 5 Bed to/from Chair: 6 Car Transfer (QC): 5 Gait Training Does the Patient Walk?: Yes Gait (FIM): 6 Distance (FIM): 3=150 ft Distance: 250' x 4 Walk 10 feet (QC): 5 Walk 50 ft with 2 Turns(QC): 5 Walk 150 ft (QC): 5 Walking 10ft/uneven surface-QC: 5 Gait Level of Assist: 6 Gait Assistive Device: FWW very, very slow, methodical, safe and functional Stair Training Stair Training: Handrails/: 2 handrails Stairs (FIM): 2 #of Steps: 4 1 Step (curb) (QC): 5 4 Steps (QC): 5 12 Steps (QC): 9 Stairs: Pattern: Step to Level of Assist: 5 Balance Picking up an Object (QC): 5 Special Test Comments utilizes assistive device Exercises Supine Ex: Ankle pumps, Quad Set Supine Reps: 10 Seated Therapy Exercises: Ankle pumps, Long arc quads, Shoulder Abd Seated Reps: 15 Assessment Patient require time to complete all functional tasks and redirection to remain on task. Plan dismissal tomorrow with home health intervention. PT Short Term Goals Short Term Goals Time Frame: November 27, 2016 Transfers (B,C,W/C) (FIM): 3 Gait (FIM): 1 Distance (FIM): 1=up to 49 ft Gait Distance Comment: 20' Gait Level of Assist: 3 Gait Assistive Device: FWW Stairs (FIM): 1 # of Steps: 1 Stairs Level of Assist: 3 PT Penitentiary Goals Culinary Art Teacher Goals PT Penitentiary Goals Time Frame: Dec 11, 2016 Transfers (B,C,W/C) (FIM): 5 (met 11/26/16) Sit to Lying (QC): 5 (met 11/26/16) Lying-Sitting on Side/Bed(QC): 5 (met 11/26/16) Sit to Stand (QC): 5 (met 11/26/16) Rollin (met 11/26/16) Roll Left to Right (QC): 5 (met 11/26/16) Chair/Pxu-ry-Olykj Xfer(QC): 5 (met 11/26/16) Car Transfer (QC): 5 (met 11/26/16) Does the Patient Walk: No and Walking Goal IS indicated Gait (FIM): 2 (met 11/26/16) Gait distance (FIM): 3=074-66 ft Distance: 75' Walk 10 feet (QC): 5 (met 11/26/16) Walk 10ft-Uneven Surface(QC): 5 (met 11/26/16) Walk 50ft with 2 Turns (QC): 5 (met) Walk 150 ft (QC): 88 (met 11/26/16) Gait Level of Assist: 5 (met 11/26/16) Gait Assistive Device: FWW # of Steps: 4 (met 11/2216) 1 Step (curb) (QC): 4 (met 11/26/16) 4 Steps (QC): 4 (met 11/06/16) 12 Steps (QC): 88 (met 11/26/16) Stairs Level Of Assist: 5 (met 11/26/16) Picking up an Object (QC): 4 (met 11/26/16) PT Plan Treatment/Plan Treatment Plan: Continue Plan of Care Treatment Plan: Bed Mobility, Education, Functional Activity Hitesh, Group Therapy, Gait, Safety, Therapeutic Exercise, Transfers Treatment Duration: Dec 11, 2016 Visits Per Week: 6-11 Minutes/Day (M-F): 60-90 Minutes/Day (Sat/Andrade): PRN Safety Risks/Education Patient Education: Safety Issues Teaching Recipient: Patient Teaching Methods: Discussion Response to Teaching: Verbalize Understanding Discharge Recommendations Therapy D/C Recommendations: Physical Therapy Home Care Time/GCodes Time In: 1101 Time Out: 1201 Total Billed Treatment Time: 60 Total Billed Treatment 1 visit GT x 2 35 min EX x 2 25 min NIKKO MOSLEY PT November 26, 2016 11:51
--- NOTE | 2016-11-26 11:56 | Occupational Ther Daily Note ---
OT Current Status-Daily Note Subjective No pain reported. Appearance Pt. up in chair. Agrees to shower. Mental Status/Objective Patient Orientation: Person, Place Functional [place] Measure 0=Not Assessed/NA 4=Minimal Assistance 1=Total Assistance 5=Supervision or Setup 2=Maximal Assistance 6=Modified [place] 3=Moderate Assistance 7=Complete [place] ADL-Treatment Functional [place] Measure 0=Not Assessed/NA 4=Minimal Assistance 1=Total Assistance 5=Supervision or Setup 2=Maximal Assistance 6=Modified [place] 3=Moderate Assistance 7=Complete IndependenceIRFPAI Quality Coding Scale 6 Independent with activity with or without an assistive device 5 Patient requires set up or clean up by helper. Patient completes activity by themselves 4 Supervision or touching assist (CGA). [place] provide cues , steadying assist 3 The helper provides less than half the effort to complete the activity 2 The helper provides more than half the effort to complete the activity 1 Dependent. The helper does all the effort to complete an activity 7 Patient refused to complete or attempt activity 9 The patient did not perform the activity before the current illness or injury 88 Not attempted due to Medical conditions or safety concerns Grooming (FIM): 5 (set up with brush.) Oral Hygiene (QC): 5 Bathing (FIM): 5 (SBA in shower.) Shower/Bathe Self (QC): 4 Upper Body (FIM): 4 (Pt. requires assistance to find holes of arms and to manipulate shirt. States that her vision is low, and that she has neuropathy in hands, and that is why it is difficult.) Upper Body Dressing (QC): 4 Lower Body Dressing (FIM): 3 (Pt. is unable to find the hole of her brief, or don socks. Requires increased time, and blames her neuorapathy and vision.) Lower Body Dressing (QC): 3 On/Off Footwear (QC): 2 Toileting (FIM): 5 (SBA.) Toileting Hygiene (QC): 5 Transfers (B, C, W/C) (FIM): 5 Toilet/Commode Transfer (FIM): 5 Toilet Transfer (QC): 4 Shower Transfer(FIM): 5 Other Treatment Pt. requires constant cues to stay on task and sequence activities. Pt. continues to talk throughout treatment and forgets what she is doing. Has difficulty managing clothing, and is unable to don shirt correctly over arms or get her feet into her brief. Pt. demonstrates poor safety awareness, and still reports that nursing keeps her walker across the room so she can't get up on her own, and she doesn't know why. Pt. requires cues for safety to keep the walker in front of her when ambulating. Pt. has chair alarm on and call light within reach after ADLs. All other needs met in room as well. Education OT Patient Education: Correct positioning, Energy conservation, Modified ADL techniques, Progress toward Goal/Update tx plan, Purpose of tx/functional activities, Reviewed precautions, Rehab process, Safety issues, Transfer techniques, Use of adapted equipment Teaching Recipient: Patient Teaching Methods: Demonstration, Discussion Response to Teaching: Verbalize Understanding, Return Demonstration OT Short Term Goals Short Term Goals Time Frame: November 20, 2016 Grooming(FIM): 5 Upper Body Dressing(FIM): 4 Lower Body Dressing(FIM): 3 Transfers (B,C,W/C) (FIM): 3 Toilet/Commode Transfer(FIM): 3 Additional Short Term Goals: 1-Demonstrate ADL Tasks, 2-Verbalize Understanding , 3-ImproveStrength/Hitesh 1=Demonstrate adherence to instructed precautions during ADL tasks. 2=Patient will verbalize/demonstrate understanding of assistive devices/ modifications for ADL. 3=Patient will improve strength/tolerance for activity to enable patient to perform ADL's. OT It Web Development Consultant Goals It Web Development Consultant Goals Time Frame: December 04, 2016 Eating (FIM): 6 Eating (QC): 6 Groomin Bathing(FIM): 5 Shower/Bathe Self (QC): 4 Upper Body Dressing(FIM): 5 Upper Body Dressing (QC): 4 Lower Body Dressing(FIM): 5 Lower Body Dressing (QC): 4 On/Off Footwear (QC): 5 Toileting(FIM): 5 Toileting Hygiene (QC): 4 Toilet/Commode Transfer(FIM): 5 Toilet/Commode Transfer (QC): 4 Shower Transfer(FIM): 5 Additional Goals: 1-Demonstrate ADL Tasks, 2-Verbalize Understanding, 3- ImproveStrength/Hitesh 1=Demonstrate adherence to instructed precautions during ADL tasks. 2=Patient will verbalize/demonstrate understanding of assistive devices/ modifications for ADL. 3=Patient will improve strength/tolerance for activity to enable patient to perform ADL's. OT Education/Plan Problem List/Assessment Assessment: Decreased Activ Tolerance, Decreased Safety Aware, Decreased UE Strength, Dependent Transfers, Impaired Cognition, Impaired Coordination, Impaired Funct Balance, Impaired I ADL's, Impaired Self-Care Skills Pt to benefit from skilled OT intervention for ADL training, transfers, strengthening, and safety education to improve level of function and allow safe discharge plan. Discharge Recommendations Plan/Recommendations: Continue POC Therapy D/C Recommendations: Home w/ Family Support, Occupational Therapy Home Care, Scheduled Assistance Treatment Plan/Plan of Care Treatment,Training & Education: Yes Patient would benefit from OT for education, treatment and training to promote independence in ADL's, mobility, safety and/or upper extremity function for ADL' s. Plan of Care: ADL Retraining, Functional Mobility, Group Exercise/Act as Ind, UE Funct Exercise/Act, UE Neuromus Re-Ed/Coord Treatment Duration: December 04, 2016 Visits Per Week: 10-12 Minutes/Day (M-F): 60-90 Minutes/Day (Sat/Andrade): PRN Agreement: Yes Rehab Potential: Fair Time/GCodes Start Time: 09:30 Stop Time: 11:00 Total Time Billed (hr/min): 90 Billed Treatment Time 1, ADL x 6 MAURICIO RODAS OT November 26, 2016 11:56
--- NOTE | 2016-11-26 14:12 | Physical Therapy Daily Note ---
PT Daily Note-Current Subjective Patient is very agreeable to participate with PT. No c/o at this time. Pain Numeric Pain Scale: 5-Moderate Pain Location: Left Location Body Site: Ankle Pain Description: Chronic Appearance bilateral LE edema (chronic) Mental Status Patient Orientation: Normal For Age Transfers Functional Dare Measure 0=Not Assessed/NA 4=Minimal Assistance 1=Total Assistance 5=Supervision or Setup 2=Maximal Assistance 6=Modified Dare 3=Moderate Assistance 7=Complete IndependenceIRFPAI Quality Coding Scale 6 Independent with activity with or without an assistive device 5 Patient requires set up or clean up by helper. Patient completes activity by themselves 4 Supervision or touching assist (CGA). [place] provide cues , steadying assist 3 The helper provides less than half the effort to complete the activity 2 The helper provides more than half the effort to complete the activity 1 Dependent. The helper does all the effort to complete an activity 7 Patient refused to complete or attempt activity 9 The patient did not perform the activity before the current illness or injury 88 Not attempted due to Medical conditions or safety concerns Transfers (B, C, W/C) (FIM): 6 Scootin Supine to/from Sit: 6 Sit to/from Stand: 6 Sit to Lying (QC): 5 Sit to Stand (QC): 5 Exercises Supine Ex: Ankle pumps, Quad Set, Heel Slides, Short Arc Quads, Straight leg raise Supine Reps: 15 (SLR AAROM) Seated Therapy Exercises: Ankle pumps, Long arc quads, Hip flexion Seated Reps: 25 (x 2 sets) Assessment Patient requires time to complete all functional tasks. Plan dismissal tomorrow to home. PT Short Term Goals Short Term Goals Time Frame: November 27, 2016 Transfers (B,C,W/C) (FIM): 3 Gait (FIM): 1 Distance (FIM): 1=up to 49 ft Gait Distance Comment: 20' Gait Level of Assist: 3 Gait Assistive Device: FWW Stairs (FIM): 1 # of Steps: 1 Stairs Level of Assist: 3 PT E Commerce Solution Architect Goals E Commerce Solution Architect Goals PT [facility] Goals Time Frame: Dec 11, 2016 Transfers (B,C,W/C) (FIM): 5 (met 11/26/16) Sit to Lying (QC): 5 (met 11/26/16) Lying-Sitting on Side/Bed(QC): 5 (met 11/26/16) Sit to Stand (QC): 5 (met 11/26/16) Rollin (met 11/26/16) Roll Left to Right (QC): 5 (met 11/26/16) Chair/Ucn-fm-Bmbtl Xfer(QC): 5 (met 11/26/16) Car Transfer (QC): 5 (met 11/26/16) Does the Patient Walk: No and Walking Goal IS indicated Gait (FIM): 2 (met 11/26/16) Gait distance (FIM): 0=086-40 ft Distance: 75' Walk 10 feet (QC): 5 (met 11/26/16) Walk 10ft-Uneven Surface(QC): 5 (met 11/26/16) Walk 50ft with 2 Turns (QC): 5 (met) Walk 150 ft (QC): 88 (met 11/26/16) Gait Level of Assist: 5 (met 11/26/16) Gait Assistive Device: FWW # of Steps: 4 (met 11/2216) 1 Step (curb) (QC): 4 (met 11/26/16) 4 Steps (QC): 4 (met 11/06/16) 12 Steps (QC): 88 (met 11/26/16) Stairs Level Of Assist: 5 (met 11/26/16) Picking up an Object (QC): 4 (met 11/26/16) PT Plan Treatment/Plan Treatment Plan: Continue Plan of Care Treatment Plan: Bed Mobility, Education, Functional Activity Hitesh, Group Therapy, Gait, Safety, Therapeutic Exercise, Transfers Treatment Duration: Dec 11, 2016 Visits Per Week: 6-11 Minutes/Day (M-F): 60-90 Minutes/Day (Sat/Andrade): PRN Time/GCodes Time In: 1300 Time Out: 1330 Total Billed Treatment Time: 30 Total Billed Treatment 1 visit EX x 2 30 min NIKKO MOSLEY PT November 26, 2016 14:12
[2016-11-26 18:20] VITALS: BP 134/74
[2016-11-26] MEDS: ATORVASTATIN 20 MG (LIPITOR) TABLET PO SCH (20:14)
[2016-11-27 05:13] VITALS: BP 142/78
[2016-11-27] MEDS: inSUlin ASPART (NovoLOG) 1 UNIT/0.01 ML (CHARGE PER UNIT) SC SCH ×3 (05:16→16:03)
[2016-11-27] MEDS: TROSPIUM 20 MG (SANCTURA) TAB PO SCH ×2 (05:59→16:08)
[2016-11-27] MEDS: PANTOPRAZOLE 40 MG (PROTONIX) TAB PO SCH (05:59)
[2016-11-27] MEDS: metFORMIN 500 MG (GLUCOPHAGE) TAB PO SCH ×2 (06:00→16:08)
[2016-11-27] MEDS: PREGABALIN 75 MG (LYRICA) CAP PO SCH ×2 (08:01→12:29)
[2016-11-27] MEDS: DULoxetine 30 MG (CYMBALTA) CAP PO SCH (08:01)
[2016-11-27] MEDS: ENOXAPARIN 40 MG/0.4 ML (LOVENOX) SYR SC SCH (08:01)
[2016-11-27] MEDS: rOPINIRole 1 MG (REQUIP) TABLET PO SCH (08:01)
[2016-11-27] MEDS: NYSTATIN CREAM (MYCOSTATIN) 30 GM TUBE TP SCH ×2 (08:02→12:29)
[2016-11-27] MEDS: OLANZapine 2.5 MG (ZyPREXA) TAB PO SCH (08:02)
[2016-11-27] MEDS: IRON POLYSAC 150 MG CAP (NIFEREX) PO SCH (08:02)
[2016-11-27] MEDS: DOCUSATE SODIUM 100 MG (COLACE) CAP PO SCH (08:02)
[2016-11-27] MEDS: meTOproloL SUCCINATE 50 MG (TOPROL XL) TAB PO SCH (08:02)
[2016-11-27] MEDS: LORATADINE (CLARITIN) 10 MG TAB PO SCH (08:02)
[2016-11-27] MEDS: FUROSEMIDE 40 MG (LASIX) TAB PO SCH (08:02)
--- NOTE | 2016-11-27 08:04 | Therapy Team Discharge Summary ---
Therapy Discharge Summary Discharge Recommendations Date of Discharge Therapy D/C Recommendations: Home w/ Family Support, Occupational Therapy Home Care, Physical Therapy Home Care, Scheduled Assistance Physical Therapy Patient to dismiss to home with home health intervention to ensure continued strengthening with gross motor skills. Upon initial evaluation, patient was dependent assist x 2 with all mobility and extremely lethargic. Patient was unable to assist with any gross motor mobility. Upon dismissal, patient is modified independent with all gross motor skills and has returned to OF safely and will return to home on this date. Patient ambulates with FWW 200' with very slow, methodical gait sequence. She continues to require time to complete all functional tasks. Patient is highly motivated to return to home with her pets. Goals attained. PT Sales Administration Manager Goals Custodial Goals PT Sales Administration Manager Goals Time Frame: Dec 11, 2016 Transfers (B,C,W/C) (FIM): 5 (met 11/26/16) Roll Left to Right (QC): 5 (met 11/26/16) Sit to Lying (QC): 5 (met 11/26/16) Lying-Sitting on Side/Bed(QC): 5 (met 11/26/16) Sit to Stand (QC): 5 (met 11/26/16) Chair/Lpm-cq-Kfdkf Xfer(QC): 5 (met 11/26/16) Car Transfer (QC): 5 (met 11/26/16) Does the Patient Walk: No and Walking Goal IS indicated Gait (FIM): 2 (met 11/26/16) Gait distance (FIM): 5=496-24 ft Distance: 75' Walk 10 feet (QC): 5 (met 11/26/16) Walk 10ft-Uneven Surface(QC): 5 (met 11/26/16) Walk 50ft with 2 Turns (QC): 5 (met) Walk 150 ft (QC): 88 (met 11/26/16) Gait Level of Assist: 5 (met 11/26/16) Gait Assistive Device: FWW # of Steps: 4 (met 11/2216) 1 Step (curb) (QC): 4 (met 11/26/16) 4 Steps (QC): 4 (met 11/06/16) 12 Steps (QC): 88 (met 11/26/16) Stairs Level Of Assist: 5 (met 11/26/16) Picking up an Object (QC): 4 (met 11/26/16) OT Custodial Goals Custodial Goals Time Frame: December 04, 2016 Eating (FIM): 6 Eating (QC): 6 Grooming(FIM): 6 Bathing(FIM): 5 Shower/Bathe Self (QC): 4 Upper Body Dressing(FIM): 5 Upper Body Dressing (QC): 4 Lower Body Dressing(FIM): 5 Lower Body Dressing (QC): 4 On/Off Footwear (QC): 5 Toileting(FIM): 5 Toileting Hygiene (QC): 4 Toilet/Commode Transfer(FIM): 5 Toilet/Commode Transfer (QC): 4 Shower Transfer(FIM): 5 Additional Goals: 1-Demonstrate ADL Tasks, 2-Verbalize Understanding, 3- ImproveStrength/Hitesh 1=Demonstrate adherence to instructed precautions during ADL tasks. 2=Patient will verbalize/demonstrate understanding of assistive devices/ modifications for ADL. 3=Patient will improve strength/tolerance for activity to enable patient to perform ADL's. NIKKO MOSLEY PT November 27, 2016 08:04
--- NOTE | 2016-11-27 08:12 | Progress Note (SOAP) ---
Subjective Subjective/Events-last exam debility. Diabetes. Hallucination. Patient ready for discharge today.. Patient to have [facility] Objective Exam Vital Signs Date Time Temp Pulse Resp B/P (MAP) Pulse Ox O2 Delivery O2 Flow Rate FiO2 11/27/16 05:13 97.8 82 16 142/78 95 11/26/16 18:20 97.8 78 18 134/74 94 I & O 11/27/16 07:00 Intake Total 1910 ml Balance 1910 ml Capillary Refill : Less Than 3 Seconds General Appearance: No Apparent Distress, WD/WN Respiratory: No Accessory Muscle Use, No Respiratory Distress Results Lab Laboratory Tests 11/26/16 10:57: Glucometer 103 11/26/16 16:08: Glucometer 129H 11/26/16 20:21: Glucometer 121H 11/27/16 04:54: Glucometer 118H Microbiology 11/14/16 Urine Culture - Final, Complete NO GROWTH Assessment/Plan Assessment/Plan Assess & Plan/Chief Complaint general debility. Foot ulcers good. Diabetes 2 person assist. . 11/16/16. General debility. Diabetes. Patient improving. . . General debility. Confusion Diabetes.. . 11/20. General debility. Diabetes. Hallucinations. Patient working progress. . 11/21/16. General debility. Diabetes. Patient voices no complaints. Patient feels she is improving. . 11/22/16 generalized debility. diabetes. Patient improving. Patient having neck and back pain lower.. . 11/23/16 generalized debility. Diabetes. Patient getting around better. . 11/26/16. General debility. Diabetes. Patient to be discharged tomorrow. . 11/27/16. General debility. Diabetes. Patient to be discharged today. Patient of [facility] Clinical Quality Measures DVT/VTE Risk/Contraindication: Risk Factor Score Per Nursin RFS Level Per Nursing on Admit: 4+=Very High JOSE PRIEST DO November 27, 2016 08:12
--- NOTE | 2016-11-27 13:19 | Therapy Team Discharge Summary ---
Therapy Discharge Summary Discharge Recommendations Date of Discharge Therapy D/C Recommendations: Home w/ Family Support, Occupational Therapy Home Care, Physical Therapy Home Care, Scheduled Assistance Occupational Therapy Pt admitted to ARU with AMS/UTI. On admission pt required mod assist with bathing and lower body dressing and min assist with transfers, grooming, and upper body dressing. Skilled OT intervention focused on ADL training, transfers , strengthening, and safety education. Pt made progress with therapy and by discharge is completing transfers, toileting, grooming, and bathing with SBA; upper body dressing with min assist and lower body dressing with mod assist. Pt met goals for eating, bathing, toileting, and transfers, but did not meet other goals. Pt discharging home this date with [facility] D/C ARU OT at this time. PT Long-Term Goals Builder Beam Goals PT Long-Term Goals Time Frame: Dec 11, 2016 Transfers (B,C,W/C) (FIM): 5 (met 11/26/16) Roll Left to Right (QC): 5 (met 11/26/16) Sit to Lying (QC): 5 (met 11/26/16) Lying-Sitting on Side/Bed(QC): 5 (met 11/26/16) Sit to Stand (QC): 5 (met 11/26/16) Chair/Zrm-wk-Emrkk Xfer(QC): 5 (met 11/26/16) Car Transfer (QC): 5 (met 11/26/16) Does the Patient Walk: No and Walking Goal IS indicated Gait (FIM): 2 (met 11/26/16) Gait distance (FIM): 6=071-43 ft Distance: 75' Walk 10 feet (QC): 5 (met 11/26/16) Walk 10ft-Uneven Surface(QC): 5 (met 11/26/16) Walk 50ft with 2 Turns (QC): 5 (met) Walk 150 ft (QC): 88 (met 11/26/16) Gait Level of Assist: 5 (met 11/26/16) Gait Assistive Device: FWW # of Steps: 4 (met 11/2216) 1 Step (curb) (QC): 4 (met 11/26/16) 4 Steps (QC): 4 (met 11/06/16) 12 Steps (QC): 88 (met 11/26/16) Stairs Level Of Assist: 5 (met 11/26/16) Picking up an Object (QC): 4 (met 11/26/16) OT Long-Term Goals Builder Beam Goals Time Frame: December 04, 2016 Eating (FIM): 6 Eating (QC): 6 Grooming(FIM): 6 Bathing(FIM): 5 Shower/Bathe Self (QC): 4 Upper Body Dressing(FIM): 5 Upper Body Dressing (QC): 4 Lower Body Dressing(FIM): 5 Lower Body Dressing (QC): 4 On/Off Footwear (QC): 5 Toileting(FIM): 5 Toileting Hygiene (QC): 4 Toilet/Commode Transfer(FIM): 5 Toilet/Commode Transfer (QC): 4 Shower Transfer(FIM): 5 Additional Goals: 1-Demonstrate ADL Tasks, 2-Verbalize Understanding, 3- ImproveStrength/Hitesh 1=Demonstrate adherence to instructed precautions during ADL tasks. 2=Patient will verbalize/demonstrate understanding of assistive devices/ modifications for ADL. 3=Patient will improve strength/tolerance for activity to enable patient to perform ADL's. SHANNON VILLALOBOS OT November 27, 2016 13:19
[2016-11-27 16:47] VITALS: BP 135/76
== END 2016-11-27 16:47 | disposition home health service (06) | DRG 948 ==
LOC: ENPENDDIS 11-27 13:00
PROVIDERS: ADMIT Physical Medicine & Rehabilitation; ATTEND Physical Medicine & Rehabilitation
DX: R53.1 Weakness (principal); I87.2 Venous insufficiency (chronic) (peripheral); E87.5 Hyperkalemia; I10 Essential (primary) hypertension; E11.9 Type 2 diabetes mellitus without complications; Z79.4 Long term (current) use of insulin; R41.0 Disorientation, unspecified; F41.9 Anxiety disorder, unspecified; F32.9 Major depressive disorder, single episode, unspecified; Z87.891 Personal history of nicotine dependence
CPT/HCPCS: 36415; 70450; 80048; 80053; 81000; 82962; 83036; 85027; 87088

== ENCOUNTER 2016-12-13 15:29 | Inpatient (IN) | payer MEDICARE, MEDICAID ==
[~2016-12-13] VITALS: Ht 167.6 cm; Wt 100.4 kg
[~2016-12-13 15:29] MED LIST changes: +ACET-77 PO; +ALPR0.254 PO; +DOCU100C37 PO; +DULO30CA48 PO; +OLAN2.5T19 PO; +ROSU10TA24 PO
[2016-12-13] MEDS ORDERED: CEFD300C3 PO (15:47)
[2016-12-13] MEDS ORDERED: NS IV 1000 ML 1,000 ML IV ONE (16:05)
[2016-12-13 16:06] LABS: BILIRUBIN,URINE 3+ (NEGATIVE); KETONES,URINE NEGATIVE (NEGATIVE); LEUKOCYTE ESTERASE ,URINE 1+ (NEGATIVE); NITRITE,URINE NEGATIVE (NEGATIVE); PH,URINE 5 (5-9); PROTEIN,URINE 1+ (NEGATIVE); UROBILINOGEN,URINE NORMAL (NORMAL)
[2016-12-13 16:07] LABS: BASOPHILS # (AUTO) 0.1 10^3/uL (0.0-0.1); BASOPHILS % (AUTO) 1 % (0-10); EOSINOPHILS # (AUTO) 0.5 10^3/uL (0.0-0.3); EOSINOPHILS % (AUTO) 7 % (0-10); LYMPHOCYTES % (AUTO) 13 % (12-44); MEAN CORPUSCULAR HEMOGLOBIN 26 PG (25-34); MEAN CORPUSCULAR HGB CONC 31 G/DL (32-36); MEAN CORPUSCULAR VOLUME 85 FL (80-99); MEAN PLATELET VOLUME 11.3 FL (7.4-10.4); MONOCYTES # (AUTO) 0.9 X 10^3 (0.0-1.0); MONOCYTES % (AUTO) 12 % (0-12); NEUTROPHILS # (AUTO) 5.3 X 10^3 (1.8-7.8); NEUTROPHILS % (AUTO) 68 % (42-75); PLATELET COUNT 244 10^3/uL (130-400); RED BLOOD COUNT 4.16 10^6/uL (4.35-5.85); RED CELL DISTRIBUTION WIDTH 15.4 % (10.0-14.5); WHITE BLOOD COUNT 7.8 10^3/uL (4.3-11.0)
[2016-12-13 16:17] LABS: WBC,URINE 0-2 /HPF
[2016-12-13 16:19] LABS: BILIRUBIN,TOTAL 0.2 MG/DL (0.1-1.0); CALCIUM 9.7 MG/DL (8.5-10.1); CREATININE SERUM 1.79 MG/DL (0.60-1.30); POTASSIUM 5.1 MMOL/L (3.6-5.0); TOTAL PROTEIN 7.4 G/DL (6.4-8.2)
--- NOTE | 2016-12-13 17:34 | ED General ---
General Chief Complaint: General Problems/Pain Stated Complaint: HYPOTENSION Nursing Triage Note: home health activated EMS because patient was found to be talking abnormally, per home health patient gets this way when she has a UTI. unknown last known well time. patient is currently being treated for cellulitis to [facility] Nursing Sepsis Screen: No Definite Risk History of Present Illness Time Seen by Provider: 15:50 Initial Comments Evaluation for confusion, fatigue, and difficulty in self-care at home. The patient has recently been discharged on 11/27/16 from Rehab at [facility]. She has home health services but is needing additional assistance. Timing/Duration: 1-2 Days Modifying Factors: improves with Rest Associated Systoms: Malaise, Weakness Allergies and Home Medications Allergies Coded Allergies: No Known Drug Allergies (Unverified , 09/15/13) Home Medications Acetaminophen 500 Mg Tablet, 500 MG PO QID PRN for PAIN-MILD for 30 Days, #100 Prescribed by: PEARL SAMSON on 11/26/16 0935 Alprazolam 0.25 Mg Tablet, 0.25 MG PO BID PRN for ANXIETY, (Reported) Cefdinir 300 Mg Capsule, #14 (Reported) Docusate Sodium 100 Mg Capsule, 100 MG PO BID for 30 Days, #60 Prescribed by: PEARL SAMSON on 11/26/16 0935 Duloxetine HCl 30 Mg Capsule.dr, 30 MG PO DAILY, (Reported) Esomeprazole Magnesium 40 Mg Cap, 40 MG PO DAILY, (Reported) TAKES BEFORE BREAKFAST Furosemide 40 Mg Tablet, 40 MG PO DAILY, (Reported) Insulin Aspart 300 Units/3 Ml Solution, SQ QID, (Reported) 60-200 = 0 UNITS 201-250 = 3 UNITS 251-300 = 5 UNITS 301-350 = 7 UNITS 351- 400 = 9 UNITS Iron Polysaccharide Complex 150 Mg Capsule, 150 MG PO BID, (Reported) Loratadine 10 Mg Tablet, 10 MG PO DAILY, (Reported) Metformin HCl 1,000 Mg Tablet, 1,000 MG PO BID, (Reported) Metoprolol Succinate 50 Mg Tab.er.24h, 50 MG PO DAILY, (Reported) Olanzapine 2.5 Mg Tablet, 2.5 MG PO DAILY for 30 Days, #30 Prescribed by: PEARL SAMSON on 11/26/16 0935 Polyethylene Glycol 3350 17 Gm Powd.pack, 17 GM PO DAILY PRN for CONSTIPATION, ( Reported) Pregabalin 150 Mg Capsule, 150 MG PO TID, (Reported) Ropinirole HCl 2 Mg Tablet, 2 MG PO BID, (Reported) Rosuvastatin Calcium 10 Mg Tablet, 10 MG PO DAILY, (Reported) LAST FILLED 10/04/16 #30 Solifenacin Succinate 10 Mg Tablet, 10 MG PO DAILY, (Reported) Tramadol HCl 50 Mg Tablet, 50 MG PO Q8H, (Reported) Constitutional: no symptoms reported, see HPI EENTM: no symptoms reported, see HPI Respiratory: no symptoms reported, see HPI Cardiovascular: no symptoms reported, see HPI Gastrointestinal: no symptoms reported, see HPI Genitourinary: no symptoms reported, see HPI Musculoskeletal: see HPI, muscle weakness Skin: see HPI, change in color (bilateral lower extremities ongoing with wound care per Dr. Sagastume.) Psychiatric/Neurological: No Symptoms Reported, See HPI Hematologic/Lymphatic: No Symptoms Reported, See HPI Immunological/Allergic: no symptoms reported, see HPI All Other Systems Reviewed Negative Unless Noted: Yes Past Fojskqg-Yheomf-Dqgkmh Hx Patient Social History Alcohol Use: Denies Use Recreational Drug Use: No Type Used: Cigarettes Former Smoker/When Quit: Aug 12, 1991 Recent Foreign Travel: No Contact w/Someone Who Travel: No Recent Infectious Disease Expo: No Recent Hopitalizations: Yes (This week... DC 11/10/16 from [facility]) Immunizations Up To Date Tetanus Booster (TDap): Less than 5yrs PED Vaccines UTD: Yes Date of Pneumonia Vaccine: Mar 19, 2012 Date of Influenza Vaccine: Mar 25, 2016 Seasonal Allergies Seasonal Allergies: No Surgeries HX Surgeries: Yes (HEMORRHOIDECTOMY, L HIP replacement, reduction left hip dislocation x2) Surgeries: Gallbladder, Joint Replacement, Orthopedic Respiratory Hx Respiratory Disorders: No Cardiovascular Hx Cardiac Disorders: Yes (CHF) Cardiac Disorders: Hypertension Neurological Hx Neurological Disorders: Yes (RLS) Neurological Disorders: Neuropathy Reproductive System Hx Reproductive Disorders: No Sexually Transmitted Disease: No HIV/AIDS: No Genitourinary Hx Genitourinary Disorders: No Gastrointestinal Hx Gastrointestinal Disorders: Yes Gastrointestinal Disorders: Hemorrhoids Musculoskeletal Hx Musculoskeletal Disorders: Yes (school age / accident) Musculoskeletal Disorders: Arthritis, Chronic Back Pain Endocrine Hx Endocrine Disorders: Yes (Lantus/ Novolog) Endocrine Disorders: Diabetes, Insulin dep HEENT HX ENT Disorders: Yes (report the start of cataracts, migrains) HEENT Disorders: Cataract Loss of Vision: Bilateral Hearing Impairment: Denies Cancer Hx Cancer: No Psychosocial Hx Psychiatric Problems: Yes Behavioral Health Disorders: Anxiety, Depression Integumentary HX Skin/Integumentary Disorder: Yes (SEEING WOUND CARE FOR WOUND ON FEET, history of cellulitis) Blood Transfusions Hx Blood Disorders: No Adverse Reaction to a Blood Tr: No Reviewed Nursing Assessment Reviewed/Agree w Nursing PMH: Yes Family Medical History Significant Family History: No Pertinent Family Hx Family Medial History: Congestive heart failure 03 FATHER Prostate cancer 03 FATHER No Family History of: Abdominal aortic aneurysm Josephine's disease Alcoholism Aphasia Cancer Cancer of colon Cataract Congenital heart disease Cystic fibrosis Dementia Dysphagia Family history: Allergy Family history: Alzheimer's disease Family history: Arthritis Family history: Asthma Family history: Breast disease Family history: Cardiovascular disease Family history: Coronary thrombosis Family history: Diabetes mellitus Family history: Gastrointestinal disease Family history: Glaucoma Family history: Hypertension Family history: Osteoporosis Family history: Thyroid disorder Headache Hearing loss Heart disease Hereditary disease History of - anemia History of - disorder History of - respiratory disease History of drug abuse Human immunodeficiency virus (HIV) seropositivity Hypercholesterolemia Infertile Kidney disease Malignant neoplasm of lung Myocardial infarction Parkinson's disease Psychotic disorder Seizure disorder Stroke Tuberculosis Visual impairment Physical Exam Vital Signs Vital Sign - Last 12Hours 12/13/16 15:41 Temp 98.3 Pulse 64 Resp 18 B/P (MAP) 95/52 Pulse Ox 100 O2 Delivery Room Air Capillary Refill : Less Than 3 Seconds General Appearance: No Apparent Distress, WD/WN Eyes: Bilateral Eye EOMI, Bilateral Eye Normal Inspection, Bilateral Eye PERRL HEENT: PERRL/EOMI, TMs Normal, Normal ENT Inspection, Pharynx Normal Neck: Full Range of Motion, Normal Inspection, Non Tender, Supple Respiratory: Chest Non Tender, Lungs Clear, Normal Breath Sounds Cardiovascular: Regular Rate, Rhythm, No Murmur Gastrointestinal: Normal Bowel Sounds, No Organomegaly, No Pulsatile Mass, Non Tender, Soft Back: Normal Inspection, No CVA Tenderness, No Vertebral Tenderness Extremity: Slow Capillary Refill, Other (limitation of motion bilateral lower extremities) Neurologic/Psychiatric: Alert, Oriented x3, No Motor/Sensory Deficits, Normal Mood/Affect Skin: Normal Color, Warm/Dry Lymphatic: No Adenopathy Progress/Results/Core Measures Results/Orders Lab Results Laboratory Tests Test 12/13/16 15:40 Range/Units White Blood Count 7.8 4.3-11.0 10^3/uL Red Blood Count 4.16 L 4.35-5.85 10^6/uL Hemoglobin 11.0 L 11.5-16.0 G/DL Hematocrit 36 35-52 % Mean Corpuscular Volume 85 80-99 FL Mean Corpuscular Hemoglobin 26 25-34 PG Mean Corpuscular Hemoglobin Concent 31 L 32-36 G/DL Red Cell Distribution Width 15.4 H 10.0-14.5 % Platelet Count 244 130-400 10^3/uL Mean Platelet Volume 11.3 H 7.4-10.4 FL Neutrophils (%) (Auto) 68 42-75 % Lymphocytes (%) (Auto) 13 12-44 % Monocytes (%) (Auto) 12 0-12 % Eosinophils (%) (Auto) 7 0-10 % Basophils (%) (Auto) 1 0-10 % Neutrophils # (Auto) 5.3 1.8-7.8 X 10^3 Lymphocytes # (Auto) 1.0 1.0-4.0 X 10^3 Monocytes # (Auto) 0.9 0.0-1.0 X 10^3 Eosinophils # (Auto) 0.5 H 0.0-0.3 10^3/uL Basophils # (Auto) 0.1 0.0-0.1 10^3/uL Urine Color YELLOW Urine Clarity SLIGHTLY CLOUDY Urine pH 5 5-9 Urine Specific [place] 1.015 L 1.016-1.022 Urine Protein 1+ H NEGATIVE Urine Glucose (UA) NEGATIVE NEGATIVE Urine Ketones NEGATIVE NEGATIVE Urine Nitrite NEGATIVE NEGATIVE Urine Bilirubin 3+ H NEGATIVE Urine Urobilinogen NORMAL NORMAL MG/DL Urine Leukocyte Esterase 1+ H NEGATIVE Urine RBC (Auto) NEGATIVE NEGATIVE Urine RBC NONE /HPF Urine WBC 0-2 /HPF Urine Crystals NONE /LPF Urine Bacteria NONE /HPF Urine Casts NONE /LPF Urine Mucus NEGATIVE /LPF Urine Culture Indicated NO Sodium Level 142 135-145 MMOL/L Potassium Level 5.1 H 3.6-5.0 MMOL/L Chloride Level 104 98-107 MMOL/L Carbon Dioxide Level 26 21-32 MMOL/L Anion Gap 12 5-14 MMOL/L Blood Urea Nitrogen 24 H 7-18 MG/DL Creatinine 1.79 H 0.60-1.30 MG/DL Estimat Glomerular Filtration Rate 28 BUN/Creatinine Ratio 13 Glucose Level 101 70-105 MG/DL Calcium Level 9.7 8.5-10.1 MG/DL Total Bilirubin 0.2 0.1-1.0 MG/DL Aspartate Amino Transf (AST/SGOT) 19 5-34 U/L Alanine Aminotransferase (ALT/SGPT) 19 0-55 U/L Alkaline Phosphatase 76 40-136 U/L Total Protein 7.4 6.4-8.2 G/DL Albumin 4.0 3.2-4.5 G/DL My Orders Orders - CHASEKELSEY Cbc With Automated Diff (12/13/16 15:59) Comprehensive Metabolic Panel (12/13/16 15:59) Ua Culture If Indicated (12/13/16 15:59) Saline Lock/Iv-Start (12/13/16 16:05) Ns Iv 1000 Ml (Sodium Chloride 0.9%) (12/13/16 16:05) Medications Given in ED Current Medications Medications Dose Ordered Sig/Donny Route Start Time Stop Time Status Last Admin Dose Admin Sodium Chloride 1,000 ml @ 0 mls/hr Q0M ONCE IV 12/13/16 16:05 12/13/16 16:06 DC 12/13/16 16:25 999 MLS/HR Vital Signs/I&O Vital Sign - Last 12Hours 12/13/16 12/13/16 12/13/16 12/13/16 15:41 19:04 19:30 23:18 Temp 98.3 98.3 96.8 Pulse 64 72 75 Resp 18 20 16 B/P (MAP) 95/52 148/73 Pulse Ox 100 100 96 96 O2 Delivery Room Air 12/13/16 12/14/16 23:25 00:00 Temp 96.8 Pulse 64 Resp 20 B/P (MAP) 103/51 Pulse Ox 96 98 Blood Pressure Mean: 66 Progress Note : Time: 15:50 Progress Note Initial evaluation completed, will check labs and reevaluate. 1640 all labs essentially normal with no signs of UTI. Discussed these results with the patient with plans for discharge to home. She agreed with this treatment plan. 1700 2 staff attempted to stand the patient from bed to wheelchair and she was unable to transfer. Discussed this with the patient in detail that I have concerns about safety with her returning home. She has home health care that no family members are available to stay with her. 1745 discussed patient by phone with Dr. Priest agreed with admission for observation OT and PT consults and social science teacher to make plans for additional services at home or consider long-term care evaluation for temporary placement. Discussed this plan with the patient she agrees with that at this time. She does have concerns with consideration of long-term care placement, even if temporary. Explained my concerns about safety risks with her at home alone. Departure Impression Impression: Primary Impression: Fatigue Qualified Codes: R53.83 - Other fatigue Additional Impression: INABILITY TO CARE FOR SELF Disposition: ADMITTED INPATIENT Condition: Stable Decision to Admit Reason: Admit from ER (General) Time/Decision to Admit Time: 18:00 Departure-Patient Inst. Referrals: JOSE PRIEST DO (PCP/Family) Primary Care Physician Add. Discharge Instructions: All discharge instructions reviewed with patient and/or family. Voiced understanding. Copy Copies To 1: JOSE PRIEST DO Copies To 2: HIRAM SAGASTUME MD, AMY ARNP Dec 13, 2016 17:34
[2016-12-13 19:30] VITALS: BP 148/73
[2016-12-13] MEDS ORDERED: NS IV 1000 ML 1,000 ML ONE (22:01)
[2016-12-13] MEDS ORDERED: CATHETER FLUSH 10 ML SYR IV PRN (22:45)
[2016-12-13] MEDS ORDERED: ACETAMINOPHEN 325 MG TABLET/CAPLET (TYLENOL) PO PRN (22:45)
[2016-12-13] MEDS: NS IV 1000 ML 1,000 ML IV SCH (23:51)
[2016-12-14] VITALS (7 sets, daily range): BP systolic 103–162; BP diastolic 51–71
[2016-12-14] MEDS: CATHETER FLUSH 10 ML SYR IV SCH ×3 (03:19→20:44)
[2016-12-14 06:35] LABS: BASOPHILS # (AUTO) 0.1 10^3/uL (0.0-0.1); BASOPHILS % (AUTO) 1 % (0-10); EOSINOPHILS # (AUTO) 0.7 10^3/uL (0.0-0.3); EOSINOPHILS % (AUTO) 9 % (0-10); LYMPHOCYTES # (AUTO) 1.1 X 10^3 (1.0-4.0); LYMPHOCYTES % (AUTO) 14 % (12-44); MEAN CORPUSCULAR HEMOGLOBIN 27 PG (25-34); MEAN CORPUSCULAR HGB CONC 32 G/DL (32-36); MEAN CORPUSCULAR VOLUME 86 FL (80-99); MEAN PLATELET VOLUME 11.5 FL (7.4-10.4); MONOCYTES # (AUTO) 0.9 X 10^3 (0.0-1.0); MONOCYTES % (AUTO) 12 % (0-12); NEUTROPHILS # (AUTO) 4.9 X 10^3 (1.8-7.8); NEUTROPHILS % (AUTO) 64 % (42-75); PLATELET COUNT 200 10^3/uL (130-400); RED CELL DISTRIBUTION WIDTH 15.4 % (10.0-14.5); WHITE BLOOD COUNT 7.6 10^3/uL (4.3-11.0)
[2016-12-14 06:57] LABS: ALBUMIN 3.2 G/DL (3.2-4.5); BILIRUBIN,TOTAL 0.3 MG/DL (0.1-1.0); CALCIUM 9.2 MG/DL (8.5-10.1); CREATININE SERUM 1.14 MG/DL (0.60-1.30); POTASSIUM 4.5 MMOL/L (3.6-5.0); TOTAL PROTEIN 6.4 G/DL (6.4-8.2)
--- NOTE | 2016-12-14 07:28 | History & Physicial ---
History of Present Illness History of Present Illness Reason for visit/HPI HOME HEALTH CALLED ems to bring patient to the emergency . Patient confused. Patient has cellulitis of the legs Patient has fatigue and unable to take care of herself Patient at 2 person assist. Patient on 11/27/16 discharged from rehabilitation.. In the emergency room patient confused and stated she will go to a retirement. Patient has history of hallucinating according to home health. Patient this morning wants to go home and not retirement. patient wants discharged today Date of Admission Dec 13, 2016 at 18:30 Time Seen by Provider: 07:10 I consulted on this patient on 12/14/16 07:22 Attending Physician Shan Priest DO Admitting Physician Shan Priest DO Consult Allergies and Home Medications Allergies Coded Allergies: No Known Drug Allergies (Unverified , 09/15/13) Home Medications Acetaminophen 500 Mg Tablet, 500 MG PO QID PRN for PAIN-MILD for 30 Days, #100 Prescribed by: PEARL SAMSON on 11/26/16 0935 Alprazolam 0.25 Mg Tablet, 0.25 MG PO BID PRN for ANXIETY, (Reported) Cefdinir 300 Mg Capsule, #14 (Reported) Docusate Sodium 100 Mg Capsule, 100 MG PO BID for 30 Days, #60 Prescribed by: PEARL SAMSON on 11/26/16 0935 Duloxetine HCl 30 Mg Capsule.dr, 30 MG PO DAILY, (Reported) Esomeprazole Magnesium 40 Mg Cap, 40 MG PO DAILY, (Reported) TAKES BEFORE BREAKFAST Furosemide 40 Mg Tablet, 40 MG PO DAILY, (Reported) Insulin Aspart 300 Units/3 Ml Solution, SQ QID, (Reported) 60-200 = 0 UNITS 201-250 = 3 UNITS 251-300 = 5 UNITS 301-350 = 7 UNITS 351- 400 = 9 UNITS Iron Polysaccharide Complex 150 Mg Capsule, 150 MG PO BID, (Reported) Loratadine 10 Mg Tablet, 10 MG PO DAILY, (Reported) Metformin HCl 1,000 Mg Tablet, 1,000 MG PO BID, (Reported) Metoprolol Succinate 50 Mg Tab.er.24h, 50 MG PO DAILY, (Reported) Olanzapine 2.5 Mg Tablet, 2.5 MG PO DAILY for 30 Days, #30 Prescribed by: PEARL SAMSON on 11/26/16 0935 Polyethylene Glycol 3350 17 Gm Powd.pack, 17 GM PO DAILY PRN for CONSTIPATION, ( Reported) Pregabalin 150 Mg Capsule, 150 MG PO TID, (Reported) Ropinirole HCl 2 Mg Tablet, 2 MG PO BID, (Reported) Rosuvastatin Calcium 10 Mg Tablet, 10 MG PO DAILY, (Reported) LAST FILLED 10/04/16 #30 Solifenacin Succinate 10 Mg Tablet, 10 MG PO DAILY, (Reported) Tramadol HCl 50 Mg Tablet, 50 MG PO Q8H, (Reported) Past Txmpoif-[id number]-[id number] Hx Patient Social History Marrital Status: Alcohol Use: Denies Use Recreational Drug Use: No Smoking Status: Former Smoker Former smoker/When Quit: Aug 12, 1991 Type Used: Cigarettes Physical Abuse Screen: No Sexual Abuse: No Recent Foreign Travel: No Contact w/other who traveled: No Recent Hopitalizations: Yes Recent Infectious Disease Expo: No Immunizations Up To Date Tetanus Booster (TDap): Less than 5yrs Date of Pneumonia Vaccine: Mar 08, 2016 Date of Influenza Vaccine: Mar 25, 2016 Seasonal Allergies Seasonal Allergies: No Surgeries HX Surgeries: Yes (HEMORRHOIDECTOMY, L HIP replacement, reduction left hip dislocation x2) Surgeries: Gallbladder, Joint Replacement, Orthopedic Respiratory Hx Respiratory Disorders: No Cardiovascular Hx Cardiovascular Disorders: Yes (CHF) Cardiac Disorders: Hypertension Neurological Hx Neurological Disorders: Yes (RLS) Neurological Disorders: Neuropathy Reproductive System Hx Reproductive Disorders: No Sexually Transmitted Disease: No HIV/AIDS: No Genitourinary Hx Genitourinary Disorders: No Gastrointestinal Hx Gastrointestinal Disorders: Yes Gastrointestinal Disorders: Hemorrhoids Musculoskeletal Hx Musculoskeletal Disorders: Yes (school age / accident) Musculoskeletal Disorders: Chronic Back Pain Endocrine Hx Endocrine Disorders: Yes (Lantus/ Novolog) Endocrine Disorders: Diabetes, Insulin dep HEENT HX ENT Disorders: Yes (report the start of cataracts, migrains) HEENT Disorders: Cataract Loss of Vision: Denies Hearing Impairment: Denies Cancer Hx Cancer: No Psychosocial Hx Psychiatric Problems: Yes Behavioral Health Disorders: Anxiety, Depression Integumentary HX Skin/Integumentary Disorder: Yes (SEEING WOUND CARE FOR WOUND ON FEET, history of cellulitis) Blood Transfusions Hx Blood Disorders: No Adverse Reaction to a Blood Tr: No Reviewed Nursing Assessment Reviewed/Agree w Nursing PMH: Yes Family Medical History Significant Family History: No Pertinent Family Hx Family Hx: Congestive heart failure 03 FATHER Prostate cancer 03 FATHER No Family History of: Abdominal aortic aneurysm Baca's disease Alcoholism Aphasia Cancer Cancer of colon Cataract Congenital heart disease Cystic fibrosis Dementia Dysphagia Family history: Allergy Family history: Alzheimer's disease Family history: Arthritis Family history: Asthma Family history: Breast disease Family history: Cardiovascular disease Family history: Coronary thrombosis Family history: Diabetes mellitus Family history: Gastrointestinal disease Family history: Glaucoma Family history: Hypertension Family history: Osteoporosis Family history: Thyroid disorder Headache Hearing loss Heart disease Hereditary disease History of - anemia History of - disorder History of - respiratory disease History of drug abuse Human immunodeficiency virus (HIV) seropositivity Hypercholesterolemia Infertile Kidney disease Malignant neoplasm of lung Myocardial infarction Parkinson's disease Psychotic disorder Seizure disorder Stroke Tuberculosis Visual impairment Constitutional: weakness EENTM: no symptoms reported Respiratory: no symptoms reported Cardiovascular: no symptoms reported Gastrointestinal: no symptoms reported Genitourinary: no symptoms reported Physical Exam Vital Signs Vital Sign - Last 12Hours 12/13/16 15:41 Temp 98.3 Pulse 64 Resp 18 B/P (MAP) 95/52 Pulse Ox 100 O2 Delivery Room Air Capillary Refill : Less Than 3 Seconds General Appearance: No Apparent Distress, WD/WN Eyes: Bilateral Eye Normal Inspection HEENT: Normal ENT Inspection Neck: Full Range of Motion, Normal Inspection Respiratory: Chest Non Tender, Lungs Clear, Normal Breath Sounds, No Accessory Muscle Use, No Respiratory Distress Cardiovascular: Regular Rate, Rhythm, No Murmur Gastrointestinal: Non Tender, Soft Assessment/Plan Assessment and Plan unsteady gait. 2 person assist. Weakness. Fatigue. Diabetes. Cellulitis of legs Confusion Problems: Clinical Quality Measures DVT/VTE Risk/Contraindication: Risk Factor Score Per Nursin RFS Level Per Nursing on Admit: 4+=Very High SHAN PRIEST DO Dec 14, 2016 07:28
[2016-12-14] MEDS: cefTRIAXone INJECTION 1,000 MG in NS (IVPB) 50 ML IV SCH (08:17)
[2016-12-14] MEDS: ENOXAPARIN 40 MG/0.4 ML (LOVENOX) SYR SC SCH (08:17)
[2016-12-14] MEDS ORDERED: OLAN2.5T19 PO (10:20)
[2016-12-14] MEDS ORDERED: DOCU-143 PO (10:20)
[2016-12-14] MEDS ORDERED: ACET-2267 PO (10:20)
[2016-12-14] MEDS ORDERED: POLYETHYLENE GLYCOL 17 GM (MIRALAX) PACK PO PRN (11:00)
--- NOTE | 2016-12-14 11:26 | Physical Therapy Evaluation ---
PT Evaluation-General Medical Diagnosis Admission Date Dec 13, 2016 at 18:30 Medical Diagnosis: hypotension Onset Date: Dec 13, 2016 Therapy Diagnosis Therapy Diagnosis: general debility Height/Weight Height (Feet): 5 Height (Inches): 6.00 Weight (Pounds): 220 Weight (Ounces): 4.0 Precautions Precautions/Isolations: Fall Prevention, Standard Precautions Referral Physician: Lauren Reason for Referral: Evaluation/Treatment Medical History Pertinent Medical History: Arthritis, DM, Heart Failure, HTN, Neuropathy, OA Additional Medical History recent ARU stay 11/27/16 Current History home health called EMS due to increased confusion, unsteady gait, cellulitis bilateral LE and inability to care for self at home. Reviewed History: Yes Social History Home: Single Level Current Living Status: Alone Prior/[facility] FIM Prior Level of Function Functional [place] Measure 0=Not Assessed/NA 4=Minimal Assistance 1=Total Assistance 5=Supervision or Setup 2=Maximal Assistance 6=Modified [place] 3=Moderate Assistance 7=Complete [place] Bed Mobility: 6 Transfers (B,C,W/C) (FIM): 6 Gait: 6 PT Evaluation-Current Subjective Patient agrees to PT. No c/o at this time. Pain Numeric Pain Scale: 0-No Pain Location: No Pain Reported Objective Patient Orientation: Normal For Age Problem Solving: Good Attachments: IV ROM/Strength ROM Lower Extremities bilateral LE WFL Strenght Lower Extremities bilateral LE WFL Integumentary/Posture Integumentary refer to nursing notes; noted redness bilateral LE's distally Bowel Incontinence: No Bladder Incontinence: No Posture kyphotic Neuromuscular (Tone, Coordination, Reflexes) diminished coordination and tone (PLOF) Sensory Vision: Functional Hearing: Functional Sensation Right Lower Extremit: Impaired Sensation Left Lower Extremity: Impaired Transfers Functional [place] Measure 0=Not Assessed/NA 4=Minimal Assistance 1=Total Assistance 5=Supervision or Setup 2=Maximal Assistance 6=Modified [place] 3=Moderate Assistance 7=Complete [place] Transfers (B, C, W/C) (FIM): 5 Scootin Rollin Supine to/from Sit: 5 Sit to/from Stand: 5 Gait Mode of Locomotion: Walk Anticipated Mode of Locomotion: Walk Gait (FIM): 5 Distance (FIM): 3=150 ft Distance: 200' Gait Level of Assist: 5 Gait Persons Needed: 1 Gait Assistive Device: FWW Comments/Gait Description slow, steady gait sequence Balance Sitting Static: Normal Sitting Dynamic: Normal Standing Static: Normal Standing Dynamic: Normal Assessment/Needs 66 y.o. female, will benefit from short term skilled PT to address functional strength and mobility to improve current LOF and to safely return to home or care facility at maximum LOF. Rehab Potential: Fair Post Rehab Potential-Barriers: compliance PT Penitentiary Goals Penitentiary Goals PT Penitentiary Goals Time Frame: Dec 28, 2016 Transfers (B,C,W/C) (FIM): 6 Gait (FIM): 6 Gait distance (FIM): 3=150 ft Gait Level of Assist: 6 Gait Assistive Device: FWW PT Plan Problem List Problem List: Functional Strength Treatment/Plan Treatment Plan: Continue Plan of Care Treatment Plan: Bed Mobility, Education, Functional Activity Hitesh, Functional Strength, Gait, Safety, Therapeutic Exercise, Transfers Treatment Duration: Dec 28, 2016 # of days/week 6 Visits Per Week: 6 Pt/Family Agrees w/Plan: Yes Safety Risks/Education Patient Education: Safety Issues Teaching Recipient: Patient Teaching Methods: Discussion Response to Teaching: Verbalize Understanding Discharge Recommendations Therapy D/C Recommendations: Home Independently, Physical Therapy Home Care, Detention (TCU/NH) Time/GCodes Time In: 1035 Time Out: 1050 Total Billed Treatment Time: 15 Total Billed Treatment 1 visit EVLowC 15 min G Codes Necessary: Yes PT/OT Therapy GCodes Therapy Functional Limitation: Physical Therapy Test(s)/Tool used to determine: Level of Assistance Scale Functional Limitation-Current Charge Code: MOBCUR Modifier: CJ Functional Limitation-Goal Charge Code: MOBGOAL Modifier: NIKKO NANCE PT Dec 14, 2016 11:26
--- NOTE | 2016-12-14 13:47 | Occupational Therapy Eval ---
OT Evaluation-General/PLF Medical Diagnosis Admission Date Dec 13, 2016 at 18:30 Medical Diagnosis: hypotension Onset Date: Dec 13, 2016 Therapy Diagnosis Therapy Diagnosis: decreased self care skills Height/Weight Height (Feet): 5 Height (Inches): 6.00 Weight (Pounds): 220 Weight (Ounces): 4.0 Precautions Precautions/Isolations: Fall Prevention, Standard Precautions Referral Physician: Lauren Medical History Pertinent Medical History: Arthritis, DM, Heart Failure, HTN, Neuropathy, OA Additional Medical History left hip replacement, reduction of left hip dislocation x2, CHF, RLS, chronic back pain, anxiety, depression Reviewed History: Yes Social History Home: Single Level Current Living Status: Alone Entry Into Home: Ramp ADL-Prior Level of Function ADL PLOF Comments Pt states she has been mostly independent. Sister checks on her. DME/Equipment: Bath Bench, Tall Toilet, Tub/Shower OT Current Status Subjective Pt sitting in chair, agrees to treatment. Pt has no c/o pain during session. Mental Status/Objective Patient Orientation: Person, Place Attachments: IV Current Glasses/Contacts: Yes (reading glasses) Dentures/Partials: Yes Hand Dominance: Right Upper Extremity ROM Grossly WFL Upper Extremity Strength Right grossly 4/5 Left grossly 4-/5 ADL-Treatment ADL-Current Pt participated in UE assessment while seated. Pt able to doff socks, but requires minimal assistance to don. Pt completed grooming tasks while seated. Pt combed hair and completed denture care with set up. Pt performed sit to stand with CGA. Uses FWW for balance. Pt requires increased time for ADL tasks and cues to attend to task. Pt sitting in chair with needs met after session. Functional [place] Measure 0=Not Assessed/NA 4=Minimal Assistance 1=Total Assistance 5=Supervision or Setup 2=Maximal Assistance 6=Modified [place] 3=Moderate Assistance 7=Complete IndependenceIRFPAI Quality Coding Scale 6 Independent with activity with or without an assistive device 5 Patient requires set up or clean up by helper. Patient completes activity by themselves 4 Supervision or touching assist (CGA). [place] provide cues , steadying assist 3 The helper provides less than half the effort to complete the activity 2 The helper provides more than half the effort to complete the activity 1 Dependent. The helper does all the effort to complete an activity 7 Patient refused to complete or attempt activity 9 The patient did not perform the activity before the current illness or injury 88 Not attempted due to Medical conditions or safety concerns Grooming (FIM): 5 Lower Body Dressing (FIM): 4 (socks only) Education OT Patient Education: Rehab process Teaching Recipient: Patient Teaching Methods: Discussion OT Short Term Goals Short Term Goals 1=Demonstrate adherence to instructed precautions during ADL tasks. 2=Patient will verbalize/demonstrate understanding of assistive devices/ modifications for ADL. 3=Patient will improve strength/tolerance for activity to enable patient to perform ADL's. OT Nursing Home Goals Internet Sales Consultant Goals Time Frame: Dec 21, 2016 Eating (FIM): 6 Grooming(FIM): 6 Bathing(FIM): 5 Upper Body Dressing(FIM): 6 Lower Body Dressing(FIM): 6 Toileting(FIM): 6 Toilet/Commode Transfer(FIM): 6 Additional Goals: 1-Demonstrate ADL Tasks, 2-Verbalize Understanding, 3- ImproveStrength/Hitesh 1=Demonstrate adherence to instructed precautions during ADL tasks. 2=Patient will verbalize/demonstrate understanding of assistive devices/ modifications for ADL. 3=Patient will improve strength/tolerance for activity to enable patient to perform ADL's. OT Education/Plan Problem List/Assessment Assessment: Decreased UE Strength, Dependent Transfers, Impaired Self-Care Skills Pt to benefit from skilled OT intervention for ADL training, transfers, strengthening, and home safety education to maximize level of function and allow safe discharge plan. Discharge Recommendations Plan/Recommendations: Continue POC Treatment Plan/Plan of Care Treatment,Training & Education: Yes Patient would benefit from OT for education, treatment and training to promote independence in ADL's, mobility, safety and/or upper extremity function for ADL' s. Plan of Care: ADL Retraining, Functional Mobility, UE Funct Exercise/Act Treatment Duration: Dec 21, 2016 # of days/week 5 Visits Per Week: 5 Agreement: Yes Rehab Potential: Fair Time/GCodes Start Time: 11:00 Stop Time: 11:30 Total Time Billed (hr/min): 30 Billed Treatment Time 1 visit, EVL(15minutes), ADL(15minutes) PT/OT Therapy GCodes Therapy Functional Limitation: Occupational Therapy Test(s)/Tool used to determine: FIM, Level of Assistance Scale Functional Limitation-Current Charge Code: SELFCUR Modifier: CK Functional Limitation-Goal Charge Code: SELFGOAL Modifier: SHANNON MUNGUIA OT Dec 14, 2016 13:47
[2016-12-14] MEDS: CLINDAMYCIN INJECTION 600 MG in NS (IVPB) 50 ML IV SCH ×2 (15:13→21:47)
[2016-12-14] MEDS: PREGABALIN 75 MG (LYRICA) CAP PO SCH ×2 (15:13→20:44)
[2016-12-14] MEDS: MICONAZOLE 2% POWDER (DESENEX AF) 90 GM TOP SCH (15:14)
[2016-12-14] MEDS: NS IV 1000 ML 1,000 ML IV SCH (17:07)
[2016-12-14] MEDS: metFORMIN 500 MG (GLUCOPHAGE) TAB PO SCH (17:07)
[2016-12-14] MEDS: TROSPIUM 20 MG (SANCTURA) TAB PO SCH (17:07)
[2016-12-14] MEDS: ACETAMINOPHEN 500 MG TAB (TYLENOL) PO PRN (17:53)
[2016-12-14] MEDS: rOPINIRole 1 MG (REQUIP) TABLET PO SCH (20:43)
[2016-12-14] MEDS: IRON POLYSAC 150 MG CAP (NIFEREX) PO SCH (20:44)
[2016-12-14] MEDS: DOCUSATE SODIUM 100 MG (COLACE) CAP PO SCH (20:44)
[2016-12-14] MEDS: ATORVASTATIN 20 MG (LIPITOR) TABLET PO SCH (20:44)
[2016-12-15 04:00] VITALS: BP 127/60
[2016-12-15] MEDS: CLINDAMYCIN INJECTION 600 MG in NS (IVPB) 50 ML IV SCH ×3 (05:51→22:01)
[2016-12-15] MEDS: CATHETER FLUSH 10 ML SYR IV SCH ×3 (05:52→22:02)
[2016-12-15 06:12] LABS: MEAN PLATELET VOLUME 11.1 FL (7.4-10.4); RED BLOOD COUNT 3.94 10^6/uL (4.35-5.85); RED CELL DISTRIBUTION WIDTH 15.2 % (10.0-14.5); WHITE BLOOD COUNT 6.4 10^3/uL (4.3-11.0)
[2016-12-15] MEDS: metFORMIN 500 MG (GLUCOPHAGE) TAB PO SCH ×2 (06:50→16:08)
[2016-12-15] MEDS: PANTOPRAZOLE 40 MG (PROTONIX) TAB PO SCH (06:50)
[2016-12-15] MEDS: ENOXAPARIN 40 MG/0.4 ML (LOVENOX) SYR SC SCH (06:50)
[2016-12-15 06:52] LABS: CALCIUM 9.4 MG/DL (8.5-10.1); CREATININE SERUM 0.94 MG/DL (0.60-1.30); POTASSIUM 4.6 MMOL/L (3.6-5.0)
[2016-12-15] MEDS: TROSPIUM 20 MG (SANCTURA) TAB PO SCH ×2 (06:55→15:53)
[2016-12-15 08:00] VITALS: BP 159/79
[2016-12-15] MEDS: LORATADINE (CLARITIN) 10 MG TAB PO SCH (09:14)
[2016-12-15] MEDS: FUROSEMIDE 40 MG (LASIX) TAB PO SCH (09:14)
[2016-12-15] MEDS: rOPINIRole 1 MG (REQUIP) TABLET PO SCH ×2 (09:14→22:02)
[2016-12-15] MEDS: PREGABALIN 75 MG (LYRICA) CAP PO SCH ×3 (09:14→22:02)
[2016-12-15] MEDS: IRON POLYSAC 150 MG CAP (NIFEREX) PO SCH ×2 (09:14→22:01)
[2016-12-15] MEDS: DOCUSATE SODIUM 100 MG (COLACE) CAP PO SCH ×2 (09:14→22:02)
[2016-12-15] MEDS: OLANZapine 2.5 MG (ZyPREXA) TAB PO SCH (09:14)
[2016-12-15] MEDS: DULoxetine 30 MG (CYMBALTA) CAP PO SCH (09:20)
[2016-12-15] MEDS: meTOproloL SUCCINATE 50 MG (TOPROL XL) TAB PO SCH (09:20)
[2016-12-15] MEDS: cefTRIAXone INJECTION 1,000 MG in NS (IVPB) 50 ML IV SCH (09:21)
[2016-12-15] MEDS: MICONAZOLE 2% POWDER (DESENEX AF) 90 GM TOP SCH (09:23)
[2016-12-15] MEDS: ALPRAZolam 0.25 MG (XANAX) TAB PO PRN ×2 (10:30→19:49)
--- NOTE | 2016-12-15 12:49 | Physical Therapy Progress Note ---
Therapy Progress Note Pt refused treatment. Attempted to perform supine exercises, but pt lili her legs up and refused to move. 1051 JIGNA OBRIEN PT Dec 15, 2016 12:49
--- NOTE | 2016-12-15 13:10 | Progress Note (SOAP) ---
Subjective Date Seen by Provider: Dec 15, 2016 Time Seen by Provider: 13:06 Subjective/Events-last exam Fwup bilateral LE cellulitis, weakness with falls, DMII. Sitting up in chair eating lunch with no complaints. Objective Exam Vital Signs Date Time Temp Pulse Resp B/P (MAP) Pulse Ox O2 Delivery O2 Flow Rate FiO2 12/15/16 08:00 97.9 64 16 159/79 99 Room Air 12/15/16 04:00 96.4 72 18 127/60 97 Room Air 12/14/16 23:40 96.3 80 20 162/68 97 Room Air 12/14/16 21:00 Room Air 12/14/16 19:10 99.6 77 18 129/71 95 Room Air 12/14/16 18:55 Room Air 12/14/16 17:53 97.5 12/14/16 16:00 98.7 101 24 139/62 93 Room Air I & O 12/15/16 07:00 Intake Total 2592 ml Output Total 4525 ml Balance -1933 ml Capillary Refill : Less Than 3 SecondsLess Than 3 Seconds General Appearance: No Apparent Distress Neck: Supple Respiratory: Lungs Clear Cardiovascular: Regular Rate, Rhythm Extremity: No Calf Tenderness, Pedal Edema (2 plus) Neurologic/Psychiatric: Alert, Oriented x3 Skin: Erythema (to LEs--decreasing from previous marked lines) Results Lab Laboratory Tests 12/15/16 05:34: White Blood Count 6.4, Red Blood Count 3.94L, Hemoglobin 10.5L, Hematocrit 33L, Mean Corpuscular Volume 85, Mean Corpuscular Hemoglobin 27, Mean Corpuscular Hemoglobin Concent 32, Red Cell Distribution Width 15.2H, Platelet Count 235, Mean Platelet Volume 11.1H, Sodium Level 142, Potassium Level 4.6, Chloride Level 108H, Carbon Dioxide Level 23, Anion Gap 11, Blood Urea Nitrogen 12, Creatinine 0.94, Estimat Glomerular Filtration Rate 59, BUN/Creatinine Ratio 13 , Glucose Level 137H, Calcium Level 9.4 Assessment/Plan Assessment/Plan Assess & Plan/Chief Complaint 1. Bilateral LE Cellulitis--continue Cleocin, DC rocephin, Elevate LEs, CBC in AM 2. Diabetes mellitus II--Add accuchecks with SSI A 3. Weakness with falls--continue PT and possible NH placement on DC Clinical Quality Measures DVT/VTE Risk/Contraindication: Risk Factor Score Per Nursin RFS Level Per Nursing on Admit: 4+=Very High Contraindications-Mechi: Other *list below* ALIS JAQUEZ DO Dec 15, 2016 13:10
[2016-12-15 15:55] VITALS: BP 140/63
[2016-12-15] MEDS: inSUlin (REGULAR) HUMAN 1 UNIT/0.01 ML (CHARGE PER UNIT) SC SCH ×2 (16:10→22:01)
--- NOTE | 2016-12-15 18:28 | Wound Care Progress Note ---
Subjective Subjective Subjective/Events-last exam 66 year old female admitted for confusion and possible UTI, noted to have bilateral calf stasis dermatitis and intertrigo beneath breasts and abdominal folds. Objective Exam Last Set of Vital Signs Vital Signs Date Time Temp Pulse Resp B/P (MAP) Pulse Ox O2 Delivery O2 Flow Rate FiO2 12/15/16 15:55 99.3 71 16 140/63 97 Room Air Capillary Refill : Less Than 3 SecondsLess Than 3 Seconds I&O Intake and Output 12/15/16 00:00 Intake Total 2738 ml Output Total 4525 ml Balance -1787 ml Intake Oral 1680 ml IV Total 1058 ml Output Urine Total 4525 ml # Voids 1 # Bowel Movements 1 Results Lab Laboratory Tests 12/15/16 05:34: White Blood Count 6.4, Red Blood Count 3.94L, Hemoglobin 10.5L, Hematocrit 33L, Mean Corpuscular Volume 85, Mean Corpuscular Hemoglobin 27, Mean Corpuscular Hemoglobin Concent 32, Red Cell Distribution Width 15.2H, Platelet Count 235, Mean Platelet Volume 11.1H, Sodium Level 142, Potassium Level 4.6, Chloride Level 108H, Carbon Dioxide Level 23, Anion Gap 11, Blood Urea Nitrogen 12, Creatinine 0.94, Estimat Glomerular Filtration Rate 59, BUN/Creatinine Ratio 13 , Glucose Level 137H, Calcium Level 9.4 12/15/16 15:59: Glucometer 165H HIRAM HAQ MD Dec 15, 2016 18:28
[2016-12-15] MEDS: ATORVASTATIN 20 MG (LIPITOR) TABLET PO SCH (22:02)
[2016-12-16] VITALS: BP 144/75
[2016-12-16] MEDS: inSUlin (REGULAR) HUMAN 1 UNIT/0.01 ML (CHARGE PER UNIT) SC SCH ×4 (05:38→21:33)
[2016-12-16] MEDS: metFORMIN 500 MG (GLUCOPHAGE) TAB PO SCH ×2 (06:26→17:46)
[2016-12-16] MEDS: CLINDAMYCIN INJECTION 600 MG in NS (IVPB) 50 ML IV SCH ×3 (06:26→21:33)
[2016-12-16] MEDS: PANTOPRAZOLE 40 MG (PROTONIX) TAB PO SCH (06:26)
[2016-12-16] MEDS: CATHETER FLUSH 10 ML SYR IV SCH ×3 (06:27→21:33)
[2016-12-16] MEDS: TROSPIUM 20 MG (SANCTURA) TAB PO SCH ×2 (06:31→15:33)
[2016-12-16] MEDS: ENOXAPARIN 40 MG/0.4 ML (LOVENOX) SYR SC SCH (06:48)
[2016-12-16 08:00] VITALS: BP 148/64
[2016-12-16] MEDS: DOCUSATE SODIUM 100 MG (COLACE) CAP PO SCH ×2 (09:01→21:32)
[2016-12-16] MEDS: OLANZapine 2.5 MG (ZyPREXA) TAB PO SCH (09:01)
[2016-12-16] MEDS: rOPINIRole 1 MG (REQUIP) TABLET PO SCH ×2 (09:01→21:32)
[2016-12-16] MEDS: meTOproloL SUCCINATE 50 MG (TOPROL XL) TAB PO SCH (09:02)
[2016-12-16] MEDS: FUROSEMIDE 40 MG (LASIX) TAB PO SCH (09:02)
[2016-12-16] MEDS: PREGABALIN 75 MG (LYRICA) CAP PO SCH ×3 (09:02→21:33)
[2016-12-16] MEDS: LORATADINE (CLARITIN) 10 MG TAB PO SCH (09:02)
[2016-12-16] MEDS: IRON POLYSAC 150 MG CAP (NIFEREX) PO SCH ×2 (09:02→21:33)
[2016-12-16] MEDS: MICONAZOLE 2% POWDER (DESENEX AF) 90 GM TOP SCH (09:10)
--- NOTE | 2016-12-16 12:05 | Progress Note (SOAP) ---
Subjective Date Seen by Provider: Dec 16, 2016 Time Seen by Provider: 12:00 Subjective/Events-last exam Fwup bilateral LE cellulitis, weakness with falls, DMII. Up in chair with feet up. Feeling better. In isolation because found 1 bed bug yesterday. Review of Systems General: Fatigue Neurological: Weakness Objective Exam Vital Signs Date Time Temp Pulse Resp B/P (MAP) Pulse Ox O2 Delivery O2 Flow Rate FiO2 12/16/16 09:00 Room Air 12/16/16 08:00 96.2 62 18 148/64 98 Room Air 12/16/16 07:14 96 12/16/16 00:00 97.2 59 20 144/75 96 Room Air 12/15/16 21:00 Room Air 12/15/16 18:50 Room Air 12/15/16 15:55 99.3 71 16 140/63 97 Room Air I & O 12/16/16 07:00 Intake Total 2838 ml Output Total 1450 ml Balance 1388 ml Capillary Refill : Less Than 3 SecondsLess Than 3 Seconds General Appearance: No Apparent Distress Neck: Supple Respiratory: Lungs Clear Cardiovascular: Regular Rate, Rhythm Extremity: Non Tender, No Calf Tenderness, Pedal Edema (nonpitting but less then yesterday) Neurologic/Psychiatric: Alert, Oriented x3 Skin: Erythema (to bilateral LEs improving) Results Lab Laboratory Tests 12/15/16 15:59: Glucometer 165H 12/15/16 21:59: Glucometer 128H 12/16/16 05:34: Glucometer 109 Assessment/Plan Assessment/Plan Assess & Plan/Chief Complaint 1. Bilateral LE Cellulitis--continue Cleocin, continue to Elevate LEs, CBC in AM 2. Diabetes mellitus II--continue accuchecks with SSI A 3. Weakness with falls--continue PT and possible NH placement on DC but will let Dr. Aguilar address tomorrow Clinical Quality Measures DVT/VTE Risk/Contraindication: Risk Factor Score Per Nursin RFS Level Per Nursing on Admit: 4+=Very High Contraindications-Mechi: Other *list below* ALIS JAQUEZ DO Dec 16, 2016 12:05
[2016-12-16] MEDS: DULoxetine 30 MG (CYMBALTA) CAP PO SCH (12:07)
[2016-12-16 15:40] VITALS: BP 133/78
[2016-12-16] MEDS: ATORVASTATIN 20 MG (LIPITOR) TABLET PO SCH (21:33)
[2016-12-16 23:54] VITALS: BP 138/74
[2016-12-17 05:01] LABS: BASOPHILS # (AUTO) 0.1 10^3/uL (0.0-0.1); BASOPHILS % (AUTO) 2 % (0-10); EOSINOPHILS # (AUTO) 0.6 10^3/uL (0.0-0.3); EOSINOPHILS % (AUTO) 8 % (0-10); LYMPHOCYTES # (AUTO) 1.7 X 10^3 (1.0-4.0); LYMPHOCYTES % (AUTO) 23 % (12-44); MEAN CORPUSCULAR HEMOGLOBIN 26 PG (25-34); MEAN CORPUSCULAR HGB CONC 31 G/DL (32-36); MEAN CORPUSCULAR VOLUME 84 FL (80-99); MEAN PLATELET VOLUME 11.3 FL (7.4-10.4); MONOCYTES # (AUTO) 0.8 X 10^3 (0.0-1.0); MONOCYTES % (AUTO) 11 % (0-12); NEUTROPHILS # (AUTO) 4.2 X 10^3 (1.8-7.8); NEUTROPHILS % (AUTO) 58 % (42-75); PLATELET COUNT 252 10^3/uL (130-400); RED BLOOD COUNT 4.29 10^6/uL (4.35-5.85); RED CELL DISTRIBUTION WIDTH 15.3 % (10.0-14.5); WHITE BLOOD COUNT 7.3 10^3/uL (4.3-11.0)
[2016-12-17] MEDS: inSUlin (REGULAR) HUMAN 1 UNIT/0.01 ML (CHARGE PER UNIT) SC SCH ×2 (05:55→11:57)
[2016-12-17] MEDS: PANTOPRAZOLE 40 MG (PROTONIX) TAB PO SCH (06:12)
[2016-12-17] MEDS: metFORMIN 500 MG (GLUCOPHAGE) TAB PO SCH (06:12)
[2016-12-17] MEDS: ENOXAPARIN 40 MG/0.4 ML (LOVENOX) SYR SC SCH (06:13)
[2016-12-17] MEDS: ACETAMINOPHEN 500 MG TAB (TYLENOL) PO PRN (06:13)
[2016-12-17] MEDS: CLINDAMYCIN INJECTION 600 MG in NS (IVPB) 50 ML IV SCH (06:14)
[2016-12-17] MEDS: CATHETER FLUSH 10 ML SYR IV SCH (06:14)
[2016-12-17] MEDS: TROSPIUM 20 MG (SANCTURA) TAB PO SCH (06:22)
--- NOTE | 2016-12-17 08:00 | Progress Note (SOAP) ---
Subjective Time Seen by Provider: 07:55 Subjective/Events-last exam unsteady gait. Weakness. Fatigue. Diabetes. Bedbug found. tax services specialist involved for discharge. [id number] done for home health. Objective Exam Vital Signs Date Time Temp Pulse Resp B/P (MAP) Pulse Ox O2 Delivery O2 Flow Rate FiO2 12/16/16 23:54 98.6 72 18 138/74 98 Room Air 12/16/16 20:30 Room Air 12/16/16 18:56 Room Air 12/16/16 15:40 96.4 65 16 133/78 99 Room Air 12/16/16 09:00 Room Air 12/16/16 08:00 96.2 62 18 148/64 98 Room Air I & O 12/17/16 07:00 Intake Total 2054 ml Output Total 600 ml Balance 1454 ml Capillary Refill : Less Than 3 SecondsLess Than 3 Seconds General Appearance: No Apparent Distress, WD/WN HEENT: Normal ENT Inspection Neck: Normal Inspection Respiratory: Chest Non Tender, Lungs Clear, Normal Breath Sounds, No Accessory Muscle Use, No Respiratory Distress Cardiovascular: Regular Rate, Rhythm, No Murmur Results Lab Laboratory Tests 12/17/16 04:10 Laboratory Tests 12/16/16 11:23: Glucometer 140H 12/16/16 16:14: Glucometer 118H 12/16/16 21:03: Glucometer 192H 12/17/16 04:10: White Blood Count 7.3, Red Blood Count 4.29L, Hemoglobin 11.3L, Hematocrit 36, Mean Corpuscular Volume 84, Mean Corpuscular Hemoglobin 26, Mean Corpuscular Hemoglobin Concent 31L, Red Cell Distribution Width 15.3H, Platelet Count 252, Mean Platelet Volume 11.3H, Neutrophils (%) (Auto) 58, Lymphocytes (%) (Auto) 23 , Monocytes (%) (Auto) 11, Eosinophils (%) (Auto) 8, Basophils (%) (Auto) 2, Neutrophils # (Auto) 4.2, Lymphocytes # (Auto) 1.7, Monocytes # (Auto) 0.8, Eosinophils # (Auto) 0.6H, Basophils # (Auto) 0.1 12/17/16 05:36: Glucometer 138H Assessment/Plan Assessment/Plan Assess & Plan/Chief Complaint unsteady gait. Weakness. Fatigue.. Cellulitis of legs better. tax services specialist involved for discharge Patient wants to go home with home health. [id number] done Clinical Quality Measures DVT/VTE Risk/Contraindication: Risk Factor Score Per Nursin RFS Level Per Nursing on Admit: 4+=Very High Contraindications-Mechi: Other *list below* JOSE PRIEST DO Dec 17, 2016 08:00
[2016-12-17] MEDS: FUROSEMIDE 40 MG (LASIX) TAB PO SCH (09:20)
[2016-12-17] MEDS: rOPINIRole 1 MG (REQUIP) TABLET PO SCH (09:20)
[2016-12-17] MEDS: DOCUSATE SODIUM 100 MG (COLACE) CAP PO SCH (09:20)
[2016-12-17] MEDS: DULoxetine 30 MG (CYMBALTA) CAP PO SCH (09:20)
[2016-12-17] MEDS: PREGABALIN 75 MG (LYRICA) CAP PO SCH (09:20)
[2016-12-17] MEDS: meTOproloL SUCCINATE 50 MG (TOPROL XL) TAB PO SCH (09:20)
[2016-12-17] MEDS: IRON POLYSAC 150 MG CAP (NIFEREX) PO SCH (09:20)
[2016-12-17] MEDS: OLANZapine 2.5 MG (ZyPREXA) TAB PO SCH (09:20)
[2016-12-17] MEDS: LORATADINE (CLARITIN) 10 MG TAB PO SCH (09:21)
[2016-12-17] MEDS: MICONAZOLE 2% POWDER (DESENEX AF) 90 GM TOP SCH (09:21)
[2016-12-17] MEDS ORDERED: CLIN300C3 PO (09:49)
--- NOTE | 2016-12-17 10:02 | D/C HH Face to Face Order ---
Discharge Inst-to Home Health Patient Instructions Patient Instructions/FollowUp: Nurse to set up medicines Patient Problems: Weakness, Unsteady gait Unable to take care of medicines [facility] [place] DISCHARGE ORDERS Allergies: Coded Allergies: No Known Drug Allergies (Unverified , 09/15/13) Height (Feet): 5 Height (Inches): 6.00 Weight (Pounds): 221 Weight (Ounces): 6.0 Home Health Need/Face to Face Reason Pt Homebound Unsteady gait Weakness Date of Face to Face: Dec 17, 2016 Discharged To: Home Diagnosis/Conditions HH Order: Unsteady gait Weakness Diabetes Cellulitis of legs Consult/Follow Up/New Order *I certify that based on my findings, the following services are medically necessary Home Health Services: Services: Nursing Services My clinical findings support the need for the above services; see Diagnosis. I certify that this patient is under my care and that I, a nurse practitioner or a physician; a assistant store manager trainee working with me, had a face to face encounter that - meets the physician face to face encounter requirements with this patient as dated. JOSE PRIEST DO Dec 17, 2016 10:02
--- NOTE | 2016-12-17 11:24 | Physical Therapy Progress Note ---
Therapy Progress Note Patient dismissing to home on this date with continued home health intervention. Patient declined PT this a.m. due to returning to home on this date. Patient voices no c/o at this time. 1 visit DC ([id number]) NIKKO MOSLEY PT Dec 17, 2016 11:24
== END 2016-12-17 14:12 | disposition swing bed (61) | DRG 603 ==
LOC: EDUNIT# 15:29 → ER 15:31 → 4TH 18:30 → UNDOADMOB 18:30 → 4TH 19:00 → OBSVTOIN 12-15 14:16 → 4TH 12-15 22:28
PROVIDERS: ADMIT Family Medicine; ATTEND Family Medicine
DX: L03.115 Cellulitis of right lower limb (principal); L03.116 Cellulitis of left lower limb; I87.2 Venous insufficiency (chronic) (peripheral); L30.4 Erythema intertrigo; I11.0 Hypertensive heart disease with heart failure; I50.9 Heart failure, unspecified; F41.9 Anxiety disorder, unspecified; F32.9 Major depressive disorder, single episode, unspecified; E11.40 Type 2 diabetes mellitus with diabetic neuropathy, unspecified; E11.65 Type 2 diabetes mellitus with hyperglycemia; G25.81 Restless legs syndrome; M19.91 Primary osteoarthritis, unspecified site; M54.9 Dorsalgia, unspecified; R26.81 Unsteadiness on feet; R53.1 Weakness; R29.6 Repeated falls; Z96.642 Presence of left artificial hip joint; Z79.4 Long term (current) use of insulin; Z87.891 Personal history of nicotine dependence
CPT/HCPCS: 36415; 80048; 80053; 81000; 82962; 85025; 85027; 94760; G0378

== ENCOUNTER → 2017-04-01 | Outpatient (CLI) | payer MEDICARE, MEDICAID ==
[~2017-04-01] MED LIST changes: +CEFD300C3 PO; +CLIN300C3 PO; +DOCU-143 PO; -OLAN2.5T19 PO; +OLAN2.5T27 PO
--- NOTE | 2017-04-01 16:07 | Diagnostic Imaging Report ---
PROCEDURE: US Bilateral lower extremity arterial. TECHNIQUE: Multiple real-time grayscale images are obtained through both lower extremity arterial systems with color Doppler imaging and color Doppler spectral analysis. INDICATION: Peripheral arterial disease. Bilateral leg swelling and redness. FINDINGS: The femoropopliteal segments demonstrate scattered atherosclerotic plaque bilaterally. There is color flow demonstrated with patency seen in the common femoral to posterior tibial and dorsalis pedis arteries on both sides. The profunda femoris is also patent bilaterally. In the right lower extremity, flow velocities are in the range of 65 up to 94 cm/s with no evidence of significant stenosis. Biphasic waveforms are seen throughout. On the left side, flow velocities are in the range of 62 to 133 cm/s. No evidence of high-grade stenosis. Biphasic waveforms are seen throughout. IMPRESSION: There are bilateral biphasic waveforms seen which may relate to inflow disease. No ultrasound evidence of high-grade focal stenosis seen. Dictated by: Dictated on workstation # [id number]
== END ==
LOC: RAD 13:23
PROVIDERS: ATTEND Family Medicine
DX: R22.43 Localized swelling, mass and lump, lower limb, bilateral (principal); I73.9 Peripheral vascular disease, unspecified; E11.40 Type 2 diabetes mellitus with diabetic neuropathy, unspecified
CPT/HCPCS: 93925

== ENCOUNTER 2017-06-21 14:13 | Emergency (ER) | payer MEDICARE, MEDICAID ==
[~2017-06-21] VITALS: Ht 162.6 cm; Wt 77.1 kg
[~2017-06-21 14:13] MED LIST changes: +DESV50TA18 PO; +FERR-74 PO; +LACT10SO PO; +MELA1TAB27 PO; -METO-272 PO; +METO-370 PO; +MIRT15TA6 PO; +OLAN5TAB25 PO; +PANT40TA3 PO; +RIVA1PAT TD; +SIMV10TA3 PO
--- NOTE | 2017-06-21 14:32 | ED Psychosocial ---
General Stated Complaint: SUICIDAL Source: patient Exam Limitations: no limitations History of Present Illness Time seen by provider: 14:28 Initial Comments To ER per EMS from [facility] as reports of suicidal behavior. Patient has a history of these outbursts when she becomes upset about something. Today, she held a butter knife to her throat claiming that she was going to kill herself. [facility] for suicidal behaviors. Upon arrival to the emergency room she is alert and oriented and pleasant and states that she was just mad was going to kill herself but currently she does not want to kill herself or harm herself or anyone else. Timing/Duration: just prior to arrival Severity: moderate Associated Symptoms: suicidal ideation Allergies and Home Medications Allergies Coded Allergies: No Known Drug Allergies (Unverified , 09/15/13) Home Medications Desvenlafaxine Succinate 50 Mg Tab.er.24h, 50 MG PO DAILY, (Reported) Docusate Sodium 100 Mg Capsule, 100 MG PO DAILY, (Reported) Duloxetine HCl 30 Mg Capsule.dr, 30 MG PO BID, (Reported) Ferrous Sulfate 325 Mg Tablet, 325 MG PO DAILY, (Reported) Furosemide 40 Mg Tablet, 40 MG PO DAILY, (Reported) Insulin Aspart 300 Units/3 Ml Solution, SQ SLIDING/SCALE, (Reported) 60-200 = 0 UNITS 201-250 = 3 UNITS 251-300 = 5 UNITS 301-350 = 7 UNITS 351- 400 = 9 UNITS CALL PHYSICIAN IF GREATER THAN 400 Lactulose 10 Gm/15 Ml Solution, 30 ML PO DAILY, (Reported) LAST FILLED 02/13/17 #946ML Loratadine 10 Mg Tablet, 10 MG PO DAILY, (Reported) Melatonin/Pyridoxine HCl (B6) 1 Each Tablet, 3 MG PO HS, (Reported) Metformin HCl 1,000 Mg Tablet, 1,000 MG PO BID, (Reported) Metoprolol Succinate 50 Mg Tab.er.24h, 50 MG PO DAILY, (Reported) Mirtazapine 15 Mg Tablet, 15 MG PO DAILY, (Reported) Olanzapine 5 Mg Tablet, 5 MG PO DAILY for 30 Days, #30 Prescribed by: JEREMIAH COTTRELL on 05/10/17 0955 Pantoprazole Sodium 40 Mg Tablet.dr, 40 MG PO DAILY, (Reported) Pregabalin 150 Mg Capsule, 150 MG PO TID, (Reported) LAST FILLED 12/11/16 #90 Rivastigmine 4.6 Mg Patch, 4.6 MG TD DAILY, (Reported) Ropinirole HCl 2 Mg Tablet, 2 MG PO BID, (Reported) Simvastatin 10 Mg Tablet, 10 MG PO HS, (Reported) Solifenacin Succinate 10 Mg Tablet, 10 MG PO DAILY, (Reported) Constitutional: see HPI EENTM: see HPI Respiratory: no symptoms reported Cardiovascular: no symptoms reported Genitourinary: no symptoms reported Musculoskeletal: no symptoms reported Skin: no symptoms reported Psychiatric/Neurological: See HPI Past Ezbtpsv-Nbxmsz-Suinkd Hx Patient Social History Type Used: Cigarettes Former Smoker, Quit: Jul 08, 1989 2nd Hand Smoke Exposure: No Recent Hopitalizations: Yes Immunizations Up To Date Tetanus Booster (TDap): Less than 5yrs PED Vaccines UTD: No Date of Pneumonia Vaccine: Mar 08, 2016 Date of Influenza Vaccine: Apr 07, 2017 Seasonal Allergies Seasonal Allergies: No Surgeries History of Surgeries: Yes Surgeries: Gallbladder, Joint Replacement, Orthopedic Respiratory History of Respiratory Disorde: No Currently Using CPAP: No Currently Using BIPAP: No Cardiovascular History of Cardiac Disorders: Yes Cardiac Disorders: Hypertension Neurological History of Neurological Disord: Yes Neurological Disorders: Neuropathy Reproductive System Hx Reproductive Disorders: No Sexually Transmitted Disease: No HIV/AIDS: No Genitourinary History of Genitourinary Disor: No Gastrointestinal History of Gastrointestinal Di: No Gastrointestinal Disorders: Hemorrhoids Musculoskeletal History of Musculoskeletal Dis: Yes Musculoskeletal Disorders: Chronic Back Pain Endocrine History of Endocrine Disorders: Yes Endocrine Disorders: Diabetes, Insulin dep HEENT History of HEENT Disorders: Yes HEENT Disorders: Cataract Loss of Vision: Denies Hearing Impairment: Denies Cancer History of Cancer: No Did You Recieve Any Treatments: No Psychosocial History of Psychiatric Problem: No Behavioral Health Disorders: Anxiety, Depression Integumentary History of Skin or Integumenta: Yes Blood Transfusions History of Blood Disorders: No Adverse Reaction to a Blood Tr: No Family Medical History Significant Family History: No Pertinent Family Hx Family Medial History: Congestive heart failure 03 FATHER Prostate cancer 03 FATHER No Family History of: Abdominal aortic aneurysm Abington's disease Alcoholism Aphasia Cancer Cancer of colon Cataract Congenital heart disease Cystic fibrosis Dementia Dysphagia Family history: Allergy Family history: Alzheimer's disease Family history: Arthritis Family history: Asthma Family history: Breast disease Family history: Cardiovascular disease Family history: Coronary thrombosis Family history: Diabetes mellitus Family history: Gastrointestinal disease Family history: Glaucoma Family history: Hypertension Family history: Osteoporosis Family history: Thyroid disorder Headache Hearing loss Heart disease Hereditary disease History of - anemia History of - disorder History of - respiratory disease History of drug abuse Human immunodeficiency virus (HIV) seropositivity Hypercholesterolemia Infertile Kidney disease Malignant neoplasm of lung Myocardial infarction Parkinson's disease Psychotic disorder Seizure disorder Stroke Tuberculosis Visual impairment Physical Exam Vital Signs Capillary Refill : General Appearance: WD/WN, no apparent distress HEENT: PERRL/EOMI, normal ENT inspection Neck: non-tender, full range of motion Respiratory: no respiratory distress, no accessory muscle use Cardiovascular: regular rate, rhythm, no murmur Gastrointestinal: normal bowel sounds, non tender, soft Neurologic/Psychiatric: alert, normal mood/affect, oriented x 3 Appearance/Memory: disheveled, impaired insight Behavior/Eye Contact: cooperative, good eye contact Thoughts/Hallucinations: no apparent hallucination Skin: normal color, warm/dry Progress/Results/Core Measures Results/Orders My Orders Orders - LIAN RAMIREZ APRN Cbc With Automated Diff (06/21/17 14:27) Basic Metabolic Panel (06/21/17 14:27) Ua Culture If Indicated (06/21/17 14:27) Departure Impression Impression: Primary Impression: Suicidal thoughts Disposition: 01 HOME, SELF-CARE Condition: Stable Departure-Patient Inst. Decision time for Depature: 14:31 Referrals: JOSE PRIEST DO (PCP/Family) Primary Care Physician Patient Instructions: Suicide Prevention Add. Discharge Instructions: 1. You may call the senior behavioral health unit at [facility] at [phone] and ask for a screening to take placed to see if she qualifies for inpatient treatment again. We have sent to our laboratory evaluation back with her. LIAN RAMIREZ APRN Jun 21, 2017 14:32
[2017-06-21 14:54] LABS: BASOPHILS # (AUTO) 0.1 10^3/uL (0.0-0.1); BASOPHILS % (AUTO) 1 % (0-10); EOSINOPHILS # (AUTO) 0.5 10^3/uL (0.0-0.3); EOSINOPHILS % (AUTO) 5 % (0-10); LYMPHOCYTES % (AUTO) 11 % (12-44); MEAN CORPUSCULAR HEMOGLOBIN 28 PG (25-34); MEAN CORPUSCULAR HGB CONC 31 G/DL (32-36); MEAN CORPUSCULAR VOLUME 89 FL (80-99); MEAN PLATELET VOLUME 10.6 FL (7.4-10.4); MONOCYTES # (AUTO) 0.8 X 10^3 (0.0-1.0); MONOCYTES % (AUTO) 9 % (0-12); NEUTROPHILS # (AUTO) 7.3 X 10^3 (1.8-7.8); NEUTROPHILS % (AUTO) 75 % (42-75); PLATELET COUNT 267 10^3/uL (130-400); RED CELL DISTRIBUTION WIDTH 13.1 % (10.0-14.5); WHITE BLOOD COUNT 9.8 10^3/uL (4.3-11.0)
[2017-06-21 15:11] LABS: ANION GAP 12 MMOL/L (5-14); BLOOD UREA NITROGEN 18 MG/DL (7-18); BUN/CREATININE RATIO 26; CARBON DIOXIDE 25 MMOL/L (21-32); CHLORIDE 103 MMOL/L (98-107); GFR ESTIMATED > 60; GLUCOSE 134 MG/DL (70-105); SODIUM 140 MMOL/L (135-145)
[2017-06-21 15:16] LABS: BILIRUBIN,URINE NEGATIVE (NEGATIVE); KETONES,URINE NEGATIVE (NEGATIVE); LEUKOCYTE ESTERASE ,URINE 1+ (NEGATIVE); NITRITE,URINE NEGATIVE (NEGATIVE); PH,URINE 6.5 (5-9); PROTEIN,URINE NEGATIVE (NEGATIVE); UROBILINOGEN,URINE NORMAL (NORMAL)
[2017-06-21 15:34] LABS: SQUAMOUS EPITHELIAL CELL,UR 0-2 /HPF; WBC,URINE RARE /HPF
[2017-06-21 16:17] VITALS: BP 121/62
== END 2017-06-21 16:17 | disposition home or self-care (01) ==
LOC: EDUNIT# 14:13 → ER 14:15
DX: R45.851 Suicidal ideations (principal); I10 Essential (primary) hypertension; E11.9 Type 2 diabetes mellitus without complications; F41.9 Anxiety disorder, unspecified; F32.9 Major depressive disorder, single episode, unspecified; Z82.49 Family history of ischemic heart disease and other diseases of the circulatory system; Z87.19 Personal history of other diseases of the digestive system; Z79.4 Long term (current) use of insulin; Z87.891 Personal history of nicotine dependence
CPT/HCPCS: 36415; 80048; 81000; 85025; 99283

== ENCOUNTER → 2017-07-30 | Outpatient (CLI) | payer MEDICARE, MEDICAID ==
[~2017-07-30] MED LIST changes: -FERR-74 PO; +FERR325T18 PO; -ROSU10TA24 PO; +ROSU10TA26 PO
--- NOTE | 2017-07-30 17:19 | Diagnostic Imaging Report ---
INDICATION: Pain. Two views of the right hip were obtained. FINDINGS: There are postsurgical changes of right hip arthroplasty. There are some minimal dystrophic calcifications along the superolateral aspect of the femoral neck. There is no fracture or loosening of the hardware. There is no acute fracture or dislocation. Soft tissues are unremarkable. IMPRESSION: Unchanged dystrophic calcification along the superolateral aspect of the femoral neck; otherwise, unremarkable right hip arthroplasty. Dictated by: Dictated on workstation # [id number]
== END ==
LOC: RAD 16:24
PROVIDERS: ATTEND Family Medicine
DX: M89.8X5 Other specified disorders of bone, thigh (principal); Z96.641 Presence of right artificial hip joint
CPT/HCPCS: 73502

== ENCOUNTER 2017-09-06 12:13 | Inpatient (IN) | payer MEDICARE, MEDICAID ==
[~2017-09-06] VITALS: Ht 167.6 cm; Wt 85.3 kg
--- NOTE | 2017-09-06 13:06 | ED General ---
General Chief Complaint: Altered Mental Status Stated Complaint: AMS Source of Information: Patient, EMS, RN/MD (Dr. Priest.) History of Present Illness Date Seen by Provider: Sep 06, 2017 Time Seen by Provider: 12:56 Initial Comments This 67-year-old white female is brought to the emergency department by EMS for an altered level of consciousness. Patient's in the care of Dr. Priest. Dr. Priest called me and said that the patient could be septic. The patient was recently transferred to the skilled nursing from a [facility]. The patient's past medical history includes strokes. The patient in addition to having had strokes in the past suffers from dementia. Allergies and Home Medications Allergies Coded Allergies: No Known Drug Allergies (Unverified , 09/15/13) Home Medications Desvenlafaxine Succinate 50 Mg Tab.er.24h, 50 MG PO DAILY, (Reported) Docusate Sodium 100 Mg Capsule, 100 MG PO DAILY, (Reported) Duloxetine HCl 30 Mg Capsule.dr, 30 MG PO BID, (Reported) Ferrous Sulfate 325 Mg Tablet, 325 MG PO DAILY, (Reported) Furosemide 40 Mg Tablet, 40 MG PO DAILY, (Reported) Insulin Aspart 300 Units/3 Ml Solution, SQ SLIDING/SCALE, (Reported) 60-200 = 0 UNITS 201-250 = 3 UNITS 251-300 = 5 UNITS 301-350 = 7 UNITS 351- 400 = 9 UNITS CALL PHYSICIAN IF GREATER THAN 400 Lactulose 10 Gm/15 Ml Solution, 30 ML PO DAILY, (Reported) LAST FILLED 02/13/17 #946ML Loratadine 10 Mg Tablet, 10 MG PO DAILY, (Reported) Melatonin/Pyridoxine HCl (B6) 1 Each Tablet, 3 MG PO HS, (Reported) Metformin HCl 1,000 Mg Tablet, 1,000 MG PO BID, (Reported) Metoprolol Succinate 50 Mg Tab.er.24h, 50 MG PO DAILY, (Reported) Mirtazapine 15 Mg Tablet, 15 MG PO DAILY, (Reported) Olanzapine 5 Mg Tablet, 5 MG PO DAILY Prescribed by: JEREMIAH COTTRELL on 05/10/17 0955 Pantoprazole Sodium 40 Mg Tablet.dr, 40 MG PO DAILY, (Reported) Pregabalin 150 Mg Capsule, 150 MG PO TID, (Reported) LAST FILLED 12/11/16 #90 Rivastigmine 4.6 Mg Patch, 4.6 MG TD DAILY, (Reported) Ropinirole HCl 2 Mg Tablet, 2 MG PO BID, (Reported) Simvastatin 10 Mg Tablet, 10 MG PO HS, (Reported) Solifenacin Succinate 10 Mg Tablet, 10 MG PO DAILY, (Reported) Patient Home Medication List Home Medication List Reviewed: Yes Constitutional: weakness EENTM: no symptoms reported Respiratory: no symptoms reported Cardiovascular: no symptoms reported Gastrointestinal: no symptoms reported Genitourinary: no symptoms reported Musculoskeletal: no symptoms reported Skin: no symptoms reported Psychiatric/Neurological: No Symptoms Reported Hematologic/Lymphatic: No Symptoms Reported Immunological/Allergic: no symptoms reported Past Mncxtfj-Mgbliv-Mfvepr Hx Patient Social History Type Used: Cigarettes Former Smoker, Quit: Jul 08, 1989 2nd Hand Smoke Exposure: No Recent Hopitalizations: Yes Immunizations Up To Date Tetanus Booster (TDap): Less than 5yrs PED Vaccines UTD: No Date of Pneumonia Vaccine: Mar 08, 2016 Date of Influenza Vaccine: Apr 07, 2017 Seasonal Allergies Seasonal Allergies: No Surgeries History of Surgeries: Yes Surgeries: Gallbladder, Joint Replacement, Orthopedic Respiratory History of Respiratory Disorde: No Currently Using CPAP: No Currently Using BIPAP: No Cardiovascular History of Cardiac Disorders: Yes Cardiac Disorders: Hypertension Neurological History of Neurological Disord: Yes Neurological Disorders: Neuropathy Reproductive System Hx Reproductive Disorders: No Sexually Transmitted Disease: No HIV/AIDS: No Genitourinary History of Genitourinary Disor: No Gastrointestinal History of Gastrointestinal Di: No Gastrointestinal Disorders: Hemorrhoids Musculoskeletal History of Musculoskeletal Dis: Yes Musculoskeletal Disorders: Chronic Back Pain Endocrine History of Endocrine Disorders: Yes Endocrine Disorders: Diabetes, Insulin dep HEENT History of HEENT Disorders: Yes HEENT Disorders: Cataract Loss of Vision: Denies Hearing Impairment: Denies Cancer History of Cancer: No Did You Recieve Any Treatments: No Psychosocial History of Psychiatric Problem: No Behavioral Health Disorders: Anxiety, Depression Integumentary History of Skin or Integumenta: Yes Blood Transfusions History of Blood Disorders: No Adverse Reaction to a Blood Tr: No Reviewed Nursing Assessment Reviewed/Agree w Nursing PMH: Yes Family Medical History Significant Family History: No Pertinent Family Hx Family Medial History: Congestive heart failure 03 FATHER Prostate cancer 03 FATHER No Family History of: Abdominal aortic aneurysm Hancock's disease Alcoholism Aphasia Cancer Cancer of colon Cataract Congenital heart disease Cystic fibrosis Dementia Dysphagia Family history: Allergy Family history: Alzheimer's disease Family history: Arthritis Family history: Asthma Family history: Breast disease Family history: Cardiovascular disease Family history: Coronary thrombosis Family history: Diabetes mellitus Family history: Gastrointestinal disease Family history: Glaucoma Family history: Hypertension Family history: Osteoporosis Family history: Thyroid disorder Headache Hearing loss Heart disease Hereditary disease History of - anemia History of - disorder History of - respiratory disease History of drug abuse Human immunodeficiency virus (HIV) seropositivity Hypercholesterolemia Infertile Kidney disease Malignant neoplasm of lung Myocardial infarction Parkinson's disease Psychotic disorder Seizure disorder Stroke Tuberculosis Visual impairment Physical Exam Vital Signs Vital Signs - First Documented 09/06/17 13:11 Temp 97.2 Pulse 82 Resp 16 B/P (MAP) 156/80 (105) Pulse Ox 94 O2 Delivery Room Air Capillary Refill : General Appearance: Cachetic Eyes: Bilateral Eye Normal Inspection HEENT: Normal ENT Inspection Neck: Normal Inspection, Non Tender, Supple Respiratory: Lungs Clear Cardiovascular: Regular Rate, Rhythm Gastrointestinal: Normal Bowel Sounds, No Organomegaly Back: Normal Inspection Extremity: Normal Capillary Refill, Normal Inspection, Normal Range of Motion Neurologic/Psychiatric: Other (the patient is minimally verbal. She responds to marked verbal stimuli does not provide appropriate responses to questions.) Skin: Pallor Focused Exam Evaluation Lactate Level Laboratory Tests 09/06/17 13:00: Lactic Acid Level 0.89 Lactic Acid Level Laboratory Tests Test 09/06/17 13:00 Lactic Acid Level 0.89 MMOL/L (0.50-2.00) Progress/Results/Core Measures Suspected Sepsis SIRS Temperature: Pulse: Respiratory Rate: Laboratory Tests 09/06/17 13:00: White Blood Count 16.5H Blood Pressure / Mean: Laboratory Tests 09/06/17 13:00: Lactic Acid Level 0.89 Laboratory Tests 09/06/17 13:00: Creatinine 0.94, Platelet Count 274, Total Bilirubin 0.7 Results/Orders Lab Results Laboratory Tests Test 09/06/17 13:00 09/06/17 13:20 Range/Units White Blood Count 16.5 H 4.3-11.0 10^3/uL Red Blood Count 5.09 4.35-5.85 10^6/uL Hemoglobin 13.7 11.5-16.0 G/DL Hematocrit 42 35-52 % Mean Corpuscular Volume 82 80-99 FL Mean Corpuscular Hemoglobin 27 25-34 PG Mean Corpuscular Hemoglobin Concent 33 32-36 G/DL Red Cell Distribution Width 16.4 H 10.0-14.5 % Platelet Count 274 130-400 10^3/uL Mean Platelet Volume 11.3 H 7.4-10.4 FL Neutrophils (%) (Auto) 79 H 42-75 % Lymphocytes (%) (Auto) 10 L 12-44 % Monocytes (%) (Auto) 9 0-12 % Eosinophils (%) (Auto) 2 0-10 % Basophils (%) (Auto) 1 0-10 % Neutrophils # (Auto) 13.0 H 1.8-7.8 X 10^3 Lymphocytes # (Auto) 1.7 1.0-4.0 X 10^3 Monocytes # (Auto) 1.5 H 0.0-1.0 X 10^3 Eosinophils # (Auto) 0.2 0.0-0.3 10^3/uL Basophils # (Auto) 0.1 0.0-0.1 10^3/uL Neutrophils % (Manual) 82 % Lymphocytes % (Manual) 8 % Monocytes % (Manual) 6 % Eosinophils % (Manual) 3 % Basophils % (Manual) 1 % Band Neutrophils 0 % Blood Morphology Comment NORMAL Sodium Level 142 135-145 MMOL/L Potassium Level 4.7 3.6-5.0 MMOL/L Chloride Level 103 98-107 MMOL/L Carbon Dioxide Level 26 21-32 MMOL/L Anion Gap 13 5-14 MMOL/L Blood Urea Nitrogen 30 H 7-18 MG/DL Creatinine 0.94 0.60-1.30 MG/DL Estimat Glomerular Filtration Rate 59 BUN/Creatinine Ratio 32 Glucose Level 199 H 70-105 MG/DL Lactic Acid Level 0.89 0.50-2.00 MMOL/L Calcium Level 10.9 H 8.5-10.1 MG/DL Total Bilirubin 0.7 0.1-1.0 MG/DL Aspartate Amino Transf (AST/SGOT) 38 H 5-34 U/L Alanine Aminotransferase (ALT/SGPT) 72 H 0-55 U/L Alkaline Phosphatase 76 40-136 U/L Troponin I < 0.30 <0.30 NG/ML Total Protein 7.6 6.4-8.2 GM/DL Albumin 4.4 3.2-4.5 GM/DL Urine Color ORANGE Urine Clarity CLEAR Urine pH 5 5-9 Urine Specific [place] 1.020 1.016-1.022 Urine Protein 4+ NEGATIVE Urine Glucose (UA) NEGATIVE NEGATIVE Urine Ketones 2+ H NEGATIVE Urine Nitrite POSITIVE H NEGATIVE Urine Bilirubin 2+ H NEGATIVE Urine Urobilinogen 1 NORMAL MG/DL Urine Leukocyte Esterase 1+ H NEGATIVE Urine RBC (Auto) NEGATIVE NEGATIVE Urine RBC NONE /HPF Urine WBC 0-2 /HPF Urine Squamous Epithelial Cells NONE /HPF Urine Crystals NONE /LPF Urine Bacteria FEW H /HPF Urine Casts NONE /LPF Urine Mucus NEGATIVE /LPF Urine Culture Indicated YES My Orders Orders - SCARLETT MYLES MD Cbc With Automated Diff (09/06/17 12:32) Comprehensive Metabolic Panel (09/06/17 12:32) Lactic Acid Analyzer (09/06/17 12:32) Blood Culture (09/06/17 12:32) Ua Culture If Indicated (09/06/17 12:32) Chest 1 View, Ap/Pa Only (09/06/17 12:32) Ekg Tracing (09/06/17 13:11) Troponin I (09/06/17 13:11) Ns Iv 1000 Ml (Sodium Chloride 0.9%) (09/06/17 13:15) Blood Culture (09/06/17 13:12) Manual Differential (09/06/17 13:00) Ceftriaxone Injection (Rocephin Injectio (09/06/17 13:45) Urine Culture (09/06/17 13:20) Ceftriaxone Injection (Rocephin Injectio (09/06/17 14:13) Vital Signs/I&O Vital Sign - Last 12Hours 09/06/17 13:11 Temp 97.2 Pulse 82 Resp 16 B/P (MAP) 156/80 (105) Pulse Ox 94 O2 Delivery Room Air Capillary Refill : Progress Note : Time: 14:40 Progress Note I discussed with the patient's sister who has DURABLE POWER OF MVA OPERATOR whether the patient should be a full code or DO NOT RESUSCITATE. It was his sister's decision making patient DO NOT RESUSCITATE. Patient laboratory evaluation M shrimp. Urinary tract infection. Chest x-ray films fail to reveal evidence of an infiltrate. Patient was moderately dehydrated. Patient was given IV fluids and 2 g Rocephin IV. Telephone consultation was undertaken with Dr. Rust who is kind enough to admit patient for Dr. Priest. Departure Communication (Admissions) Time/Spoke to Admitting Phy: 14:[address] Rust. Impression Impression: Primary Impression: Urinary tract infection Qualified Codes: N30.00 - Acute cystitis without hematuria Additional Impressions: Dehydration Decreased level of consciousness Disposition: ADMITTED INPATIENT Condition: Improved Admissions Decision to Admit Reason: Admit from ER (General) Decision to Admit/Date: Sep 06, 2017 Time/Decision to Admit Time: 14:43 Departure-Patient Inst. Referrals: JOSE PRIEST DO (PCP/Family) Primary Care Physician SCARLETT MYLES MD Sep 06, 2017 13:06
[2017-09-06 13:14] LABS: BASOPHILS # (AUTO) 0.1 10^3/uL (0.0-0.1); BASOPHILS % (AUTO) 1 % (0-10); EOSINOPHILS # (AUTO) 0.2 10^3/uL (0.0-0.3); EOSINOPHILS % (AUTO) 2 % (0-10); HEMATOCRIT 42 % (35-52); HEMOGLOBIN 13.7 G/DL (11.5-16.0); LYMPHOCYTES # (AUTO) 1.7 X 10^3 (1.0-4.0); LYMPHOCYTES % (AUTO) 10 % (12-44); MEAN CORPUSCULAR HEMOGLOBIN 27 PG (25-34); MEAN CORPUSCULAR HGB CONC 33 G/DL (32-36); MEAN CORPUSCULAR VOLUME 82 FL (80-99); MEAN PLATELET VOLUME 11.3 FL (7.4-10.4); MONOCYTES # (AUTO) 1.5 X 10^3 (0.0-1.0); MONOCYTES % (AUTO) 9 % (0-12); NEUTROPHILS % (AUTO) 79 % (42-75); PLATELET COUNT 274 10^3/uL (130-400); RED BLOOD COUNT 5.09 10^6/uL (4.35-5.85); RED CELL DISTRIBUTION WIDTH 16.4 % (10.0-14.5); WHITE BLOOD COUNT 16.5 10^3/uL (4.3-11.0)
[2017-09-06] MEDS ORDERED: NS IV 1000 ML 1,000 ML IV SCH (13:15)
[2017-09-06 13:30] LABS: CLARITY,URINE CLEAR; GLUCOSE, URINE (UA) NEGATIVE (NEGATIVE); KETONES,URINE 2+ (NEGATIVE); LEUKOCYTE ESTERASE ,URINE 1+ (NEGATIVE); NITRITE,URINE POSITIVE (NEGATIVE); PH,URINE 5 (5-9); PROTEIN,URINE 4+ (NEGATIVE); UROBILINOGEN,URINE 1 MG/DL (NORMAL)
[2017-09-06 13:33] LABS: ALBUMIN 4.4 GM/DL (3.2-4.5); BAND NEUTROPHILS 0 %; BASOPHILS % (MANUAL) 1 %; BILIRUBIN,TOTAL 0.7 MG/DL (0.1-1.0); CALCIUM 10.9 MG/DL (8.5-10.1); CREATININE SERUM 0.94 MG/DL (0.60-1.30); EOSINOPHILS % (MANUAL) 3 %; LYMPHOCYTES % (MANUAL) 8 %; MONOCYTES % (MANUAL) 6 %; NEUTROPHILS % (MANUAL) 82 %; POTASSIUM 4.7 MMOL/L (3.6-5.0); RBC MORPH NORMAL; TOTAL PROTEIN 7.6 GM/DL (6.4-8.2)
--- NOTE | 2017-09-06 13:42 | Diagnostic Imaging Report ---
PATIENT HISTORY: Altered mental status. TECHNIQUE: Single frontal view of the chest. COMPARISON: 05/04/2017. FINDINGS: The lung volumes are normal. No focal consolidation is seen. There is no large pleural effusion or pneumothorax. The cardiac silhouette is stable in size. There is aortic atherosclerosis. Old left-sided rib fractures are noted. IMPRESSION: No acute pulmonary abnormality is seen. Dictated by: Dictated on workstation # [id number]
[2017-09-06] MEDS ORDERED: cefTRIAXone INJECTION 2,000 MG in NS (IVPB) 100 ML IV ONE (13:45)
[2017-09-06 13:50] LABS: BACTERIA,URINE FEW /HPF; BILIRUBIN,URINE 2+ (NEGATIVE); COLOR,URINE ORANGE; WBC,URINE 0-2 /HPF
[2017-09-06] MEDS ORDERED: cefTRIAXone 1 GM (ROCEPHIN) VIAL ONE (14:13)
[2017-09-06] MEDS ORDERED: CATHETER FLUSH 10 ML SYR IV PRN (16:00)
[2017-09-06] MEDS: NS IV 1000 ML 1,000 ML IV SCH ×2 (16:23→23:41)
[2017-09-06 16:33] VITALS: BP 202/119
[2017-09-06 16:45] VITALS: BP 178/92
[2017-09-06] MEDS ORDERED: fentaNYL INJECTION 100 MCG/2 ML AMP ONE (16:49)
[2017-09-06] MEDS: fentaNYL INJECTION 100 MCG/2 ML AMP IVP PRN ×4 (17:00→23:41)
[2017-09-06 21:00] VITALS: BP 176/90
[2017-09-06 22:00] VITALS: BP 168/82
[2017-09-07] VITALS: BP 118/64
[2017-09-07] MEDS: fentaNYL INJECTION 100 MCG/2 ML AMP IVP PRN ×8 (02:30→23:58)
[2017-09-07 04:00] VITALS: BP 138/78
[2017-09-07 05:07] LABS: BASOPHILS # (AUTO) 0.1 10^3/uL (0.0-0.1); BASOPHILS % (AUTO) 1 % (0-10); EOSINOPHILS # (AUTO) 0.4 10^3/uL (0.0-0.3); EOSINOPHILS % (AUTO) 3 % (0-10); HEMATOCRIT 38 % (35-52); HEMOGLOBIN 12.4 G/DL (11.5-16.0); LYMPHOCYTES # (AUTO) 1.7 X 10^3 (1.0-4.0); LYMPHOCYTES % (AUTO) 11 % (12-44); MEAN CORPUSCULAR HEMOGLOBIN 27 PG (25-34); MEAN CORPUSCULAR HGB CONC 33 G/DL (32-36); MEAN CORPUSCULAR VOLUME 83 FL (80-99); MEAN PLATELET VOLUME 11.2 FL (7.4-10.4); MONOCYTES # (AUTO) 1.4 X 10^3 (0.0-1.0); MONOCYTES % (AUTO) 10 % (0-12); NEUTROPHILS # (AUTO) 11.3 X 10^3 (1.8-7.8); NEUTROPHILS % (AUTO) 75 % (42-75); PLATELET COUNT 225 10^3/uL (130-400); RED BLOOD COUNT 4.58 10^6/uL (4.35-5.85); RED CELL DISTRIBUTION WIDTH 16.4 % (10.0-14.5)
[2017-09-07 05:29] LABS: ALANINE AMINOTRANSFERASE 79 U/L (0-55); ALBUMIN 3.9 GM/DL (3.2-4.5); ALKALINE PHOSPHATASE 74 U/L (40-136); BILIRUBIN,TOTAL 0.6 MG/DL (0.1-1.0); BUN/CREATININE RATIO 29; CALCIUM 10.1 MG/DL (8.5-10.1); CARBON DIOXIDE 24 MMOL/L (21-32); CHLORIDE 108 MMOL/L (98-107); CREATININE SERUM 0.78 MG/DL (0.60-1.30); GFR ESTIMATED > 60; GLUCOSE 176 MG/DL (70-105); SODIUM 141 MMOL/L (135-145); TOTAL PROTEIN 7.1 GM/DL (6.4-8.2)
--- NOTE | 2017-09-07 07:24 | Diagnostic Imaging Report ---
CHEST 1 VIEW, AP/PA ONLY Indication: Sepsis. Comparison: 09/06/2017 Findings: No focal airspace disease in the visualized lungs. Please note that the posterior lower lobes are poorly evaluated by portable radiography. No pleural effusion or pneumothorax. Normal cardiomediastinal silhouette. Impression: No acute cardiopulmonary process by portable radiography. Dictated by: Dictated on workstation # [id number]
[2017-09-07] MEDS: NS IV 1000 ML 1,000 ML IV SCH ×2 (07:49→16:27)
[2017-09-07] MEDS: cefTRIAXone 1 GM/NS 100 ML IV SCH ×2 (07:50)
[2017-09-07 08:30] VITALS: BP 158/81
[2017-09-07 12:00] VITALS: BP 163/79
--- NOTE | 2017-09-07 12:54 | History & Physical-Hospitalist ---
HPI History of Present Illness: HPI/Chief Complaint The patient is a 67-year-old white female patient of Dr. Aguilar's known to me from previous admissions. She has been known to have mental health issues. She was in via [facility] early this year. Her daughter states she went home for 4 days and then was placed at [facility]. She was therefore weeks. When she arrived she was able to walk with a walker independently but shortly thereafter became unable to walk and was confined to a wheelchair. She then went long periods without speaking. She was unable to feed herself and ultimately placed on a pured diet. She was discharged from there to a local alf and was there for 4 days when she was sent to our emergency room yesterday. Dr. Aguilar had seen her at the alf yesterday morning. The daughter tells me that he told them he thought she was dying. In addition the daughter states that she has developed a tremor and that she wonders whether this is Parkinson's disease. Exam Limitations: no limitations Date Seen 09/07/17 Time Seen by Provider: 12:51 Attending Physician Alfred Grimes MD PCP Shan Aguilar DO Referring Physician Date of Admission Sep 06, 2017 at 14:23 Home Medications & Allergies Home Medications Reviewed patient Home Medication Reconciliation Form Allergies Allergies Coded Allergies codeine (Verified Allergy, Unknown, 09/06/17) Past Lzhirza-Woeksg-Yqwpme Hx Patient Social History Alcohol Use: Denies Use Recreational Drug Use: No Smoking Status: Former Smoker Former Smoker, Quit: Jul 08, 1989 Type Used: Cigarettes 2nd Hand Smoke Exposure: No Physical Abuse Screen: No Sexual Abuse: No Recent Foreign Travel: No Contact w/other who traveled: No Recent Hopitalizations: Yes Recent Infectious Disease Expo: No Immunizations Up To Date Tetanus Booster (TDap): Less than 5yrs Pediatric: No Date of Pneumonia Vaccine: Mar 08, 2016 Date of Influenza Vaccine: Apr 07, 2017 Seasonal Allergies Seasonal Allergies: No Surgeries Yes Gallbladder, Joint Replacement, Orthopedic Respiratory No Currently Using CPAP: No Currently Using BIPAP: No Cardiovascular Yes Hypertension Neurological Yes Neuropathy Reproductive System : No Hx Reproductive Disorders: No Sexually Transmitted Disease: No HIV/AIDS: No Genitourinary No Gastrointestinal Yes Hemorrhoids Musculoskeletal Yes Chronic Back Pain Endocrine History of Endocrine Disorders: Yes Endocrine Disorders: Diabetes, Insulin dep HEENT History of HEENT Disorders: Yes HEENT Disorders: Cataract Loss of Vision: Denies Hearing Impairment: Denies Cancer No Did You Recieve Any Treatments: No Psychosocial History of Psychiatric Problem: No (DEMENTIA) Behavioral Health Disorders: Anxiety, Depression Integumentary History of Skin or Integumenta: No Blood Transfusions History of Blood Disorders: No Adverse Reaction to a Blood Tr: No Reviewed Nursing Assessment Reviewed/Agree w Nursing PMH: Yes Family Medical History Significant Family History: No Pertinent Family Hx Family Hx: Congestive heart failure 03 FATHER Prostate cancer 03 FATHER No Family History of: Abdominal aortic aneurysm Phill's disease Alcoholism Aphasia Cancer Cancer of colon Cataract Congenital heart disease Cystic fibrosis Dementia Dysphagia Family history: Allergy Family history: Alzheimer's disease Family history: Arthritis Family history: Asthma Family history: Breast disease Family history: Cardiovascular disease Family history: Coronary thrombosis Family history: Diabetes mellitus Family history: Gastrointestinal disease Family history: Glaucoma Family history: Hypertension Family history: Osteoporosis Family history: Thyroid disorder Headache Hearing loss Heart disease Hereditary disease History of - anemia History of - disorder History of - respiratory disease History of drug abuse Human immunodeficiency virus (HIV) seropositivity Hypercholesterolemia Infertile Kidney disease Malignant neoplasm of lung Myocardial infarction Parkinson's disease Psychotic disorder Seizure disorder Stroke Tuberculosis Visual impairment Review of Systems Constitutional: see HPI, other (the patient did not speak or attempt to speak during my questioning.) Physical Exam Physical Exam Vital Signs Vital Signs - First Documented 09/06/17 13:11 Temp 97.2 Pulse 82 Resp 16 B/P (MAP) 156/80 (105) Pulse Ox 94 O2 Delivery Room Air Capillary Refill : Less Than 3 SecondsLess Than 3 Seconds General Appearance: Other (semi-alert in appearance. A flapping tremor was noted at intervals affecting the right hand) Eyes: Bilateral Eye Normal Inspection HEENT: Normal ENT Inspection, Other (tongue was very dry and rough) Neck: Other (she is stiff to passive range of motion and appears to find it uncomfortable) Respiratory: Chest Non Tender, Lungs Clear, Normal Breath Sounds, No Accessory Muscle Use, No Respiratory Distress Cardiovascular: Regular Rate, Rhythm, No Edema, No Gallop, No JVD, No Murmur, Normal Peripheral Pulses Gastrointestinal: Normal Bowel Sounds, No Organomegaly, No Pulsatile Mass, Non Tender, Soft Comments She was very stiff and with mild cogwheeling when I did passive extension and flexion of her arms at the elbow. Results Results/Procedures Lab Laboratory Tests 3/2/18 13:00 09/07/17 04:35 Assessment/Plan Admission Diagnosis Urinary tract infection with Escherichia coli. 2.history of delusions and aggressive behavior. 3.rather marked short-term decline in physical function with cogwheeling suggesting the possibility of Parkinson's disease Admission Status: Inpatient Order (span 2 midnights) Reason for Inpatient Admission: Apparent rapid and remarkable declining physical function. 2.treatment of urinary tract infection. Assessment and Plan Treat urinary tract infection and acquire a speech consultation for swallowing on Saturday. Clinical Quality Measures DVT/VTE Risk/Contraindication: Risk Factor Score Per Nursin RFS Level Per Nursing on Admit: 4+=Very High ALFRED GRIMES MD Sep 07, 2017 12:54
[2017-09-07] MEDS: LORazepam INJ 2 MG/ML (ATIVAN) VIAL IVP PRN ×2 (16:28→20:35)
[2017-09-07 20:15] VITALS: BP 133/61
[2017-09-08] MEDS: NS IV 1000 ML 1,000 ML IV SCH ×3 (00:02→16:04)
[2017-09-08] MEDS: LORazepam INJ 2 MG/ML (ATIVAN) VIAL IVP PRN ×5 (05:13→22:30)
[2017-09-08] MEDS: fentaNYL INJECTION 100 MCG/2 ML AMP IVP PRN ×6 (05:13→22:30)
[2017-09-08] MEDS: cefTRIAXone 1 GM/NS 100 ML IV SCH ×2 (08:09)
--- NOTE | 2017-09-08 13:28 | Progress Note-Hospitalist ---
Standard Progress Note Progress Notes/Assess & Plan Date Seen 09/08/17 Time Seen by Provider: 13:25 Diagnosis Urinary tract infection with Escherichia coli. 2.history of delusions and aggressive behavior. 3.rather marked short-term decline in physical function with cogwheeling suggesting the possibility of Parkinson's disease Assess & Plan/Chief Complaint The patient was sleeping soundly and slept through my visit. Her granddaughter was present stated that after the Ativan that she was given she was able to sleep through the night for the first time in a while. The patient's color is better her respirations are smooth and without distress. The Escherichia coli in the urine was sensitive to the Rocephin that week asked. The patient has been afebrile. Physical exam: She is sleeping and appears quite peaceful. Lungs are clear to auscultation. CV is regular without murmur. Abdomen is soft. Impression: Urinary tract infection with Escherichia coli. 2.recent history of delusions and aggressive behavior. 3.marked decline in short term as to physical performance. Plan: The granddaughter brought up the question of the hospice/comfort care. This is quite reasonable and should be explored when our staff returns tomorrow. Labs Laboratory Tests 09/07/17 04:35 RONAN GRIMES MD Sep 08, 2017 13:28
[2017-09-09] MEDS: NS IV 1000 ML 1,000 ML IV SCH ×3 (00:16→20:43)
[2017-09-09] MEDS: fentaNYL INJECTION 100 MCG/2 ML AMP IVP PRN ×5 (04:09→17:46)
[2017-09-09] MEDS: LORazepam INJ 2 MG/ML (ATIVAN) VIAL IVP PRN ×5 (04:10→20:43)
--- NOTE | 2017-09-09 07:47 | Progress Note (SOAP) ---
Subjective Time Seen by Provider: 07:45 Subjective/Events-last exam Patient is not talking today. Patient has dementia and mental illness. Patient has cogwheel motion of her arms. Patient appears to have Parkinson disease. Patient keeps her eyes closed. Patient to have palliative care consult today. Patient to have speech therapy for taking fluids. Patient just keeps her eyes closed. Spoke to sister about what's going on. Patient and known diabetic Objective Exam Vital Signs Date Time Temp Pulse Resp B/P (MAP) Pulse Ox O2 Delivery O2 Flow Rate FiO2 09/08/17 13:00 78 22 91 Room Air I & O 09/09/17 07:00 Intake Total 3100 ml Output Total 2100 ml Balance 1000 ml Capillary Refill : Less Than 3 SecondsLess Than 3 Seconds General Appearance: No Apparent Distress, WD/WN HEENT: Normal ENT Inspection Respiratory: Normal Breath Sounds, No Accessory Muscle Use, No Respiratory Distress Cardiovascular: Regular Rate, Rhythm Results Lab Microbiology 09/06/17 Blood Culture - Preliminary, Resulted No growth 09/06/17 Urine Culture - Final, Complete Escherichia coli Assessment/Plan Assessment/Plan Assess & Plan/Chief Complaint Urosepsis. UTI. Sirs. Nonresponsive. Parkinson disease. Dementia. Mental illness. Diabetes. To be evaluated by palliative care and speech therapy. Inability to eat. Prognosis poor Patient not eating or taken any fluids Clinical Quality Measures DVT/VTE Risk/Contraindication: Risk Factor Score Per Nursin RFS Level Per Nursing on Admit: 4+=Very High JOSE PRIEST DO Sep 09, 2017 07:47
[2017-09-09] MEDS ORDERED: MULT-166 PO (07:48)
[2017-09-09] MEDS ORDERED: OXYB10TA6 PO (07:48)
[2017-09-09] MEDS ORDERED: PHEN-639 PO (07:48)
[2017-09-09] MEDS ORDERED: CYAN10006 PO (07:48)
[2017-09-09] MEDS ORDERED: MAGN400O7 PO (07:48)
[2017-09-09] MEDS ORDERED: ACET325T38 PO (07:48)
[2017-09-09] MEDS ORDERED: POLY17PO6 PO (07:48)
[2017-09-09] MEDS ORDERED: METF500T4 PO (07:48)
[2017-09-09] MEDS ORDERED: LEVO50TA6 PO (07:48)
[2017-09-09] MEDS: cefTRIAXone 1 GM/NS 100 ML IV SCH ×2 (08:14)
[2017-09-09 08:19] LABS: HEMOGLOBIN 11.3 G/DL (11.5-16.0); MEAN PLATELET VOLUME 10.9 FL (7.4-10.4); RED BLOOD COUNT 4.18 10^6/uL (4.35-5.85); RED CELL DISTRIBUTION WIDTH 16.3 % (10.0-14.5)
[2017-09-09 08:37] LABS: BUN/CREATININE RATIO 16; CALCIUM 9.5 MG/DL (8.5-10.1); CARBON DIOXIDE 21 MMOL/L (21-32); CHLORIDE 109 MMOL/L (98-107); CREATININE SERUM 0.68 MG/DL (0.60-1.30); GFR ESTIMATED > 60; GLUCOSE 131 MG/DL (70-105); POTASSIUM 3.3 MMOL/L (3.6-5.0); SODIUM 140 MMOL/L (135-145)
--- NOTE | 2017-09-09 09:01 | Physician Query Clarification ---
PQ-Further Specificity Admission/Discharge Admission Date: Sep 06, 2017 at 14:23 Discharge Date: The medical record reflects the following clinical scenario: History/Risk Factors: UTI-E coli Altered mental status Clinical Findings:T 97.2, pulse 82, resp 16, BP 156/80, Lactic acid 0.89, Blood culture-No growth, Urine culture <10,000 Escherichia coli. WBC 16.5 Bands 0 Treatment: 2 g Rochephin IV. H&P by Dr. Rust indicated UTI, your progress note listed urosepsis. ICD 10 does not have a code for urosepsis. Question: Can you further specify Urosepsis per the clinical indicators above? Please document below. 1. UTI only. 2. UTI with sepsis. (If sepsis, please document qualifying criteria). 3. Other, with explanation of the clinical findings. 4. Clinically undetermined, no explanation for the clinical findings. PHYSICIAN RESPONSE Can you specify per above: 1 In responding to this query, please exercise your independent professional judgment. The purpose of this communication is to more accurately reflect the complexity of your patients condition. The fact that a question is asked does not imply that any particular answer is desired or expected. Thank you for your timely response to this clarification. Requestors name: Elsy Garcia [facility] Phone # ext [phone] or [phone] THIS PHYSICIAN QUERY FORM IS A PERMANENT PART OF THE MEDICAL RECORD ELSY GARCIA Sep 09, 2017 09:01 JOSE PRIEST DO Sep 09, 2017 12:33
--- NOTE | 2017-09-09 09:42 | Speech Therapy Progress Note ---
Therapy Progress Note Speech pathology consult received and chart reviewed. The clinician attempted to wake the patient to an appropriate alertness level for PO intake. Regardless of maximum prompting, the patient did not open eyes or participate in the examination. A spoon was placed to the patient's lips. The patient made no attempts to open mouth for spoon. At this time, the clinician is unable to complete the examination and cannot comment on the appropriateness of the patient for PO. Speech pathology will reattempt at a later time. CAROLE MENDIETA Sep 09, 2017 09:42
[2017-09-09 13:29] LABS: BILIRUBIN,URINE NEGATIVE (NEGATIVE); CLARITY,URINE CLEAR; COLOR,URINE YELLOW; GLUCOSE, URINE (UA) 1+ (NEGATIVE); KETONES,URINE 3+ (NEGATIVE); LEUKOCYTE ESTERASE ,URINE 1+ (NEGATIVE); NITRITE,URINE NEGATIVE (NEGATIVE); PH,URINE 6 (5-9); PROTEIN,URINE 3+ (NEGATIVE); UROBILINOGEN,URINE NORMAL (NORMAL)
[2017-09-09 13:40] LABS: BACTERIA,URINE FEW /HPF; RBC,URINE RARE /HPF; SQUAMOUS EPITHELIAL CELL,UR RARE /HPF; WBC,URINE 25-50 /HPF; YEAST,URINE MODERATE /HPF
[2017-09-09] MEDS ORDERED: fentaNYL PATCH 12 MCG (DURAGESIC) TD SCH (19:30)
[2017-09-10] MEDS: LORazepam INJ 2 MG/ML (ATIVAN) VIAL IVP PRN ×6 (01:00→22:31)
[2017-09-10 06:50] LABS: MEAN PLATELET VOLUME 11.2 FL (7.4-10.4); WHITE BLOOD COUNT 11.9 10^3/uL (4.3-11.0)
[2017-09-10 07:11] LABS: BUN/CREATININE RATIO 14; CALCIUM 9.1 MG/DL (8.5-10.1); CARBON DIOXIDE 18 MMOL/L (21-32); CHLORIDE 108 MMOL/L (98-107); GFR ESTIMATED > 60; GLUCOSE 142 MG/DL (70-105); POTASSIUM 2.9 MMOL/L (3.6-5.0); SODIUM 141 MMOL/L (135-145)
--- NOTE | 2017-09-10 07:57 | Progress Note (SOAP) ---
Subjective Time Seen by Provider: 07:50 Subjective/Events-last exam Spoke to guardian which is her sister.. To go hospice tomorrow and be discharged back to [facility]. Wants one more day of fluids since family member is coming in this Saturday patient nonresponsive. Sr. was in denial Objective Exam Vital Signs Date Time Temp Pulse Resp B/P (MAP) Pulse Ox O2 Delivery O2 Flow Rate FiO2 09/09/17 19:45 Room Air 09/09/17 09:39 98.2 104 32 94 Room Air 09/09/17 08:00 Room Air I & O 09/10/17 07:00 Intake Total 1100 ml Output Total 1725 ml Balance -625 ml Capillary Refill : Less Than 3 SecondsLess Than 3 Seconds General Appearance: No Apparent Distress, Other (Nonresponsive) Results Lab Laboratory Tests 09/09/17 08:12: White Blood Count 13.0H, Red Blood Count 4.18L, Hemoglobin 11.3L, Hematocrit 35 , Mean Corpuscular Volume 83, Mean Corpuscular Hemoglobin 27, Mean Corpuscular Hemoglobin Concent 33, Red Cell Distribution Width 16.3H, Platelet Count 191, Mean Platelet Volume 10.9H, Sodium Level 140, Potassium Level 3.3L, Chloride Level 109H, Carbon Dioxide Level 21, Anion Gap 10, Blood Urea Nitrogen 11, Creatinine 0.68, Estimat Glomerular Filtration Rate > 60, BUN/Creatinine Ratio 16, Glucose Level 131H, Calcium Level 9.5 09/09/17 11:25: Urine Color YELLOW, Urine Clarity CLEAR, Urine pH 6, Urine Specific Rhodes 1.015L, Urine Protein 3+H, Urine Glucose (UA) 1+H, Urine Ketones 3+H, Urine Nitrite NEGATIVE, Urine Bilirubin NEGATIVE, Urine Urobilinogen NORMAL, Urine Leukocyte Esterase 1+H, Urine RBC (Auto) 2+H, Urine RBC RARE, Urine WBC 25-50H, Urine Squamous Epithelial Cells RARE, Urine Crystals NONE, Urine Bacteria FEWH, Urine Casts NONE, Urine Mucus SMALLH, Urine Yeast MODERATEH, Urine Culture Indicated YES 09/10/17 05:50: White Blood Count 11.9H, Red Blood Count 4.00L, Hemoglobin 11.0L, Hematocrit 33L , Mean Corpuscular Volume 82, Mean Corpuscular Hemoglobin 28, Mean Corpuscular Hemoglobin Concent 33, Red Cell Distribution Width 16.0H, Platelet Count 193, Mean Platelet Volume 11.2H, Sodium Level 141, Potassium Level 2.9L, Chloride Level 108H, Carbon Dioxide Level 18L, Anion Gap 15H, Blood Urea Nitrogen 10, Creatinine 0.70, Estimat Glomerular Filtration Rate > 60, BUN/Creatinine Ratio 14, Glucose Level 142H, Calcium Level 9.1 Microbiology 09/06/17 Blood Culture - Preliminary, Resulted No growth 09/09/17 Urine Culture - Preliminary, Resulted Gram Negative John Yeast species Assessment/Plan Assessment/Plan Assess & Plan/Chief Complaint Urosepsis. UTI. Sirs. Nonresponsive. Parkinson disease. Dementia. Mental illness. Diabetes. To be evaluated by palliative care and speech therapy. Inability to eat. Prognosis poor Patient not eating or taken any fluids. . 09/10/17. UTI. Sirs. Nonresponsive. Parkinson disease. Dementia. Mental illness. Diabetes. Hypokalemia. Patient to be hospice tomorrow Clinical Quality Measures DVT/VTE Risk/Contraindication: Risk Factor Score Per Nursin RFS Level Per Nursing on Admit: 4+=Very High JOSE PRIEST DO Sep 10, 2017 07:57
[2017-09-10] MEDS: cefTRIAXone 1 GM/NS 100 ML IV SCH ×2 (08:27)
--- NOTE | 2017-09-10 08:52 | Speech Therapy Progress Note ---
Therapy Progress Note Speech pathology re-attempted swallowing evaluation on this date. The patient's sister is at bedside. The patient does not demonstrate appropriate alertness levels, not responding to the clinician with verbal prompts or gentle tactile prompts. The patient's keeps eyes closed throughout the clinician's attempt. The patient does not attempt to enclose lips around spoon or straw. At this time , the patient remains inappropriate for completion of the dysphagia evaluation. CAROLE MENDIETA Sep 10, 2017 08:52
[2017-09-10] MEDS: POTASSIUM CL 10MEQ/50ML IVPB 50 ML IV SCH ×4 (09:24→12:00)
[2017-09-10] MEDS: NS IV 1000 ML 1,000 ML IV SCH (11:31)
[2017-09-10 17:00] VITALS: BP 168/73
[2017-09-11] MEDS: NS IV 1000 ML 1,000 ML IV SCH (00:46)
[2017-09-11] MEDS: LORazepam INJ 2 MG/ML (ATIVAN) VIAL IVP PRN ×3 (03:24→11:29)
--- NOTE | 2017-09-11 08:00 | Progress Note (SOAP) ---
Subjective Time Seen by Provider: 07:55 Subjective/Events-last exam Patient unresponsive. Patient to go on hospice at [facility] [place]. Patient to be discharged today Objective Exam Vital Signs Date Time Temp Pulse Resp B/P (MAP) Pulse Ox O2 Delivery O2 Flow Rate FiO2 09/10/17 20:00 Room Air 09/10/17 17:00 99.6 103 20 168/73 (104) 92 Room Air 09/10/17 08:25 Room Air I & O 09/11/17 07:00 Intake Total 150 ml Output Total 850 ml Balance -700 ml Capillary Refill : Less Than 3 SecondsLess Than 3 Seconds General Appearance: WD/WN, Other (Resting comfortably) Results Lab Microbiology 09/06/17 Blood Culture - Preliminary, Resulted No growth 09/09/17 Urine Culture - Preliminary, Resulted Escherichia coli Yeast species Assessment/Plan Assessment/Plan Assess & Plan/Chief Complaint Urosepsis. UTI. Sirs. Nonresponsive. Parkinson disease. Dementia. Mental illness. Diabetes. To be evaluated by palliative care and speech therapy. Inability to eat. Prognosis poor Patient not eating or taken any fluids. . /12/23. UTI. Sirs. Nonresponsive. Parkinson disease. Dementia. Mental illness. Diabetes. Hypokalemia. Patient to be hospice tomorrow. . 3 severe 01/22. UTI. Surgeries. Parkinson disease. Dementia. Rectal illness. Diabetes. Parkinson disease. Patient nonresponsive. Patient resting comfortably. Transfer patient today to assisted with hospice Clinical Quality Measures DVT/VTE Risk/Contraindication: Risk Factor Score Per Nursin RFS Level Per Nursing on Admit: 4+=Very High JOSE PRIEST DO Sep 11, 2017 08:00
--- NOTE | 2017-09-11 08:03 | Discharge Inst-Skilled Nursing ---
Discharge Inst-Skilled NF Patient Instructions Patient Problems: Patient hospice. Patient nonresponsive. Patient terminal Consult/Follow Up/Orders Skilled NF Admit to: [facility] Certification (SNF) I certify that SNF services are required to be given on an inpatient basis because of the above named patient's need for long-term care on a continuing basis for the conditions(s) for which he/she was receiving inpatient hospital services prior to his/her transfer to the SNF. Snf Facility Order: Nursing Services Discharge Diet: Other Diet (Patient not able to eat) Daily Activity as Tolerated: No New & Resume Previous Orders Shan Priest Sep 11, 2017 08:02 SHAN PRIEST DO Sep 11, 2017 08:03
[2017-09-11] MEDS: cefTRIAXone 1 GM/NS 100 ML IV SCH ×2 (08:54)
[2017-09-11 13:20] VITALS: BP 168/73
--- NOTE | 2017-09-12 07:04 | Discharge Summary ---
Diagnosis/Chief Complaint Date of Admission Sep 06, 2017 at 14:23 Date of Discharge Sep 11, 2017 at 13:20 Discharge Date: Sep 11, 2017 Discharge Time: 07:00 Discharge Diagnosis Nonresponsive. Parkinson disease. Dehydration. Sepsis. Dementia. Inability to eat. UTI. Due to Escherichia coli and yeast. History of hypertension. History of nicotine dependence. Diabetes. Discharge Summary Discharge Physical Examination Allergies: Coded Allergies: codeine (Verified Allergy, Unknown, 09/06/17) Vitals & I&Os Vital Signs Date Time Temp Pulse Resp B/P (MAP) Pulse Ox O2 Delivery O2 Flow Rate FiO2 09/11/17 13:20 103 20 168/73 92 Room Air 09/10/17 17:00 99.6 Hospital Course Patient nonresponsive during hospital stay. Family in denial about sister who is her guardian. Family wants hospice. Patient transferred [facility] in [place] (last 24 hrs) Laboratory Tests 09/06/17 13:00: White Blood Count 16.5H, Red Blood Count 5.09, Hemoglobin 13.7, Hematocrit 42, Mean Corpuscular Volume 82, Mean Corpuscular Hemoglobin 27, Mean Corpuscular Hemoglobin Concent 33, Red Cell Distribution Width 16.4H, Platelet Count 274, Mean Platelet Volume 11.3H, Neutrophils (%) (Auto) 79H, Lymphocytes (%) (Auto) 10L, Monocytes (%) (Auto) 9, Eosinophils (%) (Auto) 2, Basophils (%) (Auto) 1, Neutrophils # (Auto) 13.0H, Lymphocytes # (Auto) 1.7, Monocytes # (Auto) 1.5H, Eosinophils # (Auto) 0.2, Basophils # (Auto) 0.1, Neutrophils % (Manual) 82, Lymphocytes % (Manual) 8, Monocytes % (Manual) 6, Eosinophils % (Manual) 3, Basophils % (Manual) 1, Band Neutrophils 0, Blood Morphology Comment NORMAL, Sodium Level 142, Potassium Level 4.7, Chloride Level 103, Carbon Dioxide Level 26, Anion Gap 13, Blood Urea Nitrogen 30H, Creatinine 0.94, Estimat Glomerular Filtration Rate 59, BUN/Creatinine Ratio 32, Glucose Level 199H, Lactic Acid Level 0.89, Calcium Level 10.9H, Total Bilirubin 0.7, Aspartate Amino Transf ( AST/SGOT) 38H, Alanine Aminotransferase (ALT/SGPT) 72H, Alkaline Phosphatase 76 , Troponin I < 0.30, Total Protein 7.6, Albumin 4.4 09/06/17 13:20: Urine Color ORANGE, Urine Clarity CLEAR, Urine pH 5, Urine Specific Newell 1.020, Urine Protein 4+, Urine Glucose (UA) NEGATIVE, Urine Ketones 2+H, Urine Nitrite POSITIVEH, Urine Bilirubin 2+H, Urine Urobilinogen 1, Urine Leukocyte Esterase 1+H, Urine RBC (Auto) NEGATIVE, Urine RBC NONE, Urine WBC 0-2, Urine Squamous Epithelial Cells NONE, Urine Crystals NONE, Urine Bacteria FEWH, Urine Casts NONE, Urine Mucus NEGATIVE, Urine Culture Indicated YES 09/07/17 04:35: White Blood Count 15.0H, Red Blood Count 4.58, Hemoglobin 12.4, Hematocrit 38, Mean Corpuscular Volume 83, Mean Corpuscular Hemoglobin 27, Mean Corpuscular Hemoglobin Concent 33, Red Cell Distribution Width 16.4H, Platelet Count 225, Mean Platelet Volume 11.2H, Neutrophils (%) (Auto) 75, Lymphocytes (%) (Auto) 11L, Monocytes (%) (Auto) 10, Eosinophils (%) (Auto) 3, Basophils (%) (Auto) 1, Neutrophils # (Auto) 11.3H, Lymphocytes # (Auto) 1.7, Monocytes # (Auto) 1.4H, Eosinophils # (Auto) 0.4H, Basophils # (Auto) 0.1, Sodium Level 141, Potassium Level 4.0, Chloride Level 108H, Carbon Dioxide Level 24, Anion Gap 9, Blood Urea Nitrogen 23H, Creatinine 0.78, Estimat Glomerular Filtration Rate > 60, BUN /Creatinine Ratio 29, Glucose Level 176H, Calcium Level 10.1, Total Bilirubin 0.6, Aspartate Amino Transf (AST/SGOT) 44H, Alanine Aminotransferase (ALT/SGPT) 79H, Alkaline Phosphatase 74, Total Protein 7.1, Albumin 3.9 09/09/17 08:12: White Blood Count 13.0H, Red Blood Count 4.18L, Hemoglobin 11.3L, Hematocrit 35 , Mean Corpuscular Volume 83, Mean Corpuscular Hemoglobin 27, Mean Corpuscular Hemoglobin Concent 33, Red Cell Distribution Width 16.3H, Platelet Count 191, Mean Platelet Volume 10.9H, Sodium Level 140, Potassium Level 3.3L, Chloride Level 109H, Carbon Dioxide Level 21, Anion Gap 10, Blood Urea Nitrogen 11, Creatinine 0.68, Estimat Glomerular Filtration Rate > 60, BUN/Creatinine Ratio 16, Glucose Level 131H, Calcium Level 9.5 09/09/17 11:25: Urine Color YELLOW, Urine Clarity CLEAR, Urine pH 6, Urine Specific Newell 1.015L, Urine Protein 3+H, Urine Glucose (UA) 1+H, Urine Ketones 3+H, Urine Nitrite NEGATIVE, Urine Bilirubin NEGATIVE, Urine Urobilinogen NORMAL, Urine Leukocyte Esterase 1+H, Urine RBC (Auto) 2+H, Urine RBC RARE, Urine WBC 25-50H, Urine Squamous Epithelial Cells RARE, Urine Crystals NONE, Urine Bacteria FEWH, Urine Casts NONE, Urine Mucus SMALLH, Urine Yeast MODERATEH, Urine Culture Indicated YES 09/10/17 05:50: White Blood Count 11.9H, Red Blood Count 4.00L, Hemoglobin 11.0L, Hematocrit 33L , Mean Corpuscular Volume 82, Mean Corpuscular Hemoglobin 28, Mean Corpuscular Hemoglobin Concent 33, Red Cell Distribution Width 16.0H, Platelet Count 193, Mean Platelet Volume 11.2H, Sodium Level 141, Potassium Level 2.9L, Chloride Level 108H, Carbon Dioxide Level 18L, Anion Gap 15H, Blood Urea Nitrogen 10, Creatinine 0.70, Estimat Glomerular Filtration Rate > 60, BUN/Creatinine Ratio 14, Glucose Level 142H, Calcium Level 9.1 Microbiology 09/06/17 Blood Culture - Final, Complete No growth 09/09/17 Urine Culture - Preliminary, Resulted Escherichia coli Yeast species Laboratory Tests 09/06/17 13:00 09/07/17 04:35 09/09/17 08:12 09/10/17 05:50 Pending Labs Microbiology Date/Time Source Procedure Growth Status 09/06/17 13:27 Peripheral Rt Forearm Blood Culture - Final No growth Complete 09/06/17 13:00 Peripheral Left Wrist Blood Culture - Preliminary Staph, Coag Neg (INFECTION CONTROL NURSE) See Comments Resulted 09/09/17 11:25 Urine Clean Catch Urine Culture - Preliminary Escherichia coli Yeast species Resulted 09/06/17 13:20 Urine Clean Catch Urine Culture - Final Escherichia coli Complete Laboratory Tests 09/06/17 13:00: White Blood Count 16.5, Red Blood Count 5.09, Hemoglobin 13.7, Hematocrit 42, Mean Corpuscular Volume 82, Mean Corpuscular Hemoglobin 27, Mean Corpuscular Hemoglobin Concent 33, Red Cell Distribution Width 16.4, Platelet Count 274, Mean Platelet Volume 11.3, Neutrophils (%) (Auto) 79, Lymphocytes (%) (Auto) 10 , Monocytes (%) (Auto) 9, Eosinophils (%) (Auto) 2, Basophils (%) (Auto) 1, Neutrophils # (Auto) 13.0, Lymphocytes # (Auto) 1.7, Monocytes # (Auto) 1.5, Eosinophils # (Auto) 0.2, Basophils # (Auto) 0.1, Neutrophils % (Manual) 82, Lymphocytes % (Manual) 8, Monocytes % (Manual) 6, Eosinophils % (Manual) 3, Basophils % (Manual) 1, Band Neutrophils 0, Blood Morphology Comment NORMAL, Sodium Level 142, Potassium Level 4.7, Chloride Level 103, Carbon Dioxide Level 26, Anion Gap 13, Blood Urea Nitrogen 30, Creatinine 0.94, Estimat Glomerular Filtration Rate 59, BUN/Creatinine Ratio 32, Glucose Level 199, Lactic Acid Level 0.89, Calcium Level 10.9, Total Bilirubin 0.7, Aspartate Amino Transf (AST /SGOT) 38, Alanine Aminotransferase (ALT/SGPT) 72, Alkaline Phosphatase 76, Troponin I < 0.30, Total Protein 7.6, Albumin 4.4 09/06/17 13:20: Urine Color ORANGE, Urine Clarity CLEAR, Urine pH 5, Urine Specific Newell 1.020, Urine Protein 4+, Urine Glucose (UA) NEGATIVE, Urine Ketones 2+, Urine Nitrite POSITIVE, Urine Bilirubin 2+, Urine Urobilinogen 1, Urine Leukocyte Esterase 1+, Urine RBC (Auto) NEGATIVE, Urine RBC NONE, Urine WBC 0-2, Urine Squamous Epithelial Cells NONE, Urine Crystals NONE, Urine Bacteria FEW, Urine Casts NONE, Urine Mucus NEGATIVE, Urine Culture Indicated YES 09/07/17 04:35: White Blood Count 15.0, Red Blood Count 4.58, Hemoglobin 12.4, Hematocrit 38, Mean Corpuscular Volume 83, Mean Corpuscular Hemoglobin 27, Mean Corpuscular Hemoglobin Concent 33, Red Cell Distribution Width 16.4, Platelet Count 225, Mean Platelet Volume 11.2, Neutrophils (%) (Auto) 75, Lymphocytes (%) (Auto) 11 , Monocytes (%) (Auto) 10, Eosinophils (%) (Auto) 3, Basophils (%) (Auto) 1, Neutrophils # (Auto) 11.3, Lymphocytes # (Auto) 1.7, Monocytes # (Auto) 1.4, Eosinophils # (Auto) 0.4, Basophils # (Auto) 0.1, Sodium Level 141, Potassium Level 4.0, Chloride Level 108, Carbon Dioxide Level 24, Anion Gap 9, Blood Urea Nitrogen 23, Creatinine 0.78, Estimat Glomerular Filtration Rate > 60, BUN/ Creatinine Ratio 29, Glucose Level 176, Calcium Level 10.1, Total Bilirubin 0.6 , Aspartate Amino Transf (AST/SGOT) 44, Alanine Aminotransferase (ALT/SGPT) 79, Alkaline Phosphatase 74, Total Protein 7.1, Albumin 3.9 09/09/17 08:12: White Blood Count 13.0, Red Blood Count 4.18, Hemoglobin 11.3, Hematocrit 35, Mean Corpuscular Volume 83, Mean Corpuscular Hemoglobin 27, Mean Corpuscular Hemoglobin Concent 33, Red Cell Distribution Width 16.3, Platelet Count 191, Mean Platelet Volume 10.9, Sodium Level 140, Potassium Level 3.3, Chloride Level 109, Carbon Dioxide Level 21, Anion Gap 10, Blood Urea Nitrogen 11, Creatinine 0.68, Estimat Glomerular Filtration Rate > 60, BUN/Creatinine Ratio 16, Glucose Level 131, Calcium Level 9.5 09/09/17 11:25: Urine Color YELLOW, Urine Clarity CLEAR, Urine pH 6, Urine Specific Newell 1.015, Urine Protein 3+, Urine Glucose (UA) 1+, Urine Ketones 3+, Urine Nitrite NEGATIVE, Urine Bilirubin NEGATIVE, Urine Urobilinogen NORMAL, Urine Leukocyte Esterase 1+, Urine RBC (Auto) 2+, Urine RBC RARE, Urine WBC 25-50, Urine Squamous Epithelial Cells RARE, Urine Crystals NONE, Urine Bacteria FEW, Urine Casts NONE, Urine Mucus SMALL, Urine Yeast MODERATE, Urine Culture Indicated YES 09/10/17 05:50: White Blood Count 11.9, Red Blood Count 4.00, Hemoglobin 11.0, Hematocrit 33, Mean Corpuscular Volume 82, Mean Corpuscular Hemoglobin 28, Mean Corpuscular Hemoglobin Concent 33, Red Cell Distribution Width 16.0, Platelet Count 193, Mean Platelet Volume 11.2, Sodium Level 141, Potassium Level 2.9, Chloride Level 108, Carbon Dioxide Level 18, Anion Gap 15, Blood Urea Nitrogen 10, Creatinine 0.70, Estimat Glomerular Filtration Rate > 60, BUN/Creatinine Ratio 14, Glucose Level 142, Calcium Level 9.1 Discharge Home Medications: Active Scripts Active No Active Prescriptions or Reported Medications Instructions to patient/family Please see electronic discharge instructions given to patient. Clinical Quality Measures DVT/VTE Risk/Contraindication: Risk Factor Score Per Nursin RFS Level Per Nursing on Admit: 4+=Very High JOSE PRIEST DO Sep 12, 2017 07:04
--- NOTE | 2017-09-12 09:29 | Physician Query Clarification ---
PQ-Uncertain Diagnosis Admission/Discharge Admission Date: Sep 06, 2017 at 14:23 Discharge Date: Sep 11, 2017 at 13:20 The medical record reflects the following clinical scenario: History/Risk Factors: UTI Dehydration Clinical Findings: WBC 16.5, Bands 0, T 97.2, Pulse 82, Resp 16, BP 156/80, Lactic acid 0.89, nonresponsive, final blood culture-no growth, urine culture E coli and Yeast Treatment: IV Ceftriaxone Sodium Question: Your discharge summary gave the discharge diagnosis of sepsis. On a previous query, you indicated UTI only. Please clarify if sepsis was a clinically valid diagnosis and if so, was it present on admission or did it develop after admission? Is Sepsis a clinically valid diagnosis? Sepsis was documented in the discharge summary with no further documentation in the medical record. Please document a response below. PHYSICIAN RESPONSE Diagnosis clinically valid: No, conditon ruled out In responding to this query, please exercise your independent professional judgment. The purpose of this communication is to more accurately reflect the complexity of your patients condition. The fact that a question is asked does not imply that any particular answer is desired or expected. Thank you for your timely response to this clarification. Requestors name: Elsy Garcia [facility] Phone # ext [phone] or [phone] THIS PHYSICIAN QUERY FORM IS A PERMANENT PART OF THE MEDICAL RECORD ELSY GARCIA Sep 12, 2017 09:29 JOSE PRIEST DO Sep 12, 2017 18:08
== END 2017-09-11 13:20 | disposition hospice, home (50) | DRG 690 ==
LOC: EDUNIT# 12:13 → ER 12:14 → 4TH 14:23
PROVIDERS: ADMIT Internal Medicine; ATTEND Internal Medicine
DX: N39.0 Urinary tract infection, site not specified (principal); B96.20 Unspecified Escherichia coli [E. coli] as the cause of diseases classified elsewhere; E86.0 Dehydration; B37.49 Other urogenital candidiasis; R64 Cachexia; F03.91 Unspecified dementia, unspecified severity, with behavioral disturbance; R40.0 Somnolence; R63.3 Feeding difficulties; Z66 Do not resuscitate; E11.40 Type 2 diabetes mellitus with diabetic neuropathy, unspecified; G20 Parkinson's disease; I10 Essential (primary) hypertension; F41.9 Anxiety disorder, unspecified; K64.9 Unspecified hemorrhoids; M54.9 Dorsalgia, unspecified; Z86.73 Personal history of transient ischemic attack (TIA), and cerebral infarction without residual deficits; Z87.891 Personal history of nicotine dependence; Z79.4 Long term (current) use of insulin
CPT/HCPCS: 36415; 71045; 80048; 80053; 81000; 83605; 84484; 85007; 85025; 85027; 87040; 87077; 87088; 87186; 96361; 96365; 99284